=== PATIENT | female | born 1950 | race Caucasian/White ===

== ENCOUNTER 2020-02-16 09:14 | Emergency (ER) | payer MEDICARE, BC ==
[~2020-02-16] VITALS: Ht 149.9 cm; Wt 51.3 kg
[~2020-02-16 09:14] MED LIST: ATENOLOL50 MG PO; DETROL LA4 MG PO; GLIPIZIDE ER5 MG PO; HYDROCHLOROTHIA25 MG; LEVOTHYROXINE75 MCG PO; PROVENTIL HFA6.7 GM INH; SIMVASTATIN40 MG PO
--- NOTE | 2020-02-16 09:28 | Emergency Department Note ---
History of Present Illnes History of Present Illness Chief Complaint: General Medicine Complaints History of Present Illness This is a 69 year old female with PMH of anemia states that she felt weak and hit the back of her head. Denies LOC or n/v .. 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 Arrival Mode: [facility] Onset (how long ago): second(s) Location: r scalpo Radiation: Reports non-radiation Severity: mild Onset quality: sudden Duration (how long): hour(s) Timing of current episode: constant Progression: unchanged Context: Reports trauma/injury Relieving factors: none Exacerbating factors: none Associated symptoms: Denies denies other symptoms, Denies confusion, Denies chest pain, Denies cough, Denies diaphoresis, Denies fever/chills, Denies headaches, Denies loss of appetite, Denies malaise, Denies nausea/vomiting, Denies rash, Denies seizure, Denies shortness of breath, Denies syncope, Denies weakness, Denies other Treatments prior to arrival: none Past Medical/Family History Physician Review I have reviewed the patient's past medical and family history. Any updates have been documented here. Past Medical History Recent Fever: No Clinical Suspicion of Infectio: No New/Unexplained Change in Ment: No Past Medical History: Hypertension Other Medical History: pyloric stenosis Anemia Other Surgery: AVR Social History Smoking Cessation: Never Smoker Alcohol Use: None Any Illegal Drug Use: No Review of Systems Review of Systems Constitutional: Reports weakness EENTM: Reports no symptoms Cardiovascular: Reports no symptoms Respiratory: Reports no symptoms Gastrointestinal: Reports no symptoms Genitourinary: Reports no symptoms Musculoskeletal: Reports no symptoms Integumentary: Reports no symptoms Neurological: Reports no symptoms Psychological: Reports no symptoms Endocrine: Reports no symptoms Hematological/Lymphatic: Reports no symptoms Physical Exam Related Data Allergies: Coded Allergies: Sulfa (Sulfonamide Antibiotics) (Unverified Allergy, Unknown, 11/24/16) Vital signs reviewed: Yes Physical Exam CONSTITUTIONAL Constitutional: Present well-developed, Present well-nourished HENT HENT: Present normocephalic, Present other (2 cm laceration R parietal region); Absent atraumatic HENT L/R: Present left ext ear normal, Present right ext ear normal EYES Eyes: Reports PERRL, Reports conjunctivae normal NECK Neck: Present ROM normal PULMONARY Pulmonary: Present effort normal, Present breath sounds normal CARDIOVASCULAR Cardiovascular: Present regular rhythm, Present heart sounds normal, Present capillary refill normal, Present bradycardia GASTROINTESTINAL Abdominal: Present soft, Present nontender, Present bowel sounds normal GENITOURINARY Genitourinary: Present exam deferred SKIN Skin: Present pale MUSCULOSKELETAL Musculoskeletal: Present ROM normal NEUROLOGICAL Neurological: Present alert, Present oriented x 3, Present no gross motor or sensory deficits PSYCHOLOGICAL Psychological: Present mood/affect normal, Present judgement normal Results Laboratory Lab results reviewed: Yes Imaging Imaging results reviewed: Yes Impressions [place] [address] Patient Name: AXEL CHRISTOPHER MR #: [id number] : 1950 Age/Sex: 69/F Req #: [id number] Adm Physician: Ordered by: BERYL MIJARES DO Report #: [id number] Location: ER Room/Bed: Procedure: [id number] DX/CHEST SINGLE (PORTABLE) Exam Date: 02/16/20 Exam Time: 0920 REPORT STATUS: Signed Chest, 1 view, 02/16/2020. History: Weakness, fall. Comparison: None available. Findings: The cardiomediastinal silhouette and pulmonary vasculature are mildly prominent. There is no focal consolidation. Linear opacities are present lung bases. There is minimal blunting of the left costophrenic sulcus. Mediastinal sternotomy wires are present. There are no acute osseous or soft tissue abnormalities. Impression: Mild cardiomegaly, vascular congestion, and bibasilar atelectasis with minimal left pleural effusion. Signed by: Beryl Mcgrath on 02/16/2020 10:06 AM Dictated By: BERYL MCGRATH MD 1006 Transcribed By: MARIAH on 02/16/20 1006 COPY TO: BERYL MIJARES DO~ [place] [address] Patient Name: AXEL CHRISTOPHER MR #: [id number] : 1950 Age/Sex: 69/F Req #: [id number] Adm Physician: Ordered by: BERYL MIJARES DO Report #: [id number] Location: ER Room/Bed: Procedure: [id number] CT/CT CERVICAL SPINE WO Exam Date: 02/16/20 Exam Time: 0950 REPORT STATUS: Signed CT CERVICAL SPINE WO HISTORY: Fall COMPARISON: Concurrent head CT TECHNIQUE: CT of the cervical spine without contrast. Sagittal and coronal reformations were created. One or more of the following dose reduction techniques were used: Automated exposure control, adjustment of the mA and/or kV according to patient size, and/or utilization of iterative reconstruction technique. FINDINGS: Cervical lordosis is straightened. There is no scoliosis or subluxation. Mild bone demineralization limits evaluation. No definite acute fracture or compression deformity is seen. Small bilateral cervical ribs at C7 are noted. The craniocervical junction is intact. No gross spinal canal masses are seen. The paravertebral and paraspinal soft tissues are unremarkable. Degenerative changes: Moderate to severe multilevel spondylotic changes are present. Multilevel facet arthrosis is present, right greater than left. The right C5-C6 facet joint is fused. There is at least mild canal stenosis from C2-C3 to C4-C5 due to posterior disc osteophyte complexes. Multilevel bilateral foraminal stenoses due to uncovertebral and facet arthrosis are also present. Incidental findings: Mild to moderate bilateral carotid bulb calcified plaque is present. IMPRESSION: 1. No acute osseous abnormalities. 2. Degenerative changes as described above. Signed by: Dr. Cruz Nagy M.D. on 02/16/2020 10:33 AM Dictated By: CRUZ NAGY MD 32 Transcribed By: MARIAH on 02/16/201032 COPY TO: BERYL MIJARES DO~ [place] [address] Patient Name: AXEL CHRISTOPHER MR #: [id number] : 1950 Age/Sex: 69/F Req #: [id number] Adm Physician: Ordered by: BERYL MIJARES DO Report #: [id number] Location: ER Room/Bed: Procedure: [id number] CT/CT BRAIN WO Exam Date: 02/16/20 Exam Time: 0950 REPORT STATUS: Signed CT BRAIN WO HISTORY: Fall COMPARISON: None. Technique: Noncontrast axial scans were obtained from skull base to the vertex. Coronal and sagittal reconstructions obtained from the axial data. One or more of the following dose reduction techniques were used: Automated exposure control, adjustment of the mA and/or kV according to patient size, and/or utilization of iterative reconstruction technique. Beam hardening artifacts obscure some details. DISCUSSION: Scalp/Skull: Right parietal scalp hematoma with overlying yulia. No calvarial fracture. Brain sulci: Mildly prominent. Ventricles: Compensatory dilatation. Extra-axial spaces: Trace subarachnoid hemorrhage is seen along the left inferior frontal gyrus, anterior left sylvian fissure, and left superior temporal sulcus. Otherwise, no masses or fluid collections. Carotid siphon calcifications are present. Parenchyma: Mild bilateral deep white matter hypodensity is likely chronic microvascular ischemic change. Otherwise, no masses, hemorrhage, or large vascular territory acute infarct. Dural sinuses: No abnormal densities. Sellar/Suprasellar region: Intact. Skull base: Intact. Incidental findings: Nonspecific focal calcifications along the bilateral posterior ocular globes. IMPRESSION: 1. Trace acute subarachnoid hemorrhage along the left frontal and left anterior temporal lobes. 2. No other acute intracranial abnormalities. 3. Mild supratentorial chronic microvascular ischemic change. Mild generalized cerebral volume loss. Signed by: Dr. Cruz Nagy M.D. on 02/16/2020 10:29 AM Dictated By: CRUZ NAGY MD 1029 Transcribed By: MARIAH on 02/16/20 1029 COPY TO: BERYL MIJARES DO~ Procedures 12 Lead ECG Interpretation ECG Interpretation : ECG: ECG 1 [employer]: Interpreted by ED physician Date: Feb 16, 2020 Time: 09:28 Rhythm: sinus bradycardia Rate: bradycardia ST segments normal: Yes T wave inversion: V1-V6 Clinical Impression: non-specific ECG Additional Comments Patient with previous EKG of sinus carlos cardia in 2014 Laceration Laceration: Laceration 1 Site: scalp Side: right Size (cm): 2 Description: linear Depth: simple, single layer Pre-repair: wound exposed Skin layer closed with: other ([place]) Number of sutures: 3 Critical Care Time Total Critical Care Time (min): 31 Critcal care necessary due to: trauma Critcal care time spent by me: develop tx plan w patient/surrogate, evaluation patient response to tx, examination of patient, obtaining hx from patient/surrogate, order/perform tx or interventions, order/review laboratory studies, order/review radiographic studies, re-evaluation of patient condition Assessment & Plan Medical Decision Making MDM Diff Dx : head injury, skull fx, scalp laceratoin, intracranial trauma, anemia, ACS, arrythmia Assessment & Plan Final Impression: (1) SAH (subarachnoid hemorrhage) (2) Scalp laceration (3) Anemia (4) Hyperglycemia (5) Sinus bradycardia by electrocardiogram Home Meds Reported Medications Hydrochlorothiazide (HYDROCHLOROTHIAZIDE) 25 Mg Tablet, 25 MG DAILY, #30 TAB 11/19/16 Tolterodine Tartrate (DETROL LA) 4 Mg Cap.er.24h, 4 MG PO DAILY, #30 CAP 11/19/16 Simvastatin (SIMVASTATIN) 40 Mg Tablet, 40 MG PO 2100, #30 TAB 11/06/14 Glipizide (GLIPIZIDE ER) 5 Mg Tab.er.24, 2.5 MG PO DAILY 11/06/14 Levothyroxine Sodium (LEVOTHYROXINE SODIUM) 75 Mcg Tablet, 75 MCG PO DAILY, #30 TAB 11/06/14 Atenolol (ATENOLOL) 50 Mg Tablet, 50 MG PO DAILY 11/06/14 BERYL MIJARES DO Feb 16, 2020 09:28
[2020-02-16] MEDS ORDERED: GLUCAGON FOR INJ 1 MG VIAL IV ONE (09:30)
[2020-02-16] MEDS ORDERED: CALCIUM GLUCONATE 10% INJ 4.65 MEQ in SODIUM CHLORIDE 0.9% 50ML 50 ML IV ONE (09:30)
[2020-02-16] MEDS ORDERED: CALCIUM GLUCONATE 10% INJ 0.465 MEQ/ML VIAL ONE (09:41)
[2020-02-16] MEDS ORDERED: SODIUM CHLORIDE 0.9% 50ML 50 ML ONE (09:45)
[2020-02-16 10:02] LABS: BASOPHILS % 0.1 % (0.0-1.0); HEMATOCRIT 30.7 % (34.2-44.1); HEMOGLOBIN 9.7 g/dL (12.0-16.0); LYMPHOCYTES # (AUTO) 0.7 (1.0-3.2); LYMPHOCYTES % 7.1 % (18.0-39.1); MEAN CORPUSCULAR HEMOGLOBIN 29.8 pg (28-32); MEAN CORPUSCULAR HGB CONC 31.6 g/dL (31-35); MEAN CORPUSCULAR VOLUME 94.2 fL (81-99); MONOCYTES # (AUTO) 0.3 (0.2-0.8); MONOCYTES % 2.6 % (4.4-11.3); NEUTROPHILS # (AUTO) 8.6 (2.1-6.9); NEUTROPHILS % 87.4 % (38.7-80.0); PLATELET COUNT 118 x10e3/uL (140-360); RED BLOOD COUNT 3.26 x10e6/uL (3.6-5.1); RED CELL DISTRIBUTION WIDTH 13.2 % (11.7-14.4)
--- NOTE | 2020-02-16 10:10 | Diagnostic Imaging Report ---
Chest, 1 view, 02/16/2020. History: Weakness, fall. Comparison: None available. Findings: The cardiomediastinal silhouette and pulmonary vasculature are mildly prominent. There is no focal consolidation. Linear opacities are present lung bases. There is minimal blunting of the left costophrenic sulcus. Mediastinal sternotomy wires are present. There are no acute osseous or soft tissue abnormalities. Impression: Mild cardiomegaly, vascular congestion, and bibasilar atelectasis with minimal left pleural effusion. Signed by: Steven Mcgrath on 02/16/2020 10:06 AM
--- NOTE | 2020-02-16 10:32 | Diagnostic Imaging Report ---
CT BRAIN WO HISTORY: Fall COMPARISON: None. Technique: Noncontrast axial scans were obtained from skull base to the vertex. Coronal and sagittal reconstructions obtained from the axial data. One or more of the following dose reduction techniques were used: Automated exposure control, adjustment of the mA and/or kV according to patient size, and/or utilization of iterative reconstruction technique. Beam hardening artifacts obscure some details. DISCUSSION: Scalp/Skull: Right parietal scalp hematoma with overlying yulia. No calvarial fracture. Brain sulci: Mildly prominent. Ventricles: Compensatory dilatation. Extra-axial spaces: Trace subarachnoid hemorrhage is seen along the left inferior frontal gyrus, anterior left sylvian fissure, and left superior temporal sulcus. Otherwise, no masses or fluid collections. Carotid siphon calcifications are present. Parenchyma: Mild bilateral deep white matter hypodensity is likely chronic microvascular ischemic change. Otherwise, no masses, hemorrhage, or large vascular territory acute infarct. Dural sinuses: No abnormal densities. Sellar/Suprasellar region: Intact. Skull base: Intact. Incidental findings: Nonspecific focal calcifications along the bilateral posterior ocular globes. IMPRESSION: 1. Trace acute subarachnoid hemorrhage along the left frontal and left anterior temporal lobes. 2. No other acute intracranial abnormalities. 3. Mild supratentorial chronic microvascular ischemic change. Mild generalized cerebral volume loss. Signed by: Dr. Cruz Nagy M.D. on 02/16/2020 10:29 AM
--- NOTE | 2020-02-16 10:37 | Diagnostic Imaging Report ---
CT CERVICAL SPINE WO HISTORY: Fall COMPARISON: Concurrent head CT TECHNIQUE: CT of the cervical spine without contrast. Sagittal and coronal reformations were created. One or more of the following dose reduction techniques were used: Automated exposure control, adjustment of the mA and/or kV according to patient size, and/or utilization of iterative reconstruction technique. FINDINGS: Cervical lordosis is straightened. There is no scoliosis or subluxation. Mild bone demineralization limits evaluation. No definite acute fracture or compression deformity is seen. Small bilateral cervical ribs at C7 are noted. The craniocervical junction is intact. No gross spinal canal masses are seen. The paravertebral and paraspinal soft tissues are unremarkable. Degenerative changes: Moderate to severe multilevel spondylotic changes are present. Multilevel facet arthrosis is present, right greater than left. The right C5-C6 facet joint is fused. There is at least mild canal stenosis from C2-C3 to C4-C5 due to posterior disc osteophyte complexes. Multilevel bilateral foraminal stenoses due to uncovertebral and facet arthrosis are also present. Incidental findings: Mild to moderate bilateral carotid bulb calcified plaque is present. IMPRESSION: 1. No acute osseous abnormalities. 2. Degenerative changes as described above. Signed by: Dr. Cruz Nagy M.D. on 02/16/2020 10:33 AM
[2020-02-16 10:48] LABS: ALBUMIN 3.3 g/dL (3.5-5.0); ALBUMIN/GLOBULIN RATIO 0.7 (0.8-2.0); ANION GAP 17.3 mmol/L (8-16); CALCIUM 12.8 mg/dL (8.4-10.2); CREATININE, SERUM 1.05 mg/dL (0.57-1.11); POTASSIUM 3.3 mmol/L (3.5-5.1)
== END 2020-02-16 13:12 | disposition other institution (70) ==
LOC: ER 09:34
DX: S06.6X0A Traumatic subarachnoid hemorrhage without loss of consciousness, initial encounter (principal); S01.01XA Laceration without foreign body of scalp, initial encounter; W01.198A Fall on same level from slipping, tripping and stumbling with subsequent striking against other object, initial encounter; Y92.008 Other place in unspecified non-institutional (private) residence as the place of occurrence of the external cause; R73.9 Hyperglycemia, unspecified; R00.1 Bradycardia, unspecified; D64.9 Anemia, unspecified; I10 Essential (primary) hypertension
CPT/HCPCS: 12001; 36415; 70450; 71045; 72125; 80053; 82550; 82553; 82948; 84484; 85025; 93005; 99284; J0610; J1610

== ENCOUNTER 2020-02-21 15:03 | Inpatient (IN) | payer MEDICARE, BC ==
[~2020-02-21] VITALS: Ht 149.9 cm; Wt 40.8 kg
[2020-02-21 15:48] LABS: BASOPHILS % 0.2 % (0.0-1.0); EOSINOPHILS % 0.2 % (0.0-6.0); HEMATOCRIT 26.6 % (34.2-44.1); HEMOGLOBIN 8.4 g/dL (12.0-16.0); LYMPHOCYTES # (AUTO) 0.3 (1.0-3.2); LYMPHOCYTES % 5.2 % (18.0-39.1); MEAN CORPUSCULAR HEMOGLOBIN 30.5 pg (28-32); MEAN CORPUSCULAR HGB CONC 31.6 g/dL (31-35); MEAN CORPUSCULAR VOLUME 96.7 fL (81-99); MONOCYTES # (AUTO) 0.2 (0.2-0.8); MONOCYTES % 2.7 % (4.4-11.3); NEUTROPHILS # (AUTO) 4.8 (2.1-6.9); NEUTROPHILS % 85.6 % (38.7-80.0); PLATELET COUNT 64 x10e3/uL (140-360); RED BLOOD COUNT 2.75 x10e6/uL (3.6-5.1)
[2020-02-21 16:06] LABS: ALANINE AMINOTRANSFERASE 21 IU/L (0-55); ALBUMIN 2.9 g/dL (3.5-5.0); ALBUMIN/GLOBULIN RATIO 0.9 (0.8-2.0); ALKALINE PHOSPHATASE 142 IU/L (40-150); ANION GAP 11.6 mmol/L (8-16); BLOOD UREA NITROGEN 12 mg/dL (7-26); BUN/CREATININE RATIO 14 (6-25); CALCIUM 10.3 mg/dL (8.4-10.2); CARBON DIOXIDE 25 mmol/L (22-29); CHLORIDE 99 mmol/L (98-107); CREATINE KINASE 35 IU/L (29-168); CREATININE, SERUM 0.83 mg/dL (0.57-1.11); EST GLOMERULAR FILTRATION RATE > 60 ML/MIN (60-); GLUCOSE 150 mg/dL (74-118); POTASSIUM 3.6 mmol/L (3.5-5.1); SODIUM 132 mmol/L (136-145)
[2020-02-21] MEDS ORDERED: CEFEPIME 1GM/NS 0.9% 50 ML 50 ML IV STA (16:34)
[2020-02-21 16:50] LABS: LYMPHOCYTES % (MANUAL) 6 % (19-48); METAMYELOCYTES % (MANUAL) 3 % (0-0); MONOCYTES % (MANUAL) 2 % (3.4-9.0); NEUTROPHILS % (MANUAL) 89 % (40-74); POLYCHROMASIA MODE; RBC MORPHOLOGY COMMENT ABNORMAL; TEAR DROP CELLS FEW
[2020-02-21 16:51] LABS: ANISOCYTOSIS SLIGHT; PLATELET ESTIMATE MODERATELY DECREASED; POIKILOCYTOSIS SLIGHT
[2020-02-21] MEDS ORDERED: VANCOMYCIN 1GM/NS 250 ML 250 ML IV ONE (17:15)
[2020-02-21 20:00] VITALS: BP 114/45
[2020-02-21 20:20] VITALS: BP 114/45
[2020-02-21] MEDS ORDERED: FUROSEMIDE INJ 10 MG/ML 4 ML VIAL IV ONE (21:30)
[2020-02-22] VITALS (8 sets, daily range): BP systolic 103–124; BP diastolic 42–75
[2020-02-22] MEDS ORDERED: POTASSIUM CHLO10 ME1 PO (01:15)
[2020-02-22] MEDS ORDERED: LASIX40 MG PO (01:15)
[2020-02-22 05:19] LABS: BASOPHILS % 0.3 % (0.0-1.0); EOSINOPHILS % 0.8 % (0.0-6.0); HEMOGLOBIN 7.3 g/dL (12.0-16.0); LYMPHOCYTES # (AUTO) 0.7 (1.0-3.2); LYMPHOCYTES % 16.3 % (18.0-39.1); MEAN CORPUSCULAR HEMOGLOBIN 30.4 pg (28-32); MONOCYTES # (AUTO) 0.2 (0.2-0.8); MONOCYTES % 4.8 % (4.4-11.3); NEUTROPHILS # (AUTO) 2.8 (2.1-6.9); PLATELET COUNT 58 x10e3/uL (140-360); RED CELL DISTRIBUTION WIDTH 15.2 % (11.7-14.4)
[2020-02-22 05:23] LABS: HEMATOCRIT 22.8 % (34.2-44.1)
[2020-02-22 05:48] LABS: ALANINE AMINOTRANSFERASE 17 IU/L (0-55); ALBUMIN 2.5 g/dL (3.5-5.0); ALBUMIN/GLOBULIN RATIO 0.9 (0.8-2.0); ALKALINE PHOSPHATASE 120 IU/L (40-150); ANION GAP 9.1 mmol/L (8-16); BLOOD UREA NITROGEN 11 mg/dL (7-26); BUN/CREATININE RATIO 15 (6-25); CALCIUM 9.6 mg/dL (8.4-10.2); CARBON DIOXIDE 26 mmol/L (22-29); CHLORIDE 102 mmol/L (98-107); CREATININE, SERUM 0.73 mg/dL (0.57-1.11); EST GLOMERULAR FILTRATION RATE > 60 ML/MIN (60-); GLUCOSE 119 mg/dL (74-118); POTASSIUM 3.1 mmol/L (3.5-5.1); SODIUM 134 mmol/L (136-145)
[2020-02-22 06:29] LABS: ANISOCYTOSIS FEW; BAND NEUTROPHILS % (MANUAL) 5 %; LYMPHOCYTES % (MANUAL) 19 % (19-48); METAMYELOCYTES % (MANUAL) 1 % (0-0); NEUTROPHILS % (MANUAL) 75 % (40-74); RBC MORPHOLOGY COMMENT ABNORMAL
[2020-02-22 06:31] LABS: PLATELET ESTIMATE MODERATELY DECREASED; PLATELET MORPHOLOGY COMMENT FEW LARGE
[2020-02-22] MEDS: POTASSIUM CHLORIDE 20 MEQ TAB CR PO SCH ×3 (13:49→19:36)
[2020-02-22 15:19] LABS: FREE T4 (FREE THYROXINE) 0.98 ng/dL (0.8-1.8); THYROID STIMULATING HORMONE 1.1 uIU/mL (0.350-4.940)
[2020-02-22] MEDS ORDERED: DEXTROSE 50% SYRINGE 50 ML IV PRN (15:30)
[2020-02-22] MEDS: SODIUM CHLORIDE 0.9% 1000ML 1,000 ML IV SCH (15:49)
[2020-02-22] MEDS: INSULIN LISPRO 100 UNIT/1 ML 3ML VIAL SQ SCH ×2 (16:30→21:31)
[2020-02-22] MEDS ORDERED: POTASSIUM CHLORIDE 20 MEQ TAB CR PO SCH (20:00)
[2020-02-22] MEDS: SIMVASTATIN 40 MG TAB PO SCH (21:30)
[2020-02-22] MEDS: MELATONIN 5 MG TABLET PO SCH (21:30)
[2020-02-23] VITALS (7 sets, daily range): BP systolic 119–144; BP diastolic 46–67
[2020-02-23] MEDS: SODIUM CHLORIDE 0.9% 1000ML 1,000 ML IV SCH ×2 (04:06→17:28)
[2020-02-23 05:39] LABS: ANION GAP 9.1 mmol/L (8-16); BLOOD UREA NITROGEN 8 mg/dL (7-26); BUN/CREATININE RATIO 13 (6-25); CALCIUM 8.9 mg/dL (8.4-10.2); CARBON DIOXIDE 23 mmol/L (22-29); CHLORIDE 107 mmol/L (98-107); CREATININE, SERUM 0.63 mg/dL (0.57-1.11); EST GLOMERULAR FILTRATION RATE > 60 ML/MIN (60-); GLUCOSE 104 mg/dL (74-118); POTASSIUM 4.1 mmol/L (3.5-5.1); SODIUM 135 mmol/L (136-145)
[2020-02-23] MEDS: LEVOTHYROXINE SODIUM 75 MCG TAB PO SCH (06:22)
[2020-02-23] MEDS: INSULIN LISPRO 100 UNIT/1 ML 3ML VIAL SQ SCH ×4 (07:30→20:54)
[2020-02-23] MEDS: GLIPIZIDE 2.5 MG TABCR PO SCH (08:33)
[2020-02-23] MEDS: TOLTERODINE TARTRATE 4 MG CAPCR PO SCH (08:34)
[2020-02-23] MEDS: ATENOLOL 50 MG TAB PO SCH (08:34)
[2020-02-23] MEDS: POTASSIUM CHLORIDE 10MEQ EA PO SCH (08:34)
[2020-02-23] MEDS: FUROSEMIDE 40 MG TAB PO SCH (08:34)
[2020-02-23] MEDS: SIMVASTATIN 40 MG TAB PO SCH (20:52)
[2020-02-23] MEDS: MELATONIN 5 MG TABLET PO SCH (20:52)
[2020-02-24 02:03] VITALS: BP 125/54
[2020-02-24] MEDS: LEVOTHYROXINE SODIUM 75 MCG TAB PO SCH (05:14)
[2020-02-24 05:53] VITALS: BP 130/48
[2020-02-24] MEDS: SODIUM CHLORIDE 0.9% 1000ML 1,000 ML IV SCH (06:35)
[2020-02-24 07:03] LABS: BASOPHILS % 0.6 % (0.0-1.0); EOSINOPHILS % 0.9 % (0.0-6.0); HEMATOCRIT 24.1 % (34.2-44.1); HEMOGLOBIN 7.5 g/dL (12.0-16.0); LYMPHOCYTES # (AUTO) 0.7 (1.0-3.2); LYMPHOCYTES % 20.4 % (18.0-39.1); MEAN CORPUSCULAR HEMOGLOBIN 30.4 pg (28-32); MEAN CORPUSCULAR HGB CONC 31.1 g/dL (31-35); MEAN CORPUSCULAR VOLUME 97.6 fL (81-99); MONOCYTES # (AUTO) 0.2 (0.2-0.8); MONOCYTES % 6.2 % (4.4-11.3); NEUTROPHILS # (AUTO) 2.1 (2.1-6.9); NEUTROPHILS % 65.1 % (38.7-80.0); PLATELET COUNT 52 x10e3/uL (140-360); RED BLOOD COUNT 2.47 x10e6/uL (3.6-5.1)
[2020-02-24 07:23] LABS: ANION GAP 8.6 mmol/L (8-16); BLOOD UREA NITROGEN 12 mg/dL (7-26); BUN/CREATININE RATIO 19 (6-25); CALCIUM 8.9 mg/dL (8.4-10.2); CARBON DIOXIDE 21 mmol/L (22-29); CHLORIDE 108 mmol/L (98-107); CREATININE, SERUM 0.63 mg/dL (0.57-1.11); EST GLOMERULAR FILTRATION RATE > 60 ML/MIN (60-); GLUCOSE 94 mg/dL (74-118); POTASSIUM 3.6 mmol/L (3.5-5.1); SODIUM 134 mmol/L (136-145)
[2020-02-24] MEDS: INSULIN LISPRO 100 UNIT/1 ML 3ML VIAL SQ SCH (07:30)
[2020-02-24 08:42] VITALS: BP 142/55
[2020-02-24] MEDS: POTASSIUM CHLORIDE 10MEQ EA PO SCH (08:59)
[2020-02-24] MEDS: GLIPIZIDE 2.5 MG TABCR PO SCH (08:59)
[2020-02-24] MEDS: TOLTERODINE TARTRATE 4 MG CAPCR PO SCH (08:59)
[2020-02-24] MEDS: FUROSEMIDE 40 MG TAB PO SCH (09:00)
[2020-02-24] MEDS: ATENOLOL 50 MG TAB PO SCH (09:00)
[2020-02-24 09:24] VITALS: BP 142/55
[2020-02-24 12:30] VITALS: BP 124/44
[2020-04-10] MEDS ORDERED: ALDACTONE25 MG PO (10:08)
== END 2020-02-24 14:37 | disposition home or self-care (01) | DRG 643 ==
LOC: ER 15:59 → ERHOLD 17:10 → MED/SURG3 18:59 → OBSVTOIN 02-23 11:54
DX: E21.3 Hyperparathyroidism, unspecified (principal); E43 Unspecified severe protein-calorie malnutrition; Z68.1 Body mass index [BMI] 19.9 or less, adult; E86.0 Dehydration; Q96.9 Turner's syndrome, unspecified; I10 Essential (primary) hypertension; Z87.891 Personal history of nicotine dependence; Z88.2 Allergy status to sulfonamides; E20.9 Hypoparathyroidism, unspecified; D64.9 Anemia, unspecified; K21.9 Gastro-esophageal reflux disease without esophagitis; E11.8 Type 2 diabetes mellitus with unspecified complications; Z95.2 Presence of prosthetic heart valve; Z20.828 Contact with and (suspected) exposure to other viral communicable diseases; Z79.84 Long term (current) use of oral hypoglycemic drugs; S06.6X9S Traumatic subarachnoid hemorrhage with loss of consciousness of unspecified duration, sequela
CPT/HCPCS: 36415; 70450; 71045; 71046; 80048; 80053; 82550; 82553; 82948; 83036; 83605; 83880; 83970; 84439; 84443; 84484; 85025; 87040; 93005; 99284; G0378; J0692; J1940; J3370; J7030; U0002

== ENCOUNTER 2020-02-28 09:15 | Observation (INO) | payer MEDICARE, BC ==
[~2020-02-28] VITALS: Ht 149.9 cm; Wt 44.5 kg
[~2020-02-28 09:15] MED LIST changes: +LASIX40 MG PO; +POTASSIUM CHLO10 ME1 PO
[2020-02-28] MEDS ORDERED: CEFAZOLIN SOD 1 GM/NS 50ML 100 ML IV ONE (10:02)
[2020-02-28] MEDS ORDERED: HYDROCODONE/APAP 5MG-325MG TAB PO PRN (11:15)
[2020-02-28] MEDS ORDERED: ONDANSETRON HCL INJ 2MG/ML 2ML 2 MG/ML VIAL IV PRN (11:15)
[2020-02-28] MEDS ORDERED: DEXTROSE 50% SYRINGE 50 ML IV PRN (11:15)
[2020-02-28] MEDS ORDERED: MORPHINE SULFATE INJ 4 MG/ML INJ 1ML IV PRN (11:15)
[2020-02-28] MEDS ORDERED: INSULIN LISPRO 100 UNIT/1 ML 3ML VIAL SQ SCH (11:30)
[2020-02-28] MEDS ORDERED: SEVOFLURANE INHAL SOLN 250 ML PEN BTL ONE (11:57)
[2020-02-28] MEDS ORDERED: NEOSTIGMINE 1 MG/ML 10ML VIAL ONE (11:57)
[2020-02-28] MEDS ORDERED: GLYCOPYRROLATE INJ 0.2 MG/ML VIAL ONE (11:57)
[2020-02-28] MEDS ORDERED: ROCURONIUM BROMIDE 10 MG/ML 5ML VIAL IV ONE (11:57)
[2020-02-28] MEDS ORDERED: EPHEDRINE SULFATE INJ 50 MG/ML VIAL ONE (11:57)
[2020-02-28] MEDS ORDERED: PROPOFOL IV EMULSION 10 MG/ML 20 ML VIAL ONE (11:57)
[2020-02-28] MEDS ORDERED: ONDANSETRON HCL INJ 2MG/ML 2ML 2 MG/ML VIAL ONE (11:57)
[2020-02-28] MEDS ORDERED: DEXAMETHASONE SOD PHOS INJ 4 MG/ML VIAL ONE (11:57)
[2020-02-28] MEDS ORDERED: LIDOCAINE HCL 2% LOCAL INJ 5 ML SDV VIAL INJ ONE (11:57)
[2020-02-28 14:20] VITALS: BP 120/53
[2020-02-28 14:29] VITALS: BP 120/53
[2020-02-28 15:47] VITALS: BP 119/57
[2020-02-28] MEDS: SODIUM CHLORIDE 0.9% 1000ML 1,000 ML IV SCH ×2 (16:47→21:52)
[2020-02-28] MEDS: INSULIN LISPRO 100 UNIT/1 ML 3ML VIAL SQ SCH ×2 (17:08→21:00)
[2020-02-28 19:25] VITALS: BP 114/49
[2020-02-28] MEDS: MELATONIN 5 MG TABLET PO PRN (20:50)
[2020-02-28 21:00] VITALS: BP 114/49
[2020-02-28] MEDS: SIMVASTATIN 40 MG TAB PO SCH (21:51)
[2020-02-28 23:46] VITALS: BP 120/49
[2020-02-29] VITALS (7 sets, daily range): BP systolic 107–120; BP diastolic 50–67
[2020-02-29 05:01] LABS: BASOPHILS % 0.3 % (0.0-1.0); EOSINOPHILS % 0.7 % (0.0-6.0); HEMATOCRIT 23.4 % (34.2-44.1); HEMOGLOBIN 7.3 g/dL (12.0-16.0); LYMPHOCYTES # (AUTO) 0.8 (1.0-3.2); LYMPHOCYTES % 25.4 % (18.0-39.1); MEAN CORPUSCULAR HEMOGLOBIN 30.7 pg (28-32); MEAN CORPUSCULAR HGB CONC 31.2 g/dL (31-35); MEAN CORPUSCULAR VOLUME 98.3 fL (81-99); MONOCYTES # (AUTO) 0.2 (0.2-0.8); NEUTROPHILS % 66.6 % (38.7-80.0); PLATELET COUNT 79 x10e3/uL (140-360); RED BLOOD COUNT 2.38 x10e6/uL (3.6-5.1)
[2020-02-29 05:13] LABS: ANION GAP 11.9 mmol/L (8-16); BLOOD UREA NITROGEN 22 mg/dL (7-26); BUN/CREATININE RATIO 25 (6-25); CALCIUM 8.4 mg/dL (8.4-10.2); CARBON DIOXIDE 20 mmol/L (22-29); CHLORIDE 107 mmol/L (98-107); CREATININE, SERUM 0.88 mg/dL (0.57-1.11); EST GLOMERULAR FILTRATION RATE > 60 ML/MIN (60-); GLUCOSE 104 mg/dL (74-118); POTASSIUM 3.9 mmol/L (3.5-5.1); SODIUM 135 mmol/L (136-145)
[2020-02-29] MEDS: LEVOTHYROXINE SODIUM 75 MCG TAB PO SCH (06:28)
[2020-02-29] MEDS: INSULIN LISPRO 100 UNIT/1 ML 3ML VIAL SQ SCH ×4 (07:30→21:45)
[2020-02-29] MEDS: ATENOLOL 50 MG TAB PO SCH (09:00)
[2020-02-29] MEDS: TOLTERODINE TARTRATE 4 MG CAPCR PO SCH (09:23)
[2020-02-29] MEDS: POTASSIUM CHLORIDE 10MEQ EA PO SCH (09:23)
[2020-02-29] MEDS: GLIPIZIDE 2.5 MG TABCR PO SCH (09:23)
[2020-02-29] MEDS: FUROSEMIDE 40 MG TAB PO SCH (09:24)
[2020-02-29 14:45] LABS: CALCIUM 8.8 mg/dL (8.4-10.2)
[2020-02-29 15:10] LABS: CALCIUM IONIZED 1.2 mmol/L (1.09-1.30)
[2020-02-29] MEDS: SODIUM CHLORIDE 0.9% 1000ML 1,000 ML IV SCH ×2 (18:42→22:08)
[2020-02-29] MEDS: SIMVASTATIN 40 MG TAB PO SCH (21:35)
[2020-02-29] MEDS: MELATONIN 5 MG TABLET PO PRN (21:45)
[2020-03-01] VITALS: BP 154/56
[2020-03-01 04:00] VITALS: BP 144/55
[2020-03-01] MEDS: SODIUM CHLORIDE 0.9% 1000ML 1,000 ML IV SCH (05:05)
[2020-03-01] MEDS: LEVOTHYROXINE SODIUM 75 MCG TAB PO SCH (06:26)
[2020-03-01] MEDS: GLIPIZIDE 2.5 MG TABCR PO SCH (07:30)
[2020-03-01] MEDS: INSULIN LISPRO 100 UNIT/1 ML 3ML VIAL SQ SCH (07:30)
[2020-03-01 07:31] VITALS: BP 138/61
[2020-03-01 07:40] VITALS: BP 138/61
[2020-03-01 07:43] VITALS: BP 138/61
[2020-03-01] MEDS ORDERED: ONDANSETRON HCL 4 MG ORAL DISINTEGRATING TAB PO PRN (08:15)
[2020-03-01] MEDS: TOLTERODINE TARTRATE 4 MG CAPCR PO SCH (09:06)
[2020-03-01] MEDS: FUROSEMIDE 40 MG TAB PO SCH (09:07)
[2020-03-01] MEDS: POTASSIUM CHLORIDE 10MEQ EA PO SCH (09:07)
[2020-03-01] MEDS: ATENOLOL 50 MG TAB PO SCH (09:08)
[2020-03-01 11:03] LABS: ALANINE AMINOTRANSFERASE 13 IU/L (0-55); ALBUMIN 2.9 g/dL (3.5-5.0); ALKALINE PHOSPHATASE 170 IU/L (40-150); BLOOD UREA NITROGEN 14 mg/dL (7-26); BUN/CREATININE RATIO 19 (6-25); CALCIUM 8.1 mg/dL (8.4-10.2); CARBON DIOXIDE 21 mmol/L (22-29); CHLORIDE 109 mmol/L (98-107); CREATININE, SERUM 0.73 mg/dL (0.57-1.11); EST GLOMERULAR FILTRATION RATE > 60 ML/MIN (60-); GLUCOSE 129 mg/dL (74-118); SODIUM 138 mmol/L (136-145)
[2020-03-01 11:24] VITALS: BP 147/55
[2020-03-01 11:47] LABS: BASOPHILS % 0.4 % (0.0-1.0); EOSINOPHILS % 0.4 % (0.0-6.0); HEMATOCRIT 25.5 % (34.2-44.1); HEMOGLOBIN 7.9 g/dL (12.0-16.0); LYMPHOCYTES # (AUTO) 0.6 (1.0-3.2); LYMPHOCYTES % 23.4 % (18.0-39.1); MEAN CORPUSCULAR HEMOGLOBIN 30.7 pg (28-32); MEAN CORPUSCULAR VOLUME 99.2 fL (81-99); MONOCYTES # (AUTO) 0.1 (0.2-0.8); MONOCYTES % 4.8 % (4.4-11.3); NEUTROPHILS # (AUTO) 1.8 (2.1-6.9); PLATELET COUNT 94 x10e3/uL (140-360); RED BLOOD COUNT 2.57 x10e6/uL (3.6-5.1); RED CELL DISTRIBUTION WIDTH 17.2 % (11.7-14.4)
== END 2020-03-01 12:48 | disposition home or self-care (01) ==
LOC: OR 09:15 → PACU V 11:41 → MED/SURG 13:48
PROVIDERS: ADMIT Surgery; ATTEND Surgery
DX: E05.90 Thyrotoxicosis, unspecified without thyrotoxic crisis or storm (principal); Z11.59 Encounter for screening for other viral diseases; I25.10 Atherosclerotic heart disease of native coronary artery without angina pectoris; Z95.1 Presence of aortocoronary bypass graft; Q96.9 Turner's syndrome, unspecified; E11.69 Type 2 diabetes mellitus with other specified complication; E78.00 Pure hypercholesterolemia, unspecified
CPT/HCPCS: 36415 ×2; 60505; 80048; 80053; 82310; 82948; 85025 ×2; 88305; 88331; 88342; G0378 ×3; J0690; J1100; J2001; J2405; J2704; J2710; J7030 ×2; U0002

== ENCOUNTER 2020-03-12 16:38 | Observation (INO) | payer MEDICARE, BC ==
[~2020-03-12] VITALS: Ht 149.9 cm; Wt 41.0 kg
--- OUTSIDE RECORDS SUMMARY | 2020-03-12 17:39 | XMS REPORT | Clinical Summary ---
Author Author [facility] Address Unknown Phone Unavailable Care Team Providers Care Butcher'S Assistant Name Role Phone Blair Lai DO PCP Allergies Comments Active Allergy Reactions Severity Noted Date Sulfa (Sulfonamide 02/16/2020 Antibiotics) Medications End Date Status Medication Sig Dispensed Refills Start Date Active atenoloL (TENORMIN) 50 MG Take 50 mg by 0 tablet mouth daily. Active glipiZIDE (GLUCOTROL XL) Take 2.5 mg 0 2.5 MG 24 hr tablet by mouth daily. Active levothyroxine (SYNTHROID, Take 75 mcg 0 LEVOTHROID) 75 MCG tablet by mouth Every morning on an empty stomach. Active simvastatin (ZOCOR) 40 MG Take 40 mg by 0 tablet mouth nightly. Active tolterodine (DETROL LA) 4 Take 4 mg by 0 MG 24 hr capsule mouth daily. Active furosemide (LASIX) 40 MG Take 40 mg by 0 tablet mouth daily. Active potassium chloride Take 10 mEq 0 (KLOR-CON) 10 MEQ CR by mouth tablet daily. Active Problems Problem Noted Date Essential hypertension 02/17/2020 Type II diabetes mellitus 02/17/2020 Elevated lipoprotein(a) 02/17/2020 Coronary artery disease 02/17/2020 H/O prosthetic aortic valve replacement 02/17/2020 Subarachnoid hemorrhage following injury, no loss of consciousness 02/16/2020 Subarachnoid bleed 02/16/2020 Encounters Care Team Description Date Type Specialty Richa Manjarrez MD Venkatasubba Rao, MD José Orlando Kimberly Ann, MD Kulkarni, Jim Cadet MD Subarachnoid bleed (HCC) (Primary Dx); Subarachnoid hemorrhage following injury, no loss of consciousness, subsequent encounter; Type 2 diabetes mellitus with diabetic polyneuropathy, without long-term current use of insulin (HCC); Elevated lipoprotein(a); Essential hypertension; H/O prosthetic aortic valve replacement; Coronary artery disease involving [place] heart without angina pectoris, unspecified vessel or lesion type; Bradycardia; Hypercalcemia 02/16/2020 [facility] Internal Or dicine - Encounter 02/20/2020 02/16/2020 Travel after 03/12/2019 Social History Date Tobacco Use Types Packs/Day Years Used Never Smoker Smokeless Tobacco: Never Used Sex Assigned at Date Recorded Not on file Date Recorded COVID-19 Exposure Response 02/16/2020 3:01 PM CDT In the last month, have you been in contact with No / Unsure someone who was confirmed or suspected to have Coronavirus / COVID-19? Last Filed Vital Signs Reading Time Taken Comments Vital Sign 148/65 02/20/2020 12:34 PM BAR TENDER Blood Pressure 78 02/20/2020 12:34 PM BAR TENDER Pulse 36.5 C (97.7 F) 02/20/2020 12:34 PM BAR TENDER Temperature 18 02/20/2020 12:34 PM BAR TENDER Respiratory Rate 97% 02/20/2020 12:34 PM BAR TENDER Oxygen Saturation - - Inhaled Oxygen Concentration 44.5 kg (98 lb) 02/20/2020 6:00 AM BAR TENDER Weight 149.9 cm (4' 11") 02/16/2020 2:00 PM CDT Height 19.79 02/16/2020 2:00 PM CDT Body Mass Index Plan of Treatment Health Maintenance Due Date Last Done Comments BREAST CANCER SCREENING 1950 COLON CANCER SCREENING 1950 COLONOSCOPY DIABETIC EYE EXAM 08/11/1959 DIABETIC FOOT EXAM 08/11/1959 URINE MICROALBUMIN 08/11/1959 MEDICARE ANNUAL WELLNESS 07/21/2015 (YEAR 2 or FIRST YEAR if no IPPE) INFLUENZA VACCINE (#1) 2019 HEMOGLOBIN A1C 02/17/2020 PNEUMOCOCCAL 65+ YRS Completed 12/29/2014 Procedures Comments Procedure Name Priority Date/Time Associated Diag nosis PHOSPHORUS Add-On 02/20/2020 10:25 AM BAR TENDER BASIC METABOLIC PANEL (7) Routine 02/20/2020 10:25 AM BAR TENDER (CELLAVISION MANUAL DIFF) Routine 02/20/2020 4:50 AM BAR TENDER CBC W/PLT COUNT & AUTO Routine 02/20/2020 DIFFERENTIAL 4:50 AM BAR TENDER CBC W/PLT COUNT & AUTO Routine 02/20/2020 DIFFERENTIAL 4:50 AM BAR TENDER POCT-GLUCOSE METER Routine 02/19/2020 8:42 PM BAR TENDER POCT-GLUCOSE METER Routine 02/19/2020 4:44 PM BAR TENDER POCT-GLUCOSE METER Routine 02/19/2020 12:51 PM BAR TENDER (CELLAVISION MANUAL DIFF) Routine 02/19/2020 5:42 AM BAR TENDER CBC W/PLT COUNT & AUTO Routine 02/19/2020 DIFFERENTIAL 5:42 AM BAR TENDER BASIC METABOLIC PANEL (7) Routine 02/19/2020 5:42 AM BAR TENDER CBC W/PLT COUNT & AUTO Routine 02/19/2020 DIFFERENTIAL 5:42 AM BAR TENDER POCT-GLUCOSE METER Routine 02/18/2020 8:42 PM CDT NM PARATHYROID SCAN WITH Routine 02/18/2020 SPECT/CT 3:46 PM CDT POCT-GLUCOSE METER Routine 02/18/2020 7:54 AM CDT (CELLAVISION MANUAL DIFF) Routine 02/18/2020 3:53 AM CDT CBC W/PLT COUNT & AUTO Routine 02/18/2020 DIFFERENTIAL 3:53 AM CDT BASIC METABOLIC PANEL (7) Routine 02/18/2020 3:53 AM CDT CBC W/PLT COUNT & AUTO Routine 02/18/2020 DIFFERENTIAL 3:53 AM CDT POCT-GLUCOSE METER Routine 02/17/2020 9:30 PM CDT POCT-GLUCOSE METER Routine 02/17/2020 4:09 PM CDT XR PELVIS 1 OR 2 VIEWS Routine 02/17/2020 12:54 PM CDT 2D ECHO W/ DOPPLER Routine 02/17/2020 (CW/PW/COLOR) 12:05 PM CDT POCT-GLUCOSE METER Routine 02/17/2020 11:06 AM CDT CALCIUM, IONIZED Routine 02/17/2020 8:19 AM CDT TSH/FREE T4 IF INDICATED Routine 02/17/2020 8:19 AM CDT PTH-RELATED PEPTIDE Routine 02/17/2020 8:19 AM CDT PTH, INTACT Routine 02/17/2020 8:19 AM CDT VITAMIN D, 25-HYDROXY Routine 02/17/2020 8:19 AM CDT POCT-GLUCOSE METER Routine 02/17/2020 7:14 AM CDT CBC W/PLT COUNT & AUTO Routine 02/17/2020 DIFFERENTIAL 4:25 AM CDT PHOSPHORUS Routine 02/17/2020 4:25 AM CDT MAGNESIUM Routine 02/17/2020 4:25 AM CDT BASIC METABOLIC PANEL (7) Routine 02/17/2020 4:25 AM CDT CBC W/PLT COUNT & AUTO Routine 02/17/2020 DIFFERENTIAL 4:[address] BRAIN WITHOUT IV Routine 02/17/2020 CONTRAST 4:25 AM CDT POCT-GLUCOSE METER Routine 02/16/2020 10:20 PM CDT POCT-GLUCOSE METER Routine 02/16/2020 5:33 PM CDT CBC W/PLT COUNT & AUTO STAT 02/16/2020 DIFFERENTIAL 4:32 PM CDT COVID19 ([facility]) Routine 02/16/2020 4:32 PM CDT HEPATIC FUNCTION PANEL Routine 02/16/2020 4:32 PM CDT BASIC METABOLIC PANEL (7) STAT 02/16/2020 4:32 PM CDT PHOSPHORUS STAT 02/16/2020 4:32 PM CDT MAGNESIUM STAT 02/16/2020 4:32 PM CDT CBC W/PLT COUNT & AUTO STAT 02/16/2020 DIFFERENTIAL 4:32 PM CDT APTT Routine 02/16/2020 4:32 PM CDT PROTHROMBIN TIME/INR Routine 02/16/2020 4:32 PM CDT SARS-COV2/RT-PCR ([facility] & Routine 02/16/2020 REF LABS) 4:32 PM CDT REPORT OF PROCEDURE - 02/16/2020 ENDOSCOPY SCAN after 03/12/2019 Results * Phosphorus (02/20/2020 10:25 AM BAR TENDER) Only the most recent of 3 results within the time period is included. Phosphorus 2.1 (L) 2.3 - 4.7 mg/dL [facility] Specimen Blood Narrative Performed At Loss Prevention Representative ID - OSMAN Jenkins [facility] Performing Organization Address City/State/Zipcode Ph one Number [address], [place] [address] [facility]ENTER * Basic Metabolic Panel (02/20/2020 10:25 AM BAR TENDER) Only the most recent of 5 results within the time period is included. Sodium 136 136 - 145 meq/L [facility] Potassium 3.9 3.5 - 5.1 meq/L [facility] Chloride 103 98 - 107 meq/L [facility] CO2 24 22 - 29 meq/L [facility] BUN 10 7 - 21 mg/dL [facility] Creatinine 0.77 0.57 - 1.25 mg/dL [facility] Glucose 191 (H) 70 - 105 mg/dL [facility] Calcium 10.2 8.4 - 10.2 mg/dL [facility] EGFR 74Comment: ESTIMATED GFR IS mL/min/1.[address] [facility] NOT ACCURATE CREATININE [facility] CLEARANCE IN PREDICTING [facility] GLOMERULAR FILTRATION RATE. ESTIMATED GFR IS NOT APPLICABLE FOR DIALYSIS PATIENTS. Specimen Blood Narrative Performed At Loss Prevention Representative ID - CAROLINA F [facility] Performing Organization Address City/State/Zipcode Ph one Number [address] [address] MED[facility]ENTER * Manual Differential (02/20/2020 4:50 AM BAR TENDER) Only the most recent of 3 results within the time period is included. % Neutros 73 % [facility] % Lymphs 16 % [facility] % Monos 4 % [facility] % Myelo 3 (H) 0 - 0 % [facility] % Bands 4 0 - 10 % [facility] # Neutros 3.36 1.56 - 6.13 K/ul [facility] # Lymphs 0.74 (L) 1.18 - 3.74 K/ul [facility] # Monos 0.18 (L) 0.24 - 0.36 K/uL [facility] # Myelo 0.14 (H) 0.00 - 0.00 K/uL [facility] # Bands 0.18 0.00 - 0.80 K/uL [facility] Total Counted 100 [facility] Smudge Cells Present [facility] Giant Platelet Present [facility] Anisocytosis 1+ few [facility] Microcytes 1+ few [facility] Schistocytes 1+ few [facility] Tear Drop Cells 1+ few [facility] Platelet Conc Decreased [facility] Specimen Blood Narrative Performed At Loss Prevention Representative ID - Damián Lazcano [facility] User comments: [facility] Slide comments: Performing Organization Address City/State/Zipcode Ph one Number [facility] [address] [place], [place] [address] [facility] * CBC with platelet count + automated diff (02/20/2020 4:50 AM BAR TENDER) Only the most recent of 5 results within the time period is included. WBC 4.6 3.5 - 10.5 K/L [facility] RBC 2.51 (L) 3.93 - 5.22 M/L [facility] Hemoglobin 7.7 (L) 11.2 - 15.7 GM/DL [facility] Hematocrit 24.2 (L) 34.1 - 44.9 % [facility] MCV 96.4 (H) 79.4 - 94.8 fL [facility] MCH 30.7 25.6 - 32.2 pg [facility] MCHC 31.8 (L) 32.2 - 35.5 GM/DL [facility] RDW 13.6 11.7 - 14.4 % [facility] Platelets 72 (L) 150 - 450 K/CU MM [facility] MPV 9.7 9.4 - 12.3 fL [facility] nRBC 0 0 - 0 /100 WBC [facility] Specimen Blood Performing Organization Address City/[facility]/Zipcode Ph one Number [address] [facility] * POC-Glucose meter (02/19/2020 8:42 PM BAR TENDER) Only the most recent of 11 results within the time period is included. POC-Glucose 241 (H) 70 - 110 mg/dL [facility] Meter Comment: [facility] : TESTED AT [address], [address] : Loss Prevention Representative/Body Engineer ID = [id number] for MONE LYN Specimen Blood Performing Organization Address [facility] Ph one Number [address] [facility] * NM parathyroid scan with SPECT/CT (02/18/2020 3:46 PM CDT) Specimen Narrative Performed At FINAL REPORT [employer] PROCEDURE: PARATHYROID SCAN, w/SP ECT/CT CPT CODE: 77997 INDICATION: Hypercalcemia PROTOCOL: 14.2 mCi of Tc-99m se stamibi was injected intravenously. Planar imaging of the head/neck and chest was performed shortly after tracer injectio n and was repeated approximately 3 hours later. Limited SP ECT/CT images were obtained for tracer localization. FINDINGS: Early images show tracer uptake in the salivary glands, the thyroid gland, and the hear t. Delayed images show substantial washout of tracer from the thyroid gland. Focal activity is noted near the inferior pole of the left lobe. IMPRESSION:The exam is consistent with a parathyroid adenoma inferior to the left lobe of the thyroid gland p ole. Signed: Ramón Ortega MD Report Verified Date/Time: 02/18/2020 16:23:17 Procedure Note Interface, External Ris In - 02/18/2020 4:25 PM CDT FINAL REPORT PROCEDURE: PARATHYROID SCAN, w/SPECT/CT CPT CODE: [id number] INDICATION: Hypercalcemia PROTOCOL: 14.2 mCi of Tc-99m sestamibi was injected intravenously. Planar imaging of the head/neck and chest was performed shortly after tracer injection and was repeated approximately 3 hours later. Limited SPECT/CT images were obtained for tracer localization. FINDINGS: Early images show tracer uptake in the salivary glands, the thyroid gland, and the heart. Delayed images show substantial washout of tracer from the thyroid gland. Focal activity is noted near the inferior pole of the left lobe. IMPRESSION:The exam is consistent with a parathyroid adenoma inferior to the left lobe of the thyroid gland pole. Signed: Ramón Ortega MD Report Verified Date/Time: 02/18/2020 16:23:17 Performing Organization Address [facility] one Number GE RIS * XR pelvis 1 or 2 views (02/17/2020 12:54 PM CDT) Specimen Narrative Performed At FINAL REPORT [facility] RAD, PELVIS, 1 OR 2 VIEWS INDICATION: fall, tailbone pain COMPARISON: None TECHNIQUE: Single AP view of the coccyx FINDINGS/IMPRESSION: No definite fracture on single AP view of the coccyx. Lateral view is suggested for more definitive evaluatio n Signed: Mathew Antunez MD Report Verified Date/Time: 02/17/2020 13:24:03 [facility] Procedure Note Interface, External Ris In - 02/17/2020 1:26 PM CDT FINAL REPORT RAD, PELVIS, 1 OR 2 VIEWS INDICATION: fall, tailbone pain COMPARISON: None TECHNIQUE: Single AP view of the coccyx FINDINGS/IMPRESSION: No definite fracture on single AP view of the coccyx. Lateral view is suggested for more definitive evaluation Signed: Mathew Antunez MD Report Verified Date/Time: 02/17/2020 13:24:03 Reading Location: [facility] Radiology Reading Room Performing Organization Address [facility] one Number GE RIS * 2D Echo W/Doppler(CW/PW/Color) (02/17/2020 12:05 PM CDT) Ejection [facility] ECHO Fraction [facility] Specimen Narrative Performed At Transthoracic Echocardiography Report (TTE) [facility] ECH O HEARTLAB Demographics [facility] Patient Name TESSY CHRISTOPHER Date of Study 02/17/2020 SAMANTHA Gender Female Visit Number [id number] Race Room Number 7405 Number Date of 1950 Referr grace Rizvi Physician SHANEKA Age 69 year(s) 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 Needs to be Pre Physician Read James Toscano MD Procedure Type of Study TTE procedure:2DECHO W DOPP LER(CW/PW/COLOR) (Routine) Indications:Unexplained Pre-syncope/Syn cope. Clinical History CAD, DM2, HTN, HLD 2014 ACB/ AVR- BIOPROSTHETIC HGB 8.2 HCT 26.2 % Height: 59 inches Weight: 42.18 kg (93 lbs) BSA: 1.33 m^2 BMI: 18.78 kg/m^2 HR: 60 bpm BP: 120/56 mmHg Summary 1. The left ventricle is chamber size ( by vol index) is normal with no evidence of LV hypertrophy. LVEF by Broderick's method of disk assess ment is normal (60%) . Grade 2 diastolic dysfunction (moderate ly increased LA pressure). 2. The right ventricular chamber size a nd systolic function are within normal limits. 3. Bi-atrial enlargement. 4. s/p bioprosthetic AVR well seated wi th elevated gradients (peak velocity 3.6 m/s, mean gradient 31 mmHG , DOI 0.37). No evidence of regurgitation. 5. Estimated peak systolic PA pressure is 40-45 mmHg (mild pulmonary hypertension). Previous Study No prior exam available for comparison. Signature Findings Left Ventricle The left walter tricle is chamber size (by vol index) is n ormal. No e vidence of LV hypertrophy. All of the LV segments contract normally . LVEF by Broderick's method of disk assessment is norm al (60%) . Grad e 2 diastolic dysfunction (moderately increased LA p ressure). Left Atrium LA size is ynspkzam-pl-sffoutc enlarged . Right Ventricle The right ve ntricular chamber size and systolic func tion are within normal limits. Right Atrium RA size is mildly dilated. Aortic Valve s/p biopros thetic AVR well seated with elevated grad ients (peak velocity 3.6 m/s, mean gradient 31 mmHG , DOI 0.37). No evidence of regurgitation. Mitral Valve Mild MV marley flet thickening. Tricuspid Valve Normal TV st ructure and function by available views and Doppler. A tr gigi of tricuspid regurgitation. Doris mated peak systolic PA pressure is 40-45 mmHg (mil d pulmonary hypertension) . Pulmonic Valve Normal PV st ructure and function by limited views and Doppler. A tr gigi of pulmonary regurgitation. Aorta Aortic root size (SInus of Valsalva diameter) is norm al . Prox imal ascending aorta size is normal . Pericardium No signifi cant pericardial effusion is visualized. IVC/SVC/PA/PV/Pleural The estimated R A pressure by IVC dynamics 5-10mmHg . Chambers/Structures Left Atrium LA Volume: 63.57 ml LA Area: 23.2 cm^2 LA Vol. Index: 48 ml/m^2 Left Ventricle LVIDd: 4.2 cm LVEDV:78.56 ml LVIDs: 2.77 cm LVESV:28.88 ml LV Septum Diastolic: 1.04 cm LV PW Diastolic: 1.04 cm LV Length: 7.24 cm LV FS: 34.1 % LVOT Diameter: 1.86 cm LVEF: 63.2 % Right Atrium RA Area: 19.74 cm^ 2 Right Ventricle RV Diast Dim.: 3.57 cm TAPSE: 1.89 cm Aorta Ao Root S of Neyda.: 3.44 cm Ascending Aorta: 3.64 cm Doppler/Quantitative Measurements Mitral Valve MV Peak E-Wave: 1.19 m/s MV Peak A-Wave: 0.79 m/s E/A Ratio: 1.5 Peak Gradient: 5.65 mmHg Deceleration Time: 193.5 msec MV Arvind. Peak: Tissue Doppler E' Septal Velocity: 0.04 m/s E/E': 14.41 E' Lateral Velocity: 0.08 m/s Aortic Valve Peak Velocity: 3.58 m/s Mean Velocity: 2.64 m/s Peak Gradient: 51.4 mmHg Mean Gradient: 31.34 mmHg AV Area (continuity): 1 cm^2 AV VTI: 95.48 cm AV DVI: 0.37 LVOT Peak Velocity: 1.32 m/s Peak Gradient: 8.4 mmHg Mean Velocity: 0.95 m/s Mean Gradient: 4.95 mmHg LVOT Diameter: 1.86 cm LVOT VTI: 35.04 cm LVOT Area: 2.72 cm^2 LVOT SV:95.16 ml LVOT CO: 5.71 l/min LVOT CI: 4.29 l/min/m^2 Tricuspid Valve TR Velocity: 2.98 m/s TR Gradient: 35.54 mmHg Procedure Note Interface, External Ris In - 02/17/2020 1:35 PM CDT Transthoracic Echocardiography Report (TTE) Demographics Patient Name TESSY CHRISTOPHER Date of Study 02/17/2020 SAMANTHA Gender Female Visit Number [id number] Race Room Number 7405 Number Date of 1950 Referring KHURRAM Rizvi Physician SHANEKA Age 69 year(s) 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 Clinical History CAD, DM2, HTN, HLD 2014 ACB/ AVR- BIOPROSTHETIC HGB 8.2 HCT 26.2 % Height: 59 inches Weight: 42.18 kg (93 lbs) BSA: 1.33 m^2 BMI: 18.78 kg/m^2 HR: 60 bpm BP: 120/56 mmHg Summary 1. The left ventricle is chamber size (by vol index) is normal with no evidence of LV hypertrophy. LVEF by Broderick's method of disk assessment is normal (60%) . Grade 2 diastolic dysfunction (moderately increased LA pressure). 2. The right ventricular chamber size and systolic function are within normal limits. 3. Bi-atrial enlargement. 4. s/p bioprosthetic AVR well seated with elevated gradients (peak velocity 3.6 m/s, mean gradient 31 mmHG, DOI 0.37). No evidence of regurgitation. 5. Estimated peak systolic PA pressure is 40-45 mmHg (mild pulmonary hypertension). Previous Study No prior exam available for comparison. Signature Findings Left Ventricle The left ventricle is chamber size (by vol index) is normal. No evidence of LV hypertrophy. All of the LV segments contract normally . LVEF by Broderick's method of disk assessment is normal (60%) . Grade 2 diastolic dysfunction (moderately increased LA pressure). Left Atrium LA size is gsticajy-hw-aoayhdh enlarged . Right Ventricle The right ventricular chamber size and systolic function are within normal limits. Right Atrium RA size is mildly dilated. Aortic Valve s/p bioprosthetic AVR well seated with elevated gradients (peak velocity 3.6 m/s, mean gradient 31 mmHG, DOI 0.37). No evidence of regurgitation. Mitral Valve Mild MV leaflet thickening. Tricuspid Valve Normal TV structure and function by available views and Doppler. A trace of tricuspid regurgitation. Estimated peak systolic PA pressure is 40-45 mmHg (mild pulmonary hypertension) . Pulmonic Valve Normal PV structure and function by limited views and Doppler. A trace of pulmonary regurgitation. Aorta Aortic root size (SInus of Valsalva diameter) is normal . Proximal ascending aorta size is normal . Pericardium No significant pericardial effusion is visualized. IVC/SVC/PA/PV/Pleural The estimated RA pressure by IVC dynamics 5-10mmHg . Chambers/Structures Left Atrium LA Volume: 63.57 ml LA Area: 23.2 cm^2 LA Vol. Index: 48 ml/m^2 Left Ventricle LVIDd: 4.2 cm LVEDV:78.56 ml LVIDs: 2.77 cm LVESV:28.88 ml LV Septum Diastolic: 1.04 cm LV PW Diastolic: 1.04 cm LV Length: 7.24 cm LV FS: 34.1 % LVOT Diameter: 1.86 cm LVEF: 63.2 % Right Atrium RA Area: 19.74 cm^2 Right Ventricle RV Diast Dim.: 3.57 cm TAPSE: 1.89 cm Aorta Ao Root S of Neyda.: 3.44 cm Ascending Aorta: 3.64 cm Doppler/Quantitative Measurements Mitral Valve MV Peak E-Wave: 1.19 m/s MV Peak A-Wave: 0.79 m/s E/A Ratio: 1.5 Peak Gradient: 5.65 mmHg Deceleration Time: 193.5 msec MV Arvind. Peak: Tissue Doppler E' Septal Velocity: 0.04 m/s E/E': 14.41 E' Lateral Velocity: 0.08 m/s Aortic Valve Peak Velocity: 3.58 m/s Mean Velocity: 2.64 m/s Peak Gradient: 51.4 mmHg Mean Gradient: 31.34 mmHg AV Area (continuity): 1 cm^2 AV VTI: 95.48 cm AV DVI: 0.37 LVOT Peak Velocity: 1.32 m/s Peak Gradient: 8.4 mmHg Mean Velocity: 0.95 m/s Mean Gradient: 4.95 mmHg LVOT Diameter: 1.86 cm LVOT VTI: 35.04 cm LVOT Area: 2.72 cm^2 LVOT SV:95.16 ml LVOT CO: 5.71 l/min LVOT CI: 4.29 l/min/m^2 Tricuspid Valve TR Velocity: 2.98 m/s TR Gradient: 35.54 mmHg Performing Organization Address City/State/Zipcode Ph one Number [facility] * TSH/Free T4 If Indicated (02/17/2020 8:19 AM CDT) TSH 0.418 0.350 - 4.940 uIU/mL [facility] Specimen Blood Narrative Performed At Loss Prevention Representative ID - RADHA [facility] Performing Organization Address [facility] Ph one Number [address] 0 [phone] [place] [address] * Calcium, Ionized (02/17/2020 8:19 AM CDT) Pathologist [facility] Calcium, Ion 1.45 (H) 1.12 - 1.27 mmol/L [facility] pH, Blood 7.48 [facility] Specimen Blood Performing Organization Address [facility] [place] Ph one Number [address] 0 [phone] [place] [address] * PTH-related peptide (02/17/2020 8:19 AM CDT) [facility] PTH-Related 8 (L) 14 - 27 pg/mL [facility] Protein Comment: DIAGNOSTIC This is a C-terminal [employer] assay. PTH-RP is useful in the differential diagnosis of hypercalcemia and levels may be elevated in patients with tumor-associated hypercalcemia. Elevated results may also be observed in patients with renal disease. This test was developed and its analytical performance characteristics have been determined by [facility]. It has not been cleared or approved by FDA. This assay has been validated pursuant to the CLIA regulations and is used for clinical purposes. Specimen Blood Narrative Performed At Performing Lab [facility] [employer] [facility] te [address] [place] [address] Toro Soto MD, PhD, JAMIL Performing Organization Address [facility] [place] [place] [facility] [place], [place] [facility] [address] [facility] [address] * Vitamin D, 25-Hydroxy (02/17/2020 8:19 AM CDT) Pathologist [facility] Vitamin D 41.6 6.6 - 49.9 ng/mL [facility] 25-Hydroxy [facility] Specimen Blood Narrative Performed At Effective 01/28/2017: Reference Range Change [facility] New: 6.6-49.9 ng/mL Previous: 13.0-47.8 ng/mL [facility] Recommended Vitamin D Target Range: 30. 0-40.0 ng/mL Loss Prevention Representative ID - KIRK Barrios Performing Organization Address [facility] [place] Number [address] [facility] * PTH, intact (02/17/2020 8:19 AM CDT) PTH 204.3 (H) 8.5 - 72.5 pg/mL [facility] Specimen Blood Narrative Performed At Loss Prevention Representative ID - RADHA [facility] Performing Organization Address [facility] one Number [address] [facility] * CT brain without IV contrast (02/17/2020 4:25 AM CDT) Specimen Narrative Performed At FINAL REPORT [employer] EXAM: CT head without contrast. CLINICAL HISTORY: Unlisted Reason for E xam; interval subarachnoid hemorrhage COMPARISON: None. TECHNIQUE: CT images of the head were o btained without intravenous contrast. This exam was performed acc ording to our departmental dose optimization program which includes aut omated exposure control, adjustment of the mA and/or kV accordin g to patient's size and/or use of iterative reconstructive technique. FINDINGS: There is small volume subarachnoid hemo rrhage in the left temporal and left frontal lobes. There is a small right parafalcine subd ural hematoma measuring 4 mm in maximum thickness. There is no mass effect, herniation, hy drocephalus or large demarcated acute territorial infarct. The basal cisterns are patent. The visualized orbits are normal. The visualized paranasal sinuses and tympanomastoid cavities are clear. There is a right parietal scalp hematom a with overlying surgical skin yulia. There is no calvarial fracture. IMPRESSION: Small volume subarachnoid hemorrhage in the left temporal and left frontal lobe. Small right parafalcine subdural hemato ma. No mass effect or hydrocephalus. Right parietal scalp hematoma. No rachell rial fracture. Signed: Mona Lee MD Report Verified Date/Time: 02/17/2020 05:08:35 Procedure Note Interface, External Ris In - 02/17/2020 5:11 AM CDT FINAL REPORT EXAM: CT head without contrast. CLINICAL HISTORY: Unlisted Reason for Exam; interval subarachnoid hemorrhage COMPARISON: None. TECHNIQUE: CT images of the head were obtained without intravenous contrast. This exam was performed according to our departmental dose optimization program which includes automated exposure control, adjustment of the mA and/or kV according to patient's size and/or use of iterative reconstructive technique. FINDINGS: There is small volume subarachnoid hemorrhage in the left temporal and left frontal lobes. There is a small right parafalcine subdural hematoma measuring 4 mm in maximum thickness. There is no mass effect, herniation, hydrocephalus or large demarcated acute territorial infarct. The basal cisterns are patent. The visualized orbits are normal. The visualized paranasal sinuses and tympanomastoid cavities are clear. There is a right parietal scalp hematoma with overlying surgical skin yulia. There is no calvarial fracture. IMPRESSION: Small volume subarachnoid hemorrhage in the left temporal and left frontal lobe. Small right parafalcine subdural hematoma. No mass effect or hydrocephalus. Right parietal scalp hematoma. No calvarial fracture. Signed: Mona Lee MD Report Verified Date/Time: 02/17/2020 05:08:35 Performing Organization Address City/[facility] [place] Ph one Number [facility] * Magnesium (02/17/2020 4:25 AM CDT) Only the most recent of 2 results within the time period is included. Magnesium 2.1 1.6 - 2.6 mg/dL [facility] Specimen Blood Narrative Performed At Loss Prevention Representative ID - RADHA [facility] Performing Organization Address City/[facility]/Zipcode Ph one Number [place] [id number] [facility] * COVID19 ([facility]) (02/16/2020 4:32 PM CDT) COVID19 ([facility] Negative Negative [facility]) Comment: [facility] SARS-CoV-2 Assay is a REFERENCE real-time reverse LABORATORY biodiesel plant operations engineer polymerase chain reaction (misdraw hand-PCR) test intended for the qualitative detection of nucleic acid from the SARS-CoV-2 in nasal swabs, nasopharyngeal (LANDING WORKER), oropharyngeal (OP) swabs, or bronchoalveolar lavage fluid (BAL) from patients suspected of COVID-19 by their health care provider. This test was developed by [employer] and its performance characteristics have been validated by the [facility] pursuant to CLIA regulations. This test has EUA authorization from the Food and Drug Administration. This test was performed at: [facility] Dr. Kalyn Marie [address] [place] [address] CLIA # [id number] Specimen Other - Nasopharyngeal wall structure (body structure) Narrative Performed At For Emergency room ONLY patients who are discharged b efore results obtained: [facility] Nurse is authorized to call Negative/Undetected resul ts to patient when HEALTH REFERENCE available. LABORATORY Isolation precautions not needed. Performing Organization Address City/State/Zipcode Ph one Number [place] [address] [place] REFERENCE [facility] [place] * SARS-CoV2/RT-PCR (Asymptomatic ONLY) (02/16/2020 4:32 PM CDT) SARS-COV2/RT-PC See external report for linked Not Detected, [facility] R test Negative, See [facility] external report for MEDICAL CENTER linked test SARS-COV-2 [facility] PER[facility] LAB [facility] Specimen Other - Nasopharyngeal wall structure (body structure) Performing Organization Address City/[facility] Ph one Number [facility] [address] [place] [address] [address] [facility] * aPTT (02/16/2020 4:32 PM CDT) PTT 36.7 (H) 22.5 - 36.0 seconds [facility] Specimen Blood Performing Organization Address [facility] one Number [address] [facility] * Prothrombin time/INR (02/16/2020 4:32 PM CDT) Protime 16.1 (H) 11.9 - 14.2 seconds [facility] INR 1.33 <=5.90 [facility] Specimen Blood Narrative Performed At Effective 09/15/2018: PT Reference Range Change [facility] New: 11.9-14.2 Previous: 11.7-14.7 [facility] MEDICAL [facility] TER RECOMMENDED COUMADIN/WARFARIN INR THERA PY RANGES STANDARD DOSE: 2.0-3.0 Includes: PROP HYLAXIS for venous thrombosis, systemic embolization; TREATMENT for venous thro mbosis and/or pulmonary embolus. HIGH RISK: Target INR is 2.5-3.5 for pa tients wiht mechanical heart valves. Performing Organization Address [facility] one Number [address] [facility] * Hepatic function panel (02/16/2020 4:32 PM CDT) Protein, Total 6.0 6.0 - 8.3 gm/dL [facility] Albumin 3.0 (L) 3.5 - 5.0 g/dL [facility] Total Bilirubin 0.8 0.2 - 1.2 mg/dL [facility] Bilirubin, 0.4 0.1 - 0.5 mg/dL [facility] Alkaline 111 40 - 150 U/L [facility] AST 15 5 - 34 U/L [facility] ALT 20 6 - 55 U/L [facility] Specimen Blood Narrative Performed At Loss Prevention Representative ID - BS [facility] Performing Organization Address [facility]/State/Zipcode Ph one Number [facility] [address] [place], [place] [address] [facility] * EKG-SCANNED (02/16/2020) Narrative Performed At This result has an attachment that is n ot available. Ordered by an unspecified provider. after 03/12/2019 Insurance Type Payer Benefit Subscriber ID Effective Phone Address Plan / Dates Group Medicare MEDICARE MEDICARE A [id number] [id number] B resent PPO BLUE CROSS/BLUE [employer] BCBS FED [id number] 2001-P [address] [place] [phone] Advance Directives For more information, please contact: [phone] Date Inactivated Comments Code Status Date Activated 02/20/2020 4:50 PM Full Code 02/17/2020 11:59 AM This code status was determined by: Patient 02/17/2020 11:59 AM Full Code 02/16/2020 3:05 PM This code status was determined by: Patient
--- OUTSIDE RECORDS SUMMARY | 2020-03-12 17:40 | XMS REPORT | Continuity of Care Document ---
Author Author Tanvir Tristin AXEL Peters [facility] [employer] Information [employer]ysion Address Unknown Phone Unavailable Care Team Providers Care T Rail Turner Name Role Phone [facility] Information Exchange Unavailable Un available Problems Problem Status Onset Date Classification Date Reported Comments Source D50.9=IRON DEFICIENCY ANEMIA, UNSPECIFIE Active 07/04/2019 [place] R07.89 - OTHER CHEST PAIN Acti ve 01/30/2015 OANH MINOREY Active 01/30/2015 [facility] F/U Active 1 [facility] PLEURAL EFFUSION Active 01/22/2015 [facility] FOLLOW UP Active 01/09/2015 [facility] HOSPITAL FOLLOW UP Active 01/01/2015 [facility] AORTIC STENOSIS Active 12/18/2014 [facility] TO BE DONE BY DR AN Active 11/28/2014 [facility] CAVAGE VS AVR Active 11/16/2014 [facility] Malignant neoplastic disease (disorder) Resolved Problem 07/09/2019 [facility], [facility] Diabetes mellitus (disorder) R esolved Problem [facility] Heart murmur (finding) Resolved Problem 07/09/2019 [facility], [facility] Hypertensive disorder, systemic arterial (disorder) Resolved Problem 07/09/2019 [facility], [facility] Hypercholesterolemia (disorder) Resolved Problem [facility] Malignant melanoma (disorder) Resolved Problem [facility], [facility] Disease of thyroid gland (disorder) Resolved Problem [facility], [facility] ROUTINE MEDICAL EXAM Active [facility] AORTIC ATHEROSCLEROSIS Active [facility] ADMINISTRTVE ENCOUNT NOS Active [facility] MALIGNANT PLEURAL EFFUSION Act inder [facility] MEDICAL SERVICES NOT AVAILABLE IN HOME Active [facility] IRON DEFICIENCY ANEMIA, UNSPECIFIED Active [facility] Medications Medication Details Route Status Patient Instructions Ordering Provider Order Date Source Omnipaque 300 injectable solution Notes: (Same as:Omnipaque 300). WASTE: F/P - Black; E - Municipal Trash Bin Active 07/07/2019 [facility] Zolpidem tartrate 5 MG Oral Tablet [Ambien] 2.5 mg = 0.5 tab, PO, Bedtime, 0 Refill(s) Active 01/09/2015 [facility] nter tramadol hydrochloride 50 MG Oral Tablet Special Instructions: prn pain Active 01/09/2015 [facility] Acetaminophen 325 MG Oral Tablet [Tylenol] Special Instructions: prn Active 01/09/2015 [facility] simvastatin 40 mg oral tablet 40 mg = 1 tab, PO, Bedtime, # 30 tab, 5 Refill(s) Active 01/09/2015 [facility] nter bumetanide 1 mg oral tablet 1 mg = 1 tab, PO, BID, # 30 tab, 0 Refill(s) Active 12/29/2014 [facility] Pneumovax 23 Notes: (Same as: Pneumovax 23) Refrigerate Inactive 12/29/2014 [facility] bumetanide 1 mg oral tablet 1 mg = 1 tab, PO, Daily, # 30 tab, 0 Refill(s) Inactive 12/29/2014 [facility] atorvastatin 40 mg oral tablet 40 mg = 1 tab, PO, Bedtime, 0 Refill(s) Active 12/29/2014 [facility] Aspirin 81 MG Chewable Tablet 81 mg = 1 tab, PO, Daily, 0 Refill(s) Active 12/29/2014 [facility] phenazopyridine 100 mg oral tablet 200 mg = 2 tab, PO, TID-After Meals, 0 Refill(s) Inactive 12/29/2014 [facility] nter Potassium Chloride 20 MEQ Extended Release Tablet 40 mEq = 2 tab, PO, Daily, 0 Refill(s) Active 12/29/2014 [facility] n[facility] insulin isophane (NPH) 100 units/mL catrina n recombinant subcutaneous suspension 10 unit, SUB-Q, QPM, 0 Refill(s) Active 12/29/2014 [facility] bumetanide 0.25 mg/mL injectable solution 1 mg = 4 mL, IVP, BID, 0 Refill(s) Inactive 12/29/2014 [facility] Docusate Sodium 100 MG Oral Capsule [Colace] 100 mg = 1 cap, PO, BID, 0 Refill(s) Active 12/29/2014 [facility] cefepime 1 gm, IVPB, [id number], 0 Refill(s) Active 12/29/2014 [facility] Neutra-Phos oral powder Notes: (Same as: Neutra-Phos) Each 1.25 gm pkt has 250mg phosphorous. Mix w/2.5oz water and stir. Inactive 12/29/2014 [facility] Potassium Chloride 20 MEQ Extended Release Tablet Notes: (Same as: K-Dur 20) "Do Not Crush" With food and full glass of water Inactive 12/29/2014 [facility] Pyridium Notes: Give with meal s. (Same as: Pyridium) No Longer Active 12/28/2014 [facility] Potassium Chloride 20 MEQ Extended Release Tablet Notes: (Same as: K-Dur 20) "Do Not Crush" With food and full glass of water Inactive 12/28/2014 [facility] Magnesium Oxide Notes: (Same a s: Mag-Ox 400) Magnesium oxide [id number] elemental magnesium Dose=____mg magnesium oxide (___mg elemental magnesium) Inactive 12/28/2014 [facility] Bumex Notes: (Same As: Bumex) No Longer Active 12/27/2014 [facility] Vancomycin Notes: TIME CRITICA L MEDICATION Concentration = 50 mg/ml. Keep in refrigerator. For oral use only. Vancomycin 1gm vial are used and reconstituted with 20ml of sterile water for a concentration of 50m g/ml. Draw up in alonso po syringes. DO NOT USE IV SYRINGES. No Longer Active 12/27/2014 [facility] Magnesium Oxide Notes: (Same a s: Mag-Ox 400) Magnesium oxide [id number] elemental magnesium Dose=____mg magnesium oxide (___mg elemental magnesium) Inactive 12/27/2014 [facility] Potassium Chloride 20 MEQ Extended Release Tablet Notes: (Same as: K-Dur 20) "Do Not Crush" With food and full glass of water Inactive 12/27/2014 [facility] cefepime Notes: (Same As: Gunnar san) MEDICATION WASTE Product Size: 1000 mg Product Wasted: ___ mg No Longer Active 12/26/2014 [facility] Vancomycin 2001 mg: infuse ov er 2.5 hours MEDICATION WASTE Product Size: 1000 mg Product Wasted: ___ mg Inactive 12/26/2014 [facility] Humulin N 60 units) Stable for 28 days at room temperature Expires in days from Date No Longer Active 12/26/2014 [facility] potassium chloride Notes: ([facility] as: K-Dur 20) "Do Not Crush" With food and full glass of water Inactive 12/26/2014 [facility] nter Humulin N 60 units) Stable for 28 days at room temperature Expires in days from Date No Longer Active 12/25/2014 [facility] potassium phosphate + Sodium Chloride 0.9% IV 250 mL Notes: (Same as: K Phosphate.) 1 mMol phoshate has 1.47 mEq potassium Infuse over 4 hours Inactive 12/25/2014 [facility] Miconazole Nitrate 0.02 MG/MG Topical Ointment Notes: (Same as: Monistat 7) No Longe r Active 12/25/2014 [facility] n[facility] K-Dur 20 Notes: (Same as: K-Du r 20) "Do Not Crush" With food and full glass of water No Longer Active 12/25/2014 [facility] nter potassium chloride Notes: ([facility] as: K-Dur 20) "Do Not Crush" With food and full glass of water Inactive 12/25/2014 [facility] n[facility] Insulin, Aspart, Human Notes: Roll in palms of hands gently; Do not shake vigorously. (Same as: NovoLOG) "single patient use only" Stable for 28 days at room temperature. Expires in days from Date No Longer Active 12/25/2014 [facility] Pyridium Notes: Give with meal s. (Same as: Pyridium) No Longer Active 12/24/2014 [facility] Bumex Notes: (Same As: Bumex) No Longer Active 12/24/2014 [facility] Atenolol Notes: (Same As:Tenor min) No Longer Active 12/24/2014 [facility] potassium phosphate + Sodium Chloride 0.9% IV 250 mL Notes: (Same as: K Phosphate.) 1 mMol phoshate has 1.47 mEq potassium Infuse over 4 hours Inactive 12/24/2014 [facility] Bumex Notes: (Same As: Bumex) No Longer Active 12/23/2014 [facility] Acetaminophen 325 MG / Hydrocodone Azul trate 5 MG Oral Tablet [[place] 5/325] Notes: (Same as: [place] 325/5) Do not ex ceed 4gm/day of acetaminophen. No Longer Activ e 12/23/2014 [facility] potassium phosphate + Sodium Chloride 0.9% IV 250 mL Notes: (Same as: K Phosphate.) 1 mMol phoshate has 1.47 mEq potassium Infuse over 4 hours Inactive 12/23/2014 [facility] Bumex Notes: (Same As: Bumex) No Longer Active 12/22/2014 [facility] Lantus Notes: Same as Lantus S olostar PEN Do not hold insulin without contacting prescriber "single patient use only" Stable for 28 days at room temperature. Expires in days from Date No Longer Active 12/22/2014 [facility] Tariq Notes: (Same as: Tariq ) MEDICATION WASTE Product Size: 4 mg Product Wasted: ___ mg Inactive 12/22/2014 [facility] Bisacodyl Notes: (Same As: Dul colax, Bisco-Lax) No Longer Active 12/21/2014 [facility] Insulin, Aspart, Human Notes: Roll in palms of hands gently; Do not shake vigorously. (Same as: NovoLOG) "single patient use only" Stable for 28 days at room temperature. Expires in days from Date No Longer Active 12/21/2014 [facility] Glucagon 1 mg, Route: IM, Drug form: PDR/INJ, PRN, Dosing Weight 51.364, kg, PRN Blood Glucose Results, Start date: 12/21/14 15:41:00, Duration: 30 day, Stop date: 01/20/15 15:40:00 No Longer Active 12/21/2014 [facility] Dextrose 50% Syringe 12.5 gm, 25 mL, Route: IVP, Drug Form: INJ, Dosing Weight 51.364, kg, PRN, PRN Blood Glucose Results, Start date: 12/21/14 15:41:00, Duration: 30 day, Stop date: 01/20/15 15:40:00 No Longer Active 12/21/2014 [facility] Insulin Glargine Notes: Same a marlo Lannicci Solostar PEN Do not hold insulin without contacting prescriber "single patient use only" Stable for 28 days at room temperature. Expires in days from Date Inactive 12/21/2014 [facility] Lantus Notes: Same as Brianna S olostar PEN Do not hold insulin without contacting prescriber "single patient use only" Stable for 28 days at room temperature. Expires in days from Date No Longer Active 12/21/2014 [facility] vancomycin + Sodium Chloride 0.9% IV 100 mL 2001 mg: infuse over 2.5 hours MEDICATION WASTE Product Size: 1000 mg Product Wasted: _250__ mg No Longer Active 12/21/2014 [facility] nter pneumococcal capsular polysaccharide typ e 1 vaccine / pneumococcal capsular polysaccharide type 10A vaccine / pneumococcal capsular polysaccharide type 11A vaccine / pneumococcal capsular polysaccharide type 12F vaccine / pneumococcal capsular polysacchar Notes: (Same as: Pneumovax 23) Refrigerate No Longer Active 12/21/2014 [facility] Furosemide Notes: (Same as: Molly cohen) Inactive 12/21/2014 [facility] Furosemide Notes: (Same as: Molly cohen) Inactive 12/21/2014 [facility] normal saline 0.9% IV 500 mL 5 00 mL, Rate: 100 ml/hr, Infuse over: 5 hr, Route: IV, Dosing Weight 51.364 kg, Total Volume: 500, Start date: 12/20/14 18:35:00, Duration: 1 doses or times, Stop date: 12/20/14 23:34:00 Inactive 12/20/2014 [facility] Sodium Chloride 0.154 MEQ/ML Injectable Solution 500 mL, 200 ml/hr, Infuse Over: 2.5 hr, Route: IV, 500, Drug form: INJ, ONCE, Priority: STAT, Dosing Weight 51.364 kg, Start date: 12/20/14 15:15:00, Duration: 1 doses or times, Stop date: 12/20/14 15:15:00 Inactive 12/20/2014 [facility] Vancomycin 1 gm, Route: IVPB, Drug form: INJ, [id number], Dosing Weight 51.364, kg, Priority: STAT, Start date: 12/20/14 14:56:00, Duration: 30 day, Stop date: 01/19/15 2:56:00 Inactive 12/20/2014 [facility] n[facility] cefepime Notes: (Same As: Gunnar san) MEDICATION WASTE Product Size: 1000 mg Product Wasted: ___ mg No Longer Active 12/20/2014 [facility] pantoprazole Notes: For IV pus h reconstitute with 10 ml 0.9% sodium chloride and push over 2 minutes. (Same as: Protonix) No Longer Active 12/20/2014 [facility] Aspirin Notes: Take with food. Inactive 12/20/2014 [facility] Aspirin 300 MG Rectal Suppository Notes: Refrigerate. No Longer Active 12/20/2014 [facility] Aspirin 81 MG Chewable Tablet Notes: Take with food. No Longer Active 12/20/2014 [facility] Acetaminophen 10 MG/ML Injectable Solution Notes: Infuse over 15 minutes Do not exceed 4gm/day of acetaminophen MEDICATION WASTE Product Size: 1000 mg Product Wasted: ___ mg Inactive 12/20/2014 [facility] Bumex Notes: (Same As: Bumex) Inactive 12/20/2014 [facility] Albumin Human, GROUP HOME 250 MG/ML Injectable Solution Notes: Lot #: Mfg: (Same as: Plasbumin-25) "blood product derivative" MEDICATION WASTE Product Size: 25 gm Product Wasted: ___ gm Inactive 12/20/2014 [facility] Sodium Chloride 0.154 MEQ/ML Injectable Solution 250 mL, 250 ml/hr, Infuse Over: 1 hr, Route: IV, 250, Drug form: INJ, ONCE, Priority: STAT, Dosing Weight 51.364 kg, Start date: 12/20/14 1:28:00, Duration: 1 doses or times, Stop date: 12/20/14 1:28:00 Inactive 12/20/2014 [facility] nt sodium phosphate + Sodium Chloride 0.9% IV 250 mL Special Instructions: FOR ICU USE ONLY No Longer Active 12/20/2014 [facility] nt potassium chloride Notes: (Saeed e as: K-Dur 20) "Do Not Crush" With food and full glass of water No Longer Active 12/20/2014 [facility] nt potassium phosphate + Sodium Chloride 0.9% IV 250 mL Notes: (Same as: K Phosphate.) 1 mMol phoshate has 1.47 mEq potassium Infuse over 4 hours No Longer Active 12/20/2014 [facility] Calcium Carbonate 500 MG Chewable Tablet Notes: (Same As: Tums) Calcium Carbonate 500 mg = 200 mg elemental calcium Dose = mg calcium carbonate ( mg elemental calcium) No Longer Active 12/20/2014 [facility] Calcium Gluconate Special Inst ructions: FOR ICU USE ONLY No Longer Active 12/20/2014 [facility] Magnesium Oxide Notes: (Same a s: Mag-Ox 400) Magnesium oxide [id number] elemental magnesium Dose=____mg magnesium oxide (___mg elemental magnesium) No Longer Active 12/20/2014 [facility] Neutra-Phos Notes: (Same as: N eutra-Phos) Each 1.25 gm pkt has 250mg phosphorous. Mix w/2.5oz water and stir. No Longer Active 12/20/2014 [facility] Magnesium Sulfate Special Inst ructions: FOR ICU USE ONLY No Longer Active 12/20/2014 [facility] potassium phosphate + Sodium Chloride 0.9% IV 250 mL Notes: (Same as: K Phosphate.) 1 mMol phoshate has 1.47 mEq potassium Infuse over 4 hours Inactive 12/20/2014 [facility] Ondansetron Notes: (Same as: Leo espinal) MEDICATION WASTE Product Size: 4 mg Product Wasted: ___ mg No Longer Active 12/20/2014 [facility] Simvastatin 40 mg, Route: PO, Drug form: TAB, Bedtime, Dosing Weight 51.364, kg, Start date: 12/19/14 21:00:00, Duration: 30 day, Stop date: 01/17/15 21:00:00 Inactive 12/20/2014 [facility] atorvastatin Notes: (Same as: Lipitor) No Longer Active 12/20/2014 [facility] ceFAZolin (SCIP) Notes: (Same As: Ancef, Kefzol) MEDICATION WASTE Product Size: 1000 mg Product Wasted: _0__ mg No Longer Active 12/20/2014 [facility] Vancomycin 6.67 MG/ML Injectable Solution 2001 mg: infuse over 2.5 hours MEDICATION WASTE Product Size: 1000 mg Product Wasted: _250_ mg No Longer Active 12/20/2014 [facility] nter Calcium Chloride 1 gm, 10 mL, Route: IVPB, PRN, Dosing Weight 51.364, kg, PRN Abnormal Lab Result, Via central line, Start date: 12/19/14 20:08:00, Duration: 30 day, Stop date: 01/18/15 20:07:00 Inactive 12/20/2014 [facility] sodium phosphate + Sodium Chloride 0.9% IV 250 mL 30 mmol, 10 mL, Route: IVPB, PRN, Dosing Weight 51.364, kg, PRN Abnormal Lab Result, Via central line, Start date: 12/19/14 20:08:00, Duration: 30 day, Stop date: 01/18/15 20:07:00 Inactive 12/20/2014 [facility] Magnesium Sulfate 2 gm, 50 mL, Route: IVPB, Drug form: INJ, PRN, Dosing Weight 51.364, kg, PRN Abnormal Lab Result, Via central line, Start date: 12/19/14 20:08:00, Duration: 30 day, Stop date: 01/18/15 20:07:00 Inactive 12/20/2014 [facility] potassium chloride Notes: (Saeed e as: KCL) Infuse no faster than 10 mEq/hr if given peripherally. Inactive 12/20/2014 [facility] Calcium Chloride 0.0014 MEQ/ML / Potassi um Chloride 0.004 MEQ/ML / Sodium Chloride 0.103 MEQ/ML / Sodium Lactate 0.028 MEQ/ML Injectable Solution 250 mL, 250 ml/hr, Infuse Over: 1 hr, Ro janeth: IV, 250, Drug form: SOLN, ONCE, Priority: STAT, Dosing Weight 51.364 kg, Start date: 12/19/14 19:42:00, Duration: 1 doses or times, Stop date: 12/19/14 19:42:00 Inactive 12/20/2014 [facility] Dexmedetomidine 0.004 MG/ML Injectable S olution [Precedex] Notes: (Same as: Precedex) Inactive 12/20/2014 [facility] n[facility] EPINEPHrine 4 mg + Sodium Chloride 0.9% (titrate) 246 mL 246 mL, Rate: Titrate, Dosing Weight 51. 364, kg, Route: IV, Total Volume: 250, Start Date: 12/19/14 19:04:00, Duration: 30 day, Stop date: 01/18/15 19:03:00, Replace Every: 24 hr No Longer Active 12/20/2014 [facility] Milrinone Notes: (Same as:Prim acor) Final conc = 0.2 mg/ml. Premix solution. No Longer Active 12/20/2014 [facility] Zofran Notes: (Same as: Zofran) Inactive 12/19/2014 [facility] Docusate Sodium 100 MG Oral Capsule [Colace] Notes: (Same as: Colace) (Do Not Crush) No Longer Active 12/19/2014 [facility] Fentanyl Notes: Concentration is 20 micrograms/ml No Longer Active 12/19/2014 [facility] Naloxone Notes: Same as Narcan No Longer Active 12/19/2014 [facility] Dextrose 50% Syringe 25 gm, 50 mL, Route: IVP, Drug Form: INJ, Dosing Weight 51.364, kg, PRN, PRN Blood Glucose Results, Start date: 12/19/14 15:23:00, Duration: 30 day, Stop date: 01/18/15 15:22:00 No Longer Active 12/19/2014 [facility] Insulin regular 100 unit + Sodium Chlori de 0.9% (titrate) 99 mL Notes: (Same as: Humulin R and NovoLIN R ) (Do not shake) No Longer Active 12/19/2014 [facility] Hydralazine Notes: (Same as: A presoline) Push over 5 minutes Inactive 12/19/2014 [facility] Metoprolol Notes: (Same as: Lo pressor) Push over 2 minutes No Longer Active 12/19/2014 [facility] Labetalol 10 mg, 2 mL, Route: IVP, Drug form: INJ, Q4H, Dosing Weight 51.364, kg, PRN Hypertension, Start date: 12/19/14 15:23:00, Duration: 30 day, Stop date: 01/18/15 15:22:00 No Longer Active 12/19/2014 [facility] Acetaminophen Notes: Max aceta minophen = 4000 mg/day (4 gm/day). (Same as: Tylenol) N o Longer Active 12/19/2014 [facility] Fentanyl Notes: (Same as: Subl imaze) Preservative free. No Longer Active 12/19/2014 [facility] Aspirin 325 MG Oral Tablet Not es: Take with food. No Longer Active 12/19/2014 [facility] Ancef 1 gm, Route: IV, ONCE, D osing Weight 51.364, kg, Start date: 12/19/14 13:23:00, Stop date: 12/19/14 13:23:00 Inactive 12/19/2014 [facility] Hydrochlorothiazide 12.5 MG Oral Capsule 12.5 mg = 1 cap, PO, Daily, 0 Refill(s) No Longer Active 12/19/2014 [facility] Saline Flush 0.9% Notes: (Same as: BD Posiflush) No Longer Active 12/19/2014 [facility] Vancomycin 2001 mg: infuse ov er 2.5 hours MEDICATION WASTE Product Size: 1000 mg Product Wasted: ___ mg No Longer Active 12/18/2014 [facility] Cefazolin Notes: Same as: Ancef No Longer Active 12/18/2014 [facility] Saline Flush 0.9% Notes: (Same as: BD Posiflush) No Longer Active 12/18/2014 [facility] Sodium Chloride 0.9% (titrate) 250 mL 250 mL, Rate: rn call center for use with blood product administration, Dosing Weight 51.003, kg, Route: IV, Total Volume: 250, Start Date: 12/18/14 16:40:00, Duration: 30 day, Stop date: 01/17/15 16:39:00, Replace Every: 24 hr No Longer Active 12/18/2014 [facility] Metoprolol Notes: (Same as: Lo pressor) Push over 2 minutes No Longer Active 12/18/2014 [facility] tolterodine 4 mg oral capsule, extended release 4 mg = 1 cap, PO, Daily, 0 Refill(s) Active 11/28/2014 [facility] n[facility] levothyroxine 75 mcg (0.075 mg) oral tablet 75 microgram = 1 tab, PO, Daily, 0 Refill(s) Active 11/28/2014 [facility] Atenolol 50 MG Oral Tablet 50 mg = 1 tab, PO, Daily, 0 Refill(s) Active 11/28/2014 [facility] simvastatin 40 mg oral tablet 40 mg = 1 tab, PO, Bedtime, 0 Refill(s) Active 11/28/2014 [facility] 24 HR Glipizide 2.5 MG Extended Release Tablet 2.5 mg = 1 tab, PO, Daily, 0 Refill(s) Active 11/28/2014 [facility] nter Allergies, Adverse Reactions, Alerts Substance Category Reaction Severity Reaction type Status Date Reported Comments Source sulfa drugs Assertion Drug allergy Active [facility] Immunizations Immunization Date Given Site Status Last Updated Comments Source pneumococcal 23-valent vaccine 12/29/2014 Left Deltoid completed Allan [facility], OANH Crow,[facility] Results Order Name Results Value Reference Range Date Interpretation Comments Source CHEM PANEL POC Creatinine 0.7 0.5 - 1.4 07/07/2019 [facility] CHEM PANEL eGFR 89 07/07/2019 Result Comment: The eGFR is calculated using the CKD-EPI formula. In most young, healthy individuals the eGFR will be >90 mL/min/1.73m2. The eGFR declines with age. An eGFR of 60-89 may be normal in some populations, particularly the elderly, for whom the CKD-EPI formula has not been extensively validated. Use of the eGFR is not recommended in the following populations:

Individuals with unstable creatinine concentrations, including patients and those with serious co-morbid conditions.

Patients with extremes in muscle mass or diet.

The data above are obtained from the National Kidney Disease Education Program (NKDEP) which additionally recommends that when the eGFR is used in patients with extremes of body mass index for purposes of drug dosing, the eGFR should be multiplied by the estimated BMI. [facility] BODY FLUIDS WBC BF 1300 01/23/2015 [facility] [place] [address] 01/23/2015 [facility] BODY FLUIDS Clarity BF Armen ed *ABN* (01/23/15 3:33 PM) Clear 01/23/2015 [facility] BODY FLUIDS CellCnt BF Type Pleu ral (01/23/15 3:33 PM) 01/23/2015 [facility] BODY FLUIDS Color BF See Note 2 (01/23/15 3:33 PM) Colorless 01/23/2015 Result Comment: color is orange. [facility] BODY FLUIDS Macrophage BF 7 01/23/2015 [facility] BODY FLUIDS Lymph BF 90 01/23/2015 [facility] BODY FLUIDS Segs BF 3 01/23/2015 [facility] BODY FLUIDS Prot BF Type Pleu ral *NA* (01/23/15 3:23 PM) 01/23/2015 [facility] BODY FLUIDS Protein BF 4.2 01/23/2015 [facility] BODY FLUIDS LDH BF Type Pleu ral *NA* (01/23/15 3:23 PM) 01/23/2015 [facility] BODY FLUIDS LDH BF 146 01/23/2015 [facility] BODY FLUIDS Alb BF Type Pleu ral *NA* (01/23/15 3:23 PM) 01/23/2015 [facility] BODY FLUIDS Albumin BF 2.5 01/23/2015 [facility] BODY FLUIDS pH BF 8.00 01/23/2015 [facility] BODY FLUIDS pH BF Type Pleu ral (01/23/15 3:23 PM) 01/23/2015 [facility] CHEM PANEL eGFR 63 01/23/2015 Result Comment: The eGFR is calculated using the CKD-EPI formula. In most young, healthy individuals the eGFR will be >90 mL/min/1.73m2. The eGFR declines with age. An eGFR of 60-89 may be normal in some populations, particularly the elderly, for whom the CKD-EPI formula has not been extensively validated. Use of the eGFR is not recommended in the following populations:

Individuals with unstable creatinine concentrations, including patients and those with serious co-morbid conditions.

Patients with extremes in muscle mass or diet.

The data above are obtained from the National Kidney Disease Education Program (NKDEP) which additionally recommends that when the eGFR is used in patients with extremes of body mass index for purposes of drug dosing, the eGFR should be multiplied by the estimated BMI. [facility] CHEM PANEL Globulin 3.4 2.0 - 4.0 01/23/2015 [facility] CHEM PANEL A/G Ratio 0.9 0.7 - 1.6 01/23/2015 [facility] CHEM PANEL B/C Ratio 21 6 - 25 01/23/2015 [facility] CHEM PANEL AGAP 14.4 10.0 - 20.0 01/23/2015 [facility] CHEM PANEL Bili Total 1.1 0.2 - 1.3 01/23/2015 [facility] CHEM PANEL Alk Phos 181 39 - 136 01/23/2015 [facility] CHEM PANEL BUN 21 7 - 22 01/23/2015 [facility] CHEM PANEL Glucose Lvl 102 70 - 99 01/23/2015 [facility] CHEM PANEL Chloride Lvl 98 95 - 109 01/23/2015 [facility] CHEM PANEL ALT 23 0 - 65 01/23/2015 [facility] CHEM PANEL Albumin Lvl 3.2 3.5 - 5.0 01/23/2015 [facility] CHEM PANEL Creatinine Lvl 1.0 0.5 - 1.4 01/23/2015 [facility] CHEM PANEL Potassium Lvl 3.4 3.5 - 5.1 01/23/2015 [facility] CHEM PANEL Sodium Lvl 137 135 - 145 01/23/2015 [facility] CHEM PANEL Calcium Lvl 9.3 8.5 - 10.5 01/23/2015 [facility] CHEM PANEL CO2 28 24 - 32 01/23/2015 [facility] CHEM PANEL AST 19 0 - 37 01/23/2015 [facility] CHEM PANEL Total Protein 6.6 6.4 - 8.4 01/23/2015 [facility] CHEM PANEL LDH 259 98 - 192 01/23/2015 [facility] CHEM PANEL Phosphorus 2.4 2.5 - 4.5 12/29/2014 [facility] CHEM PANEL Magnesium Lvl 2.1 1.8 - 2.4 12/29/2014 [facility] CHEM PANEL eGFR 78 12/29/2014 Result Comment: The eGFR is calculated using the CKD-EPI formula. In most young, healthy individuals the eGFR will be >90 mL/min/1.73m2. The eGFR declines with age. An eGFR of 60-89 may be normal in some populations, particularly the elderly, for whom the CKD-EPI formula has not been extensively validated. Use of the eGFR is not recommended in the following populations:

Individuals with unstable creatinine concentrations, including patients and those with serious co-morbid conditions.

Patients with extremes in muscle mass or diet.

The data above are obtained from the National Kidney Disease Education Program (NKDEP) which additionally recommends that when the eGFR is used in patients with extremes of body mass index for purposes of drug dosing, the eGFR should be multiplied by the estimated BMI. [facility] CHEM PANEL Glucose Lvl 153 70 - 99 12/29/2014 [facility] CHEM PANEL BUN 13 7 - 22 12/29/2014 [facility] CHEM PANEL Calcium Lvl 8.7 8.5 - 10.5 12/29/2014 [facility] CHEM PANEL Creatinine Lvl 0.8 0.5 - 1.4 12/29/2014 [facility] CHEM PANEL Sodium Lvl 141 135 - 145 12/29/2014 [facility] CHEM PANEL Potassium Lvl 3.7 3.5 - 5.1 12/29/2014 [facility] CHEM PANEL Chloride Lvl 103 95 - 109 12/29/2014 [facility] CHEM PANEL CO2 27 24 - 32 12/29/2014 [facility] CHEM PANEL AGAP 14.7 10.0 - 20.0 12/29/2014 [facility] HEMATOLOGY PTT 32.7 22.9 - 35.8 12/29/2014 [facility] HEMATOLOGY PT 14.7 12.0 - 14.7 12/29/2014 [facility] HEMATOLOGY INR 1.12 0.85 - 1.17 12/29/2014 [facility] HEMATOLOGY RDW 13.9 11.5 - 14.5 12/29/2014 [facility] HEMATOLOGY Platelet 126 133 - 450 12/29/2014 [facility] HEMATOLOGY MPV 9.5 7.4 - 10.4 12/29/2014 [facility] HEMATOLOGY WBC 13.4 3.7 - 10.4 12/29/2014 [facility] HEMATOLOGY Hgb 10.7 12.0 - 16.0 12/29/2014 [facility] HEMATOLOGY MCH 29.7 27.0 - 31.0 12/29/2014 [facility] HEMATOLOGY MCHC 32.7 32.0 - 36.0 12/29/2014 [facility] HEMATOLOGY Hct 32.7 36.0 - 48.0 12/29/2014 [facility] HEMATOLOGY MCV 90.8 80.0 - 98.0 12/29/2014 [facility] HEMATOLOGY RBC 3.60 4.20 - 5.40 12/29/2014 [facility] HEMATOLOGY Eosinophils # 0.1 0.0 - 0.5 12/29/2014 [facility] HEMATOLOGY Monocytes # 1.0 0.0 - 0.8 12/29/2014 [facility] HEMATOLOGY Monocytes 7.3 2.0 - 12.0 12/29/2014 [facility] HEMATOLOGY Eosinophils 0.9 0.0 - 4.0 12/29/2014 [facility] HEMATOLOGY Segs 83.8 45.0 - 75.0 12/29/2014 [facility] HEMATOLOGY Lymphocytes 7.7 20.0 - 40.0 12/29/2014 [facility] HEMATOLOGY Basophils 0.3 0.0 - 1.0 12/29/2014 [facility] HEMATOLOGY Lymphocytes # 1.0 1.0 - 5.5 12/29/2014 [facility] HEMATOLOGY Segs-Bands # 11.2 1.5 - 8.1 12/29/2014 [facility] CHEM PANEL Phosphorus 1.7 2.5 - 4.5 12/28/2014 [facility] CHEM PANEL Magnesium Lvl 1.9 1.8 - 2.4 12/28/2014 [facility] ELECTROLYTES AGAP 11.6 10.0 - 20.0 12/28/2014 [facility] ELECTROLYTES eGFR 67 12/28/2014 Result Comment: The eGFR is calculated using the CKD-EPI formula. In most young, healthy individuals the eGFR will be >90 mL/min/1.73m2. The eGFR declines with age. An eGFR of 60-89 may be normal in some populations, particularly the elderly, for whom the CKD-EPI formula has not been extensively validated. Use of the eGFR is not recommended in the following populations:

Individuals with unstable creatinine concentrations, including patients and those with serious co-morbid conditions.

Patients with extremes in muscle mass or diet.

The data above are obtained from the National Kidney Disease Education Program (NKDEP) which additionally recommends that when the eGFR is used in patients with extremes of body mass index for purposes of drug dosing, the eGFR should be multiplied by the estimated BMI. [facility] ELECTROLYTES Sodium Lvl 141 135 - 145 12/28/2014 [facility] ELECTROLYTES Chloride Lvl 105 95 - 109 12/28/2014 [facility] ELECTROLYTES Potassium Lvl 3.6 3.5 - 5.1 12/28/2014 [facility] ELECTROLYTES CO2 28 24 - 32 12/28/2014 [facility] ELECTROLYTES Calcium Lvl 9.0 8.5 - 10.5 12/28/2014 [facility] ELECTROLYTES BUN 16 7 - 22 12/28/2014 [facility] ELECTROLYTES Creatinine Lvl 0.9 0.5 - 1.4 12/28/2014 [facility] ELECTROLYTES Glucose Lvl 155 70 - 99 12/28/2014 [facility] HEMATOLOGY Lymphocytes 8.2 20.0 - 40.0 12/28/2014 [facility] HEMATOLOGY Monocytes 6.9 2.0 - 12.0 12/28/2014 [facility] HEMATOLOGY Segs 84.0 45.0 - 75.0 12/28/2014 [facility] HEMATOLOGY Eosinophils 0.7 0.0 - 4.0 12/28/2014 [facility] HEMATOLOGY Monocytes # 1.1 0.0 - 0.8 12/28/2014 [facility] HEMATOLOGY Eosinophils # 0.1 0.0 - 0.5 12/28/2014 [facility] HEMATOLOGY Segs-Bands # 13.0 1.5 - 8.1 12/28/2014 [facility] HEMATOLOGY Lymphocytes # 1.3 1.0 - 5.5 12/28/2014 [facility] HEMATOLOGY Basophils 0.2 0.0 - 1.0 12/28/2014 [facility] HEMATOLOGY MCHC 32.1 32.0 - 36.0 12/28/2014 [facility] HEMATOLOGY Hct 32.2 36.0 - 48.0 12/28/2014 [facility] HEMATOLOGY MCV 91.3 80.0 - 98.0 12/28/2014 [facility] HEMATOLOGY MCH 29.3 27.0 - 31.0 12/28/2014 [facility] HEMATOLOGY Hgb 10.3 12.0 - 16.0 12/28/2014 [facility] HEMATOLOGY RDW 13.9 11.5 - 14.5 12/28/2014 [facility] HEMATOLOGY MPV 9.5 7.4 - 10.4 12/28/2014 [facility] HEMATOLOGY Platelet 120 133 - 450 12/28/2014 [facility] HEMATOLOGY RBC 3.52 4.20 - 5.40 12/28/2014 [facility] HEMATOLOGY WBC 15.5 3.7 - 10.4 12/28/2014 [facility] HEMATOLOGY PTT 33.8 22.9 - 35.8 12/28/2014 [facility] HEMATOLOGY PT 14.1 12.0 - 14.7 12/28/2014 [facility] HEMATOLOGY INR 1.06 0.85 - 1.17 12/28/2014 [facility] MOLECULAR DIAGNOSTIC C difficile DNA Negative (12/27/14 12:13 PM) Negative 12/27/2014 [facility] CHEM PANEL Magnesium Lvl 1.9 1.8 - 2.4 12/27/2014 [facility] CHEM PANEL eGFR 59 12/27/2014 Result Comment: The eGFR is calculated using the CKD-EPI formula. In most young, healthy individuals the eGFR will be >90 mL/min/1.73m2. The eGFR declines with age. An eGFR of 60-89 may be normal in some populations, particularly the elderly, for whom the CKD-EPI formula has not been extensively validated. Use of the eGFR is not recommended in the following populations:

Individuals with unstable creatinine concentrations, including patients and those with serious co-morbid conditions.

Patients with extremes in muscle mass or diet.

The data above are obtained from the National Kidney Disease Education Program (NKDEP) which additionally recommends that when the eGFR is used in patients with extremes of body mass index for purposes of drug dosing, the eGFR should be multiplied by the estimated BMI. [facility] CHEM PANEL Chloride Lvl 102 95 - 109 12/27/2014 [facility] CHEM PANEL Potassium Lvl 3.6 3.5 - 5.1 12/27/2014 [facility] CHEM PANEL Calcium Lvl 8.7 8.5 - 10.5 12/27/2014 [facility] CHEM PANEL CO2 29 24 - 32 12/27/2014 [facility] CHEM PANEL Glucose Lvl 155 70 - 99 12/27/2014 [facility] CHEM PANEL Sodium Lvl 139 135 - 145 12/27/2014 [facility] CHEM PANEL BUN 20 7 - 22 12/27/2014 [facility] CHEM PANEL Creatinine Lvl 1.0 0.5 - 1.4 12/27/2014 [facility] CHEM PANEL AGAP 11.6 10.0 - 20.0 12/27/2014 [facility] HEMATOLOGY MPV 10.0 7.4 - 10.4 12/27/2014 [facility] HEMATOLOGY Platelet 98 133 - 450 12/27/2014 [facility] HEMATOLOGY MCV 90.6 80.0 - 98.0 12/27/2014 [facility] HEMATOLOGY MCH 29.3 27.0 - 31.0 12/27/2014 [facility] HEMATOLOGY MCHC 32.4 32.0 - 36.0 12/27/2014 [facility] HEMATOLOGY RDW 13.8 11.5 - 14.5 12/27/2014 [facility] HEMATOLOGY Hct 29.2 36.0 - 48.0 12/27/2014 [facility] HEMATOLOGY WBC 18.2 3.7 - 10.4 12/27/2014 [facility] HEMATOLOGY RBC 3.22 4.20 - 5.40 12/27/2014 [facility] HEMATOLOGY Hgb 9.4 12.0 - 16.0 12/27/2014 [facility] HEMATOLOGY Segs-Bands # 14.4 1.5 - 8.1 12/27/2014 [facility] HEMATOLOGY Segs 77.0 45.0 - 75.0 12/27/2014 [facility] HEMATOLOGY Lymphocytes # 1.8 1.0 - 5.5 12/27/2014 [facility] HEMATOLOGY Monocytes # 1.3 0.0 - 0.8 12/27/2014 [facility] HEMATOLOGY Promyelocytes 1.0 <=0.0 % 12/27/2014 [facility] HEMATOLOGY Myelocytes 3.0 <=0.0 % 12/27/2014 [facility] HEMATOLOGY Lymphocytes 10.0 20.0 - 40.0 12/27/2014 [facility] HEMATOLOGY Monocytes 7.0 2.0 - 12.0 12/27/2014 [facility] HEMATOLOGY Bands 2.0 0.0 - 11.0 12/27/2014 [facility] HEMATOLOGY Large Plt Moder ate *ABN* (12/27/14 5:12 AM) None Seen 12/27/2014 [facility] HEMATOLOGY RBC Morph Daily l (12/27/14 5:12 AM) 12/27/2014 [facility] HEMATOLOGY Tot Cell Ct 100 12/27/2014 [facility] HEMATOLOGY Atypical Lymphs 0.0 <=0.0 % 12/27/2014 [facility] URINE AND STOOL UA Nitrite Positive *ABN* (12/26/14 10:00 PM) Negative 12/27/2014 [facility] URINE AND STOOL UA Urobilinogen >8.0 0.1 - 1.0 12/27/2014 [facility] URINE AND STOOL UA Blood Large *ABN* (12/26/14 10:00 PM) Negative 12/27/2014 [facility] URINE AND STOOL UA RBC 51-100 /HPF 0 - 2 12/27/2014 [facility] URINE AND STOOL UA WBC 21-50 /HPF None Seen /HPF 12/27/2014 [facility] URINE AND STOOL UA Leuk Est Moderate *ABN* (12/26/14 10:00 PM) Negative 12/27/2014 [facility] URINE AND STOOL UA Sq Epi Few /LPF Few /LPF 12/27/2014 [facility] URINE AND STOOL UA Coarse Gran 6-10 /LPF None Seen /LPF 12/27/2014 [facility] URINE AND STOOL UA Amorph Jennifer Few /HPF None Seen /HPF 12/27/2014 [facility] URINE AND STOOL UA Mucus Many /LPF None Seen /LPF 12/27/2014 [facility] URINE AND STOOL UA Bacteria Many /HPF None Seen /HPF 12/27/2014 [facility] URINE AND STOOL UA Bili Moderate 5 *ABN* (12/26/14 10:00 PM) Negative 12/27/2014 Result Comment: Interpret positive bilirubin results with caution. Confirmatory testing
not possible due to the unavailability of reagent. Correlation with
serum chemistry results recommended. [facility] URINE AND STOOL UA Ketones Negative (12/26/14 10:00 PM) Negative 12/27/2014 [facility] URINE AND STOOL UA Glucose 100 mg/dL Negative mg/dL 12/27/2014 [facility] URINE AND STOOL UA Protein 100 mg/dL Negative mg/dL 12/27/2014 [facility] URINE AND STOOL UA Turbidity Turbid *ABN* (12/26/14 10:00 PM) Clear 12/27/2014 [facility] URINE AND STOOL UA Color Dark Yellow (12/26/14 10:00 PM) Yellow 12/27/2014 [facility] URINE AND STOOL UA pH 6.5 5.0 - 8.0 12/27/2014 [facility] URINE AND STOOL UA Spec Grav 1.015 <=1.030 12/27/2014 [facility] CHEM PANEL Lactic Acid Lvl 1.9 0.5 - 2.2 12/26/2014 [facility] CHEM PANEL Phosphorus 3.3 2.5 - 4.5 12/26/2014 [facility] HEMATOLOGY Eosinophils # 0.0 0.0 - 0.5 12/26/2014 [facility] HEMATOLOGY Basophils 0.0 0.0 - 1.0 12/26/2014 [facility] HEMATOLOGY Eosinophils 0.0 0.0 - 4.0 12/26/2014 [facility] HEMATOLOGY Bands 8.0 0.0 - 11.0 12/26/2014 [facility] HEMATOLOGY Plt Morph Daily l (12/26/14 2:29 AM) 12/26/2014 [facility] HEMATOLOGY RBC Morph Daily l (12/26/14 2:29 AM) 12/26/2014 [facility] HEMATOLOGY Plt Morph Daily l (12/25/14 3:16 AM) 12/25/2014 [facility] HEMATOLOGY Myelocytes 3.0 <=0.0 % 12/25/2014 [facility] HEMATOLOGY Metamyelocytes 1.0 0.0 - 1.0 12/25/2014 [facility] HEMATOLOGY RBC Morph Daily l (12/25/14 3:16 AM) 12/25/2014 [facility] HEMATOLOGY Atypical Lymphs 0.0 <=0.0 % 12/25/2014 [facility] HEMATOLOGY Bands 6.0 0.0 - 11.0 12/25/2014 [facility] URINE AND STOOL UA Urobilinogen <=1.0 mg/dL 0.1 - 1.0 12/24/2014 [facility] URINE AND STOOL UA Color Yellow *NA* (12/24/14 4:19 AM) Yellow 12/24/2014 [facility] URINE AND STOOL UA Turbidity Clear (12/24/14 4:19 AM) Clear 12/24/2014 [facility] URINE AND STOOL UA pH 5.5 5.0 - 8.0 12/24/2014 [facility] URINE AND STOOL UA Spec Grav 1.011 <=1.030 12/24/2014 [facility] URINE AND STOOL UA Protein 20 mg/dL Negative mg/dL 12/24/2014 [facility] URINE AND STOOL UA Ketones Negative mg/dL Negative mg/dL 12/24/2014 [facility] URINE AND STOOL UA Glucose Negative mg/dL Negative mg/dL 12/24/2014 [facility] URINE AND STOOL UA Bili Negative *NA* (12/24/14 4:19 AM) Negative 12/24/2014 [facility] URINE AND STOOL UA Blood Small *ABN* (12/24/14 4:19 AM) Negative 12/24/2014 [facility] URINE AND STOOL UA Nitrite Negative (12/24/14 4:19 AM) Negative 12/24/2014 [facility] URINE AND STOOL UA Leuk Est Trace *ABN* (12/24/14 4:19 AM) Negative 12/24/2014 [facility] URINE AND STOOL UA WBC 1 0 - 5 12/24/2014 [facility] URINE AND STOOL UA Sq Epi Occasional /LPF Few /LPF 12/24/2014 [facility] URINE AND STOOL UA Bacteria Occasional /HPF None Seen /HPF 12/24/2014 [facility] URINE AND STOOL UA RBC 4 0 - 2 12/24/2014 [facility] URINE AND STOOL UA Mucus Few /LPF None Seen /LPF 12/24/2014 [facility] URINE AND STOOL UA Hyal Cast 8 0 - 2 12/24/2014 [facility] HEMATOLOGY PTT 30.2 22.9 - 35.8 12/24/2014 [facility] HEMATOLOGY INR 1.18 0.85 - 1.17 12/24/2014 [facility] HEMATOLOGY PT 15.3 12.0 - 14.7 12/24/2014 [facility] ANEMIA STUDY Ferritin Lvl 581 5 - 204 12/23/2014 [facility] ANEMIA STUDY UIBC 178 110 - 370 12/23/2014 [facility] ANEMIA STUDY % Satur Fe 16 12 - 57 12/23/2014 [facility] ANEMIA STUDY Iron 33 30 - 160 12/23/2014 [facility] ANEMIA STUDY TIBC 211 228 - 428 12/23/2014 [facility] ANEMIA STUDY RBC Folate 1031 280 - 791 12/23/2014 [facility] BLOOD BANK RESULTS Antibody Scrn Negative (12/22/14 9:58 AM) 12/22/2014 [facility] BLOOD BANK RESULTS ABO/Rh B POS 12/22/2014 [facility] HEMATOLOGY PB Smear Path Perip heral blood smear shows normochromic normocytic anamia with slight polychromasia, no increase in schistocytes, and moderate thrombocytopenia with a few large forms. Impression: no evidence of microangiopathic hemolysis. CPT: 91181 12/22/2014 [facility] BLOOD BANK RESULTS RBC product Product available (12/22/14 9:38 AM) 12/22/2014 [facility] HEMATOLOGY Heparin Ab(ESTEBAN) Negat inder (12/21/14 8:46 AM) Negative 12/21/2014 [facility] HEMATOLOGY Pat Od Value 0.076 12/21/2014 [facility] HEMATOLOGY Pos CO Value 0.431 12/21/2014 [facility] SPECIAL CHEMISTRY Hgb A1C <3.5 % <=5.6 % 12/21/2014 [facility] THYROID PANEL TSH 1.120 0.360 - 3.740 12/21/2014 [facility] CHEM PANEL Lactic Acid Lvl 3.0 0.5 - 2.2 12/21/2014 [facility] CHEM PANEL Lactic Acid Lvl 4.7 0.5 - 2.2 12/21/2014 Result Comment: Critical Result(s) natalio brooks to Rafaela Emory at 12/20/2014 22:48 by AAC. Read back OK. [facility] HEMATOLOGY D-Dimer 0.63 12/21/2014 [facility] HEMATOLOGY Thrombin Time 15.2 15.0 - 21.2 12/21/2014 [facility] HEMATOLOGY Fibrinogen Lvl 494 230 - 510 12/21/2014 [facility] PARATHYROID PROFILE Ca Ion WB 1.08 1.05 - 1.25 12/21/2014 [facility] PARATHYROID PROFILE Ca Norm WB 1.07 1.05 - 1.25 12/21/2014 [facility] URINE AND STOOL Micro? Performed *NA* (12/20/14 4:22 PM) 12/20/2014 [facility] URINE AND STOOL UA Urobilinogen <=1.0 mg/dL 0.1 - 1.0 12/20/2014 [facility] URINE AND STOOL UA Sq Epi RARE 12/20/2014 [facility] URINE AND STOOL UA Mucus Few /LPF None Seen /LPF 12/20/2014 [facility] URINE AND STOOL UA Hyal Cast 43 0 - 2 12/20/2014 [facility] URINE AND STOOL UA RBC 2 0 - 2 12/20/2014 [facility] URINE AND STOOL UA Bacteria Few /HPF None Seen /HPF 12/20/2014 [facility] URINE AND STOOL UA pH 5.0 5.0 - 8.0 12/20/2014 [facility] URINE AND STOOL UA Protein 10 mg/dL Negative mg/dL 12/20/2014 [facility] URINE AND STOOL UA Glucose Negative mg/dL Negative mg/dL 12/20/2014 [facility] URINE AND STOOL UA Ketones Negative mg/dL Negative mg/dL 12/20/2014 [facility] URINE AND STOOL UA WBC 14 0 - 5 12/20/2014 [facility] URINE AND STOOL UA Bili Negative *NA* (12/20/14 4:22 PM) Negative 12/20/2014 [facility] URINE AND STOOL UA Nitrite Negative (12/20/14 4:22 PM) Negative 12/20/2014 [facility] URINE AND STOOL UA Leuk Est Moderate *ABN* (12/20/14 4:22 PM) Negative 12/20/2014 [facility] URINE AND STOOL UA Blood Small *ABN* (12/20/14 4:22 PM) Negative 12/20/2014 [facility] URINE AND STOOL UA Color Yellow *NA* (12/20/14 4:22 PM) Yellow 12/20/2014 [facility] URINE AND STOOL UA Turbidity Clear (12/20/14 4:22 PM) Clear 12/20/2014 [facility] URINE AND STOOL UA Spec Grav 1.016 <=1.030 12/20/2014 [facility] HEMATOLOGY Thrombin Time 14.6 15.0 - 21.2 12/20/2014 [facility] HEMATOLOGY D-Dimer 0.74 12/20/2014 [facility] HEMATOLOGY Fibrinogen Lvl 475 230 - 510 12/20/2014 [facility] HEMATOLOGY Plt Morph Daily l (12/20/14 6:39 AM) 12/20/2014 [facility] HEMATOLOGY Fibrinogen Lvl 434 230 - 510 12/20/2014 [facility] HEMATOLOGY Thrombin Time 14.8 15.0 - 21.2 12/20/2014 [facility] HEMATOLOGY D-Dimer 0.63 12/20/2014 [facility] PARATHYROID PROFILE Ca Ion WB 1.07 1.05 - 1.25 12/20/2014 [facility] PARATHYROID PROFILE Ca Norm WB 1.11 1.05 - 1.25 12/20/2014 [facility] BACTERIAL - SEROLOGY MRSA by PCR Negative (12/19/14 5:52 PM) 12/19/2014 [facility] PARATHYROID PROFILE Ca Ion WB 1.13 1.05 - 1.25 12/19/2014 [facility] PARATHYROID PROFILE Ca Norm WB 1.14 1.05 - 1.25 12/19/2014 [facility] URINE AND STOOL UA Hyal Cast 20 0 - 2 12/19/2014 [facility] URINE AND STOOL Micro? Performed *NA* (12/19/14 5:52 PM) 12/19/2014 [facility] HEMATOLOGY TEG Data See N ote (12/19/14 1:40 PM) 12/19/2014 [facility] HEMATOLOGY K-time 2.2 1.0 - 3.0 12/19/2014 [facility] HEMATOLOGY Angle 61.6 53.0 - 72.0 12/19/2014 [facility] HEMATOLOGY R-time 6.5 5.0 - 10.0 12/19/2014 [facility] HEMATOLOGY Max Amp 53.3 50.0 - 70.0 12/19/2014 [facility] HEMATOLOGY G-value 5.7 4.5 - 11.0 12/19/2014 [facility] HEMATOLOGY Ly30 0.0 0.0 - 7.5 12/19/2014 [facility] HEMATOLOGY Coag Index -1.7 -3.0-3.0 - 3.0 12/19/2014 [facility] CHEM PANEL AST 30 0 - 37 12/19/2014 [facility] CHEM PANEL Total Protein 7.1 6.4 - 8.4 12/19/2014 [facility] CHEM PANEL Alk Phos 76 39 - 136 12/19/2014 [facility] CHEM PANEL Bili Total 1.2 0.2 - 1.3 12/19/2014 [facility] CHEM PANEL ALT 47 0 - 65 12/19/2014 [facility] CHEM PANEL Albumin Lvl 4.2 3.5 - 5.0 12/19/2014 [facility] CHEM PANEL Globulin 2.9 2.0 - 4.0 12/19/2014 [facility] CHEM PANEL A/G Ratio 1.4 0.7 - 1.6 12/19/2014 [facility] CHEM PANEL B/C Ratio 12 6 - 25 12/19/2014 [facility] HEMATOLOGY Basophils # 0.1 0.0 - 0.2 12/19/2014 [facility] BLOOD BANK RESULTS FFP product Product available (12/19/14 6:23 AM) 12/19/2014 [facility] BLOOD BANK RESULTS RBC product Product available (12/19/14 6:23 AM) 12/19/2014 [facility] BLOOD BANK RESULTS Antibody Scrn Negative (12/19/14 6:23 AM) 12/19/2014 [facility] BLOOD BANK RESULTS ABO/Rh B POS 12/19/2014 [facility] BLOOD BANK RESULTS Platelet product Product available (12/18/14 4:40 PM) 12/18/2014 [facility] Pathology Reports No Data Provided for This Section Diagnostic Reports Report Value Date Source Abdomen/Pelvis w IV contrast CT Radiation Dose CTDIVOL = 0 (mGy): DLP = 216.3 (mGy-cm) PROCEDURE INFORMATION: Exam: CT Abdomen And Pelvis With Contrast Exam date and time: 07/07/2019 2:30 PM Age: 68 years old Clinical indication: Iron deficiency anemia, unspecified; Additional info: /d50.9 TECHNIQUE: Imaging protocol: Computed tomography of the abdomen and pelvis with intravenous contrast. Total DLP: 216.3 mGy-cm Radiation optimization: All CT scans at this facility use at least one of these dose optimization techniques: automated exposure control; mA and/or kV adjustment per patient size (includes targeted exams where dose is matched to clinical indication); or iterative reconstruction. Contrast material: OMNI; Contrast volume: 80 ml; Contrast route: IV; Other contrast: Oral, omni, 50; COMPARISON: No relevant prior studies available. FINDINGS: Liver: Normal. No mass. Gallbladder and bile ducts: Normal. No calcified stones. No ductal dilation. Pancreas: Normal. No ductal dilation. Spleen: Borderline splenomegaly. The spleen is 12.5 cm in length. The upper pole there is a hypoattenuating 1 cm lesion with some irregular peripheral enhancement likely hemangioma. Adrenals: Normal. No mass. Kidneys and ureters: Small cortical cyst lower pole right kidney. No mass or hydronephrosis. Stomach and bowel: A few widely scattered distal colon diverticula without diverticulitis. Appendix: No evidence of appendicitis. Intraperitoneal space: Unremarkable. No free air. No significant fluid collection. Vasculature: Heavily calcified small caliber abdominal aorta without aneurysm. Lymph nodes: Unremarkable. No enlarged lymph nodes. Bladder: Unremarkable as visualized. Reproductive: Hysterectomy. Bones/joints: Unremarkable. No acute fracture. Soft tissues: Unremarkable. IMPRESSION: 1. No acute abnormality in the abdomen o r pelvis. 2. Borderline splenomegaly with probable small hemangioma in the upper spleen. 3. Hysterectomy José Luis Landry MD On 07/07/2019 15:37:25; [id number] 07/07/2019 [facility] Chest 2 views DX EXAMINATION: CHEST 2 VIEWS DATE: MAR 20, 2015 12:28:00 PM COMPARISON: Chest XR 01/30/2015 INDICATION: Pleural effusion DISCUSSION: Lines/tubes: None. Lungs: The lungs are better aerated, with improved aeration of the left lung. Decreased left basilar opacity. Persistent calcified granulomas over the right midlung zone. Pleura: Slight decrease in small right pleural effusion with a component of pleural thickening. Interval decrease in moderate left pleural effusion, now small in amount. Heart and mediastinum: The cardiac silhouette is slightly prominent. Basilar calcifications of the aortic knob. Bones and soft tissues: Postsurgical median sternotomy wires are stable. Degenerative changes of the thoracic spine. Soft tissues are unremarkable. IMPRESSION: 1. Interval decrease in moderate left pl eural effusion, now small in amount. 2. Improved aeration of the left lung wi th residual left basilar atelectasis/airspace disease. 3. Slight decrease in small right pleura l effusions with a component of pleural thickening. [facility] DX EXAM : CHEST 2 VIEWS DATE:Jan 30, 2015 05:19:00 PM INDICATION: Chest pain . TECHNIQUE: PA and lateral chest radiographs . COMPARISON: January 23, 2015. FINDINGS: Increasing left pleural effusion. Underlying consolidation the left base cannot be excluded. The cardiomediastinal silhouette, remaining soft tissues and osseous structures are normal. Chronic right pleural thickening is also present. Unchanged appearance of midline sternotomy. . IMPRESSION: 1. Increasing left pleural effusion. 2. Underlying left basilar consolidation is not excluded. 3. Chronic right pleural thickening.. . [facility] Chest one view, January 23, 2015 at 1433 HISTORY: 64-year-old female with respiratory failure. FINDINGS: Comparison is made to January 09. The cardiomediastinal silhouette and postoperative changes are stable. Subsegmental atelectasis is seen in the right lower lobe. There is a patchy left lower lobe alveolar opacity. Small bilateral pleural effusions are identified. IMPRESSION: 1. Small bilateral pleural effusions, de creased on the left since January 09. 2. A left lower lobe opacity has improve d and could be due to atelectasis or pneumonia. 3. Right lower lobe subsegmental atelect asis. 01/23/2015 [facility] Chest 2 views DX EXAM: XR CHES T 2 VIEWS DATE: Jan 09, 2015 12:43:47 PM INDICATION: S/P AVR COMPARISON: 12/26/2014 TECHNIQUE: Two radiographs provided for interpretation including frontal and lateral views. FINDINGS: The lungs are clear. Right lung basal atelectatic changes. The cardiomediastinal silhouette is unremarkable. Both nik are normal. No pleural effusion. There is moderate left pleural effusion and small right pleural effusion. No significant osseous or soft tissue abnormality noted. Median sternotomy sutures noted. IMPRESSION: Moderate left and small right pleural effusions. Interpreted by Josy Maxwell MD. 01/09/2015 [facility] Esophagus BA swallow function video DX EXAM: FLUOROSCOPY MODIFIED BARIUM SWALLOW DATE: 12/28/2014 at 1048 hours. INDICATION: Feeding intolerance. COMPARISON: None. TECHNIQUE: Oral barium contrast of differing consistencies was given to the patient to assess swallowing mechanism. The study was performed in conjunction with speech pathology. FLUOROSCOPY TIME: 1 minute 39 seconds. ACCUMULATED SKIN DOSE: 5.89 mGy FINDINGS: The patient was given barium contrast of different consistencies. Oral motor function is normal with adequate bolus size. The swallowing reflex is triggered promptly with effective bolus propulsion. With the thin barium consistency, there is deep laryngeal penetration without evidence of aspiration. With the nectar barium consistency, there is shallow laryngeal penetration without aspiration. With the pudding and cracker based consistencies, there is no evidence of penetration or aspiration. Esophageal motility and emptying appeared normal. IMPRESSION: 1. Deep laryngeal penetration without ev idence of aspiration with the thin barium consistency. 2. Shallow laryngeal penetration without evidence of aspiration with the nectar barium consistency. 3. Please refer to speech pathologist's report for further details. 12/28/2014 [facility] Chest wo contrast CT CHEST CT WITHOUT CONTRAST dated December 27, 2014. HISTORY: 64-year-old woman with cough. Comparison is made with chest radiograph performed yesterday. TECHNIQUE: The chest CT was requested and performed without intravenous contrast. The chest was scanned from apices to bases. Reformatted sagittal and coronal images were obtained and reviewed. FINDINGS: The patient is status post median sternotomy. The patient had this surgery on December 19. There is a small amount of retrosternal fluid on axial image 58 and sagittal image 131 which may be postoperative. Cardiothoracic ratio measures 12.4/24.6 mm. There is atherosclerotic calcification of the thoracic aorta and the right and left coronary arteries the LAD and left circumflex coronary artery. There is a small pericardial effusion. There are large bilateral pleural effusions which extend from the diaphragms to the apices of both pleural spaces. There is no pneumothorax. At the same level where the ascending aorta measures 34.9 mm the pulmonary trunk measures 29.3 mm. Lymph nodes: The absence of intravenous contrast makes evaluation for hilar lymphadenopathy difficult. Lungs: Respiratory motion blurs lung detail visibility. There are alveolar opacities in both lower lobes. The upper lungs are clear. Secretions are noted within the trachea especially on axial images 33 and 40. Degenerative changes of the thoracic spine are noted with osteophytes. CONCLUSION: 1. The patient is status post median st ernotomy on December 19 for aortic valve replacement and CABG. There is a small amount of retrosternal fluid which may be postoperative. 2. Atherosclerotic calcification of the thoracic aorta and the right and left coronary arteries the LAD and left circumflex coronary artery. There is a small pericardial effusion. There are large bilateral pleural effusions which extend from the diaphragms to the apices of both pleural spaces. There is no pneumothorax. 3. Respiratory motion blurs lung detail visibility. 4. Alveolar opacities in both lower lob es. In the absence of intravenous contrast, it is difficult to differentiate between volume loss (which would enhance with contrast) and consolidation such as pneumonia or hemorrhage (which would not enhance with contrast).. The upper lungs are clear 5. Secretions are noted within the trac hea. 12/27/2014 [facility] Chest 1view DX Portable ap francesca ierect chest December 26, 2014 HISTORY: Cough. Comparison is made with December 24. FINDINGS: Cardiomediastinal silhouette and sternotomy wires are stable. There are small bilateral effusions which appear stable. The upper lungs are clear to full bilateral retrocardiac opacities. CONCLUSION: No significant interval change in the appearance of the chest when compared to prior radiograph. 12/26/2014 [facility] Chest 1view DX EXAMINATION: CH EST XRAY 1 VIEW DATE: Dec 24, 2014 04:40:00 AM COMPARISON: CXR 12/23/2014 INDICATION: Tube placement/removal/reposition DISCUSSION: Single AP view of the chest. Examination is limited by portable AP technique . Lines and tubes: None. The visualized bones with median sternotomy wires and soft tissues, cardiac silhouette, appear stable. IMPRESSION: 1. Persistent bilateral mid to lower beni g zone opacities may represent atelectasis and/or airspace disease. 2. Small right pleural effusion decrease d. 12/24/2014 [facility] Chest 1view DX EXAMINATION: CX R 1 VIEW DATE: Dec 23, 2014 03:49:00 PM COMPARISON: CXR 12/23/2014 earlier in the day INDICATION: Tube placement/removal/reposition DISCUSSION: Single AP view of the chest. Examination is limited by portable AP technique . Lines and tubes: Removal of right IJ venous sheath. Median sternotomy wires appear stable. The visualized bones and soft tissues, prominent cardiac silhouette, appear stable. IMPRESSION: 1. Slight decrease in bilateral lung vol umes with persistent bilateral mid to lower lung zone opacities, which may represent atelectasis and/or airspace disease. 2. Small right pleural effusion with ass ociated atelectasis. 12/23/2014 [facility] Chest 1view DX EXAMINATION: CX R 1 VIEW DATE: Dec 23, 2014 04:34:00 AM COMPARISON: CXR 12/22/2014 INDICATION: Tube placement/removal/reposition DISCUSSION: Single AP view of the chest. Examination is limited by portable AP technique . Lines and tubes: PA catheter has been removed. Unchanged position of right IJ venous sheath and median sternotomy wires. The visualized bones and soft tissues, cardiac silhouette, appear stable. IMPRESSION: 1. Persistent small right pleural effusi on with associated atelectasis. 2. Persistent bilateral mid to lower beni g zone patchy opacities likely a combination of atelectasis and/or airspace disease. 12/23/2014 [facility] Chest 1view DX Chest one view, December 22, 2014 at 1:16 a.m. HISTORY: 64-year-old female with tube placement/removal/reposition. Findings: Comparison is made to yesterday morning. The cardiomediastinal silhouette is stable. Postoperative changes are stable with the [place] catheter remaining in place. The 2 mediastinal drains and left-sided chest tube have been removed. A right pleural effusion obscures the right hemidiaphragm and layers posteriorly. The left costophrenic sulcus is clear. The miniscule left apical pneumothorax has essentially resolved. Subsegmental atelectasis is seen in the bilateral lower lobes. IMPRESSION: 1. Bilateral lower lobe subsegmental ate lectasis. 2. Right pleural effusion. 12/22/2014 [facility] Chest 1view DX EXAM: XR CHEST 1 VIEW DATE: 2014-12-21 02:28:00 INDICATION: Tube placement/removal/reposition COMPARISON: 12/20/2014 TECHNIQUE: Single AP view of the chest DISCUSSION: The patient has been extubated. Other left support lines, tubes and drains are in unchanged position. The patient is status post CABG with expected postoperative appearance of the mediastinum. There is interval increase in the layering right pleural effusion with overlying compressive atelectasis. Subsegmental atelectasis is present in the left lung base. Trace left apical pneumothorax. IMPRESSION: 1. Interval increase in the right pleura l effusion 2. Subsegmental atelectasis present at t he lung bases. 12/21/2014 [facility] Chest 1view DX PORTABLE CHEST 2014-12-20 01:51:00 COMPARISON: Yesterday CLINICAL INDICATION: Tube placement/removal/reposition IMPRESSION: No change in support lines and tubes. Stable postoperative cardiac silhouette. Bilateral retrocardiac and infrahilar opacities could be from subsegmental atelectasis or other airspace process. Trace pleural effusions are not excluded. No definite pneumothorax is identified, however, a semierect film is suboptimal for that determination. An erect film of the chest is suggested in order to more accurately exclude a pneumothorax. 12/20/2014 [facility] Chest 1view DX INDICATION: Tub e placement. PROCEDURE: Chest, one view. Compared with an exam from earlier the same day. Sternal wires are now in place. A left-sided chest tube is in place. Two mediastinal drains are in place from an inferior approach. The endotracheal tube is only 1.5 cm above the orly; the pagan has been notified by phone to withdrawal the tube 2 cm. A right IJ line terminates in the right pulmonary artery. The heart is enlarged but unchanged. There is a new focus of subsegmental airspace density in the retrocardiac region in the left lower lung. No pneumothorax or pleural fluid is evident. IMPRESSION: 1. Recommend withdrawing the ET tube 2 c m. 2. Patient has had a venous sternotomy w ith tubes and lines as described. 3. Interval development of airspace dise ase in the retrocardiac region, and this likely represents atelectasis. 12/19/2014 [facility] Chest 1view DX Portable ap francesca ierect chest December 19, 2014 HISTORY: Respiratory distress. There are no prior radiographs for comparison. FINDINGS: The heart is upper limits of normal to slightly enlarged accentuated by low lung volumes. Lung volumes are diminished with resultant elevation of the hemidiaphragms, spurious widening of the diameter of the heart and crowding of the basal lung markings. This produces subsegmental atelectasis at both lung bases. The upper lungs are clear. Costophrenic sulci are sharp without effusion. CONCLUSION: Low lung volumes. 12/19/2014 [facility] Consultation Notes No Data Provided for This Section Discharge Summaries No Data Provided for This Section History and Physicals No Data Provided for This Section Vital Signs Vital Sign Value Date Comments Source Height 149.86 cm 01/30/2015 [facility] Systolic (mm Hg) 104 01/30/2015 [facility] Diastolic (mm Hg) 49 01/30/2015 [facility] Respitory Rate 20 01/30/2015 [facility] Temperature Oral (F) 97.0 F 01/30/2015 [facility] Height 149.86 cm 01/23/2015 [facility] BMI Calculated 22.06 01/23/2015 [facility] Weight 49.545 01/23/2015 [facility] Weight 49.148 01/09/2015 [facility] BMI Calculated 21.88 01/09/2015 [facility] Height 149.86 cm 01/09/2015 [facility] Systolic (mm Hg) 103 01/09/2015 [facility] Diastolic (mm Hg) 54 01/09/2015 [facility] Heart Rate 59 01/09/2015 [facility] Temperature Oral (F) 96.7 F 01/09/2015 [facility] Respitory Rate 18 01/09/2015 [facility] Weight 49.148 01/09/2015 [facility] BMI Calculated 21.88 01/09/2015 [facility] Height 149.86 cm 01/09/2015 [facility] Temperature Oral (F) 96.7 F 01/09/2015 [facility] Heart Rate 59 01/09/2015 [facility] Respitory Rate 18 01/09/2015 [facility] Systolic (mm Hg) 103 01/09/2015 [facility] Diastolic (mm Hg) 54 01/09/2015 [facility] Systolic (mm Hg) 122 12/29/2014 [facility] Diastolic (mm Hg) 55 12/29/2014 [facility] Respitory Rate 23 12/29/2014 [facility] Respitory Rate 19 12/29/2014 [facility] Systolic (mm Hg) 136 12/29/2014 [facility] Diastolic (mm Hg) 63 12/29/2014 [facility] Respitory Rate 26 12/29/2014 [facility] Systolic (mm Hg) 152 12/29/2014 [facility] [place] Diastolic (mm Hg) 68 12/29/2014 [facility] Temperature Oral (F) 97.6 F 12/29/2014 [facility] Temperature Oral (F) 97.6 F 12/29/2014 [facility] [place] Temperature Oral (F) 97.4 F 12/29/2014 [facility] Weight 56.3 12/22/2014 [facility] Height 149.86 cm 12/19/2014 [facility] BMI Calculated 22.87 12/19/2014 [facility] Weight 51.364 12/19/2014 [facility] Height 145 cm 12/06/2014 [facility] [place] BMI Calculated 24.26 12/06/2014 [facility] Weight 51.003 12/06/2014 [facility] Temperature Oral (F) 96.3 F 12/06/2014 [facility] [place] Heart Rate 57 12/06/2014 [facility] [place] Systolic (mm Hg) 120 12/06/2014 [facility] [place] Diastolic (mm Hg) 69 12/06/2014 [facility] [place] BMI Calculated 22.67 11/29/2014 [facility] [place] Weight 50.909 11/29/2014 [facility] [place] Height 149.86 cm 11/29/2014 [facility] [place] Height 149.86 cm 11/28/2014 [facility] [place] BMI Calculated 22.69 11/28/2014 [facility] [place] Weight 50.966 11/28/2014 [facility] [place] Systolic (mm Hg) 121 11/28/2014 [facility] [place] Diastolic (mm Hg) 66 11/28/2014 [facility] [place] Heart Rate 52 11/28/2014 [facility] [place] Temperature Oral (F) 97.1 F 11/28/2014 [facility] [place] Encounters Location Location Details Encounter Type Encounter Number Reason For Visit Attending Provider ADM Date DC Date Status Source [facility] Advanced Heart Failure Outpatient [id number] Peyman An 11/28/2014 11/29/2014 [facility] Outpatient [id number] Peyman Chandu 11/29/2014 11/30/2014 [facility] Outpatient [id number] Dre Hou 12/06/2014 12/07/2014 [facility] Inpatient [id number] Drekevin Hilloric 12/19/2014 12/29/2014 [facility] Outpatient [id number] Drekevin Hilloric 01/09/2015 01/10/2015 [facility] [place] [facility] [id number] Dre Sergiooric 01/09/2015 01/10/2015 [facility] Outpatient [id number] Ginna Aknti 01/23/2015 01/24/2015 [facility] Outpatient [id number] Ginna Aknti 01/30/2015 01/31/2015 [facility] Outpatient [facility] [place] [facility] [id number] Ginna Aknti 01/30/2015 01/31/2015 [facility]patient [facility] [place] [facility] [id number] Ginna Aknti 03/20/2015 03/21/2015 [facility] Outpatient [id number] Ginna Akkanti 03/20/2015 03/21/2015 [facility] Outpatient [id number] Kae Zaidi 07/07/2019 07/08/2019 [facility] Procedures Procedure Code Date Perfomer Comments Source Angioplasty<sup>1</sup> [id number] @[facility] Hysterectomy<sup>2</sup> [id number] 1971 [facility] Procedure<sup>3</sup> [id number] melanoma 1973 [facility] [place] Vagina operation<sup>4</sup> 4 [id number] Revision 1 971 [facility] [place] Assessment and Plan Date Source Extracted from:Title: CVS Author: Brittanie Chong Date: 12/29/14 Impression and Plan 64 yo CW with PMH of CAD, HTN, DM, hypot hyroidism, with bicuspid valve who presents for AVR and coronary artery bypass. Patient is s/p 3V ACB (MARTELL to LAD, free graft, SVG to OM3, SVG to RCA PD), LLE EVH above and below knee, bioprosthetic AVR (Supra 19mm), Ascending thoracic aorta hemashield graft wrap (12/19/14). Currently stable #CAD s/p 3V ACB (MARTELL to LAD, free graft, SVG to OM3, SVG to RCA PD) -sternal precautions -Extubated 12/20/14 -TPW cut 12/23/14 -Encourage use of incentive spirometery - change dressings qd PT with low grade fever: -f/u cultures (neg thus far), cont Cefep doris per ID -UA sent-negative but follow up cultures -follow up in clinic in 1 week Extracted from:Title: Hematology Consultation Note Author: Sydney Rodriguez MD Date: 12/22/14 Patient: AXEL CHRISTOPHER Age: 64 years Sex: Female : 1950 Associated Diagnoses: None Author: Sydney Rodriguez MD Basic Information Source of history: Self. History limitation: None. Chief Complaint Reason for Consultation: Thrombocytopenia History of Present Illness 64 yo lady with PMH of CAD, HTN, HLD, DM II, hypothyroidism, with bicuspid valve who presents for AVR and coronary artery bypass who is now s/p 3V CABG (MARTELL to LAD, free graft, SVG to OM3, SVG to RCA PD), LLE EVH above and below knee, bioprosthetic AVR (Supra 19mm), Ascending thoracic aorta hemashield graft wrap. Operation date was 12/19/14. She received 2 units of cell saver, 2 units of PRBCs, 3 FFP, 2 platelets, 10 cryoprecipitate during OR. Hematology is being consulted for progressive thrombocytopenia postoperatively. Platelet count was 155-205K prior to procedure and progressively decreased to the 80k's and now is 46k. Patient has been febrile postoperatively and was started on vancomycin and cefepime, urine culture and blood cx from 12/20/14 are NGTD. Patient denies any bleeding from any source. She denies any hematuria, hematemesis, hematochezia, or melena. Review of Systems Patient endorses nausea, pain at the wound site. 12 point ROS performed and otherwise negative. Health Status Allergies: Allergies (1) Active Reaction sulfa drugs None Documented Current medications: (Selected) Inpatient Medications Ordered Bumex: 1 mg, 4 mL, IV, Daily Colace 100 mg oral capsule: 100 mg, 1 cap, PO, BID Dextrose 50% Syringe: 12.5 gm, 25 mL, IVP, PRN, PRN: Blood Glucose Results Dextrose 50% Syringe: 25 gm, 50 mL, IVP, PRN, PRN: Blood Glucose Results Lantus: 10 unit, 0.1 mL, SUB-Q, Daily Neutra-Phos: 2 pkt, PO, PRN, PRN: Abnormal Lab Result Saline Flush 0.9%: 5 ml, MISC, PRN, PRN: Line Flush Saline Flush 0.9%: 5 ml, MISC, Q12H acetaminophen: 650 mg, 1 supp, WY, Q4H, PRN: Pain Score 1-3 acetaminophen: 650 mg, 2 tab, PO, Q4H, PRN: Pain 1-3/Temp > 100.4 F atorvastatin: 40 mg, 1 tab, PO, Bedtime bisacodyl: 10 mg, 1 supp, W[place], Daily, PRN: Constipation calcium carbonate 500 mg (200 mg elemental calcium) oral tablet: 1,000 mg, 2 tab, PO, PRN, PRN: Abnormal Lab Result calcium carbonate 500 mg (200 mg elemental calcium) oral tablet: 500 mg, 1 tab, PO, PRN, PRN: Abnormal Lab Result calcium gluconate + Sodium Chloride 0.9% IV 50 mL: 1 gm, 10 mL, 120 ml/hr, IVPB, PRN, PRN: Abnormal Lab Result fentaNYL (PF) 20 mcg/ml MANAGER BUILDING (600 microgram /30 mL) 600 microgram: Per MANAGER BUILDING Order as Directed, IV, Stop: 01/18/15 15:29:00 fentaNYL: 25 microgram, 0.5 mL, IVP, Q2H, PRN: Pain Score 1-5 glucagon: 1 mg, IM, PRN, PRN: Blood Glucose Results insulin aspart: 10 unit, 0.1 mL, SUB-Q, TID-Before Meals, PRN: Blood Glucose Results insulin aspart: 2 unit, 0.02 mL, SUB-Q, TID-Before Meals, PRN: Blood Glucose Results insulin aspart: 4 unit, 0.04 mL, SUB-Q, TID-Before Meals, PRN: Blood Glucose Results insulin aspart: 6 unit, 0.06 mL, SUB-Q, TID-Before Meals, PRN: Blood Glucose Results insulin aspart: 8 unit, 0.08 mL, SUB-Q, TID-Before Meals, PRN: Blood Glucose Results labetalol: 10 mg, 2 mL, IVP, Q4H, PRN: Hypertension magnesium oxide: 800 mg, 2 tab, PO, PRN, PRN: Abnormal Lab Result magnesium sulfate: 2 gm, 50 mL, 25 ml/hr, IVPB, PRN, PRN: Abnormal Lab Result metoprolol: 2.5 mg, 2.5 mL, IVP, Q4H, PRN: Hypertension naloxone: 0.04 mg, 0.1 mL, IVP, Q2MIN, PRN: Narcotic Reversal ondansetron: 4 mg, 2 mL, IV, Q6H, PRN: Nausea pantoprazole: 40 mg, IVP, Daily potassium chloride: 10 mEq, 50 mL, 50 ml/hr, IVPB, PRN, PRN: Abnormal Lab Result potassium chloride: 20 mEq, 1 tab, PO, PRN, PRN: Abnormal Lab Result potassium chloride: 20 mEq, 100 mL, 50 ml/hr, IVPB, PRN, PRN: Abnormal Lab Result potassium chloride: 20 mEq, 15 mL, NJ, PRN, PRN: Abnormal Lab Result potassium phosphate + Sodium Chloride 0.9% IV 250 mL: 15 mmol, 5 mL, 63.75 ml/hr, IVPB, PRN, PRN: Abnormal Lab Result potassium phosphate + Sodium Chloride 0.9% IV 250 mL: 30 mmol, 10 mL, 65 ml/hr, IVPB, PRN, PRN: Abnormal Lab Result potassium phosphate + Sodium Chloride 0.9% IV 250 mL: 45 mmol, 15 mL, 66.25 ml/hr, IVPB, PRN, PRN: Abnormal Lab Result sodium phosphate + Sodium Chloride 0.9% IV 250 mL: 15 mmol, 5 mL, 63.75 ml/hr, IVPB, PRN, PRN: Abnormal Lab Result sodium phosphate + Sodium Chloride 0.9% IV 250 mL: 30 mmol, 10 mL, 65 ml/hr, IVPB, PRN, PRN: Abnormal Lab Result sodium phosphate + Sodium Chloride 0.9% IV 250 mL: 45 mmol, 15 mL, 66.25 ml/hr, IVPB, PRN, PRN: Abnormal Lab Result Pending Complete pneumococcal 23-valent vaccine: 0.5 mL, IM, Daily Suspended aspirin 81 mg tablet, chewable: 81 mg, 1 tab, PO, Daily Documented Medications Suspended atenolol 50 mg oral tablet: 50 mg, 1 tab, PO, Daily, 0 Refill(s) glipiZIDE 2.5 mg oral tablet, extended release: 2.5 mg, 1 tab, PO, Daily, 0 Refill(s) hydrochlorothiazide 12.5 mg oral capsule: 12.5 mg, 1 cap, PO, Daily, 0 Refill(s) levothyroxine 75 mcg (0.075 mg) oral tablet: 75 microgram, 1 tab, PO, Daily, 0 Refill(s) simvastatin 40 mg oral tablet: 40 mg, 1 tab, PO, Bedtime, 0 Refill(s) tolterodine 4 mg oral capsule, extended release: 4 mg, 1 cap, PO, Daily, 0 Refill(s), Medications (40) Active Scheduled: (6) atorvastatin 40mg tab 40 mg 1 tab, PO, Bedtime bumetanide 0.25 mg/ml INJ 4ml VL 1 mg 4 mL, IV, Daily docusate sodium 100 mg CAP 100 mg 1 cap, PO, BID insulin GLARGINE 100unit/ml INJ 3ml PEN 10 unit 0.1 mL, SUB-Q, Daily pantoprazole 40 mg INJ 40 mg, IVP, Daily sodium chloride 0.9% 10 ml flush syr BD 5 ml, MISC, Q12H Continuous: (1) fentaNYL MANAGER BUILDING 20 micrograms/ml 30 ml 600 microgram 600 microgram 30 mL, IV PRN: (33) acetaminophen 325 mg TABLET 650 mg 2 tab, PO, Q4H acetaminophen 650 mg rect SUPP 650 mg 1 supp, WY, Q4H bisacodyl 10 mg rect SUPP 10 mg 1 supp, WY, Daily calcium carbonate (200mg elemental) CHEW 500 mg 1 tab, PO, PRN calcium carbonate (200mg elemental) CHEW 1,000 mg 2 tab, PO, PRN calcium gluconate 100mg/ml 10ml VL + sodium chloride 0.9% INJ 50 mL 1 gm 10 mL, IVPB, PRN Dextrose 50% 50 ml INJ syringe 12.5 gm 25 mL, IVP, PRN Dextrose 50% 50 ml INJ syringe 25 gm 50 mL, IVP, PRN fentaNYL 100 microgram/2 ml INJ 25 microgram 0.5 mL, IVP, Q2H glucagon recombinant 1 mg PDR 1 mg, IM, PRN insulin aspart 100 unit/ml 3ml Pen 2 unit 0.02 mL, SUB-Q, TID-Before Meals insulin aspart 100 unit/ml 3ml Pen 4 unit 0.04 mL, SUB-Q, TID-Before Meals insulin aspart 100 unit/ml 3ml Pen 6 unit 0.06 mL, SUB-Q, TID-Before Meals insulin aspart 100 unit/ml 3ml Pen 8 unit 0.08 mL, SUB-Q, TID-Before Meals insulin aspart 100 unit/ml 3ml Pen 10 unit 0.1 mL, SUB-Q, TID-Before Meals labetalol 100 mg/20 ml VL 10 mg 2 mL, IVP, Q4H magnesium oxide (242 mg elemental) tab 800 mg 2 tab, PO, PRN magnesium sulfate 2 gm/H20 50ml soln 2 gm 50 mL, IVPB, PRN metoprolol 5 mg/5 ml INJ 2.5 mg 2.5 mL, IVP, Q4H naloxone 0.4 mg/ml 1ml INJ vial 0.04 mg 0.1 mL, IVP, Q2MIN ondansetron 4 mg/2ml INJ VL 4 mg 2 mL, IV, Q6H potassium chloride 10 mEq/50 ml PB 10 mEq 50 mL, IVPB, PRN potassium chloride 20 mEq ERT 20 mEq 1 tab, PO, PRN potassium chloride 20 mEq/100 ml PB 20 mEq 100 mL, IVPB, PRN potassium chloride 20mEq/15ml LIQ ud 20 mEq 15 mL, NJ, PRN potassium phosphate 3mmol/1ml 15ml VL + sodium chloride 0.9% INJ 250 mL 15 mmol 5 mL, IVPB, PRN potassium phosphate 3mmol/1ml 15ml VL + sodium chloride 0.9% INJ 250 mL 30 mmol 10 mL, IVPB, PRN potassium phosphate 3mmol/1ml 15ml VL + sodium chloride 0.9% INJ 250 mL 45 mmol 15 mL, IVPB, PRN potassium-sodium phosphate 1.25gm pkt 2 pkt, PO, PRN sodium chloride 0.9% 10 ml flush syr BD 5 ml, MISC, PRN sodium phosphate 3 mmol/1 ml 15 ml vial + sodium chloride 0.9% INJ 250 mL 15 mmol 5 mL, IVPB, PRN sodium phosphate 3 mmol/1 ml 15 ml vial + sodium chloride 0.9% INJ 250 mL 30 mmol 10 mL, IVPB, PRN sodium phosphate 3 mmol/1 ml 15 ml vial + sodium chloride 0.9% INJ 250 mL 45 mmol 15 mL, IVPB, PRN Problem list: No qualifying data available Histories Past Medical History: Resolved High cholesterol ([id number]): Resolved. Cancer ([id number]): Resolved. Melanocarcinoma ([id number]): Resolved. Heart murmur (241637300): Resolved. Thyroid disease (894986357): Resolved. Diabetes mellitus (993675368): Resolved. High blood pressure (76587197): Resolved. Family History: Heart attack Father Dementia Mother Procedure history: Hysterectomy ([id number]). Comments: 11/27/2014 12:23 - Izabella Ross 1971 Vagina operation ([id number]). Comments: 11/27/2014 12:25 - Izabella Ross Revision 1971 Procedure ([id number]). Comments: 11/27/2014 12:25 Izabella Méndez melanoma 1973 Angioplasty ([id number]). Comments: 11/27/2014 12:25 - Izabella Ross @[facility] 09/2014 Social History Social and Psychosocial Habits Tobacco 12/20/2014 Use: Never smoker Exposure to Tobacco Smoke None Cigarette Smoking Last 365 Days No Reg Smoking Cessation Counseling No . Physical Examination VS/Measurements Vital Signs (last 24 hrs) Last Charted Temp Axillary 97.8 DegF (DEC 22 14:00) Heart Rate Apical 68 bpm (DEC 22 14:00) Resp Rate H 22BRMIN (DEC 22 14:) SBP 124 mmHg (DEC 22 14:00) DBP L 57mmHg (DEC 22 14:) GA: complaining of nausea, in NAD, AAOx3 HEENT: anicteric sclerae, well injected conjunctivae, no oral lesions. Neck: RIJ in place CV: normal rate, regular rythm, no m/r/g, midline chest wound with no signs of infection Lungs: CTAB anteriorly Abdomen: normoactive BS, non tender : delvalle in place with clear urine Extremities: no edema Skin: no petechiae, no prurpura, no rashes Review / Management Results review: Labs (Last four charted values) WBC 9.8 (DEC 22) H 11.9 (DEC 21) 10.3 (DEC 20) H 11.5 (DEC 20) Hgb L 7.3 (DEC 22) L 8.1 (DEC 21) L 7.9 (DEC 20) L 8.5 (DEC 20) Hct L 22.6 (DEC 22) L 24.5 (DEC 21) L 23.5 (DEC 20) L 25.4 (DEC 20) Plt L 46 (DEC 22) L 86 (DEC 21) L 84 (DEC 20) L 128 (DEC 20) Na H 150 (DEC 22) H 153 (DEC 21) H 149 (DEC 20) H 148 (DEC 20) K 4.1 (DEC 22) 4.2 (DEC 22) 4.5 (DEC 21) 3.7 (DEC 21) CO2 L 23 (DEC 22) 26 (DEC 21) 24 (DEC 20) 24 (DEC 20) Cl H 118 (DEC 22) H 117 (DEC 21) H 113 (DEC 20) H 111 (DEC 20) Cr 1.4 (DEC 22) 1.4 (DEC 21) H 1.5 (DEC 20) 1.1 (DEC 20) BUN H 45 (DEC 22) H 26 (DEC 21) H 25 (DEC 20) 16 (DEC 20) Glucose Random H 177 (DEC 22) H 120 (DEC 21) H 206 (DEC 20) H 159 (DEC 20) Mg H 2.6 (DEC 22) 2.3 (DEC 21) 2.2 (DEC 20) 2.1 (DEC 20) Phos L 2.1 (DEC 22) 2.6 (DEC 21) 3.6 (DEC 20) 3.6 (DEC 20) Ca L 8.4 (DEC 22) L 8.3 (DEC 21) L 8.0 (DEC 20) 8.5 (DEC 20) PT H 19.0 (DEC 22) H 18.6 (DEC 21) H 18.7 (DEC 20) H 18.7 (DEC 20) INR H 1.56 (DEC 22) H 1.52 (DEC 21) H 1.53 (DEC 20) H 1.53 (DEC 20) PTT 26.3 (DEC 22) 31.4 (DEC 21) 33.7 (DEC 20) 33.7 (DEC 20) . Impression and Plan 64 yo lady with PMH of CAD, HTN, HLD, DM II, hypothyroidism, with bicuspid valve who presents for AVR and coronary artery bypass who is now s/p 3V CABG (MARTELL to LAD, free graft, SVG to OM3, SVG to RCA PD), LLE EVH above and below knee, bioprosthetic AVR (Supra 19mm), Ascending thoracic aorta hemashield graft wrap on 12/19/14. Hematology consulted for progressive postop thrombocytopenia. 1. Thrombocytopenia: HIT panel negative with an OD value of 0.076, this rules out HIT. Smear reviewed and showed few large platelets, no clumping, no shistocytes, and some toxic granulationin neutrophils. A manual count showed Plt count of about 70-80k. Thrombocytopenia can be due to multiple factors, including consumption through bypass machine during OR, infection, and antibiotics use (bith vanc and cefepime can be implicated). We agree with changing antibiotics. Continue to monitor CBC daily, we expect plt count to recover over the next few days especially if no infection is found on cultures. No indication for transfusion at this point. Transfusion threshold would be <10k or <20k if patient is febrile or bleeding. The patient was seen and discussed with . Sydney Rodriguez MD Hematology-Oncology fellow Addendum by Dillon Bella MD on 12/22/2014 17:01 Hematology Attending Attestation: I saw and examined this patient with on 12/22/2014, and I agree with findings, assessment, and recommended plan of care. I personally reviewed all labs. Thank you for the consult. Smear shows estimated platelet count between 60-80k, no schistocytes which rules out TTP. HIT ESTEBAN negative. Thrombocytopenia likely secondary to post-cardiac surgery state, antibiotics and infection (or a combination of all). No active hematologic intervention at this time. Continue to check CBC daily. Dillon Bella M.D. [id number] [facility] Division of Hematology (Internal Medicine) [facility] 12/29/2014 [facility] [place] Plan of Care No Data Provided for This Section Social History Social History Date Source Social History TypeResponse Smoking Status Never smoker; Exposure to Tobacco Smoke None; Cigarette Smoking Last 365 Days No; Reg Smoking Cessation Counseling No 02/01/2015 [facility] Social History TypeResponse Smoking Status Never smoker; Exposure to Tobacco Smoke None; Cigarette Smoking Last 365 Days No; Reg Smoking Cessation Counseling No 02/01/2015 [facility] Social History TypeResponse Smoking Status Never smoker; Exposure to Tobacco Smoke None; Cigarette Smoking Last 365 Days No; Reg Smoking Cessation Counseling No entered on: 02/01/15 02/01/2015 [place] Family History No Data Provided for This Section Advance Directives No Data Provided for This Section Functional Status No Data Provided for This Section
--- OUTSIDE RECORDS SUMMARY | 2020-03-12 17:41 | XMS REPORT | Continuity of Care Document ---
Author Author [facility] t Organization [facility] Address 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 Name Role Phone DO MICHAELLE FROST PCP MADDI DEY Attphys Unavailable Marshall Manjarrez MD Attphys [phone] Ashley Jack MD, Ryan Lima Attphys Delilah Kumar MD Attphys Deja ALBARRAN, Helio Fernandez Attphys STEVEN MIJARES Attphys Unavailable Marshall MANJARREZ Attphys Unavailable Katja Zaidi Attphys Ginna Mae Attphys Kwaku Hou Attphys Peyman An Attphys MADDI DEY Admphys Unavailable RYAN CARRION Admphys Unavailable Kwaku Hou Admphys Payers Payer Name Policy Type Policy Number Effective Date Expiration Date Evert ray Medicare A & B [id number] 2019 00:00:00 Formerly [facility] [employer] [id number] 2019 00:00:0 0 [facility] MEDICAREMEDICARE A [id number] 2014-PresentMedicare [id number] 2014 00:00:00 [facility]/BLUE SHIELDBCBS [id number] [id number], [place] [address]ACN [id number] 2001 00:00:00 [facility] Problems Condition Name Condition Details Condition Category Status Onset Date Resolution Date Last Treatment Date Treating Clinician Comments Source Essential hypertension Essential hypertension Disease Active 2020-02-17 00:00:00 [facility] Type II diabetes mellitus Type II diabetes mellitus Disease Ac tive 2020-02-17 00:00:00 [facility] Elevated lipoprotein(a) Elevated lipoprotein(a) Disease Active 2020-02-17 00:00:00 [facility] Coronary artery disease Coronary artery disease Disease Active 2020-02-17 00:00:00 [facility] H/O prosthetic aortic valve replacement H/O prosthetic aorti c valve replacement Disease Active 2020-02-17 00:00:00 [facility] Subarachnoid hemorrhage following injury, no loss of c onsciousness Subarachnoid hemorrhage following injury, no loss of consciousness Disease Active 2020-02-16 00:00:00 [facility] Subarachnoid bleed Subarachnoid bleed Disease Active 2020-02-16 00:00:0 0 [facility] D50.9=IRON DEFICIENCY ANEMIA, UNSPECIFIE D50.9=IRON DEFICIENCY ANEMIA, UNSPECIFIE Active 07/04/2019 [facility] Active 2019-07-04 00:00:00 2019-07-07 12:47:00 [facility] [place] R07.89 - OTHER CHEST PAIN R07. 89 - OTHER CHEST PAIN Active 01/30/2015 [facility] Active 2015-01-30 00:01:00 2015-03-22 13:10:00 [facility] MILYEY PERJ ANEY Active 01/30/2015 [facility] Diagnosis Active 2015-01-30 00:00:00 2015-03-20 15:47:00 [facility] F/U F/U Active 01/23/2015 [facility] Diagnosis Active 2015-01-23 00:00:00 2015-01-30 14:19:00 [facility] PLEURAL EFFUSION PLEU RAL EFFUSION Active 01/22/2015 [facility] Diagnosis Active 2015-01-22 00:00:00 2015-03-08 1 6:35:00 [facility] FOLLOW UP FOLL OW UP Active 01/09/2015 [facility] Diagnosis Active 2015-01-09 00:00:00 2015-03-09 15:32:00 [facility] FOLLOW UP HOSP ITAL FOLLOW UP Active 01/01/2015 [facility] Diagnosis Active 2015-01-01 00:00:00 2015-06-06 13:46:00 [facility] AORTIC STENOSIS AORT IC STENOSIS Active 12/18/2014 [facility] Diagnosis Active 2014-12-18 00:00:00 2015-01-04 2 1:58:00 [facility] TO BE DONE BY DR AN TO BE DONE BY DR AN Active 11/28/2014 [facility] Diagnosis Activ e 2014-11-28 00:00:00 2015-01-22 13:07:00 [facility] CAVAGE VS AVR CAVA GE VS AVR Active 11/16/2014 [facility] Diagnosis Active 2014-11-16 00:00:00 2015-01-23 0 9:02:00 [facility] Laceration of scalp [facility] Hyperglycemia Problem Active [facility] Sinus bradycardia by electrocardiography Problem Active [facility] Weakness Problem Active [facility] Malignant neoplastic disease (disorder) Malignant neoplastic disease (disorder) Resolved Problem 07/09/2019 [facility]olved 2019-07-09 22:46: 29 Tanvir Crow Diabetes mellitus (disorder) D iabetes mellitus (disorder) Resolved Problem 07/09/[address] [facility] Problem Resolved 2019-07-09 22:46:29 Nd rochelle Crow Heart murmur (finding) Hear t murmur (finding) Resolved Problem 07/09/2019 [facility] Problem Resolved 2019-07-09 22:46:29 Saad Crow Hypertensive disorder, systemic arterial (disorder) Hypertensive disorder, systemic arterial (disorder) Resolved Problem 07/09/[address] [facility] Problem Resolved 2019-07-09 22:46:29 [facility] Hypercholesterolemia (disorder) Hypercholesterolemia (disorder) Resolved Problem 07/09/[address] [facility] Resolved 2019-07-09 22:46:29 Nd rochelle Crow Malignant melanoma (disorder) Malignant melanoma (disorder) Resolved Problem 07/09/[address] [facility] Problem Resolved 2019-07-09 22:46:29 Nd rochelle Crow Disease of thyroid gland (disorder) Disease of thyroid gland (disorder) Resolved Problem 07/09/[address] [facility] Resolved 2019-07-09 22:46:29 [facility] ROUTINE MEDICAL EXAM ROUT INE MEDICAL EXAM Active [facility] Diagnosis Active 2015-06-06 13:46:00 [facility] AORTIC ATHEROSCLEROSIS AORT IC ATHEROSCLEROSIS Active [facility] Diagnosis Active 2015-01-22 13:07:00 [facility] ADMINISTRTVE ENCOUNT NOS ADMI NISTRTVE ENCOUNT NOS Active [facility] Diagnosis Active 2015-01-04 21:58:00 Tanvir Crow MALIGNANT PLEURAL EFFUSION MAL IGNANT PLEURAL EFFUSION Active [facility] Diagnosis Active 2015-03-08 16:35:00 [facility] MEDICAL SERVICES NOT AVAILABLE IN HOME MEDICAL SERVICES NOT AVAILABLE IN HOME Active [facility] Diagnosis Active 2015-03-20 15:47:00 [facility] IRON DEFICIENCY ANEMIA, UNSPECIFIED IRON DEFICIENCY ANEMIA, UNSPECIFIED Active [facility] Active 2019-07-07 12:47:00 [facility] Allergies, Adverse Reactions, Alerts Allergy Name Allergy Type Status Severity Reaction(s) Onset Date Inacti ve Date Treating Clinician Comments Source Sulfa (Sulfonamide Antibiotics) Propensity to adverse reactions Activ e 2020-02-16 00:00:00 [facility] Sulfa (Sulfonamide Antibiotics) Allergy to substance Active 2016-11-24 00:00:00 [facility] Sulfa (Sulfonamide Antibiotics) DA Active [place] 2015-08-03 00 :00:00 [facility] sulfa drugs sulfa drugs Active [facility] Social History Social Habit Start Date Stop Date Quantity Comments Source Sex Assigned At [facility] Exposure to SARS-CoV-2 (event) Not sure [facility] Tobacco use and exposure 2020-02-16 00:00:00 2020-02-16 00:00:00 Josecathryn nitesh used [facility] Smoking Status Start Date Stop Date Source Social History [facility] Medications Ordered Medication Name Filled Medication Name Start Date Stop Da te Current Medication? Ordering Clinician Indication Dosage Frequency Signature (SIG) Comments Components Source atenoloL (TENORMIN) 50 MG tablet 2020-02-20 14:50:42 Yes 50mg QD Take 50 mg by mouth daily. [facility] glipiZIDE (GLUCOTROL XL) 2.5 MG 24 hr tablet 2020-02-20 14:50:42 Yes 2.5mg QD Take 2.5 mg by mouth daily. [facility] levothyroxine (SYNTHROID, LEVOTHROID) 75 MCG tablet 2019-04 14:50:42 Yes 75ug Take 75 mcg by mouth Every morning on an empty stomach. [facility] simvastatin (ZOCOR) 40 MG tablet 2020-02-20 14:50:42 Yes 40mg QD Take 40 mg by mouth nightly. [facility] tolterodine (DETROL LA) 4 MG 24 hr capsule 2020-02-20 14:50:42 Yes 4mg QD Take 4 mg by mouth daily. [facility] furosemide (LASIX) 40 MG tablet 2020-02-20 14:50:42 Yes 40mg QD Take 40 mg by mouth daily. [facility] potassium chloride (KLOR-CON) 10 MEQ CR tablet 2020-02-20 14:50: 42 Yes 10meq QD Take 10 mEq by mouth daily. [facility] Omnipaque 300 injectable solution 2019-07-07 20:00:00 Yes Notes: (Same as:Omnipaque 300). WASTE: F/P - Black; E - [employer] [facility] Zolpidem tartrate 5 MG Oral Tablet [Ambien] 2015-01-09 15:06:00 Yes 2.5 mg = 0.5 tab, PO, Bedtime, 0 Refill(s) [facility] tramadol hydrochloride 50 MG Oral Tablet 2015-01-09 15:06:00 Yes Special Instructions: prn pain [facility] Acetaminophen 325 MG Oral Tablet [Tylenol] 2015-01-09 15:06:00 Yes Special Instructions: prn [facility] nn simvastatin 40 mg oral tablet 2015-01-09 15:06:00 Yes 40 mg = 1 tab, PO, Bedtime, # 30 tab, 5 Refill(s) Andersyancy thomas [place] bumetanide 1 mg oral tablet 2014-12-29 20:06:58 Yes 1 mg = 1 tab, PO, BID, # 30 tab, 0 Refill(s) [facility] Pneumovax 23 2014-12-29 19:30:00 No Notes: (Same as: Pneumovax 23) Refrigerate [facility] bumetanide 1 mg oral tablet 2014-12-29 19:11:00 No 1 mg = 1 tab, PO, Daily, # 30 tab, 0 Refill(s) [facility] elijah atorvastatin 40 mg oral tablet 2014-12-29 18:30:00 Yes 40 mg = 1 tab, PO, Bedtime, 0 [facility] Aspirin 81 MG Chewable Tablet 2014-12-29 18:30:00 Yes 81 mg = 1 tab, PO, Daily, 0 Refill(s) [facility] phenazopyridine 100 mg oral tablet 2014-12-29 18:30:00 No 200 mg = 2 tab, PO, TID-After Meals, 0 [facility] Potassium Chloride 20 MEQ Extended Release Tablet 2014-12-29 18:30:00 Yes 40 mEq = 2 tab, PO, Daily, 0 Refill(s) Tanvir Jiann insulin isophane (NPH) 100 units/mL human recombinant subcut aneous suspension 2014-12-29 18:30:00 Yes 10 unit, SUB-Q, QP M, 0 Refill(s) Tanvir Crow bumetanide 0.25 mg/mL injectable solution 2014-12-29 18:30:00 No 1 mg = 4 mL, IVP, BID, 0 Refill(s) Ruby Crow Docusate Sodium 100 MG Oral Capsule [Colace] 2014-12-29 18:30:00 Yes 100 mg = 1 cap, PO, BID, 0 Refill(s) Tanvir Jiann cefepime 2014-12-29 18:30:00 Yes 1 g m, IVPB, [id number], 0 Refill(s) Tanvir Crow Neutra-Phos oral powder 2014-12-29 11:01:00 No Notes: (Same as: Neutra-Phos) Each 1.25 gm pkt has 250mg phosphorous. Mix w/2.5oz water and stir. Tanvir Crow Potassium Chloride 20 MEQ Extended Release Tablet 2014-12-29 11:00:00 No Notes: (Same as: K-D ur 20) "Do Not Crush" With food and full glass of water [facility] [place] Pyridium 2014-12-28 22:30:00 No Notes: Give with meals. (Same as: Pyridium) [facility] [place] Potassium Chloride 20 MEQ Extended Release Tablet 2014-12-28 10:25:00 No Notes: (Same as: K-D ur 20) "Do Not Crush" With food and full glass of water [facility] Magnesium Oxide 2014-12-28 10:25:00 No Notes: (Same as: Mag-Ox 400) Magnesium oxide [id number] elemental magnesium Dose=____mg magnesium oxide (___mg elemental magnesium) Tanvir harris Bumex 2014-12-27 22:00:00 No Notes: (Same A s: Bumex) [facility] [place] Vancomycin 2014-12-27 17:00:00 No Notes: TIME CRITICAL MEDICATION Concentration = 50 mg/ml. Keep in refrigerator. For oral use only. Vancomycin 1gm vial are used and reconstituted with 20ml of sterile water for a concentration of 50mg/ml. Draw up in alonso po syringes. DO NOT USE IV SYRINGES. [facility] Magnesium Oxide 2014-12-27 16:08:00 No Notes: (Same as: Mag-Ox 400) Magnesium oxide [id number] elemental magnesium Dose=____mg magnesium oxide (___mg elemental magnesium) [facility] Potassium Chloride 20 MEQ Extended Release Tablet 2014-12-27 16:08:00 No Notes: (Same as: K-D ur 20) "Do Not Crush" With food and full glass of water [facility] cefepime 2014-12-26 23:00:00 No Notes: (Same As: Maxipime) MEDICATION WASTE Product Size: 1000 mg Product Wasted: ___ mg [facility] Vancomycin 2014-12-26 22:38:00 No 2001 mg: infuse over 2.5 hours MEDICATION WASTE Product Size: 1000 mg Product Wasted: ___ mg [facility] Humulin N 2014-12-26 14:00:00 No 60 units) Stable for 28 days at room temperature Expires in days from Date [facility] potassium chloride 2014-12-26 11:36:00 No Notes: (Same as: K-Dur 20) "Do Not Crush" With food and full glass of water [facility] Humulin N 2014-12-25 22:00:00 No 60 units) Stable for 28 days at room temperature Expires in days from Date [facility] potassium phosphate + Sodium Chloride 0.9% IV 250 mL 12-25 20:22:00 No Notes: (Same as: K Phosphate.) 1 mMol phoshate has 1.47 mEq potassium Infuse over 4 hours [facility] Miconazole Nitrate 0.02 MG/MG Topical Ointment 2014-12-25 20:13: 00 No Notes: (Same as: Markistat 7) [facility] K-Dur 20 2014-12-25 15:00:00 No Notes: (Same as: K-Dur 20) "Do Not Crush" With food and full glass of water [facility] potassium chloride 2014-12-25 11:55:00 No Notes: (Same as: K-Dur 20) "Do Not Crush" With food and full glass of water [facility] [place] Insulin, Aspart, Human 2014-12-25 02:40:00 No Notes: Roll in palms of hands gently; Do not shake vigorously. (Same as: NovoLOG) "single patient use only" Stable for 28 days at room temperature. Expires in days from Date [facility] [place] Pyridium 2014-12-24 15:21:00 No Notes: Give with meals. (Same as: Pyridium) [facility] [place] Bumex 2014-12-24 14:00:00 No Notes: (Same A s: Bumex) [facility] [place] Atenolol 2014-12-24 14:00:00 No Notes: (Saeed e As:Tenormin) [facility] potassium phosphate + Sodium Chloride 0.9% IV 250 mL 12-24 10:20:00 No Notes: (Same as: K Phosphate.) 1 mMol phoshate has 1.47 mEq potassium Infuse over 4 hours [facility] [place] Bumex 2014-12-23 22:00:00 No Notes: (Same A s: Bumex) [facility] Acetaminophen 325 MG / Hydrocodone Bitartrate 5 MG Oral Tabl et [Bedford 5/325] 2014-12-23 13:35:00 No Notes: (Same as: [place] 325/5) Do not exceed 4gm/day of acetaminophen. [facility] nn potassium phosphate + Sodium Chloride 0.9% IV 250 mL 12-23 09:45:00 No Notes: (Same as: K Phosphate.) 1 mMol phoshate has 1.47 mEq potassium Infuse over 4 hours [facility] [place] Bumex 2014-12-22 16:00:00 No Notes: (Same A s: Bumex) [facility] [place] Lantus 2014-12-22 14:58:00 No Notes: Same as Lantus Solostar PEN Do not hold insulin without contacting prescriber "single patient use only" Stable for 28 days at room temperature. Expires in days from Date [facility] [place] Zofran 2014-12-22 05:10:00 No Notes: (Same as: Zofran) MEDICATION WASTE Product Size: 4 mg Product Wasted: ___ mg Tanvir Crow Bisacodyl 2014-12-21 20:52:00 No Notes: (Same As: Dulcolax, Bisco-Lax) [facility] Insulin, Aspart, Human 2014-12-21 20:41:00 No Notes: Roll in palms of hands gently; Do not shake vigorously. (Same as: NovoLOG) "single patient use only" Stable for 28 days at room temperature. Expires in days from Date [facility] [place] Glucagon 2014-12-21 20:41:00 No 1 mg, Route: IM, Drug form: PDR/INJ, PRN, Dosing Weight 51.364, kg, PRN Blood Glucose Results, Start date: 12/21/14 15:41:00, Duration: 30 day, Stop date: 01/20/15 15:40:00 [facility] [place] Dextrose 50% Syringe 2014-12-21 20:41:00 No 12.5 gm, 25 mL, Route: IVP, Drug Form: INJ, Dosing Weight 51.364, kg, PRN, PRN Blood Glucose Results, Start date: 12/21/14 15:41:00, Duration: 30 day, Stop date: 01/20/15 15:40:00 [facility] Insulin Glargine 2014-12-21 20:35:00 No Notes: Same as Lantus Solostar PEN Do not hold insulin without contacting prescriber "single patient use only" Stable for 28 days at room temperature. Expires in days from Date [facility] Lantus 2014-12-21 17:59:00 No Notes: Same as Lantus Solostar PEN Do not hold insulin without contacting prescriber "single patient use only" Stable for 28 days at room temperature. Expires in days from Date [facility] vancomycin + Sodium Chloride 0.9% IV 100 mL 2014-12-21 14:00:00 No 2001 mg: infuse over 2.5 hours MEDICATION WASTE Product Size: 1000 mg Product Wasted: _250__ mg [facility] pneumococcal capsular polysaccharide typ e 1 vaccine / pneumococcal capsular polysaccharide type 10A vaccine / pneumococcal capsular polysaccharide type 11A vaccine / pneumococcal capsular polysaccharide type 12F vaccine / pneumococcal capsular polysacchar 2014-12-21 14:00:00 No Notes: (Same as: Pneumovax 23) Refrigerate [facility] Furosemide 2014-12-21 06:20:00 No Notes: (S roxi as: Lasix) [facility] Furosemide 2014-12-21 03:13:00 No Notes: (S roxi as: Lasix) [facility] normal saline 0.9% IV 500 mL 2014-12-20 23:35:00 No 500 mL, Rate: 100 ml/hr, Infuse over: 5 hr, Route: IV, Dosing Weight 51.364 kg, Total Volume: 500, Start date: 12/20/14 18:35:00, Duration: 1 doses or times, Stop date: 12/20/14 23:34:00 [facility] Sodium Chloride 0.154 MEQ/ML Injectable Solution 2014-12-20 20:1 5:00 No 500 mL, 200 ml/hr, Infuse Ov er: 2.5 hr, Route: IV, 500, Drug form: INJ, ONCE, Priority: STAT, Dosing Weight 51.364 kg, Start date: 12/20/14 15:15:00, Duration: 1 doses or times, Stop date: 12/20/14 15:15:00 [facility] Vancomycin 2014-12-20 19:56:00 No 1 gm, Route: IVPB, Drug form: INJ, [id number], Dosing Weight 51.364, kg, Priority: STAT, Start date: 12/20/14 14:56:00, Duration: 30 day, Stop date: 01/19/15 2:56:00 [facility] cefepime 2014-12-20 19:56:00 No Notes: (Same As: Maxipime) MEDICATION WASTE Product Size: 1000 mg Product Wasted: ___ mg [facility] pantoprazole 2014-12-20 14:00:00 No Notes: For IV push reconstitute with 10 ml 0.9% sodium chloride and push over 2 minutes. (Same as: Protonix) Tanvir [facility]istin Aspirin 2014-12-20 14:00:00 No Notes: Take with food. Tanvir [facility] Aspirin 300 MG Rectal Suppository 2014-12-20 14:00:00 No Notes: Refrigerate. [facility] [place] Aspirin 81 MG Chewable Tablet 2014-12-20 14:00:00 No Notes: Take with food. Tanvir Crow Acetaminophen 10 MG/ML Injectable Solution 2014-12-20 13:07:00 No Notes: Infuse over 15 minutes Do not exceed 4gm/day of acetaminophen MEDICATION WASTE Product Size: 1000 mg Product Wasted: ___ mg Tanvir [facility] Bumex 2014-12-20 13:06:00 No Notes: (Same A s: Bumex) Tanvir Crow Albumin Human, RESIDENTIAL 250 MG/ML Injectable Solution 2014-12-20 09:3 2:00 No Notes: Lot #: Mfg: (Same as: Plasbumin-25) "blood product derivative" MEDICATION WASTE Product Size: 25 gm Product Wasted: ___ gm Tanvir Jiann Sodium Chloride 0.154 MEQ/ML Injectable Solution 2014-12-20 06:2 8:00 No 250 mL, 250 ml/hr, Infuse Ov er: 1 hr, Route: IV, 250, Drug form: INJ, ONCE, Priority: STAT, Dosing Weight 51.364 kg, Start date: 12/20/14 1:28:00, Duration: 1 doses or times, Stop date: 12/20/14 1:28:00 Tanvir Crow sodium phosphate + Sodium Chloride 0.9% IV 250 mL 2014-12-20 02:40:00 No Special Instructions: FOR ICU USE ONLY Tanvir Trist[facility] potassium chloride 2014-12-20 02:40:00 No Notes: (Same as: K-Dur 20) "Do Not Crush" With food and full glass of water Tanvir Crow potassium phosphate + Sodium Chloride 0.9% IV 250 mL 12-20 02:40:00 No Notes: (Same as: K Phosphate.) 1 mMol phoshate has 1.47 mEq potassium Infuse over 4 hours Tanvir Crow Calcium Carbonate 500 MG Chewable Tablet 2014-12-20 02:40:00 No Notes: (Same As: Tums) Calcium Carbonate 500 mg = 200 mg elemental calcium Dose = mg calcium carbonate ( mg elemental calcium) [facility] [place] Calcium Gluconate 2014-12-20 02:40:00 No Special Instructions: FOR ICU USE ONLY [facility] [place] Magnesium Oxide 2014-12-20 02:40:00 No Notes: (Same as: Mag-Ox 400) Magnesium oxide [id number] elemental magnesium Dose=____mg magnesium oxide (___mg elemental magnesium) Tanvir harris Neutra-Phos 2014-12-20 02:40:00 No Notes: (Same as: Neutra-Phos) Each 1.25 gm pkt has 250mg phosphorous. Mix w/2.5oz water and stir. [facility] [place] Magnesium Sulfate 2014-12-20 02:40:00 No Special Instructions: FOR ICU USE ONLY Tanvir Crow potassium phosphate + Sodium Chloride 0.9% IV 250 mL 12-20 02:27:00 No Notes: (Same as: K Phosphate.) 1 mMol phoshate has 1.47 mEq potassium Infuse over 4 hours Tanvir Crow Ondansetron 2014-12-20 02:19:00 No Notes: (Same as: Zofran) MEDICATION WASTE Product Size: 4 mg Product Wasted: ___ mg Tanvir Crow Simvastatin 2014-12-20 02:00:00 No 40 mg, Route: PO, Drug form: TAB, Bedtime, Dosing Weight 51.364, kg, Start date: 12/19/14 21:00:00, Duration: 30 day, Stop date: 01/17/15 21:00:00 Memori benita Crow atorvastatin 2014-12-20 02:00:00 No Notes: (Same as: Lipitor) Tanvir Crow ceFAZolin (SCIP) 2014-12-20 01:30:00 No Notes: (Same As: Ancef, Kefzol) MEDICATION WASTE Product Size: 1000 mg Product Wasted: _0__ mg [facility] Vancomycin 6.67 MG/ML Injectable Solution 2014-12-20 01:30:00 No 2001 mg: infuse over 2.5 hours MEDICATION WASTE Product Size: 1000 mg Product Wasted: _250_ mg Tanvir Jia nn Calcium Chloride 2014-12-20 01:08:00 No 1 gm, 10 mL, Route: IVPB, PRN, Dosing Weight 51.364, kg, PRN Abnormal Lab Result, Via central line, Start date: 12/19/14 20:08:00, Duration: 30 day, Stop date: 01/18/15 20:07:00 Tanvir Crow sodium phosphate + Sodium Chloride 0.9% IV 250 mL 2014-12-20 01:08:00 No 30 mmol, 10 mL, Rout e: IVPB, PRN, Dosing Weight 51.364, kg, PRN Abnormal Lab Result, Via central line, Start date: 12/19/14 20:08:00, Duration: 30 day, Stop date: 01/18/15 20:07:00 Tanvir Crow Magnesium Sulfate 2014-12-20 01:08:00 No 2 gm, 50 mL, Route: IVPB, Drug form: INJ, PRN, Dosing Weight 51.364, kg, PRN Abnormal Lab Result, Via central line, Start date: 12/19/14 20:08:00, Duration: 30 day, Stop date: 01/18/15 20:07:00 Tanvir Tristin potassium chloride 2014-12-20 01:08:00 No Notes: (Same as: KCL) Infuse no faster than 10 mEq/hr if given peripherally. Tanvir Crow Calcium Chloride 0.0014 MEQ/ML / Potassi um Chloride 0.004 MEQ/ML / Sodium Chloride 0.103 MEQ/ML / Sodium Lactate 0.028 MEQ/ML Injectable Solution 2014-12-20 00:42:00 No 250 mL, 250 ml/hr, Infuse Over: 1 hr, Route: IV, 250, Drug form: SOLN, ONCE, Priority: STAT, Dosing Weight 51.364 kg, Start date: 12/19/14 19:42:00, Duration: 1 doses or times, Stop date: 12/19/14 19 :42:00 Tnavir Crow Dexmedetomidine 0.004 MG/ML Injectable Solution [Precedex] 2014-12-20 00:37:00 No Notes: (Same as: Precedex) Tanvir Crow EPINEPHrine 4 mg + Sodium Chloride 0.9% (titrate) 246 mL 2014-12-20 00:04:00 No 246 mL, Rate: Titrate, Dosing Weight 51.364, kg, Route: IV, Total Volume: 250, Start Date: 12/19/14 19:04:00, Duration: 30 day, Stop date: 01/18/15 19:03:00, Replace Every: 24 hr [facility] Milrinone 2014-12-20 00:03:00 No Notes: (Same as:Primacor) Final conc = 0.2 mg/ml. Premix solution. [facility] [place] Zofran 2014-12-19 23:00:00 No Notes: (Same as: Zofran) [facility] Docusate Sodium 100 MG Oral Capsule [Colace] 2014-12-19 22:00:00 No Notes: (Same as: Colace) (Do Not Crush) [facility] Fentanyl 2014-12-19 20:30:00 No Notes: Concentration is 20 micrograms/ml [facility] Naloxone 2014-12-19 20:23:00 No Notes: Same as Narcan [facility] Dextrose 50% Syringe 2014-12-19 20:23:00 No 25 gm, 50 mL, Route: IVP, Drug Form: INJ, Dosing Weight 51.364, kg, PRN, PRN Blood Glucose Results, Start date: 12/19/14 15:23:00, Duration: 30 day, Stop date: 01/18/15 15:22:00 [facility] Insulin regular 100 unit + Sodium Chloride 0.9% (titrate) 99 mL 2014-12-19 20:23:00 No Notes: (Same as: Humuli n R and NovoLIN R) (Do not shake) [facility] Hydralazine 2014-12-19 20:23:00 No Notes: (Same as: Apresoline) Push over 5 minutes [facility] Metoprolol 2014-12-19 20:23:00 No Notes: (Same as: Lopressor) Push over 2 minutes [facility] Labetalol 2014-12-19 20:23:00 No 10 mg, 2 mL, Route: IVP, Drug form: INJ, Q4H, Dosing Weight 51.364, kg, PRN Hypertension, Start date: 12/19/14 15:23:00, Duration: 30 day, Stop date: 01/18/15 15:22:00 [facility] Acetaminophen 2014-12-19 20:23:00 No Notes: Max acetaminophen = 4000 mg/day (4 gm/day). (Same as: Tylenol) [facility] Fentanyl 2014-12-19 20:23:00 No Notes: (Same as: Sublimaze) Preservative free. [facility] Aspirin 325 MG Oral Tablet 2014-12-19 20:23:00 No Notes: Take with food. [facility] 2014-12-19 18:23:00 No 1 gm, Route: IV, ONCE, Dosing Weight 51.364, kg, Start date: 12/19/14 13:23:00, Stop date: 12/19/14 13:23:00 [facility] Hydrochlorothiazide 12.5 MG Oral Capsule 2014-12-19 11:56:00 No 12.5 mg = 1 cap, PO, Daily, 0 Refill(s) [facility] [place] Saline Flush 0.9% 2014-12-19 02:00:00 No Notes: (Same as: BD Posiflush) [facility] Vancomycin 2014-12-18 22:00:00 No 2001 mg: infuse over 2.5 hours MEDICATION WASTE Product Size: 1000 mg Product Wasted: ___ mg [facility] Cefazolin 2014-12-18 22:00:00 No Notes: Saeed e as: [facility] Saline Flush 0.9% 2014-12-18 21:40:00 No Notes: (Same as: BD Posiflush) [facility] Sodium Chloride 0.9% (titrate) 250 mL 2014-12-18 21:40:00 N o 250 mL, Rate: call center representative for use with blood product administration, Dosing Weight 51.003, kg, Route: IV, Total Volume: 250, Start Date: 12/18/14 16:40:00, Duration: 30 day, Stop date: 01/17/15 16:39:00, Replace Every: 24 hr [facility] Metoprolol 2014-12-18 21:40:00 No Notes: (Same as: Lopressor) Push over 2 minutes [facility] tolterodine 4 mg oral capsule, extended release 2014-11-28 14:50 :00 Yes 4 mg = 1 cap, PO, Daily, 0 Refill(s) [facility] levothyroxine 75 mcg (0.075 mg) oral tablet 2014-11-28 14:50:00 Yes 75 microgram = 1 tab, PO, Daily, 0 Refill(s) [facility] Atenolol 50 MG Oral Tablet 2014-11-28 14:50:00 Yes 50 mg = 1 tab, PO, Daily, 0 Refill(s) [facility] simvastatin 40 mg oral tablet 2014-11-28 14:50:00 Yes 40 mg = 1 tab, PO, Bedtime, 0 Refill(s) [facility] nn 24 HR Glipizide 2.5 MG Extended Release Tablet 2014-11-28 14:50: 00 Yes 2.5 mg = 1 tab, PO, Daily, 0 Refill(s) [facility] Atenolol Atenolol Yes 50 Daily [facility] Furosemide (Lasix) 40 Mg TABLET Furosemide (Lasix) 40 Mg TABLET Yes 40 Daily [facility] Glipizide (Glipizide Er) 5 Mg TAB.ER.24 Glipizide (Glipizide Er) 5 Mg TAB.ER.24 Yes 2.5 Daily [facility] Levothyroxine Sodium Levothyroxine Sodium Yes 75 Daily [facility] Potassium Chloride Potassium Chloride Yes 10 Da florian [facility] Simvastatin Simvastatin Yes 40 Today At 9:00PM [facility] Tolterodine Tartrate (Detrol La) 4 Mg CAP.ER.24H Tolte rodine Tartrate (Detrol La) 4 Mg CAP.ER.24H Yes 4 Daily [facility] Hydrochlorothiazide Hydrochlorothiazide 2020-02-22 00:00:00 No 25 Daily [facility] Albuterol Sulfate (Proventil Hfa) 6.7 Gm HFA.AER.AD Al buterol Sulfate (Proventil Hfa) 6.7 Gm HFA.AER.AD 2016-11-22 00:00:00 No Every 4 Hours as needed for Shortness Of Breath [facility] Vital Signs Vital Name Observation Time Observation Value Comments Source Body Temperature 2020-03-01 11:24:00 97.3 [degF] [facility] Heart Rate 2020-03-01 11:24:00 64 /min [facility] Respiratory rate 2020-03-01 11:24:00 16 /min [facility] BP Systolic 2020-03-01 11:24:00 147 mm[Hg] [facility] BP Diastolic 2020-03-01 11:24:00 55 mm[Hg] [facility] Oxygen saturation by Pulse oximetry 2020-03-01 11:24:00 98 /min [facility] Weight 2020-02-28 14:16:00 98 [lb_av] [facility] BMI (Body Mass Index) 2020-02-28 14:16:00 19.8 kg/m2 [facility] Body Temperature 2020-02-24 12:30:00 97.3 [degF] [facility] Heart Rate 2020-02-24 12:30:00 52 /min [facility] Respiratory rate 2020-02-24 12:30:00 20 /min [facility] BP Systolic 2020-02-24 12:30:00 124 mm[Hg] [facility] BP Diastolic 2020-02-24 12:30:00 44 mm[Hg] [facility] Oxygen saturation by Pulse oximetry 2020-02-24 12:30:00 100 /min [facility] Body Temperature 2020-02-23 11:39:00 97.9 [degF] [facility] Heart Rate 2020-02-23 11:39:00 56 /min [facility] Respiratory rate 2020-02-23 11:39:00 17 /min [facility] BP Systolic 2020-02-23 11:39:00 124 mm[Hg] [facility] BP Diastolic 2020-02-23 11:39:00 46 mm[Hg] [facility] Oxygen saturation by Pulse oximetry 2020-02-23 11:39:00 99 /min [facility] Weight 2020-02-21 20:15:00 90 [lb_av] [facility] BMI (Body Mass Index) 2020-02-21 20:15:00 18.2 kg/m2 [facility] Systolic blood pressure 2020-02-20 12:34:00 148 mm[Hg] [facility] Diastolic blood pressure 2020-02-20 12:34:00 65 mm[Hg] [facility] Heart rate 2020-02-20 12:34:00 78 /min [facility] Body temperature 2020-02-20 12:34:00 36.5 Fariha [facility] Respiratory rate 2020-02-20 12:34:00 18 /min [facility] Oxygen saturation in Arterial blood by Pulse oximetry 2019-04 12:34:00 97 [facility] 2020-02-20 06:00:00 44.453 kg [facility] BMI 2020-02-20 06:00:00 19.79 kg/m2 [facility] Body height 2020-02-16 14:00:00 149.9 cm [facility] Height 2015-01-30 19:45:00 149.86 cm [facility] Systolic (mm Hg) 2015-01-30 19:45:00 [facility] [place] Diastolic (mm Hg) 2015-01-30 19:45:00 [facility] [place] Respitory Rate 2015-01-30 19:45:00 [facility] [place] Temperature Oral (F) 2015-01-30 19:45:00 97.0 F [facility] Height 2015-01-23 18:51:00 149.86 cm [facility] [place] BMI Calculated 2015-01-23 18:51:00 [facility] [place] Weight 2015-01-23 18:51:00 [facility] [place] Weight 2015-01-09 16:03:00 [facility] [place] BMI Calculated 2015-01-09 16:03:00 [facility] [place] Height 2015-01-09 16:03:00 149.86 cm [facility] [place] Systolic (mm Hg) 2015-01-09 16:03:00 [facility] [place] Diastolic (mm Hg) 2015-01-09 16:03:00 [facility] [place] Heart Rate 2015-01-09 16:03:00 [facility] [place] Temperature Oral (F) 2015-01-09 16:03:00 96.7 F [facility] [place] Respitory Rate 2015-01-09 16:03:00 [facility] [place] Weight 2015-01-09 15:02:00 [facility] [place] BMI Calculated 2015-01-09 15:02:00 [facility] [place] Height 2015-01-09 15:02:00 149.86 cm [facility] [place] Temperature Oral (F) 2015-01-09 15:02:00 96.7 F [facility] [place] Heart Rate 2015-01-09 15:02:00 [facility] [place] Respitory Rate 2015-01-09 15:02:00 [facility] [place] Systolic (mm Hg) 2015-01-09 15:02:00 [facility] [place] Diastolic (mm Hg) 2015-01-09 15:02:00 [facility] [place] Systolic (mm Hg) 2014-12-29 17:00:00 [facility] [place] Diastolic (mm Hg) 2014-12-29 17:00:00 [facility] [place] Respitory Rate 2014-12-29 17:00:00 [facility] [place] Respitory Rate 2014-12-29 16:00:00 [facility] [place] Systolic (mm Hg) 2014-12-29 16:00:00 [facility] [place] Diastolic (mm Hg) 2014-12-29 16:00:00 [facility] [place] Respitory Rate 2014-12-29 14:00:00 [facility] [place] Systolic (mm Hg) 2014-12-29 14:00:00 [facility] [place] Diastolic (mm Hg) 2014-12-29 14:00:00 [facility] [place] Temperature Oral (F) 2014-12-29 09:05:00 97.6 F [facility] [place] Temperature Oral (F) 2014-12-29 05:00:00 97.6 F [facility] [place] Temperature Oral (F) 2014-12-29 00:00:00 97.4 F [facility] [place] Weight 2014-12-22 14:40:00 [facility] Height 2014-12-19 11:48:00 149.86 cm [facility] [place] BMI Calculated 2014-12-19 11:48:00 [facility] [place] Weight 2014-12-19 11:48:00 [facility] [place] Height 2014-12-06 19:11:00 145 cm [facility] [place] BMI Calculated 2014-12-06 19:11:00 [facility] [place] Weight 2014-12-06 19:11:00 [facility] [place] Temperature Oral (F) 2014-12-06 19:11:00 96.3 F [facility] [place] Heart Rate 2014-12-06 19:11:00 [facility] [place] Systolic (mm Hg) 2014-12-06 19:11:00 [facility] [place] Diastolic (mm Hg) 2014-12-06 19:11:00 [facility] [place] BMI Calculated 2014-11-29 12:31:00 [facility] [place] Weight 2014-11-29 12:31:00 [facility] [place] Height 2014-11-29 12:31:00 149.86 cm [facility] [place] Height 2014-11-28 14:48:00 149.86 cm [facility] [place] BMI Calculated 2014-11-28 14:48:00 [facility] [place] Weight 2014-11-28 14:48:00 [facility] [place] Systolic (mm Hg) 2014-11-28 14:48:00 [facility] [place] Diastolic (mm Hg) 2014-11-28 14:48:00 [facility] [place] Heart Rate 2014-11-28 14:48:00 [facility] Temperature Oral (F) 2014-11-28 14:48:00 97.1 F [facility] Procedures Procedure Date / Time Performed Performing Clinician [facility] e X-ray of chest, two views 2020-02-23 00:00:00 [facility] Computed tomography of brain without radiopaque contrast 2020-02 00:00:00 [facility] BASIC METABOLIC PANEL (7) 2020-02-20 10:25:00 Alina Short i [facility] PHOSPHORUS 2020-02-20 10:25:00 Jim Short [facility] CBC W/PLT COUNT & AUTO DIFFERENTIAL 2020-02-20 04:50:[address] [facility] (CELLAVISION MANUAL DIFF) 2020-02-20 04:50:[address] [facility] POCT-GLUCOSE METER 2020-02-19 20:42:00 Deja [facility] POCT-GLUCOSE METER 2020-02-19 16:44:00 Deja [facility] POCT-GLUCOSE METER 2020-02-19 12:51:00 Deja [facility] BASIC METABOLIC PANEL (7) 2020-02-19 05:42:00 Shoreji [facility] CBC W/PLT COUNT & AUTO DIFFERENTIAL 2020-02-19 05:42:[address] [facility] (CELLAVISION MANUAL DIFF) 2020-02-19 05:42:00 Alma Rosa [facility] POCT-GLUCOSE METER 2020-02-18 20:42:00 Deja [facility] NM PARATHYROID SCAN WITH SPECT/CT 2020-02-18 15:46:00 Vinay Kumar [facility] POCT-GLUCOSE METER 2020-02-18 07:54:00 Deja [facility] BASIC METABOLIC PANEL (7) 2020-02-18 03:53:00 Alma Rosa [facility] CBC W/PLT COUNT & AUTO DIFFERENTIAL 2020-02-18 03:53:00 ShoCindy mendoza [facility] (CELLAVISION MANUAL DIFF) 2020-02-18 03:53:00 Alma Rosa [facility] POCT-GLUCOSE METER 2020-02-17 21:30:00 Deja [facility] POCT-GLUCOSE METER 2020-02-17 16:09:00 Mimi Kumar [facility] XR PELVIS 1 OR 2 VIEWS 2020-02-17 12:54:[address] [facility] 2D ECHO W/ DOPPLER (CW/PW/COLOR) 2020-02-17 12:05:[address] [facility] POCT-GLUCOSE METER 2020-02-17 11:06:00 Mimi Kumar [facility] VITAMIN D, 25-HYDROXY 2020-02-17 08:19:[address] [facility] PTH, INTACT 2020-02-17 08:19:00 Alma Rosa, Jose [facility] PTH-RELATED PEPTIDE 2020-02-17 08:19:00 Alma Rosa, Jose [facility] TSH/FREE T4 IF INDICATED 2020-02-17 08:19:00 Alma Rosa, Jose [facility] CALCIUM, IONIZED 2020-02-17 08:19:[address] [facility] POCT-GLUCOSE METER 2020-02-17 07:14:00 Ashley Jack [facility] CT BRAIN WITHOUT IV CONTRAST 2020-02-17 04:25:[address] [facility] BASIC METABOLIC PANEL (7) 2020-02-17 04:25:[address] [facility] MAGNESIUM 2020-02-17 04:25:00 Vasquez [facility] PHOSPHORUS 2020-02-17 04:25:00 Vasquez [facility] CBC W/PLT COUNT & AUTO DIFFERENTIAL 2020-02-17 04:25:[address] [facility] POCT-GLUCOSE METER 2020-02-16 22:20:00 Ashley Jack [facility] POCT-GLUCOSE METER 2020-02-16 17:33:00 Ashley Jack [facility] SARS-COV2/RT-PCR ([facility]) 2020-02-16 16:32:[address] [facility] PROTHROMBIN TIME/INR 2020-02-16 16:32:00 Alma Rosa Jose [facility] APTT 2020-02-16 16:32:00 [facility] 2020-02-16 16:32:00 Alma Rosa Jose [facility] PHOSPHORUS 2020-02-16 16:32:00 Alma Rosa [facility] BASIC METABOLIC PANEL (7) 2020-02-16 16:32:00 Alma Rosa [facility] HEPATIC FUNCTION PANEL 2020-02-16 16:32:00 Alma Rosa [facility] COVID19 ([facility]) 2020-02-16 16:32:00 Alma Rosa Jose [facility] CBC W/PLT COUNT & AUTO DIFFERENTIAL 2020-02-16 16:32:[address] [facility] RPR S/N/AX/GEN/TRNK 2.5CM/< 2020-02-16 00:00:00 [facility] Computed tomography of brain without radiopaque contrast 2020-01 00:00:00 [facility] Computed tomography of cervical spine without contrast 2020-01-20 9 00:00:00 [facility] REPORT OF PROCEDURE - ENDOSCOPY SCAN 2020-02-16 00:00:00 Pro vider, Default Scanning [facility] Angioplasty<sup>1</sup> [facility] Hysterectomy<sup>2</sup> [facility] [place] Procedure<sup>3</sup> [facility] ermann Vagina operation<sup>4</sup> [facility] [place] Plan of Care Planned Activity Planned Date Details Comments Source Future Scheduled Test 2020-02-17 00:00:00 Hemoglobin A1c mary surement (procedure) [code = 71764419] [facility] Future Scheduled Test 2019-12-20 00:00:00 INFLUENZA VACCINE (#1) [code = INFLUENZA VACCINE (#1)] [facility] Future Scheduled Test 2015-07-21 00:00:00 MEDICARE ANNUAL WE LLNESS (YEAR 2 or FIRST YEAR if no IPPE) [code = MEDICARE ANNUAL WELLNESS (YEAR 2 or FIRST YEAR if no IPPE)] [facility] Future Scheduled Test 1959-08-11 00:00:00 DIABETIC EYE EXAM [code = DIABETIC EYE EXAM] [facility] Future Scheduled Test 1959-08-11 00:00:00 Diabetic foot exam ination (regime/therapy) [code = 959227572] [facility] 1959-08[facility]11 00:00:00 Urine screening fo r protein (procedure) [code = 699868245] [facility] Future Scheduled Test 1949 00:00:00 Screening for dale gnant neoplasm of breast (procedure) [code = 938380472[facility] [place] [facility] 00:00:00 Screening for dale gnant neoplasm of colon (procedure) [code = 642449440] [facility] Diabetes and Diet [facility] Instructions Post Operative Pain [facility] Instructions Wound Care (General) [facility] Encounters Start Date/Time End Date/Time Encounter Type Admission Type Attendi [facility] Care Department Encounter ID Source 2020-02-28 11:41:00 2020-03-01 12:48:00 Discharged Inpatient (obs) [facility] [id number] [facility] 2020-02-23 11:54:00 2020-02-24 14:37:00 Discharged Inpatient 1 MADDI DEY [facility] [id number] [facility] 2020-02-16 10:34:00 2020-02-16 14:12:00 Departed Emergency Room 1 STEVEN MIJARES [facility] [id number] [facility] 2019-07-07 12:36:00 2019-07-07 23:59:00 Outpatient Kae Zaidi [facility] [id number] 2019-07-07 12:36:00 2019-07-07 12:36:00 Outpatient MHSE [id number] 2015-03-20 13:55:00 2015-03-20 23:59:00 [id number] 2015-03-20 12:10:00 2015-03-20 23:59:00 Outpatient Obi Mae u MHOIH MHOI [id number] 2015-01-30 17:00:00 2015-01-30 23:59:00 Outpatient Carmelita Bind u MHOIH MHOIH [id number] 2015-01-30 14:11:00 2015-01-30 23:59:00 [facility] [id number] 2015-01-23 12:51:00 2015-01-23 23:59:00 Outpatient Obi Mae u [facility] [id number] 2015-01-09 11:56:00 2015-01-09 23:59:00 Outpatient Sergiooric, Dre Kwaku MHOIH MHOI [id number] 2015-01-09 09:30:00 2015-01-09 23:59:00 Outpatient Sergiooric, Dre Kwaku [facility] [id number] 2014-12-19 05:27:00 2014-12-29 15:30:00 Outpatient Gregoric, Dre Kwaku [facility] [id number] 2014-12-06 13:25:00 2014-12-06 23:59:00 Outpatient Gregoric, Dre [facility] [id number] 2014-11-29 07:20:00 2014-11-29 23:59:00 Outpatient AgatafrancesPeyman [facility] [id number] 2014-11-28 09:33:00 2014-11-28 23:59:00 Outpatient Peyman An [facility] [id number] Results Test Description Test Time Test Comments Results Result Comments Source Serum or plasma sodium measurement (moles/volume) 2020-03-01 10:10:00 Test Item Sodium Level (test code = 2951-2) 138 mmol/L 136-[facility] ([facility]oles/volume)2020-03-01 10:10:00* Test Item Value Reference Range Interpretation Comments Potassium Level (test code = 2823-3) 4.0 mmol/L 3.5-5.1 [facility] chloride measurement (moles/volume)2020-03-01 10:10:00* Test Item Value Reference Range Interpretation Comments Chloride Level (test code = 2075-0) 109 mmol/L 98-107 [facility] carbon dioxide, total measurement (moles/volume)2020-03-01 10:10:00* Test Item Value Reference Range Interpretation Comments Carbon Dioxide Level (test code = 2028-9) 21 mmol/L 22-29 [facility] anion [id number] 10:10:00* Test Item Value Reference Range Interpretation Comments Anion Gap (test code = 66424-1) 12.0 mmol/L 8-16 [facility] urea nitrogen measurement (mass/volume)2020-03-01 10:10:00* Test Item Value Reference Range Interpretation Comments Blood Urea Nitrogen (test code = 3094-0) 14 mg/dL 7-26 [facility] creatinine measurement (mass/volume)2020-03-01 10:10:00* Test Item Value Reference Range Interpretation Comments Creatinine (test code = 2160-0) 0.73 mg/dL 0.57-1.11 [facility] urea nitrogen/creatinine mass [id number] 10:10:00* Test Item Value Reference Range Interpretation Comments BUN/Creatinine Ratio (test code = 3097-3) 19 6-25 [facility] glomerular filtration rate (GFR) [id number] 10:10:00* Test Item Value Reference Range Interpretation Comments Estimat Glomerular Filtration Rate (test code = 301485231) > 60 mL/ min >60 Ranges were taken from the National Kidney Disease Education Program and the Day ional Kidney Foundation literature.Reference ranges:60 or greater: Rudace48-07 ( for 3 consecutive months): Chronic kidney disease 15 or less: Kidney failureB[facility]entonGlucose [id number] 10:10:00* Test Item Value Reference Range Interpretation Comments Glucose Level (test code = PFN8777) 129 mg/dL 74-118 [facility] calcium measurement (mass/volume)2020-03-01 10:10:00* Test Item Value Reference Range Interpretation Comments Calcium Level (test code = 21786-8) 8.1 mg/dL 8.4-10.2 [facility] total bilirubin measurement (mass/volume)2020-03-01 10:10:00* Test Item Value Reference Range Interpretation Comments Total Bilirubin (test code = 1975-2) 0.5 mg/dL 0.2-1.2 [facility]entonFluoroscopic procedure less than one hour [id number] 10:10:00* Test Item Value Reference Range Interpretation Comments Aspartate Amino Transf (AST/SGOT) (test code = Aspartate Amino Transf (AST/SGOT)) 16 [IU]/L 5-34 [facility] alanine aminotransferase measurement (enzymatic activity/volume)2020-03-01 10:10:00* Test Item Value Reference Range Interpretation Comments Alanine Aminotransferase (ALT/SGPT) (test code = 1742-6) 13 [IU]/L 0-55 [facility] protein measurement (mass/volume)2020-03-01 10:10:00* Test Item Value Reference Range Interpretation Comments Total Protein (test code = 2885-2) 5.9 g/dL 6.5-8.1 [facility] albumin measurement (mass/volume)2020-03-01 10:10:00* Test Item Value Reference Range Interpretation Comments Albumin (test code = 1751-7) 2.9 g/dL 3.5-5.0 [facility]enton[facility]asma globulin measurement (mass/volume) 2020-03-01 10:10:00* Test Item Value Reference Range Interpretation Comments Globulin (test code = 01777-6) 3.0 g/dL 2.3-3.5 [facility] albumin/globulin mass [id number] 10:10:00* Test Item Value Reference Range Interpretation Comments Albumin/Globulin Ratio (test code = 1759-0) 1.0 0.8-2.0 [facility] alkaline phosphatase measurement (enzymatic activity/volume)2020-03-01 10:10:00* Test Item Value Reference Range Interpretation Comments Alkaline Phosphatase (test code = 6768-6) 170 [IU]/L 40-150 [facility] leukocytes automated count (number/volume)2020-03-01 10:00:00* Test Item Value Reference Range Interpretation Comments White Blood Count (test code = 6690-2) 2.69 10*3/uL 4.8-10.8 [facility] erythrocytes automated count (number/volume)2020-03-01 10:00:00* Test Item Value Reference Range Interpretation Comments Red Blood Count (test code = 789-8) 2.57 10*6/mL 3.6-5.1 [facility] hemoglobin measurement (moles/volume)2020-03-01 10:00:00* Test Item Value Reference Range Interpretation Comments Hemoglobin (test code = 83701-1) 7.9 g/dL 12.0-16.0 [facility]enton[facility]ated blood hematocrit (volume fraction)2020-03-01 10:00:00* Test Item Value Reference Range Interpretation Comments Hematocrit (test code = 4544-3) 25.5 % 34.2-44.1 [facility] DentonAutomated erythrocyte mean corpuscular [id number] 10:00:00* Test Item Value Reference Range Interpretation Comments Mean Corpuscular Volume (test code = 787-2) 99.2 81-99 [facility]entonAutomated erythrocyte mean corpuscular hemoglobin (mass per erythrocyte)2020-03-01 10:00:00* Test Item Value Reference Range Interpretation Comments Mean Corpuscular Hemoglobin (test code = 785-6) 30.7 pg 28-32 [facility] DentonAutomated erythrocyte mean corpuscular hemoglobin concentration measurement (mass/volume)2020-03-01 10:00:00* Test Item Value Reference Range Interpretation Comments Mean Corpuscular Hemoglobin Concent (test code = 786-4) 31.0 g/dL 31-35 [facility] DentonRDW UinSm-Xyr7776-67-12 10:00:00* Test Item Value Reference Range Interpretation Comments Red Cell Distribution Width (test code = 45789-4) 17.2 % 11.7 -14.4 [facility] DentonAutomated blood platelet count (count/volume)2020-03-01 10:00:00* Test Item Value Reference Range Interpretation Comments Platelet Count (test code = 777-3) 94 10*3/uL 140-360 [facility] DentonAutomated blood segmented neutrophil count as percentage of total wvmstshwby0792-46-28 10:00:00* Test Item Value Reference Range Interpretation Comments Neutrophils (%) (Auto) (test code = 56482-5) 68.0 % 38.7-80.0 [facility] DentonAutomated blood lymphocyte count as percentage ot total cvbyeuarns9967-26-37 10:00:00* Test Item Value Reference Range Interpretation Comments Lymphocytes (%) (Auto) (test code = 736-9) 23.4 % 18.0-39.1 [facility] DentonAutomated blood monocyte count as percentage of total wsjsbueufq8030-17-60 10:00:00* Test Item Value Reference Range Interpretation Comments Monocytes (%) (Auto) (test code = 5905-5) 4.8 % 4.4-11.3 [facility] DentonAutomated blood eosinophil count as percentage of total jenjhbtdpl0577-83-39 10:00:00* Test Item Value Reference Range Interpretation Comments Eosinophils (%) (Auto) (test code = 713-8) 0.4 % 0.0-6.0 [facility] DentonAutomated blood basophil count as percentage of total cewzsmmtaf4674-49-02 10:00:00* Test Item Value Reference Range Interpretation Comments Basophils (%) (Auto) (test code = 706-2) 0.4 % 0.0-1.0 [facility] DentonFluoroscopic procedure less than one hour zoxukgxs5483-61-54 10:00:00* Test Item Value Reference Range Interpretation Comments IM GRANULOCYTES % (test code = IM GRANULOCYTES %) 3.0 % 0.0- 1.0 [facility] DentonAutomated blood neutrophil count 2020-03-01 10:00:00* Test Item Value Reference Range Interpretation Comments Neutrophils # (Auto) (test code = 751-8) 1.8 2.1-6.9 [facility] DentonBlood lymphocytes count (number/volume) 2020-03-01 10:00:00* Test Item Value Reference Range Interpretation Comments Lymphocytes # (Auto) (test code = 48071-6) 0.6 1.0-3.2 [facility]entonBlolivia hospital [facility] clinics monocytes automated count (number/volume)2020-03-01 10:00:00* Test Item Value Reference Range Interpretation Comments Monocytes # (Auto) (test code = 742-7) 0.1 0.2-0.8 [facility] DentonAutomated blood eosinophil count 2020-03-01 10:00:00* Test Item Value Reference Range Interpretation Comments Eosinophils # (Auto) (test code = 711-2) 0.0 0.0-0.4 [facility] DentonAutomated blood basophil count (count/volume)2020-03-01 10:00:00* Test Item Value Reference Range Interpretation Comments Basophils # (Auto) (test code = 704-7) 0.0 0.0-0.1 [facility] DentonFluoroscopic procedure less than one hour itxazxqn7732-38-17 10:00:00* Test Item Value Reference Range Interpretation Comments Absolute Immature Granulocyte (auto (azeem t code = Absolute Immature Granulocyte (auto) 0.08 10*3/uL 0-0.1 [facility] DentonVenous blood ionized calcium measurement (mass/volume)2020-02-29 14:17:00* Test Item Value Reference Range Interpretation Comments Ionized Calcium (test code = 47968-4) 1.2 mmol/L 1.09-1.30 [facility] DentonFluoroscopic procedure less than one hour wglqvxcg8821-63-57 09:45:00* Test Item Value Reference Range Interpretation Comments Coronavirus (PCR) (test code = Coronavirus (PCR)) NOT DETECTED NOTD ETECTED SARS-COV2/RT-PCR CEPHEIDResults are for the detection of SARS-COV-2 RNA. The AINSLEY S-COV-2 RNA is generally detectable in nasopharyngeal swab specimens during the acute phase of infection. Positive results are indicitive of active infection wi SARS-COV-2; clinical correlation with patient history and other diagnostic in formation is necessary to determine patient infection status. Positive results d o not rule out bacterial infection or co-infection with other viruses. The agent detected may not be the definite cause of the disease.The limit of detection fo r this assay is 250 copies/mLThe SARS-CoV-2 test is a rapid, real-time RT-PCR te st intended for the qualitative detection of nucleic acid from SARS-CoV-2 in [place] opharyngeal swab specimen collected from individuals suspected of COVID-19 by [facility] provider. This test has not been Food and Drug Administration (FD A) cleared or approved and has been authorized by FDA under an Emergency Use Aut horization (EUA). This EUA will be effective until the declaration that circumst ances exist justifying the authorization of the emergency use of in vitro diagno stic test for detection and or diagnosis of COVID-19 is terminated under section 564(b) of the Act, or the the EUA is revoked under 564(g) of the ACT.[facility] DentonBlood leukocytes automated count (number/volume) 2020-02-24 05:56:00* Test Item Value Reference Range Interpretation Comments White Blood Count (test code = 6690-2) 3.23 10*3/uL 4.8-10.8 [facility] DentonBlood erythrocytes automated count (number/volume)2020-02-24 05:56:00* Test Item Value Reference Range Interpretation Comments Red Blood Count (test code = 789-8) 2.47 10*6/mL 3.6-5.1 [facility] DentonBlood hemoglobin measurement (moles/volume)2020-02-24 05:56:00* Test Item Value Reference Range Interpretation Comments Hemoglobin (test code = 01776-4) 7.5 g/dL 12.0-16.0 [facility] DentonAutomated blood hematocrit (volume fraction)2020-02-24 05:56:00* Test Item Value Reference Range Interpretation Comments Hematocrit (test code = 4544-3) 24.1 % 34.2-44.1 [facility] DentonAutomated erythrocyte mean corpuscular mcnrwd3237-76-08 05:56:00* Test Item Value Reference Range Interpretation Comments Mean Corpuscular Volume (test code = 787-2) 97.6 81-99 [facility] DentonAutomated erythrocyte mean corpuscular hemoglobin (mass per erythrocyte)2020-02-24 05:56:00* Test Item Value Reference Range Interpretation Comments Mean Corpuscular Hemoglobin (test code = 785-6) 30.4 pg 28-32 [facility] DentonAutomated erythrocyte mean corpuscular hemoglobin concentration measurement (mass/volume)2020-02-24 05:56:00* Test Item Value Reference Range Interpretation Comments Mean Corpuscular Hemoglobin Concent (test code = 786-4) 31.1 g/dL 31-35 [facility] DentonRDW BjyQa-Asg7565-07-06 05:56:00* Test Item Value Reference Range Interpretation Comments Red Cell Distribution Width (test code = 78402-6) 16.0 % 11.7 -14.4 [facility] DentonAutomated blood platelet count (count/volume)2020-02-24 05:56:00* Test Item Value Reference Range Interpretation Comments Platelet Count (test code = 777-3) 52 10*3/uL 140-360 [facility] DentonAutomated blood segmented neutrophil count as percentage of total kksvlkhvsd6460-93-60 05:56:00* Test Item Value Reference Range Interpretation Comments Neutrophils (%) (Auto) (test code = 53758-2) 65.1 % 38.7-80.0 [facility] DentonAutnov[facility] blood lymphocyte count as percentage ot total yocdiaorxl2555-47-08 05:56:00* Test Item Value Reference Range Interpretation Comments Lymphocytes (%) (Auto) (test code = 736-9) 20.4 % 18.0-39.1 [facility] DentonAutomated blood monocyte count as percentage of total gjjyuyzzte4621-38-77 05:56:00* Test Item Value Reference Range Interpretation Comments Monocytes (%) (Auto) (test code = 5905-5) 6.2 % 4.4-11.3 [facility] DentonAutomated blood eosinophil count as percentage of total ebybtfqhra5239-28-28 05:56:00* Test Item Value Reference Range Interpretation Comments Eosinophils (%) (Auto) (test code = 713-8) 0.9 % 0.0-6.0 [facility] DentonAutomated blood basophil count as percentage of total ddvfzdtrpm8119-58-19 05:56:00* Test Item Value Reference Range Interpretation Comments Basophils (%) (Auto) (test code = 706-2) 0.6 % 0.0-1.0 [facility] DentonFluoroscopic procedure less than one hour ljjejazy0740-26-49 05:56:00* Test Item Value Reference Range Interpretation Comments IM GRANULOCYTES % (test code = IM GRANULOCYTES %) 6.8 % 0.0- 1.0 [facility] DentonAutomated blood neutrophil count 2020-02-24 05:56:00* Test Item Value Reference Range Interpretation Comments Neutrophils # (Auto) (test code = 751-8) 2.1 2.1-6.9 [facility] DentonBlood lymphocytes count (number/volume) 2020-02-24 05:56:00* Test Item Value Reference Range Interpretation Comments Lymphocytes # (Auto) (test code = 58868-8) 0.7 1.0-3.2 [facility] DentonBlood monocytes automated count (number/volume)2020-02-24 05:56:00* Test Item Value Reference Range Interpretation Comments Monocytes # (Auto) (test code = 742-7) 0.2 0.2-0.8 [facility] DentonAutomated blood eosinophil count 2020-02-24 05:56:00* Test Item Value Reference Range Interpretation Comments Eosinophils # (Auto) (test code = 711-2) 0.0 0.0-0.4 [facility] DentonAutomated blood basophil count (count/volume)2020-02-24 05:56:00* Test Item Value Reference Range Interpretation Comments Basophils # (Auto) (test code = 704-7) 0.0 0.0-0.1 [facility] DentonFluoroscopic procedure less than one hour fvorxpok5779-89-42 05:56:00* Test Item Value Reference Range Interpretation Comments Absolute Immature Granulocyte (auto (azeem t code = Absolute Immature Granulocyte (auto) 0.22 10*3/uL 0-0.1 [facility] sodium measurement (moles/volume)2020-02-24 05:56:00* Test Item Value Reference Range Interpretation Comments Sodium Level (test code = 2951-2) 134 mmol/L 136-145 [facility] potassium measurement (moles/volume)2020-02-24 05:56:00* Test Item Value Reference Range Interpretation Comments Potassium Level (test code = 2823-3) 3.6 mmol/L 3.5-5.1 [facility] chloride measurement (moles/volume)2020-02-24 05:56:00* Test Item Value Reference Range Interpretation Comments Chloride Level (test code = 2075-0) 108 mmol/L 98-107 [facility]rum or plasma carbon dioxide, total measurement (moles/volume)2020-02-24 05:56:00* Test Item Value Reference Range Interpretation Comments Carbon Dioxide Level (test code = 2028-9) 21 mmol/L 22-29 [facility] or [facility] anion rpk7781-23-25 05:56:00* Test Item Value Reference Range Interpretation Comments Anion Gap (test code = 86095-2) 8.6 mmol/L 8-16 [facility] urea nitrogen measurement (mass/volume)2020-02-24 05:56:00* Test Item Value Reference Range Interpretation Comments Blood Urea Nitrogen (test code = 3094-0) 12 mg/dL 7-26 [facility] plasma creatinine measurement (mass/volume)2020-02-24 05:56:00* Test Item Value Reference Range Interpretation Comments Creatinine (test code = 2160-0) 0.63 mg/dL 0.57-1.11 [facility]ererum or plasma urea nitrogen/creatinine mass ndvwt1697-56-04 05:56:00* Test Item Value Reference Range Interpretation Comments BUN/Creatinine Ratio (test code = 3097-3) 19 6-25 [facility] DentonEstimated glomerular filtration rate (GFR) zyarkozxgpumz0897-38-85 05:56:00* Test Item Value Reference Range Interpretation Comments Estimat Glomerular Filtration Rate (test code = 741015387) > 60 mL/ min >60 Ranges were taken from the National Kidney Disease Education Program and the [facility] Kidney Foundation literature.Reference ranges:60 or greater: Yetzzw10-61 ( for 3 consecutive months): Chronic kidney disease 15 or less: Kidney failureBaylor Scott and White the Heart Hospital – DentonGlucose pefvtyiuwmc5535-99-05 05:56:00* Test Item Value Reference Range Interpretation Comments Glucose Level (test code = ZLB1978) 94 mg/dL 74-118 [facility] calcium measurement (mass/volume)2020-02-24 05:56:00* Test Item Value Reference Range Interpretation Comments Calcium Level (test code = 14309-0) 8.9 mg/dL 8.4-10.2 [facility] DentonCHEST 2 [id number] 22:06:00 [facility] : 1950 Sex: F [facility] [address], [place] [address] Patient Name: AXEL CHRISTOPHER MR #: [id number] : 1950 Age/Sex: 69/F Req #: [id number] Adm Physician: MADDI DEY MD Or dered by: MADDI DEY MD Report #: [id number] Location: MED/SURG3 Room/Bed: [facility] __ Procedure: [id number] DX/CHEST 2 VIEWS Exam Date: 02/23/20 Exam Time: 2119 REPORT STATUS: Signed EXAMINATION: CHEST 2 VIEWS INDICATION : CONGESTION [id number] COMPARISON: 02/21/2020 FINDINGS: PA and lateral views TUBES and LINES: None. LUNGS: Lungs are well inflated. Pulmonary gastric congestion and mild interstitial edema. Linear right lower lung field opacification. PLEURA: No pneumothorax. Smal l left pleural effusion. HEART AND MEDIASTINUM: The cardiomediastinal silh ouette is enlarged. Median sternotomy wires are again seen. BONES AND SOF T TISSUES: No acute osseous lesion. Soft tissues are unremarkable. UPPE R ABDOMEN: No free air under the diaphragm. IMPRESSION: Enlarged car diac mediastinal silhouette, pulmonary vascular congestion, and mild interstit ial edema. Small left pleural effusion. Linear right lower lung field opacif ication, could represent atelectasis versus developing pneumonia in the approp riate clinical context. Signed by: Dr. Love Casas MD on 02/23/2020 10 :07 PM Dictated By: LOVE CASAS MD 06 Transcribed By: MARIAH on 02/23/202206 COPY TO : MADDI DEY MD PTH-related dmfduum2979-07-09 21:17:00* Test Item Value Reference Range Interpretation Comments PTH-Related Protein (test code = 8753055) 8 pg/mL 14-27 L This is a C-terminal PTH-RP assay. PTH-RP is useful in the differentialdiagnosis of hypercalcemia and levels may be elevated in patients withtumor-associated hypercalcemia. Elevated results may also be observed inpatients with renal disease. This test was developed and its analytical performance characteristics havebeen determined by [facility].It has not been cleared or approved by FDA. This assay has been validatedpursuant to the CLIA regulations and is used for clinical purposes. BEN (test code = BEN) Performing Lab [facility] [address] [place] [address] Toro Soto MD, PhD, JAMIL Lab Interpretation (test code = 08515-7) Abnormal [facility] measurement by glucometer (mass/volume)2020-02-23 20:54:00* Test Item Value Reference Range Interpretation Comments Bedside Glucose (test code = 41862-2) 113 mg/dL 70-120 Meter ID: [id number] Scott and White the [facility] Hospital – DentonCapillary blood glucose measurement by glucometer (mass/volume)2020-02-23 20:54:00* Test Item Value Reference Range Interpretation Comments Bedside Glucose (test code = 59994-4) 113 mg/dL 70-120 Meter ID: [id number] Scott and White the [facility] Hospital – DentonVenous blood ionized calcium measurement (mass/volume)2020-02-23 14:15:00* Test Item Value Reference Range Interpretation Comments Ionized Calcium (test code = 52316-9) 1.3 mmol/L 1.09-1.30 [facility] or plasma intact pararthyroid hormone measurement (mass/volume)2020-02-23 14:15:00* Test Item Value Reference Range Interpretation Comments Parathyroid Hormone (Intact) (test code = 2731-8) 77 pg/mL 15-6 5 Performed at: - [facility] [id number] Director: Akhil Merlos MD, Phone: [phone] Medical Centererum or plasma intact pararthyroid hormone measurement (mass/volume) 2020-02-23 14:15:00* Test Item Value Reference Range Interpretation Comments Parathyroid Hormone (Intact) (test code = 2731-8) 77 pg/mL 15-6 5 Performed at: - [facility] [id number] [place], [place] [id number] Director: Akhil Merlos MD, Phone: [phone] Scott and White the [facility] Hospital – DentonCapillary blood glucose measurement by glucometer (mass/volume)2020-02-23 10:57:00* Test Item Value Reference Range Interpretation Comments Bedside Glucose (test code = 21386-6) 123 mg/dL 70-120 Meter ID: [id number] Medical Centererum or plasma sodium measurement (moles/volume)2020-02-23 05:04:00* Test Item Value Reference Range Interpretation Comments Sodium Level (test code = 2951-2) 135 mmol/L 136-145 [facility] or plasma potassium measurement (moles/volume)2020-02-23 05:04:00* Test Item Value Reference Range Interpretation Comments Potassium Level (test code = 2823-3) 4.1 mmol/L 3.5-5.1 [facility] chloride measurement (moles/volume)2020-02-23 05:04:00* Test Item Value Reference Range Interpretation Comments Chloride Level (test code = 2075-0) 107 mmol/L 98-107 [facility]rum or plasma carbon dioxide, total measurement (moles/volume)2020-02-23 05:04:00* Test Item Value Reference Range Interpretation Comments Carbon Dioxide Level (test code = 2028-9) 23 mmol/L 22-29 [facility] or plasma anion dof3478-43-47 05:04:00* Test Item Value Reference Range Interpretation Comments Anion Gap (test code = 08309-6) 9.1 mmol/L 8-16 [facility] plasma urea nitrogen measurement (mass/volume)2020-02-23 05:04:00* Test Item Value Reference Range Interpretation Comments Blood Urea Nitrogen (test code = 3094-0) 8 mg/dL 7-26 [facility] or plasma creatinine measurement (mass/volume)2020-02-23 05:04:00* Test Item Value Reference Range Interpretation Comments Creatinine (test code = 2160-0) 0.63 mg/dL 0.57-1.11 [facility]ererum or plasma urea nitrogen/creatinine mass jroqs8836-52-02 05:04:00* Test Item Value Reference Range Interpretation Comments BUN/Creatinine Ratio (test code = 3097-3) 13 6-25 [facility] DentonEstimated glomerular filtration rate (GFR) lsgyldcuuthoc8140-20-95 05:04:00* Test Item Value Reference Range Interpretation Comments Estimat Glomerular Filtration Rate (test code = 072362206) > 60 mL/ min >60 Ranges were taken from the National Kidney Disease Education Program and the [facility] literature.Reference ranges:60 or greater: Zzrxkh65-42 ( for 3 consecutive months): Chronic kidney disease 15 or less: Kidney failureBaylor Scott and White the Heart Hospital – DentonGlucose ybsyoveqlts4474-61-55 05:04:00* Test Item Value Reference Range Interpretation Comments Glucose Level (test code = VRM6624) 104 mg/dL 74-118 [facility] or [facility] calcium measurement (mass/volume)2020-02-23 05:04:00* Test Item Value Reference Range Interpretation Comments Calcium Level (test code = 79615-1) 8.9 mg/dL 8.4-10.2 [facility] DentonVenous blood ionized calcium measurement (mass/volume)2020-02-22 14:34:00* Test Item Value Reference Range Interpretation Comments Ionized Calcium (test code = 95787-4) 1.4 mmol/L 1.09-1.30 [facility] DentonFluoroscopic procedure less than one hour ulhanrcj6594-72-14 14:34:00* Test Item Value Reference Range Interpretation Comments Hemoglobin A1c Percent (test code = Hemoglobin A1c Percent) 6.0 % 4.0-7.0 [facility] or plasma thyroxine (T4) free measurement (mass/volume)2020-02-22 14:34:00* Test Item Value Reference Range Interpretation Comments Free Thyroxine (test code = 3024-7) 0.98 ng/dL 0.8-1.8 [facility] or plasma thyrotropin measurement by detection limit <= 0.005 miu/l (units/volume)2020-02-22 14:34:00* Test Item Value Reference Range Interpretation Comments Thyroid Stimulating Hormone (TSH) (test code = 88443-0) 1.100 0.350-4.940 [facility] DentonFluoroscopic procedure less than one hour ycynsnhv2164-35-54 14:34:00* Test Item Value Reference Range Interpretation Comments Hemoglobin A1c Percent (test code = Hemoglobin A1c Percent) 6.0 % 4.0-7.0 [facility] plasma thyroxine (T4) free measurement (mass/volume)2020-02-22 14:34:00* Test Item Value Reference Range Interpretation Comments Free Thyroxine (test code = 3024-7) 0.98 ng/dL 0.8-1.8 [facility] or plasma thyrotropin measurement by detection limit <= 0.005 miu/l (units/volume)2020-02-22 14:34:00* Test Item Value Reference Range Interpretation Comments Thyroid Stimulating Hormone (TSH) (test code = 29565-7) 1.100 0.350-4.940 [facility] DentonFluoroscopic procedure less than one hour iabgujnq3248-23-05 14:34:00* Test Item Value Reference Range Interpretation Comments Hemoglobin A1c Percent (test code = Hemoglobin A1c Percent) 6.0 % 4.0-7.0 [facility] or plasma thyroxine (T4) free measurement (mass/volume)2020-02-22 14:34:00* Test Item Value Reference Range Interpretation Comments Free Thyroxine (test code = 3024-7) 0.98 ng/dL 0.8-1.8 [facility] or plasma thyrotropin measurement by detection limit <= 0.005 miu/l (units/volume)2020-02-22 14:34:00* Test Item Value Reference Range Interpretation Comments Thyroid Stimulating Hormone (TSH) (test code = 07582-3) 1.100 0.350-4.940 [facility] DentonBlolivia hospital and clinics leukocytes automated count (number/volume)2020-02-22 05:09:00* Test Item Value Reference Range Interpretation Comments White Blood Count (test code = 6690-2) 4.00 10*3/uL 4.8-10.8 [facility] erythrocytes automated count (number/volume)2020-02-22 05:09:00* Test Item Value Reference Range Interpretation Comments Red Blood Count (test code = 789-8) 2.40 10*6/mL 3.6-5.1 [facility] (moles/volume)2020-02-22 05:09:00* Test Item Value Reference Range Interpretation Comments Hemoglobin (test code = 04367-0) 7.3 g/dL 12.0-16.0 [facility] DentonAutomated blood hematocrit (volume fraction)2020-02-22 05:09:00* Test Item Value Reference Range Interpretation Comments Hematocrit (test code = 4544-3) 22.8 % 34.2-44.1 [facility] DentonAutomated erythrocyte mean corpuscular uaawdo5008-99-36 05:09:00* Test Item Value Reference Range Interpretation Comments Mean Corpuscular Volume (test code = 787-2) 95.0 81-99 [facility] DentonAutomated erythrocyte mean corpuscular hemoglobin (mass per erythrocyte)2020-02-22 05:09:00* Test Item Value Reference Range Interpretation Comments Mean Corpuscular Hemoglobin (test code = 785-6) 30.4 pg 28-32 [facility] DentonAutomated erythrocyte mean corpuscular hemoglobin concentration measurement (mass/volume)2020-02-22 05:09:00* Test Item Value Reference Range Interpretation Comments Mean Corpuscular Hemoglobin Concent (test code = 786-4) 32.0 g/dL 31-35 [facility] DentonRDW YkzOr-Ylh7874-22-04 05:09:00* Test Item Value Reference Range Interpretation Comments Red Cell Distribution Width (test code = 06098-2) 15.2 % 11.7 -14.4 [facility] DentonAutomated blood platelet count (count/volume)2020-02-22 05:09:00* Test Item Value Reference Range Interpretation Comments Platelet Count (test code = 777-3) 58 10*3/uL 140-360 [facility] DentonAutomated blood segmented neutrophil count as percentage of total srryyckgna4120-72-81 05:09:00* Test Item Value Reference Range Interpretation Comments Neutrophils (%) (Auto) (test code = 31354-4) 70.0 % 38.7-80.0 [facility] DentonAutomated blood lymphocyte count as percentage ot total eubeovgvpr4917-70-34 05:09:00* Test Item Value Reference Range Interpretation Comments Lymphocytes (%) (Auto) (test code = 736-9) 16.3 % 18.0-39.1 [facility]entonAutom[facility] blood monocyte count as percentage of total zqjixbmyjt7226-00-33 05:09:00* Test Item Value Reference Range Interpretation Comments Monocytes (%) (Auto) (test code = 5905-5) 4.8 % 4.4-11.3 [facility]entonAutom[facility] blood eosinophil count as percentage of total vigpkqmwer3540-10-32 05:09:00* Test Item Value Reference Range Interpretation Comments Eosinophils (%) (Auto) (test code = 713-8) 0.8 % 0.0-6.0 [facility]entonAutom[facility] blood basophil count as percentage of total cjxzkjtjlz7230-99-22 05:09:00* Test Item Value Reference Range Interpretation Comments Basophils (%) (Auto) (test code = 706-2) 0.3 % 0.0-1.0 [facility] DentonFluoroscopic procedure less than one hour orrivmdt4483-47-58 05:09:00* Test Item Value Reference Range Interpretation Comments IM GRANULOCYTES % (test code = IM GRANULOCYTES %) 7.8 % 0.0- 1.0 [facility]entonAutomated blood neutrophil count 2020-02-22 05:09:00* Test Item Value Reference Range Interpretation Comments Neutrophils # (Auto) (test code = 751-8) 2.8 2.1-6.9 [facility]Bl[facility] lymphocytes count (number/volume) 2020-02-22 05:09:00* Test Item Value Reference Range Interpretation Comments Lymphocytes # (Auto) (test code = 78519-0) 0.7 1.0-3.2 [facility] monocytes automated count (number/volume)2020-02-22 05:09:00* Test Item Value Reference Range Interpretation Comments Monocytes # (Auto) (test code = 742-7) 0.2 0.2-0.8 [facility]entonAutom[facility] blood eosinophil count 2020-02-22 05:09:00* Test Item Value Reference Range Interpretation Comments Eosinophils # (Auto) (test code = 711-2) 0.0 0.0-0.4 [facility] blood basophil count (count/volume)2020-02-22 05:09:00* Test Item Value Reference Range Interpretation Comments Basophils # (Auto) (test code = 704-7) 0.0 0.0-0.1 [facility] DentonFluoroscopic procedure less than one hour bgvqxkjo1141-79-58 05:09:00* Test Item Value Reference Range Interpretation Comments Absolute Immature Granulocyte (auto (azeem t code = Absolute Immature Granulocyte (auto) 0.31 10*3/uL 0-0.1 [facility] DentonFluoroscopic procedure less than one hour qzrtyaxj8826-94-67 05:09:00* Test Item Value Reference Range Interpretation Comments Differential Total Cells Counted (test code = Bryce tial Total Cells Counted) 100 [facility] blood neutrophils/100 leukocytes 2020-02-22 05:09:00* Test Item Value Reference Range Interpretation Comments Neutrophils % (Manual) (test code = 35110-5) 75 % 40-74 [facility] blood band neutrophils form/100 isicghisll2690-97-88 05:09:00* Test Item Value Reference Range Interpretation Comments Band Neutrophils % (test code = 764-1) 5 % [facility] blood lymphocytes/100 leukocytes 2020-02-22 05:09:00* Test Item Value Reference Range Interpretation Comments Lymphocytes % (Manual) (test code = 737-7) 19 % 19-48 [facility] DentonManual blood metamyelocytes/100 cqzmcbhrov5105-53-24 05:09:00* Test Item Value Reference Range Interpretation Comments Metamyelocytes % (test code = 740-1) 1 % 0-0 [facility] DentonBlood platelets count by estimate (number/volume)2020-02-22 05:09:00* Test Item Value Reference Range Interpretation Comments Platelet Estimate (test code = 57013-3) MODERATELY DECREASED [facility] DentonPlatelet bfgelnawoz1926-55-16 05:09:00* Test Item Value Reference Range Interpretation Comments Platelet Morphology Comment (test code = 56023-1) FEW LARGE [facility] DentonBlood anisocytosis detection by light faseerxsho4748-46-95 05:09:00* Test Item Value Reference Range Interpretation Comments Anisocytosis (test code = 702-1) FEW [facility] macrocytes detection by light ssmaxriwqb7229-59-23 05:09:00* Test Item Value Reference Range Interpretation Comments Macrocytosis (test code = 738-5) FEW [facility] DentonRBC hgnktrjigv2188-18-32 05:09:00* Test Item Value Reference Range Interpretation Comments Red Cell Morphology Comment (test code = 6742-1) ABNORMAL [facility] total bilirubin measurement (mass/volume)2020-02-22 05:09:00* Test Item Value Reference Range Interpretation Comments Total Bilirubin (test code = 1975-2) 0.8 mg/dL 0.2-1.2 [facility] DentonFluoroscopic procedure less than one hour nddpfngp3220-08-36 05:09:00* Test Item Value Reference Range Interpretation Comments Aspartate Amino Transf (AST/SGOT) (test code = Aspartate Amino Transf (AST/SGOT)) 19 [IU]/L 5-34 [facility] or plasma alanine aminotransferase measurement (enzymatic activity/volume)2020-02-22 05:09:00* Test Item Value Reference Range Interpretation Comments Alanine Aminotransferase (ALT/SGPT) (test code = 1742-6) 17 [IU]/L 0-55 [facility] or plasma protein measurement (mass/volume)2020-02-22 05:09:00* Test Item Value Reference Range Interpretation Comments Total Protein (test code = 2885-2) 5.4 g/dL 6.5-8.1 [facility] or plasma albumin measurement (mass/volume)2020-02-22 05:09:00* Test Item Value Reference Range Interpretation Comments Albumin (test code = 1751-7) 2.5 g/dL 3.5-5.0 [facility] DentonPlasma globulin measurement (mass/volume) 2020-02-22 05:09:00* Test Item Value Reference Range Interpretation Comments Globulin (test code = 93828-7) 2.9 g/dL 2.3-3.5 [facility] or plasma albumin/globulin mass zjnsz9397-03-61 05:09:00* Test Item Value Reference Range Interpretation Comments Albumin/Globulin Ratio (test code = 1759-0) 0.9 0.8-2.0 [facility] or [facility] alkaline phosphatase measurement (enzymatic activity/volume)2020-02-22 05:09:00* Test Item Value Reference Range Interpretation Comments Alkaline Phosphatase (test code = 6768-6) 120 [IU]/L 40-150 [facility] DentonFluoroscopic procedure less than one hour whdnffim4090-67-82 05:09:00* Test Item Value Reference Range Interpretation Comments Differential Total Cells Counted (test code = Differlucas tial Total Cells Counted) 100 [facility] DentonManual blood neutrophils/100 leukocytes 2020-02-22 05:09:00* Test Item Value Reference Range Interpretation Comments Neutrophils % (Manual) (test code = 69497-2) 75 % 40-74 [facility] blood band neutrophils form/100 hauirgntup3979-90-45 05:09:00* Test Item Value Reference Range Interpretation Comments Band Neutrophils % (test code = 764-1) 5 % [facility] blood lymphocytes/100 leukocytes 2020-02-22 05:09:00* Test Item Value Reference Range Interpretation Comments Lymphocytes % (Manual) (test code = 737-7) 19 % 19-48 [facility] DentonManual blood metamyelocytes/100 wsqlchuovj9096-18-99 05:09:00* Test Item Value Reference Range Interpretation Comments Metamyelocytes % (test code = 740-1) 1 % 0-0 [facility] DentonBlood platelets count by estimate (number/volume)2020-02-22 05:09:00* Test Item Value Reference Range Interpretation Comments Platelet Estimate (test code = 37677-8) MODERATELY DECREASED [facility] DentonPlatelet muncvhccrh3335-38-19 05:09:00* Test Item Value Reference Range Interpretation Comments Platelet Morphology Comment (test code = 29183-6) FEW LARGE [facility] DentonBlood anisocytosis detection by light vyzhkktqyy1855-94-31 05:09:00* Test Item Value Reference Range Interpretation Comments Anisocytosis (test code = 702-1) FEW [facility] macrocytes detection by light uafqppdlwb3701-87-64 05:09:00* Test Item Value Reference Range Interpretation Comments Macrocytosis (test code = 738-5) FEW [facility] DentonRBC rfmfdpxsfv3457-81-98 05:09:00* Test Item Value Reference Range Interpretation Comments Red Cell Morphology Comment (test code = 6742-1) ABNORMAL [facility] total bilirubin measurement (mass/volume)2020-02-22 05:09:00* Test Item Value Reference Range Interpretation Comments Total Bilirubin (test code = 1975-2) 0.8 mg/dL 0.2-1.2 [facility] DentonFluoroscopic procedure less than one hour cqywrtax8477-26-73 05:09:00* Test Item Value Reference Range Interpretation Comments Aspartate Amino Transf (AST/SGOT) (test code = Aspartate Amino Transf (AST/SGOT)) 19 [IU]/L 5-34 [facility] or [facility] alanine aminotransferase measurement (enzymatic activity/volume)2020-02-22 05:09:00* Test Item Value Reference Range Interpretation Comments Alanine Aminotransferase (ALT/SGPT) (test code = 1742-6) 17 [IU]/L 0-55 [facility] protein measurement (mass/volume)2020-02-22 05:09:00* Test Item Value Reference Range Interpretation Comments Total Protein (test code = 2885-2) 5.4 g/dL 6.5-8.1 [facility] or [facility] albumin measurement (mass/volume)2020-02-22 05:09:00* Test Item Value Reference Range Interpretation Comments Albumin (test code = 1751-7) 2.5 g/dL 3.5-5.0 [facility] DentonPlasma globulin measurement (mass/volume) 2020-02-22 05:09:00* Test Item Value Reference Range Interpretation Comments Globulin (test code = 63494-7) 2.9 g/dL 2.3-3.5 [facility] albumin/globulin mass lyzgv7525-34-23 05:09:00* Test Item Value Reference Range Interpretation Comments Albumin/Globulin Ratio (test code = 1759-0) 0.9 0.8-2.0 [facility] alkaline phosphatase measurement (enzymatic activity/volume)2020-02-22 05:09:00* Test Item Value Reference Range Interpretation Comments Alkaline Phosphatase (test code = 6768-6) 120 [IU]/L 40-150 [facility] DentonFluoroscopic procedure less than one hour kjijaddi6229-66-65 05:09:00* Test Item Value Reference Range Interpretation Comments Differential Total Cells Counted (test code = Differen tial Total Cells Counted) 100 [facility] DentonManual blood neutrophils/100 leukocytes 2020-02-22 05:09:00* Test Item Value Reference Range Interpretation Comments Neutrophils % (Manual) (test code = 60488-1) 75 % 40-74 [facility] blood band neutrophils form/100 zsokggzzqt7431-78-88 05:09:00* Test Item Value Reference Range Interpretation Comments Band Neutrophils % (test code = 764-1) 5 % [facility] blood lymphocytes/100 leukocytes 2020-02-22 05:09:00* Test Item Value Reference Range Interpretation Comments Lymphocytes % (Manual) (test code = 737-7) 19 % 19-48 [facility] DentonManual blood metamyelocytes/100 kuvlxzpvaq6479-96-50 05:09:00* Test Item Value Reference Range Interpretation Comments Metamyelocytes % (test code = 740-1) 1 % 0-0 [facility]entonBl[facility] platelets count by estimate (number/volume)2020-02-22 05:09:00* Test Item Value Reference Range Interpretation Comments Platelet Estimate (test code = 78957-5) MODERATELY DECREASED [facility] DentonPlatelet hzbchtvqht1550-91-46 05:09:00* Test Item Value Reference Range Interpretation Comments Platelet Morphology Comment (test code = 31142-8) FEW LARGE [facility] anisocytosis detection by light admogtifui9746-95-56 05:09:00* Test Item Value Reference Range Interpretation Comments Anisocytosis (test code = 702-1) FEW [facility] macrocytes detection by light pxgiahslsv7087-54-63 05:09:00* Test Item Value Reference Range Interpretation Comments Macrocytosis (test code = 738-5) FEW [facility] DentonRBC rihdefgkjl3741-32-84 05:09:00* Test Item Value Reference Range Interpretation Comments Red Cell Morphology Comment (test code = 6742-1) ABNORMAL [facility] DentonCHEST SINGLE (PORTABLE)2020-02-21 19:40:00[facility] 1950 Sex: F [place] [address] Patient Name: AXEL CHRISTOPHER MR #: [id number] : 1950 Age/Sex: 69/F Req #: [id number] Adm Physician: MADDI DEY MD Ordered by: TROY SERRATO DO Report #: [id number] [facility] Room/Bed: [facility] Procedure: [id number] DX/CHEST SINGLE (PORTABLE) Exam Saúl e: 02/21/20 Exam Time: 1620 REPORT STATUS: Signed EXAMINATION: CHEST SINGLE (PORTABL E) INDICATION: Weakness. COMPARISON: Chest x-ray on 02/16/2020. FINDINGS: TUBES and LINES: None. LUNGS: Normal lung vol umes. There are diffuse prominent interstitial lung markings. There is bibasi lar atelectasis. No consolidations. PLEURA: No pleural effusion or pneumot horax. HEART AND MEDIASTINUM: The cardiomediastinal silhouette is enlarged . There are atherosclerotic calcifications within the aorta. BONES AND SO FT TISSUES: Degenerative changes in the spine and shoulders. Median sternotom y wires are intact. Soft tissues are unremarkable. UPPER ABDOMEN: No free a ir under the diaphragm. IMPRESSION: 1. Cardiomegaly with interst itial pulmonary edema. 2. Bibasilar atelectasis. Signed by: Danielle jo MD on 02/21/2020 7:43 PM Dictated By: DANIELLE CONDE MD Electronical ly Signed By: DANIELLE CONDE MD on 02/21/201942 Transcribed By: MARIAH on 07/07 COPY TO: TROY SERRATO DO Fluoroscopic procedure less than one hour jtvbsldp9669-55-42 19:35:00* Test Item Value Reference Range Interpretation Comments Lactic Acid Level (test code = Lactic Acid Level) 1.7 mmol/L 0.5- 2.0 [facility] DentonFluoroscopic procedure less than one hour czrbfwyk7248-20-60 19:35:00* Test Item Value Reference Range Interpretation Comments Lactic Acid Level (test code = Lactic Acid Level) 1.7 mmol/L 0.5- 2.0 [facility] DentonFluoroscopic procedure less than one hour thrdvzub3705-96-23 19:35:00* Test Item Value Reference Range Interpretation Comments Lactic Acid Level (test code = Lactic Acid Level) 1.7 mmol/L 0.5- 2.0 [facility] DentonFluoroscopic procedure less than one hour kgmadjmh3609-06-71 18:00:00* Test Item Value Reference Range Interpretation Comments Coronavirus (PCR) (test code = Coronavirus (PCR)) NOT DETECTED NOTD ETECTED SARS-CoV-2 PCRHologic Aptima SARS-CoV-2 assay is a nucleic amplification test in tended for the qualitative detection of RNA from SARS-CoV-2 from nasopharyngeal (INSURANCE OFFICE SUPERVISOR) specimens. It is used under Emergency Use Authorization (EUA) by FDA.A posi tive result is indicative of the presence of SARS-CoV-2 RNA. Clinical correlatio n with patient history and other diagnostic information is necessary to determin e patient infection status.A negative (Not Detected) result does not preclude SA RS-CoV-2 infection. Clinical Correlation with patient history and other diagnost ic information should be used in patient management decisions.Invalid: Unable to generate a valid result on this specimen. Please submit a new specimen for repr at testing oc clinically indicated.Tesing performed by:[facility] Laboratory Services[address] [place] [address] [id number], Florentin clement MD, PhDBaylor Scott and [facility] DentonFluoroscopic procedure less than one hour cytozvid0947-60-85 18:00:00* Test Item Value Reference Range Interpretation Comments Coronavirus (PCR) (test code = Coronavirus (PCR)) NOT DETECTED NOTD ETECTED SARS-CoV-2 PCRHologic Aptima SARS-CoV-2 assay is a nucleic amplification test in tended for the qualitative detection of RNA from SARS-CoV-2 from nasopharyngeal (INSURANCE OFFICE SUPERVISOR) specimens. It is used under Emergency Use Authorization (EUA) by FDA.A posi tive result is indicative of the presence of SARS-CoV-2 RNA. Clinical correlatio n with patient history and other diagnostic information is necessary to determin e patient infection status.A negative (Not Detected) result does not preclude SA RS-CoV-2 infection. Clinical Correlation with patient history and other diagnost ic information should be used in patient management decisions.Invalid: Unable to generate a valid result on this specimen. Please submit a new specimen for repr at testing oc clinically indicated.Tesing performed by:[facility] Laboratory Services[address] [place] [address] [id number], Florentin clement MD, PhDCHI [facility] HospitalCT BRAIN [id number] 16:39:00[facility] : 1950 Sex: F [place] [address] Patient Name: AXEL CHRISTOPHER MR #: [id number] : 1950 Age/Sex: 69/F Req #: [id number] [facility] Physician: Ordered by: TROY SERRATO DO Report #: [id number] Location: Room/Bed: Procedure: [id number] CT/CT BRAIN WO Exam Date: 02/21/20 Exam Time: 1620 REPORT STATUS: Signed Examination: CT head without contrast Clinica l Indication: Y weakness [id number] 1620. Technique: Transaxial noncontrast images from the skull base through the vertex were obtained. Sagittal and carlos manuel nal reformatted images were done. Dose modulation, iterative reconstruction, a nd/or weight based adjustment of the mA/kV was utilized to reduce the radiatio n dose to as low as reasonably achievable. Comparison: Head CT dated 2019. Findings: Scalp: Right parietal scalp hematoma with overlying st aples. Bones: Intact. No fractures. No blastic or lytic lesions. Brain sulci: Unchanged volume loss for patient's age. Ventricles: No hydrocephalus. Extra-axial space: Slight interval increase in left sylvian fissure suba rachnoid hemorrhage with unchanged subarachnoid hemorrhage in the left inferio r frontal and left superior temporal sulci. Parenchyma: Again seen ar e patchy areas of low-attenuation within subcortical and periventricular white matter, nonspecific, but could represent microvascular ischemic disease. No masses, hemorrhage, or acute or chronic cortical based vascular insults. S uprasellar region: No abnormalities. Craniocervical junction: The foramen magn um is patent. No Chiari one malformation. Impression: 1. Slight in terval increase in size of left sylvian fissure subarachnoid hemorrhage. No ne w hemorrhage. 2. Unchanged chronic microvascular ischemic change and volu me loss. Signed by: Dr. Venus Boyd M.D. on 02/21/2020 4:46 PM Dictated By: VENUS VAZQUEZ MD 1646 Transcribed By: MARIAH on 02/21/20 1646 COPY TO: TROY SERRATO DO Manual blood monocytes/100 leukocytes 2020-02-21 15:37:00* Test Item Value Reference Range Interpretation Comments Monocytes % (Manual) (test code = 744-3) 2 % 3.4-9.0 [facility] DentonBlood polychromasia detection by light sabofaxdwy5530-82-56 15:37:00* Test Item Value Reference Range Interpretation Comments Polychromasia (test code = 93462-6) [facility] by [facility] mfrzylqxow3604-62-10 15:37:00* Test Item Value Reference Range Interpretation Comments Hypochromasia (test code = 728-6) BETSY [facility] poikilocytosis detection by light hydzizmvob7763-61-48 15:37:00* Test Item Value Reference Range Interpretation Comments Poikilocytosis (test code = 779-9) SLIGHT [facility] dacrocytes detection by light zjdrunsidd2032-63-97 15:37:00* Test Item Value Reference Range Interpretation Comments Tear Drop Cells (test code = 7791-7) FEW [facility] DentonBNP Obd-uFdw2559-49-03 15:37:00* Test Item Value Reference Range Interpretation Comments B-Type Natriuretic Peptide (test code = 47374-0) 347.5 pg/mL 0-100 [facility] or plasma creatine kinase measurement (enzymatic activity/volume)2020-02-21 15:37:00* Test Item Value Reference Range Interpretation Comments Creatine Kinase (test code = 2157-6) 35 [IU]/L 29-168 [facility] or plasma creatine kinase MB measurement (mass/volume)2020-02-21 15:37:00* Test Item Value Reference Range Interpretation Comments Creatine Kinase MB (test code = 45519-7) 1.60 ng/mL 0-5.0 [facility] DentonTroponin I measurement by highly sensitive enzyme ctsujgiqncv2164-88-73 15:37:00* Test Item Value Reference Range Interpretation Comments Troponin I (test code = 72314-6) 0.050 ng/mL 0-0.300 [facility] sqoqssn1974-06-29 15:37:00* Test Item Value Reference Range Interpretation Comments Blood Culture (test code = 99471557) NO GROWTH AFTER 24 HOURS [facility] DentonManual blood monocytes/100 leukocytes 2020-02-21 15:37:00* Test Item Value Reference Range Interpretation Comments Monocytes % (Manual) (test code = 744-3) 2 % 3.4-9.0 [facility] polychromasia detection by light piaeaskkvr3615-87-46 15:37:00* Test Item Value Reference Range Interpretation Comments Polychromasia (test code = 80194-3) MODE [facility] hypochromia detection by light hsahdkgcbz7871-26-66 15:37:00* Test Item Value Reference Range Interpretation Comments Hypochromasia (test code = 728-6) BETSY [facility] poikilocytosis detection by light akmydjmztx9490-16-08 15:37:00* Test Item Value Reference Range Interpretation Comments Poikilocytosis (test code = 779-9) SLIGHT [facility] dacrocytes detection by light jvwezeaold6900-36-17 15:37:00* Test Item Value Reference Range Interpretation Comments Tear Drop Cells (test code = 7791-7) FEW [facility] DentonBNP Ica-tVea3182-81-03 15:37:00* Test Item Value Reference Range Interpretation Comments B-Type Natriuretic Peptide (test code = 89137-6) 347.5 pg/mL 0-100 [facility] creatine kinase measurement (enzymatic activity/volume)2020-02-21 15:37:00* Test Item Value Reference Range Interpretation Comments Creatine Kinase (test code = 2157-6) 35 [IU]/L 29-168 [facility] plasma creatine kinase MB measurement (mass/volume)2020-02-21 15:37:00* Test Item Value Reference Range Interpretation Comments Creatine Kinase MB (test code = 72430-7) 1.60 ng/mL 0-5.0 [facility] DentonTroponin I measurement by highly sensitive enzyme lplmgrygrhp0913-60-31 15:37:00* Test Item Value Reference Range Interpretation Comments Troponin I (test code = 24554-6) 0.050 ng/mL 0-0.300 [facility] fjrqfns5968-00-18 15:37:00* Test Item Value Reference Range Interpretation Comments Blood Culture (test code = 26444766) NO GROWTH AFTER 48 HOURS [facility] DentonManual blood monocytes/100 leukocytes 2020-02-21 15:37:00* Test Item Value Reference Range Interpretation Comments Monocytes % (Manual) (test code = 744-3) 2 % 3.4-9.0 [facility]entonBlol[facility] polychromasia detection by light mhpqgkzdmp8584-02-39 15:37:00* Test Item Value Reference Range Interpretation Comments Polychromasia (test code = 66447-7) MODE [facility] hypochromia detection by light ythspybsxa6357-34-59 15:37:00* Test Item Value Reference Range Interpretation Comments Hypochromasia (test code = 728-6) BETSY [facility] poikilocytosis detection by light mzpelmwzir4798-17-19 15:37:00* Test Item Value Reference Range Interpretation Comments Poikilocytosis (test code = 779-9) SLIGHT [facility] dacrocytes detection by light sglbfloxvg4326-33-68 15:37:00* Test Item Value Reference Range Interpretation Comments Tear Drop Cells (test code = 7791-7) FEW [facility] Fcz-[id number] 15:37:00* Test Item Value Reference Range Interpretation Comments B-Type Natriuretic Peptide (test code = 38947-6) 347.5 pg/mL 0-100 [facility] creatine kinase measurement (enzymatic activity/volume)2020-02-21 15:37:00* Test Item Value Reference Range Interpretation Comments Creatine Kinase (test code = 2157-6) 35 [IU]/L 29-168 [facility] plasma creatine kinase MB measurement (mass/volume)2020-02-21 15:37:00* Test Item Value Reference Range Interpretation Comments Creatine Kinase MB (test code = 21134-0) 1.60 ng/mL 0-5.0 [facility]enton[facility]rop[facility] I measurement by highly sensitive enzyme [id number] 15:37:00* Test Item Value Reference Range Interpretation Comments Troponin I (test code = 11428-4) 0.050 ng/mL 0-0.300 [facility]entonBlood kwyltws5164-04-28 15:37:00* Test Item Value Reference Range Interpretation Comments Blood Culture (test code = 04909630) NO GROWTH AFTER 5 DAYS, FINAL REPORT [facility]entonPhosphorus2020-11-02 14:29:00* Test Item Value Reference Range Interpretation Comments Phosphorus (test code = 2777-1) 2.1 mg/dL 2.3-4.7 L BEN (test code = BEN) Defect Repairer Glassware ID - OSMAN F Lab Interpretation (test code = 31949-5) [facility]normal [facility] 14:29:00* Test Item Value Reference Range Interpretation Comments PHOSPHORUS (BEAKER) (test code = 604) 2.1 mg/dL 2.3-4.7 L Defect Repairer Glassware ID Hugh BREWER FCBC with platelet count + automated abri4978-22-09 11:35:00* Test Item Value Reference Range Interpretation Comments WBC (test code = 6690-2) 4.6 3.5- 10.5 K/L RBC (test code = 789-8) 2.51 3.93- 5.22 M/L L MCHC (test code = 786-4) 31.8 32.2- 35.5 GM/DL L Hematocrit (test code = 4544-3) 24.2 % 34.1-44.9 L MCV (test code = 787-2) 96.4 fL 79.4-94.8 H MCH (test code = 785-6) 30.7 pg 25.6-32.2 RDW (test code = 788-0) 13.6 % 11.7-14.4 Platelets (test code = 777-3) 72 150- 450 K/CU MM L MPV (test code = 86447-3) 9.7 fL 9.4-12.3 nRBC (test code = 413) 0 0- 0 /100 WBC Lab Interpretation (test code = 76219-9) Abnormal [facility] Ifnedhgudydi1573-13-24 11:35:00* Test Item Value Reference Range Interpretation Comments % Neutros (test code = 2816) 73 % % Lymphs (test code = 2817) 16 % % Monos (test code = 2818) 4 % % Myelo (test code = 2822) 3 % 0-0 H % Bands (test code = 2826) 4 % 0-10 # Neutros (test code = 2830) 3.36 K/ul 1.56-6.13 # Lymphs (test code = 2831) 0.74 K/ul 1.18-3.74 L # Monos (test code = 2832) 0.18 K/uL 0.24-0.36 L # Myelo (test code = 2837) 0.14 K/uL 0-0 H # Bands (test code = 2840) 0.18 K/uL 0-0.8 Total Counted (test code = 1351) 100 Smudge Cells (test code = 1371) Present Giant Platelet (test code = 313) Present Anisocytosis (test code = 961) 1+ few Microcytes (test code = 965) 1+ few Schistocytes (test code = 765) 1+ few Tear Drop Cells (test code = 481) 1+ few Platelet Conc (test code = 3438) Decreased BEN (test code = BEN) Defect Repairer Glassware ID - Damián Levi comments: Slide co mments: Lab Interpretation (test code = 62196-1) Abnormal [facility] W/PLT COUNT & AUTO [id number] 11:35:00* Test Item Value Reference Range Interpretation Comments WHITE BLOOD CELL COUNT (BEAKER) (test code = 775) 4.6 K/ L 3.5- 10.5 RED BLOOD CELL COUNT (BEAKER) (test code = 761) 2.51 M/ L 3.93-5 .22 L HEMOGLOBIN (BEAKER) (test code = 410) 7.7 GM/DL 11.2-15.7 L HEMATOCRIT (BEAKER) (test code = 411) 24.2 % 34.1-44.9 L MEAN CORPUSCULAR VOLUME (BEAKER) (test code = 753) 96.4 fL 79. 4-94.8 H MEAN CORPUSCULAR HEMOGLOBIN (BEAKER) (test code = 751) 30.7 pg 25.6-32.2 MEAN CORPUSCULAR HEMOGLOBIN CONC (BEAKER) (test code = 752) 31.8 GM/DL 32.2-35.5 L RED CELL DISTRIBUTION WIDTH (BEAKER) (test code = 412) 13.6 % 11.7-14.4 PLATELET COUNT (BEAKER) (test code = 756) 72 K/CU MM 150-450 L MEAN PLATELET VOLUME (BEAKER) (test code = 754) 9.7 fL 9.4-12 .3 NUCLEATED RED BLOOD CELLS (BEAKER) (test code = 413) 0 /100 WBC 0 -0 (CELLAVISION MANUAL DIFF)2020-02-20 11:35:00* Test Item Value Reference Range Interpretation Comments NEUTROPHILS - REL (CELLAVISION)(BEAKER) (test code = 2816) 73 % LYMPHOCYTES - REL (CELLAVISION)(BEAKER) (test code = 2817) 16 % MONOCYTES - REL (CELLAVISION)(BEAKER) (test code = 2818) 4 % MYELOCYTES - REL (CELLAVISION)(BEAKER) (test code = 2822) 3 % 0-0 H BANDS - REL (CELLAVISION)(BEAKER) (test code = 2826) 4 % 0 -10 NEUTROPHILS - ABS (CELLAVISION)(BEAKER) (test code = 2830) 3.36 K/ul 1.56-6.13 LYMPHOCYTES - ABS (CELLAVISION)(BEAKER) (test code = 2831) 0.74 K/ul 1.18-3.74 L MONOCYTES - ABS (CELLAVISION)(BEAKER) (test code = 2832) 0.18 K/uL 0.24-0.36 L MYELOCYTES-ABS (CELLAVISION)(BEAKER) (test code = 2837) 0.14 K/uL 0.00-0.00 H BANDS - ABS (CELLAVISION)(BEAKER) (test code = 2840) 0.18 K/uL 0 .00-0.80 TOTAL COUNTED (BEAKER) (test code = 1351) 100 SMUDGE CELLS (BEAKER) (test code = 1371) Present GIANT PLATELETS (BEAKER) (test code = 313) Present ANISOCYTOSIS (BEAKER) (test code = 961) 1+ few MICROCYTES (BEAKER) (test code = 965) 1+ few SCHISTOCYTES (BEAKER) (test code = 765) 1+ few TEAR DROP CELLS (BEAKER) (test code = 481) 1+ few PLATELET CONCENTRATION (CELLAVISION)(BEAKER) (test code = 3438) Dec reased Defect Repairer Glassware ID - Damián Levi comments: Slide comments: Basic Metabolic Panel 2020-02-20 11:13:00* Test Item Value Reference Range Interpretation Comments Sodium (test code = 2951-2) 136 meq/L 136-145 Potassium (test code = 2823-3) 3.9 meq/L 3.5-5.1 Chloride (test code = 2075-0) 103 meq/L 98-107 CO2 (test code = 8-9) 24 meq/L 22-29 BUN (test code = 3094-0) 10 mg/dL 7-21 Creatinine (test code = 2160-0) 0.77 mg/dL 0.57-1.25 Glucose (test code = 2345-7) 191 mg/dL 70-105 H Calcium (test code = 41221-3) 10.2 mg/dL 8.4-10.2 EGFR (test code = 23159-1) 74 mL/min/1.73 sq m ESTIMATED GFR IS NOT ACCURATE CREATININE CLEARANCE IN PREDICTING GLOMERULAR FILTRATION RATE. ESTIMATED GFR IS NOT APPLICABLE FOR DIALYSIS PATIENTS. BEN (test code = BEN) Defect Repairer Glassware ID - OSMAN Jenkins Lab Interpretation (test code = 39544-5) [facility]normal [facility] [id number] 11:13:00* Test Item Value Reference Range Interpretation Comments SODIUM (BEAKER) (test code = 381) 136 meq/L 136-145 POTASSIUM (BEAKER) (test code = 379) 3.9 meq/L 3.5-5.1 CHLORIDE (BEAKER) (test code = 382) 103 meq/L 98-107 CO2 (BEAKER) (test code = 355) 24 meq/L 22-29 BLOOD UREA NITROGEN (BEAKER) (test code = 354) 10 mg/dL 7-21 CREATININE (BEAKER) (test code = 358) 0.77 mg/dL 0.57-1.25 GLUCOSE RANDOM (BEAKER) (test code = 652) 191 mg/dL 70-105 H CALCIUM (BEAKER) (test code = 697) 10.2 mg/dL 8.4-10.2 EGFR (BEAKER) (test code = 1092) 74 mL/min/1.73 sq m ESTIMATED GFR IS NOT ACCURATE CREATININE CLEARANCE IN PREDICTING GLOMERULAR FILTRATION RATE. ESTIMATED GFR IS NOT APPLICABLE FOR DIALYSIS PATIENTS. Defect Repairer Glassware ID - OSMAN FPOC-Glucose [id number] 20:54:00* Test Item Value Reference Range Interpretation Comments POC-Glucose Meter (test code = 1538) 241 mg/dL 70-110 H : TESTED AT [address], [address]: Defect Repairer Glassware/Film Or Videotape Editor ID = [id number] for DORILEY BARNARDA Lab Interpretation (test code = 71093-1) Abnormal [facility] [id number] 20:54:00* Test Item Value Reference Range Interpretation Comments POC-GLUCOSE METER (BEAKER) (test code = 1538) 241 mg/dL 70-110 H : TESTED AT [address], [address]: Defect Repairer Glassware/Film Or Videotape Editor ID = [id number] for MONE LYN POCT-GLUCOSE [id number] 16:56:00* Test Item Value Reference Range Interpretation Comments POC-GLUCOSE METER (BEAKER) (test code = 1538) 210 mg/dL 70-110 H : TESTED AT [address], [address]: Defect Repairer Glassware/Film Or Videotape Editor ID = [id number] for FAUSTINO HarperCandiMargaret ANITA POCT-GLUCOSE [id number] 13:04:00* Test Item Value Reference Range Interpretation Comments POC-GLUCOSE METER (BEAKER) (test code = 1538) 179 mg/dL 70-110 H : TESTED AT [address], [address]: Defect Repairer Glassware/Film Or Videotape Editor ID = [id number] for RADHA GERMAN CBC W/PLT COUNT & AUTO [id number] 11:21:00* Test Item Value Reference Range Interpretation Comments WHITE BLOOD CELL COUNT (BEAKER) (test code = 775) 5.0 K/ L 3.5- 10.5 RED BLOOD CELL COUNT (BEAKER) (test code = 761) 2.75 M/ L 3.93-5 .22 L HEMOGLOBIN (BEAKER) (test code = 410) 8.5 GM/DL 11.2-15.7 L HEMATOCRIT (BEAKER) (test code = 411) 26.4 % 34.1-44.9 L MEAN CORPUSCULAR VOLUME (BEAKER) (test code = 753) 96.0 fL 79. 4-94.8 H MEAN CORPUSCULAR HEMOGLOBIN (BEAKER) (test code = 751) 30.9 pg 25.6-32.2 MEAN CORPUSCULAR HEMOGLOBIN CONC (BEAKER) (test code = 752) 32.2 GM/DL 32.2-35.5 RED CELL DISTRIBUTION WIDTH (BEAKER) (test code = 412) 13.6 % 11.7-14.4 PLATELET COUNT (BEAKER) (test code = 756) 104 K/CU MM 150-450 L MEAN PLATELET VOLUME (BEAKER) (test code = 754) 9.7 fL 9.4-12 .3 NUCLEATED RED BLOOD CELLS (BEAKER) (test code = 413) 0 /100 WBC 0 -0 (CELLAVISION MANUAL DIFF)2020-02-19 11:21:00* Test Item Value Reference Range Interpretation Comments NEUTROPHILS - REL (CELLAVISION)(BEAKER) (test code = 2816) 84 % LYMPHOCYTES - REL (CELLAVISION)(BEAKER) (test code = 2817) 12 % MONOCYTES - REL (CELLAVISION)(BEAKER) (test code = 2818) 2 % BANDS - REL (CELLAVISION)(BEAKER) (test code = 2826) 2 % 0 -10 NEUTROPHILS - ABS (CELLAVISION)(BEAKER) (test code = 2830) 4.20 K/ul 1.56-6.13 LYMPHOCYTES - ABS (CELLAVISION)(BEAKER) (test code = 2831) 0.60 K/ul 1.18-3.74 L MONOCYTES - ABS (CELLAVISION)(BEAKER) (test code = 2832) 0.10 K/uL 0.24-0.36 L BANDS - ABS (CELLAVISION)(BEAKER) (test code = 2840) 0.10 K/uL 0 .00-0.80 TOTAL COUNTED (BEAKER) (test code = 1351) 100 MANUAL NRBC PER 100 CELLS (BEAKER) (test code = 1353) 1 /100 WBC 0-0 H SMUDGE CELLS (BEAKER) (test code = 1371) Present GIANT PLATELETS (BEAKER) (test code = 313) Present TEAR DROP CELLS (BEAKER) (test code = 481) 1+ few PLATELET CONCENTRATION (CELLAVISION)(BEAKER) (test code = 3438) Dec reased Defect Repairer Glassware ID - Damián Levi comments: Slide comments: BASIC METABOLIC PANEL 2020-02-19 07:37:00* Test Item Value Reference Range Interpretation Comments SODIUM (BEAKER) (test code = 381) 133 meq/L 136-145 L POTASSIUM (BEAKER) (test code = 379) 4.0 meq/L 3.5-5.1 CHLORIDE (BEAKER) (test code = 382) 103 meq/L 98-107 CO2 (BEAKER) (test code = 355) 25 meq/L 22-29 BLOOD UREA NITROGEN (BEAKER) (test code = 354) 14 mg/dL 7-21 CREATININE (BEAKER) (test code = 358) 0.77 mg/dL 0.57-1.25 GLUCOSE RANDOM (BEAKER) (test code = 652) 154 mg/dL 70-105 H CALCIUM (BEAKER) (test code = 697) 10.5 mg/dL 8.4-10.2 H EGFR (BEAKER) (test code = 1092) 74 mL/min/1.73 sq m ESTIMATED GFR IS NOT ACCURATE CREATININE CLEARANCE IN PREDICTING GLOMERULAR FILTRATION RATE. ESTIMATED GFR IS NOT APPLICABLE FOR DIALYSIS PATIENTS. Defect Repairer Glassware ID - DBPOCT-GLUCOSE [id number] 20:53:00* Test Item Value Reference Range Interpretation Comments POC-GLUCOSE METER (BEAKER) (test code = 1538) 194 mg/dL 70-110 H : TESTED AT [address], [address]: Defect Repairer Glassware/Film Or Videotape Editor ID = [id number] for EMILY ROMAN, PARATHYROID IMAGING WITH SPECT/[id number] 16:23:00Reason for exam:-> hypercalcemiaKAISER [facility]ENTERName: [facility] : 1950 Sex: FFINAL REPORT PROCEDURE: PARATHYROID SCAN, w/SPECT/CT CPT CODE: 62816 INDICATION: Hypercalcemia PROTOCOL: 14.2 mCi of Tc-99m [...] lobe of the thyroid gland pole. Signed: Vero Ortega Verified Date/Time: 02/18/2020 16:23:17 parathyroid scan with SPECT/CT 2020-02-18 16:23:00Interface, External Ris In - 02/18/2020 4:25 PM CDTFINAL REPORT PROCEDURE: PARATHYROID SCAN, w/SPECT/CT CPT CODE: 08318 INDICATION: Hypercalcemia PROTOCOL: 14.2 mCi of Tc- 99m sestamibi was injected intravenously. Planar imaging of [...] lobe of the thyroid gland pole. Signed: Vero Ortega Verified Date/Time: 02/18/2020 16:23:[facility]O [id number] 14:13:00* Test Item Value Reference Range Interpretation Comments WHITE BLOOD CELL COUNT (BEAKER) (test code = 775) 4.5 K/ L 3.5- 10.5 RED BLOOD CELL COUNT (BEAKER) (test code = 761) 2.51 M/ L 3.93-5 .22 L HEMOGLOBIN (BEAKER) (test code = 410) 7.4 GM/DL 11.2-15.7 L HEMATOCRIT (BEAKER) (test code = 411) 24.0 % 34.1-44.9 L MEAN CORPUSCULAR VOLUME (BEAKER) (test code = 753) 95.6 fL 79. 4-94.8 H MEAN CORPUSCULAR HEMOGLOBIN (BEAKER) (test code = 751) 29.5 pg 25.6-32.2 MEAN CORPUSCULAR HEMOGLOBIN CONC (BEAKER) (test code = 752) 30.8 GM/DL 32.2-35.5 L RED CELL DISTRIBUTION WIDTH (BEAKER) (test code = 412) 13.4 % 11.7-14.4 PLATELET COUNT (BEAKER) (test code = 756) 106 K/CU MM 150-450 L MEAN PLATELET VOLUME (BEAKER) (test code = 754) 10.5 fL 9.4-12 .3 NUCLEATED RED BLOOD CELLS (BEAKER) (test code = 413) 0 /100 WBC 0 -0 (CELLAVISION MANUAL DIFF)2020-02-18 14:13:00* Test Item Value Reference Range Interpretation Comments NEUTROPHILS - REL (CELLAVISION)(BEAKER) (test code = 2816) 74 % LYMPHOCYTES - REL (CELLAVISION)(BEAKER) (test code = 2817) 20 % MONOCYTES - REL (CELLAVISION)(BEAKER) (test code = 2818) 1 % METAMYELOCYTES - REL (CELLAVISION)(BEAKER) (test code = 2821) 1 % 0-0 H MYELOCYTES - REL (CELLAVISION)(BEAKER) (test code = 2822) 1 % 0-0 H BANDS - REL (CELLAVISION)(BEAKER) (test code = 2826) 3 % 0 -10 NEUTROPHILS - ABS (CELLAVISION)(BEAKER) (test code = 2830) 3.33 K/ul 1.56-6.13 LYMPHOCYTES - ABS (CELLAVISION)(BEAKER) (test code = 2831) 0.90 K/ul 1.18-3.74 L MONOCYTES - ABS (CELLAVISION)(BEAKER) (test code = 2832) 0.05 K/uL 0.24-0.36 L METAMYELOCYTES - ABS (CELLAVISION)(BEAKER) (test code = 2836 ) 0.05 K/uL 0.00-0.00 H MYELOCYTES-ABS (CELLAVISION)(BEAKER) (test code = 2837) 0.05 K/uL 0.00-0.00 H BANDS - ABS (CELLAVISION)(BEAKER) (test code = 2840) 0.14 K/uL 0 .00-0.80 TOTAL COUNTED (BEAKER) (test code = 1351) 100 WBC MORPHOLOGY (BEAKER) (test code = 487) Normal PLT MORPHOLOGY (BEAKER) (test code = 486) Normal POLYCHROMATOPHILLIC RBCS(BEAKER) (test code = 478) 1+ few OVALOCYTES (BEAKER) (test code = 477) 1+ few TEAR DROP CELLS (BEAKER) (test code = 481) 1+ few ARTIFACT (CELLAVISION)(BEAKER) (test code = 3432) Present PLATELET CONCENTRATION (CELLAVISION)(BEAKER) (test code = 3438) Dec reased Defect Repairer Glassware ID - Lauren Bran comments: Slide comments: POCT-GLUCOSE METER 2020-02-18 13:54:00* Test Item Value Reference Range Interpretation Comments POC-GLUCOSE METER (BEAKER) (test code = 1538) 98 mg/dL 70-110 : TESTED AT [facility] [address] [facility], [address]: Defect Repairer Glassware/Film Or Videotape Editor ID = [id number] for GEORGIANA BAGLEY BASIC METABOLIC [id number] 05:38:00* Test Item Value Reference Range Interpretation Comments SODIUM (BEAKER) (test code = 381) 137 meq/L 136-145 POTASSIUM (BEAKER) (test code = 379) 3.6 meq/L 3.5-5.1 Specimen slightly hemolyzed CHLORIDE (BEAKER) (test code = 382) 105 meq/L 98-107 CO2 (BEAKER) (test code = 355) 24 meq/L 22-29 BLOOD UREA NITROGEN (BEAKER) (test code = 354) 15 mg/dL 7-21 CREATININE (BEAKER) (test code = 358) 0.71 mg/dL 0.57-1.25 Specimen slightly hemolyzed GLUCOSE RANDOM (BEAKER) (test code = 652) 94 mg/dL 70-105 CALCIUM (BEAKER) (test code = 697) 10.2 mg/dL 8.4-10.2 EGFR (BEAKER) (test code = 1092) 81 mL/min/1.73 sq m ESTIMATED GFR IS NOT ACCURATE CREATININE CLEARANCE IN PREDICTING GLOMERULAR FILTRATION RATE. ESTIMATED GFR IS NOT APPLICABLE FOR DIALYSIS PATIENTS. Defect Repairer Glassware ID - EDASIPOCT-GLUCOSE [id number] 22:02:00* Test Item Value Reference Range Interpretation Comments POC-GLUCOSE METER (BEAKER) (test code = 1538) 101 mg/dL 70-110 : TESTED AT [facility] [address] [facility], [address]: Defect Repairer Glassware/Film Or Videotape Editor ID = [id number] for EMILY ROMAN COVID19 ([facility] [place])2020-02-17 17:56:00* Test Item Value Reference Range Interpretation Comments COVID19 ([facility] [place]) (test code = 0795501) Negative Negative The [employer] m SARS-CoV-2 Assay is a real-time reverse beater and pulper feeder polymerase chain reaction (military pay clerk-PCR) test intended for the qualitative detection of nucleic acid from the SARS-CoV-2 in nasal swabs, nasopharyngeal (INSURANCE OFFICE SUPERVISOR), oropharyngeal (OP) swabs, or bronchoalveolar lavage fluid (BAL) from patients suspected of COVID-19 by their health care provider. This test was developed by [employer] and its performance characteristics have been validated by the [facility] pursuant to CLIA regulations. This test has EUA authorization from the Food and Drug Administration. This test was performed at:[facility] LaboratoryDr. Kalyn Marie[address] JacobsUnion [facility], [place] [address]CYUX # [id number] BEN (test code = BEN) For Emergency room ONLY allison ents who are discharged before results obtained: Nurse is authorized to call Negative/Undetected results to patient when available.Isolation precautions not needed. [facility]GL[facility] [id number] 16:20:00* Test Item Value Reference Range Interpretation Comments POC-GLUCOSE METER (WENDI) (test code = 1538) 101 mg/dL 70-110 : TESTED AT [facility] [address] [facility], [address]: Defect Repairer Glassware/Film Or Videotape Editor ID = [id number] for Nichelle Elmore 2D Echo W/Doppler(CW/PW/Color)2020-02-17 13:35:35Ejection FractionSLEH ECHO HEARTLAB MKCKESSON CPACSInterface, External Ris In - 02/17/2020 1:35 PM CDTTransthoracic Echocardiography Report (TTE) Demographics Patient Name AXEL CHRISTOPHER Date of Study 02/17/2020 SAMANTHA Gender Female Visit Number [id number] Race Room Number 7405 Number Date of 1950 Referring KHURRAM Rizvi Physician SHANEKA Age 69 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 The left ventricle is chamber size (by vol index) is normal with no evidence o f LV hypertrophy. LVEF by Broderick's method of disk assessment is normal (60%) . Grade 2 diastolic dysfunction (moderately increased LA pressure). 2. The right ventricular chamber size and systolic function are within normal limits. 3. Bi- atrial enlargement. 4. s/p bioprosthetic AVR well seated with elevated gradient s (peak velocity 3.6 m/s, mean gradient 31 mmHG, DOI 0.37). No evidence of regur gitation. 5. Estimated peak systolic PA pressure is 40-45 mmHg (mild pulmonary hypertension). Previous Study No prior exam available for comparison. Signatur e Electronical ly signed by James Toscano MD(Interpreting physician) on 02/17/2020 01:35 PM ---- Findings Left Deniz tricle The left ventricle is chamber size (by vol index) is normal. No evidence of LV hypertrophy. All of the LV segments contract normally . LVEF by Broderick's method of disk assessment is normal ( 60%) . Grade 2 diastolic dysfunction (moderately increase d LA pressure). Left Atrium LA size is modera [id number] enlarged . Right Ventricle The right ventricular chamber s ize and systolic function are within normal limits. Righ t Atrium RA size is mildly dilated. Aortic Valve s/p biopro sthetic AVR well seated with elevated gradients (peak geraldine ocity 3.6 m/s, mean gradient 31 mmHG, DOI 0.37). No evide nce of regurgitation. Mitral Valve Mild MV leaflet thickening. Tricu spid Valve Normal TV structure and function by available views and Doppler. A trace of tricuspid regurgitat ion. Estimated peak systolic PA pressure is 40-45 mmHg (mild pulmonary hypertension) . Pulmonic Valve Nor mal PV structure and function by limited views and Dopple r. A trace of pulmonary regurgitation. Aorta Aortic root size (SInus of Valsalva diameter) is no rmal . Proximal ascending aorta size is normal . Pericar dium No significant pericardial effusion is visualized. IVC/SVC/PA/P V/Pleural The estimated RA pressure by IVC dynamics 5-10mmHg . Chambers/Structures Left Atrium LA Volume: 63.57 ml LA Area: 23.2 cm^2 LA Vol. Index: 48 ml/m^2 Left Ventricle LVIDd: 4.2 cm LVEDV:78.56 ml LVIDs: 2.77 cm LVESV:28.88 ml LV Septum Diastolic: 1.04 cm LV PW Diastolic: 1.04 c m LV Length: 7.24 cm LV FS: 34.1 % LVOT Diameter: 1.86 cm LVEF: 63.2 % Right Atrium RA Area: 19.74 cm^2 Right Ventricle RV Diast Dim.: 3.57 cm TAPSE: 1.89 cm Aorta Ao Root S of Neyda. : 3.44 cm Ascending Aorta: 3.64 cm Doppler/Quantitative Measurement s Mitral Valve MV Peak E-Wave: 1.19 m/s MV Peak A-Wave: 0.79 m/s E/A Ratio: 1.5 Peak Gradient: 5.65 mmHg Deceler ation Time: 193.5 msec MV Geraldine. Peak: Tissue Doppler E' Septal Velocity: 0.04 m/s E/E': 14.41 E' Lateral Velocity: 0.08 m/s Aortic Valve Peak Veloc ity: 3.58 m/s Mean Velocity: 2.64 m/s Peak Gradient: 51.4 mmHg Mean Gradient: 31.34 mmHg AV Area (continuity): 1 cm^2 AV VTI: 95.48 c m AV DVI: 0.37 LVOT Peak Velocity: 1.32 m/s Peak Gradient: 8.4 mm Hg Mean Velocity: 0.95 m/s Mean Gradient: 4.95 mmHg LVOT Diameter: 1 .86 cm LVOT VTI: 35.04 cm LVOT Area: 2.72 cm^2 LVOT SV:95.16 ml LVOT CO: 5.71 l/min LVOT CI: 4.29 l/min/m^2 Tricusp id Valve TR Velocity: 2.98 m/s TR Gradient: 35.54 mmHg [facility] 2 [id number] 13:24:00Reason for exam:->fall, tailbone painPROVIDENCE LITTLE [facility]Name: AXEL CHRISTOPHER : 1950 Sex: FFINAL REPORT RAD, PELVIS, 1 OR 2 VIEWS INDICATION: fall, tailbone pain COMPARISON: None TECHNIQUE: Single AP view of the coccyx FINDINGS/IMPRESSION:No definite fracture on single AP view of the coccyx. Lateral view is suggested for more definitive evaluation Signed: Rafaela Antunez Verified Date/Time: 02/17/2020 13:24:03 Reading Location: [facility] Radiology Reading Room pelvis 1 or 2 [id number] 13:24:00Interface, External Ris In - 02/17/2020 1:26 PM CDTFINAL REPORT RAD, PELVIS, 1 OR 2 VIEWS INDICATION: fall, tailbone pain COMPARISON: None TECHNIQUE: Single AP view of the coccyx FINDINGS/IMPRESSION:No definite fracture on single AP view of the coccyx. Lateral view is suggested for more definitive evaluation Signed: Rafaela Antunez Verified Date/Time: 02/17/2020 13:24:03 Reading Location: [facility] Radiology Reading Room [facility] [id number] 11:18:00* Test Item Value Reference Range Interpretation Comments POC-GLUCOSE METER (BEAKER) (test code = 1538) 106 mg/dL 70-110 : TESTED AT [facility] [address] [facility], [address]: Defect Repairer Glassware/Film Or Videotape Editor ID = [id number] for Nichelle Elmore Vitamin D, [id number] 10:17:00* Test Item Value Reference Range Interpretation Comments Vitamin D 25-Hydroxy (test code = 2764) 41.6 ng/mL 6.6-49.9 BEN (test code = BEN) Effective 01/28/2017: Refere nce Range ChangeNew: 6.6-49.9 ng/mL Previous: 13.0-47.8 ng/mL Recommended Vitamin D Target Range: 30.0-40.0 ng/mLOperator ID - PIAYA L Lab Interpretation (test code = 92731-9) Normal [facility], [id number] 10:17:00* Test Item Value Reference Range Interpretation Comments VITAMIN D 25-OH (BEAKER) (test code = 2764) 41.6 ng/mL 6.6-49.9 Effective 01/28/2017: Reference Range ChangeNew: 6.6-49.9 ng/mL Previous: 13.0 -47.8 ng/mLRecommended Vitamin D Target Range: 30.0-40.0 ng/mLOperator ID - PIAY A LTSH/Free T4 If [id number] 09:10:00* Test Item Value Reference Range Interpretation Comments TSH (test code = 04380-6) 0.418 0.350- 4.940 uIU/mL BEN (test code = BEN) Defect Repairer Glassware ID - EDASI Lab Interpretation (test code = 66121-8) [facility] T4 IF [id number] 09:10:00* Test Item Value Reference Range Interpretation Comments THYROID STIMULATING HORMONE (BEAKER) (test code = 772) 0.418 uIU /mL 0.350-4.940 Defect Repairer Glassware ID - EDASIPTH, [id number] 08:56:00* Test Item Value Reference Range Interpretation Comments PTH (test code = 2731-8) 204.3 pg/mL 8.5-72.5 H BEN (test code = BEN) Defect Repairer Glassware ID - EDASI Lab Interpretation (test code = 55583-6) Abnormal [facility], [id number] 08:56:00* Test Item Value Reference Range Interpretation Comments PARATHYROID HORMONE INTACT (BEAKER) (test code = 577) 204.3 pg/mL 8.5-72.5 H Defect Repairer Glassware ID - EDASICalcium, [id number] 08:32:00* Test Item Value Reference Range Interpretation Comments Calcium, Ion (test code = 1994-3) 1.45 mmol/L 1.12-1.27 H pH, Blood (test code = 61694-4) 7.48 Lab Interpretation (test code = 05741-2) Abnormal [facility]CAL[facility], [id number] 08:32:00* Test Item Value Reference Range Interpretation Comments CALCIUM IONIZED (BEAKER) (test code = 698) 1.45 mmol/L 1.12-1.27 H PH, BLOOD (BEAKER) (test code = 1810) 7.48 POCT-GLUCOSE [id number] 07:26:00* Test Item Value Reference Range Interpretation Comments POC-GLUCOSE METER (BEAKER) (test code = 1538) 88 mg/dL 70-110 : TESTED AT [facility] [address] [facility], [address]: Defect Repairer Glassware/Film Or Videotape Editor ID = [id number] for Nichelle Elmore BASIC METABOLIC [id number] 05:21:00* Test Item Value Reference Range Interpretation Comments SODIUM (BEAKER) (test code = 381) 140 meq/L 136-145 POTASSIUM (BEAKER) (test code = 379) 4.1 meq/L 3.5-5.1 CHLORIDE (BEAKER) (test code = 382) 107 meq/L 98-107 CO2 (BEAKER) (test code = 355) 23 meq/L 22-29 BLOOD UREA NITROGEN (BEAKER) (test code = 354) 22 mg/dL 7-21 H CREATININE (BEAKER) (test code = 358) 0.79 mg/dL 0.57-1.25 GLUCOSE RANDOM (BEAKER) (test code = 652) 71 mg/dL 70-105 CALCIUM (BEAKER) (test code = 697) 11.8 mg/dL 8.4-10.2 H EGFR (BEAKER) (test code = 1092) 72 mL/min/1.73 sq m ESTIMATED GFR IS NOT ACCURATE CREATININE CLEARANCE IN PREDICTING GLOMERULAR FILTRATION RATE. ESTIMATED GFR IS NOT APPLICABLE FOR DIALYSIS PATIENTS. Defect Repairer Glassware ID - [id number] 05:10:00* Test Item Value Reference Range Interpretation Comments Magnesium (test code = 32377-3) 2.1 mg/dL 1.6-2.6 BEN (test code = BEN) Defect Repairer Glassware ID - EDASI Lab Interpretation (test code = 28934-9) Normal [facility]MAGN[facility]IUM2020-10-30 05:10:00* Test Item Value Reference Range Interpretation Comments MAGNESIUM (BEAKER) (test code = 627) 2.1 mg/dL 1.6-2.6 Defect Repairer Glassware ID - [id number] 05:10:00* Test Item Value Reference Range Interpretation Comments PHOSPHORUS (BEAKER) (test code = 604) 2.1 mg/dL 2.3-4.7 L Defect Repairer Glassware ID - EDASICT, BRAIN, WITHOUT [id number] 05:08:00Unlisted Reason for Exam - Click Yes and Enter Reason Below->YesUnlisted Reason for Exam-> interval [facility]arachnoid hemorrhage [facility] : 1950 Sex: F FINAL REPORT [id number] EXAM: CT head without contrast. CLINICAL HISTORY: Unlisted Reason for Exam ; interval subarachnoid hemorrhage COMPARISON: None. TECHNIQUE: CT images of the head were obtained without intravenous contrast. This exam was performed accor ding to our departmental dose optimization program which includes automated expo sure control, adjustment of the mA and/or kV according to patient's size and/or use of iterative reconstructive technique. FINDINGS:There is small volume subara chnoid hemorrhage in the left temporal and left frontal lobes.There is a small r ight parafalcine subdural hematoma measuring 4 mm in maximum thickness.There is no mass effect, herniation, hydrocephalus or large demarcated acute territorial infarct. The basal cisterns are patent. The visualized orbits are normal. The visualized paranasal sinuses and tympanomastoid cavities are clear. There is a right parietal scalp hematoma with overlying surgical skin yulia.There is no calvarial fracture. IMPRESSION: Small volume subarachnoid hemorrhage in the lef t temporal and left frontal lobe.Small right parafalcine subdural hematoma. No m ass effect or hydrocephalus. Right parietal scalp hematoma. No calvarial fractur e. Signed: Mona Lee Verified Date/Time: 02/17/2020 05:08:35 E lectronically signed by: MONA LEE MD on 02/17/2020 05:[address] brain without IV [id number] 05:08:00Interface, External Ris In - 02/17/2020 5:11 AM CDTFINAL REPORT EXAM: CT head without contrast. CLINICAL HISTORY: Unlisted Reason for Exam; interval subarachnoid hemorrhage COMPARISON: None. TECHNIQUE: CT images of the head were obtained without intravenous contrast. This exam was performed according to our departmental dose optimization program which includes automated exposure control, adjustment of the mA and/or kV according to patient's size and/or use of iterative reconstructive technique. FINDINGS:There is small volume sub arachnoid hemorrhage in the left temporal and left frontal lobes.There is a smal l right parafalcine subdural hematoma measuring 4 mm in maximum thickness.There is no mass effect, herniation, hydrocephalus or large demarcated acute territori al infarct. The basal cisterns are patent. The visualized orbits are normal. T he visualized paranasal sinuses and tympanomastoid cavities are clear. There i s a right parietal scalp hematoma with overlying surgical skin yulia.There is no calvarial fracture. IMPRESSION: Small volume subarachnoid hemorrhage in the left temporal and left frontal lobe.Small right parafalcine subdural hematoma. N o mass effect or hydrocephalus. Right parietal scalp hematoma. No calvarial frac ture. Signed: Mona Lee Verified Date/Time: 02/17/2020 05:08:35 [facility] W/PLT COUNT & AUTO [id number] 04:43:00 * Test Item Value Reference Range Interpretation Comments WHITE BLOOD CELL COUNT (BEAKER) (test code = 775) 4.6 K/ L 3.5- 10.5 RED BLOOD CELL COUNT (BEAKER) (test code = 761) 2.71 M/ L 3.93-5 .22 L HEMOGLOBIN (BEAKER) (test code = 410) 8.2 GM/DL 11.2-15.7 L HEMATOCRIT (BEAKER) (test code = 411) 26.2 % 34.1-44.9 L MEAN CORPUSCULAR VOLUME (BEAKER) (test code = 753) 96.7 fL 79. 4-94.8 H MEAN CORPUSCULAR HEMOGLOBIN (BEAKER) (test code = 751) 30.3 pg 25.6-32.2 MEAN CORPUSCULAR HEMOGLOBIN CONC (BEAKER) (test code = 752) 31.3 GM/DL 32.2-35.5 L RED CELL DISTRIBUTION WIDTH (BEAKER) (test code = 412) 13.3 % 11.7-14.4 PLATELET COUNT (BEAKER) (test code = 756) 106 K/CU MM 150-450 L MEAN PLATELET VOLUME (BEAKER) (test code = 754) 10.1 fL 9.4-12 .3 NUCLEATED RED BLOOD CELLS (BEAKER) (test code = 413) 0 /100 WBC 0 -0 NEUTROPHILS RELATIVE PERCENT (BEAKER) (test code = 429) 70 % LYMPHOCYTES RELATIVE PERCENT (BEAKER) (test code = 430) 22 % MONOCYTES RELATIVE PERCENT (BEAKER) (test code = 431) 4 % EOSINOPHILS RELATIVE PERCENT (BEAKER) (test code = 432) 0 % BASOPHILS RELATIVE PERCENT (BEAKER) (test code = 437) 0 % NEUTROPHILS ABSOLUTE COUNT (BEAKER) (test code = 670) 3.22 K/ L 1.56-6.13 LYMPHOCYTES ABSOLUTE COUNT (BEAKER) (test code = 414) 1.03 K/ L 1.18-3.74 L MONOCYTES ABSOLUTE COUNT (BEAKER) (test code = 415) 0.17 K/ L 0. 24-0.36 L EOSINOPHILS ABSOLUTE COUNT (BEAKER) (test code = 416) 0.01 K/ L 0.04-0.36 L BASOPHILS ABSOLUTE COUNT (BEAKER) (test code = 417) 0.01 K/ L 0. 01-0.08 IMMATURE GRANULOCYTES-RELATIVE PERCENT (BEAKER) (test code = 2801) 4 % 0-1 H POCT-GLUCOSE [id number] 00:06:00* Test Item Value Reference Range Interpretation Comments POC-GLUCOSE METER (BEAKER) (test code = 1538) 78 mg/dL 70-110 : TESTED AT [facility] [address] [facility], [address]: Defect Repairer Glassware/Film Or Videotape Editor ID = [id number] for ANTHONY AGUIRRE POCT-GLUCOSE [id number] 17:46:00* Test Item Value Reference Range Interpretation Comments POC-GLUCOSE METER (BEAKER) (test code = 1538) 243 mg/dL 70-110 H : Notified RN/MD: TESTED AT [facility] [address] [facility], [address]: Defect Repairer Glassware/Film Or Videotape Editor ID = [id number] for LOLIS RICHARDSON BASIC METABOLIC [id number] 17:18:00* Test Item Value Reference Range Interpretation Comments SODIUM (BEAKER) (test code = 381) 137 meq/L 136-145 POTASSIUM (BEAKER) (test code = 379) 2.8 meq/L 3.5-5.1 L CHLORIDE (BEAKER) (test code = 382) 103 meq/L 98-107 CO2 (BEAKER) (test code = 355) 22 meq/L 22-29 BLOOD UREA NITROGEN (BEAKER) (test code = 354) 26 mg/dL 7-21 H CREATININE (BEAKER) (test code = 358) 0.91 mg/dL 0.57-1.25 GLUCOSE RANDOM (BEAKER) (test code = 652) 252 mg/dL 70-105 H CALCIUM (BEAKER) (test code = 697) 11.7 mg/dL 8.4-10.2 H EGFR (BEAKER) (test code = 1092) 61 mL/min/1.73 sq m ESTIMATED GFR IS NOT ACCURATE CREATININE CLEARANCE IN PREDICTING GLOMERULAR FILTRATION RATE. ESTIMATED GFR IS NOT APPLICABLE FOR DIALYSIS PATIENTS. Defect Repairer Glassware ID - BSHepatic function [id number] 17:17:00* Test Item Value Reference Range Interpretation Comments Protein, Total (test code = 2885-2) 6.0 6.0- 8.3 gm/dL Albumin (test code = 75964-2) 3.0 g/dL 3.5-5 L Total Bilirubin (test code = 1974-2) 0.8 mg/dL 0.2-1.2 Bilirubin, Direct (test code = 1967-7) 0.4 mg/dL 0.1-0.5 Alkaline Phosphatase (test code = 6768-6) 111 U/L 40-150 AST (test code = 1920-8) 15 U/L 5-34 ALT (test code = 1742-6) 20 U/L 6-55 BEN (test code = BEN) Defect Repairer Glassware ID - BS Lab Interpretation (test code = 41266-4) [facility] 17:17:00* Test Item Value Reference Range Interpretation Comments MAGNESIUM (BEAKER) (test code = 627) 2.0 mg/dL 1.6-2.6 Defect Repairer Glassware ID - [id number] 17:17:00* Test Item Value Reference Range Interpretation Comments PHOSPHORUS (BEAKER) (test code = 604) 2.2 mg/dL 2.3-4.7 L Defect Repairer Glassware ID - BSHEPATIC FUNCTION [id number] 17:17:00* Test Item Value Reference Range Interpretation Comments TOTAL PROTEIN (BEAKER) (test code = 770) 6.0 gm/dL 6.0-8.3 ALBUMIN (BEAKER) (test code = 1145) 3.0 g/dL 3.5-5.0 L BILIRUBIN TOTAL (BEAKER) (test code = 377) 0.8 mg/dL 0.2-1.2 BILIRUBIN DIRECT (BEAKER) (test code = 706) 0.4 mg/dL 0.1-0.5 ALKALINE PHOSPHATASE (BEAKER) (test code = 346) 111 U/L 40-150 AST (SGOT) (BEAKER) (test code = 353) 15 U/L 5-34 ALT (SGPT) (BEAKER) (test code = 347) 20 U/L 6-55 Defect Repairer Glassware ID - BSProthrombin time/[id number] 17:15:00* Test Item Value Reference Range Interpretation Comments Protime (test code = 5902-2) 16.1 11.9- 14.2 seconds H INR (test code = 6301-6) 1.33 <=5.90 BEN (test code = BEN) Effective 09/15/2018: PT Refe rence Range ChangeNew: 11.9- 14.2 Previous: 11.7-14.7 RECOMMENDED COUMADIN/WARFARIN INR THERAPY RANGESSTANDARD DOSE: 2.0-3.0 Includes: PROPHYLAXIS for venous thrombosis, sys temic embolization; TREATMENT for venous thrombosis and/or pulmonary embolus.HIGH RISK: Target INR is 2.5-3.5 for patients wiht mechanical heart valves. Lab Interpretation (test code = 02387-5) Abnormal [facility]PTT2020-[facility] 17:15:00* Test Item Value Reference Range Interpretation Comments PTT (test code = 37447-6) 36.7 22.5- 36.0 seconds H Lab Interpretation (test code = 13590-5) Abnormal [facility] HospitalPROTHROMBIN TIME/[id number] 17:15:00* Test Item Value Reference Range Interpretation Comments PROTIME (BEAKER) (test code = 759) 16.1 seconds 11.9-14.2 H INR (BEAKER) (test code = 370) 1.33 <=5.90 Effective 09/15/2018: PT Reference Range ChangeNew: 11.9-14.2 Previous: 11.7-14. 7RECOMMENDED COUMADIN/WARFARIN INR THERAPY RANGESSTANDARD DOSE: 2.0-3.0 Include s: PROPHYLAXIS for venous thrombosis, systemic embolization; TREATMENT for venou s thrombosis and/or pulmonary embolus.HIGH RISK: Target INR is 2.5-3.5 for patie nts wiht mechanical heart valves.[id number] 17:15:00* Test Item Value Reference Range Interpretation Comments PARTIAL THROMBOPLASTIN TIME (BEAKER) (test code = 760) 36.7 seconds 22.5-36.0 H SARS-CoV2/RT-PCR (Asymptomatic ONLY)2020-02-16 17:00:00* Test Item Value Reference Range Interpretation Comments SARS-COV2/RT-PCR (test code = 34036-5) See external report f or linked test Not Detected, Negative, See external report for linked test SARS-COV-2 PERFORMING LAB (test code = 38557-4) [facility]2020-02-16 17:00:00* Test Item Value Reference Range Interpretation Comments SARS-COV2/RT-PCR (test code = 0573712) See external report f or linked test Not Detected, Negative, See external report for linked test SARS-COV-2 PERFORMING LAB (test code = 5817446) [facility] W/PLT COUNT & AUTO [id number] 16:59:00* Test Item Value Reference Range Interpretation Comments WHITE BLOOD CELL COUNT (BEAKER) (test code = 775) 6.5 K/ L 3.5- 10.5 RED BLOOD CELL COUNT (BEAKER) (test code = 761) 2.56 M/ L 3.93-5 .22 L HEMOGLOBIN (BEAKER) (test code = 410) 7.6 GM/DL 11.2-15.7 L HEMATOCRIT (BEAKER) (test code = 411) 24.3 % 34.1-44.9 L MEAN CORPUSCULAR VOLUME (BEAKER) (test code = 753) 94.9 fL 79. 4-94.8 H MEAN CORPUSCULAR HEMOGLOBIN (BEAKER) (test code = 751) 29.7 pg 25.6-32.2 MEAN CORPUSCULAR HEMOGLOBIN CONC (BEAKER) (test code = 752) 31.3 GM/DL 32.2-35.5 L RED CELL DISTRIBUTION WIDTH (BEAKER) (test code = 412) 13.2 % 11.7-14.4 PLATELET COUNT (BEAKER) (test code = 756) 121 K/CU MM 150-450 L MEAN PLATELET VOLUME (BEAKER) (test code = 754) 10.1 fL 9.4-12 .3 NUCLEATED RED BLOOD CELLS (BEAKER) (test code = 413) 0 /100 WBC 0 -0 NEUTROPHILS RELATIVE PERCENT (BEAKER) (test code = 429) 83 % LYMPHOCYTES RELATIVE PERCENT (BEAKER) (test code = 430) 11 % MONOCYTES RELATIVE PERCENT (BEAKER) (test code = 431) 3 % EOSINOPHILS RELATIVE PERCENT (BEAKER) (test code = 432) 0 % BASOPHILS RELATIVE PERCENT (BEAKER) (test code = 437) 0 % NEUTROPHILS ABSOLUTE COUNT (BEAKER) (test code = 670) 5.39 K/ L 1.56-6.13 LYMPHOCYTES ABSOLUTE COUNT (BEAKER) (test code = 414) 0.72 K/ L 1.18-3.74 L MONOCYTES ABSOLUTE COUNT (BEAKER) (test code = 415) 0.22 K/ L 0. 24-0.36 L EOSINOPHILS ABSOLUTE COUNT (BEAKER) (test code = 416) 0.00 K/ L 0.04-0.36 L BASOPHILS ABSOLUTE COUNT (BEAKER) (test code = 417) 0.01 K/ L 0. 01-0.08 IMMATURE GRANULOCYTES-RELATIVE PERCENT (BEAKER) (test code = 2801) 2 % 0-[address] CERVICAL SPINE [id number] 10:29:00 [facility] : 1950 Sex: F [place] [address] Patient Name: AXEL CHRISTOPHER MR #: [id number] : 1950 Age/Sex: 69/F Req #: [id number] [facility] Physician: Or tamiko by: STEVEN MIJARES DO Report #: [id number] cation: Room/Bed: ____ Procedure: [id number] CT/CT CERVICAL SPINE WO Exam Date: 01/19 01/07 Exam Time: 949 REPORT STATUS: Signed CT CERVICAL SPINE WO HISTORY: Fall COMPARISON: Concurrent head CT TECHNIQUE: CT of the cervical spine with out contrast. Sagittal and coronal reformations were created. One or more of the following dose reduction techniques were used: Automated exposure control , adjustment of the mA and/or kV according to patient size, and/or utilization of iterative reconstruction technique. FINDINGS: Cervical lord osis is straightened. There is no scoliosis or subluxation. Mild bone demine ralization limits evaluation. No definite acute fracture or compression defor mity is seen. Small bilateral cervical ribs at C7 are noted. The cranio cervical junction is intact. No gross spinal canal masses are seen. The pa ravertebral and paraspinal soft tissues are unremarkable. Degenerative quincy nges: Moderate to severe multilevel spondylotic changes are present. Multileve l facet arthrosis is present, right greater than left. The right C5-C6 facet j oint is fused. There is at least mild canal stenosis from C2-C3 to C4-C5 due t o posterior disc osteophyte complexes. Multilevel bilateral foraminal stenoses due to uncovertebral and facet arthrosis are also present. Incidental find ings: Mild to moderate bilateral carotid bulb calcified plaque is present. IMPRESSION: 1. No acute osseous abnormalities. 2. Degenerative changes as described above. Signed by: Dr. Cruz Nagy M.D. 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 Technique: Noncontrast axial scans were obtained from skull base to the vertex. Coronal and sagittal reconstructions obtained from the axial data . One or more of the following dose reduction techniques were used: Automated exposure control, adjustment of the mA and/or kV according to patient size, a nd/or utilization of iterative reconstruction technique. Beam hardening artifa cts obscure some details. DISCUSSION: Scalp/Skull: Right parietal sc alp hematoma with overlying yulia. No calvarial fracture. Brain sulci: Mil dly prominent. Ventricles: Compensatory dilatation. Extra-axial spaces: Trace subarachnoid hemorrhage is seen along the left inferior frontal gyrus, anterior left sylvian fissure, and left superior temporal sulcus. Otherwise, no masses or fluid collections. Carotid siphon calcifications are present. Parenchyma: Mild bilateral deep white matter hypodensity is likely chronic microvascular ischemic change. Otherwise, no masses, hemorrhage, or large v ascular territory acute infarct. Dural sinuses: No abnormal densities. S ellar/Suprasellar region: Intact. Skull base: Intact. Incidental findings: N onspecific focal calcifications along the bilateral posterior ocular globes. IMPRESSION: 1. Trace acute subarachnoid hemorrhage along the left fron aaron and left anterior temporal lobes. 2. No other acute intracranial abnorm alities. 3. Mild supratentorial chronic microvascular ischemic change. Mild g eneralized cerebral volume loss. Signed by: Ramses Barrett 02/16/2020 10:29 AM Dictated By: CRUZ NAGY MD Electronically Si gned By: CRUZ NAGY MD on 02/16/201028 Transcribed By: MARIAH on 1028 COPY TO: STEVEN MIJARES DO CHEST SINGLE (PORTABLE) 2020-02-16 10:05:00 [facility] : 1950 Sex: F [place] [address] Patient Name: AXEL CHRISTOPHER MR #: [id number] : 1950 Age/Sex: 69/F Req #: [id number] Adm Physician: Or vickied by: STEVEN MIJARES DO Report #: [id number] Lo cation: ER Room/Bed: ____ Procedure: [id number] DX/CHEST SINGLE (PORTABLE) Exam Date: Exam Time: 0920 REPORT STATUS: Signed Chest, 1 view, 02/16/2020. History: Weakness, fall. Comparison: None available. Findings: The ca rdiomediastinal silhouette and pulmonary vasculature are mildly prominent. The re is no focal consolidation. Linear opacities are present lung bases. There i s minimal blunting of the left costophrenic sulcus. Mediastinal sternotomy wir es are present. There are no acute osseous or soft tissue abnormalities. Impression: Mild cardiomegaly, vascular congestion, and bibasilar atelectasi s with minimal left pleural effusion. Signed by: Steven Mcgrath on 020 10:06 AM Dictated By: STEVEN MCGRATH MD 1006 Transcribed By: MARIAH on 02/16/20 1006 C OPY TO: STEVEN MIJARES DO MKR-[id number] 00:00:00Ordered by an unspecified provider.[facility]CHEM [id number] 18:08:00 0.7[facility]annCHE[facility] [id number] 18:08:0089[facility]annBODY FLUIDS 2015-01-23 20:33:792313Soztrpha HermannBODY HSXMDS6863-57-04 20:33:4443671 [facility] [id number] 20:33:00Marked *ABN*(01/23/15 3:33 PM) [facility] AWNVNM6535-93-49 20:33:00Pleural (01/23/15 3:33 PM)[facility] JXFKHV2583-12-23 20:33:00See Note 2(01/23/15 3:33 PM)[facility] BODY EQBHTC8698-70-71 20:33:007[facility]annB[facility] LUKMBT4749-61-31 20:33:0090 [facility] YNMBGE0040-83-16 20:33:003[facility]annB[facility] FLUIDS 2015-01-23 20:23:00Pleural *NA*(01/23/15 3:23 PM)[facility]ann[facility] FLUIDS 2015-01-23 20:23:004.2[facility] TYEPYB0704-20-28 20:23:00Pleural *NA*(01/23/15 3:23 PM)[facility]ann[facility] UAQWDQ7081-33-72 20:23:88710Eindxjum HermannBODY CSGYSB8532-21-55 20:23:00Pleural *NA*(01/23/15 3:23 PM)[facility] GQKQOV1765-78-26 20:23:002.5[facility]ann[facility] MXYARQ4790-82-77 20:23:008.00[facility]annB[facility] WVLGDJ7240-00-81 20:23:00Pleural (01/23/15 3:23 PM)[facility]annCHEM NZOUD9941-89-63 20:23:0063[facility]annCHEM PANEL 2015-01-23 20:23:003.4[facility]annCHEM MPIWK7945-38-68 20:23:000.9[facility]annCHEM PNIBJ5421-47-41 20:23:0021[facility]annCHEM GQRLY0249-55-80 20:23:0014.4[facility]annCHEM XULES8830-70-52 20:23:001.1[facility]annCHEM ZTCRE7733-53-04 20:23:76552Fnqayvoa HermannCHEM HCNFH5260-90-64 20:23:0021 [facility]annCHE[facility] MBASQ4297-99-60 20:23:43228Jfhiuinl HermannCHEM PANEL 2015-01-23 20:23:0098[facility]annCHEM VNLOV6101-75-21 20:23:0023[facility]annCHEM TEYCZ7681-24-43 20:23:003.2[facility]annCHE[facility] FHBNJ2683-79-30 20:23:001.0[facility]annCHEM BGUEW6228-50-21 20:23:003.4[facility]annCHEM FFJSA5607-85-23 20:23:49282Rjhmwsfc HermannCHEM YQZQW7610-74-78 20:23:009.3 [facility]annCHE[facility] HDMSR4343-65-18 20:23:0028[facility]annCHEM PANEL 2015-01-23 20:23:0019[facility]annCHEM CNJPO0994-34-20 20:23:006.6[facility]annCHEM HIMIG1318-73-00 20:23:99233Mqxrluox HermannCHEM QOJSD2397-68-13 07:40:002.4[facility]annCHEM LNYWJ4808-07-00 07:40:002.1[facility]annCHEM VLXMW4870-62-25 07:40:0078[facility]annCHEM HKQNY5913-32-01 07:40:46528 [facility]annCHE[facility] WTTKN6261-11-55 07:40:0013[facility]annCHEM PANEL 2014-12-29 07:40:008.7[facility]annCHEM QDHTG0256-02-74 07:40:000.8[facility]annCHEM UVBBL0394-04-43 07:40:86283Wqgrflou HermannCHEM NAZVG7380-50-80 07:40:003.7[facility]annCHEM WWDMC3788-13-28 07:40:61768Qczdqhsq HermannCHEM RJLGX6892-52-67 07:40:0027[facility]annCHEM OHMKK4908-36-49 07:40:0014.7 [facility] DtqmbfxMXRIRFUXAF1401-47-17 07:40:00* Test Item Value Reference Range Interpretation Comments PTT (test code = PTT) 32.7 s 22.9-35.8 [facility] ImiqtsuGNWMFANKVS7834-78-01 07:40:00* Test Item Value Reference Range Interpretation Comments PT (test code = PT) 14.7 s 12.0-14.7 [facility] RcibpulULPRHFJQWV5226-72-95 07:40:001.12[facility]annHEMATOLOGY 2014-12-29 07:40:0013.9[facility] EvihodmTOLNJWCLEX0462-83-96 07:40:87429Nscaxgzz HlcinrnFKREMOOZHQ2552-55-14 07:40:009.5[facility] VrzmqyaZCGZTTILFL4681-79-32 07:40:0013.4[facility] YvsfkinDRLTOPQPXS2511-72-11 07:40:0010.7[facility] QGAMPJWFDV6670-55-40 07:40:00* Test Item Value Reference Range Interpretation Comments MCH (test code = MCH) 29.7 pg 27.0-31.0 [facility] PvwaatvUILNGWQTAS1586-42-08 07:40:0032.7[facility]annHEMATOLOGY 2014-12-29 07:40:0032.7[facility] AjjytbwVTJZYLMRKU1524-81-89 07:40:0090.8[facility] TjhhkeiLTBAXMWKFP1302-20-91 07:40:003.60[facility] KshopwlDFNUOPKFHN5165-71-84 07:40:000.1[facility] OlqddvyATSOBWWMNW7375-70-93 07:40:001.0[facility] RJUALLGNYJ5060-95-48 07:40:007.3[facility] EhnxdulEQICWPCEDQ2091-94-77 07:40:000.9 [facility] XkihdruEPQWXHQKQV2706-49-75 07:40:0083.8[facility] HermannHEMATOLOGY 2014-12-29 07:40:007.7[facility] RgzzmmnBOYEQPPQZD7953-85-54 07:40:000.3[facility] SinkdqdUZHYKMSSAG1760-57-17 07:40:001.0[facility] XkpsmupABMYCDNUEP7798-88-27 07:40:0011.2[facility]annCHEM HIORI6822-85-74 06:07:001.7[facility]annCHEM NLERX3338-57-32 06:07:001.9[facility] DsldfteMAEVSQLKJBPW1135-33-97 06:07:0011.6 [facility] FzepidaTLYPDFTYTFQP6126-60-65 06:07:0067[facility] HermannELECTROLYTES 2014-12-28 06:07:20066Eejzwpuv RtjnehaJIFGZJOAGSGD9623-20-65 06:07:94586Kpqekonp UmzkriwXZCGPDUMHPBK4250-85-71 06:07:003.6[facility] MwbgzedXGGUVHNDTLUS9735-44-64 06:07:0028[facility] FcrqidoACIKDYIPAFIO4579-73-94 06:07:009.0[facility] WEKUQZVPBEMY4166-07-53 06:07:0016[facility] RaavuebRWQSQHGGGZSD3367-34-90 06:07:00 0.9[facility] JjqxgupYFHQQWSCIBXD6605-27-13 06:07:12276Xccrfugz HermannHEMATOLOGY 2014-12-28 06:07:008.2[facility] BapjmqpGYFOSRQVCA2324-59-52 06:07:006.9[facility] GizjgncKXAWPWKUQT9728-05-01 06:07:0084.0[facility] RycpzkpRZUAYSOIXT4219-72-49 06:07:000.7[facility] YfzxomkIESHKVBQZN7611-29-92 06:07:001.1[facility] PSNSZPHEJY5619-05-68 06:07:000.1[facility] VuaoccyFGTUYSHFPG0820-39-53 06:07:00 13.0[facility] ObyxcyyJUORYTZFAZ8871-66-53 06:07:001.3[facility] HermannHEMATOLOGY 2014-12-28 06:07:000.2[facility] XyedfypKEKMPVNGNZ7774-12-20 06:07:0032.1[facility] ZuogwunMFVUDDSPIJ2618-71-98 06:07:0032.2[facility] TzltfxvFPLUEEIIPK4244-71-79 06:07:0091.3[facility] VkzdcotDBVOSJVYEE2284-43-41 06:07:00* Test Item Value Reference Range Interpretation Comments MCH (test code = MCH) 29.3 pg 27.0-31.0 [facility] NsouizmLASOOBDKYU1444-78-56 06:07:0010.3[facility] HermannHEMATOLOGY 2014-12-28 06:07:0013.9[facility] HcxrndkZBNRGTDGTJ9830-99-90 06:07:009.5[facility] MuzqwyaHJAPZBJQHC0920-73-61 06:07:18416Pqycdqnh CzsvrowRRPCFMLKUG8981-81-80 06:07:003.52[facility] LngxjtgMRYJJQVPCA0551-28-56 06:07:0015.5[facility] AITYGWFOWG3736-56-22 06:07:00* Test Item Value Reference Range Interpretation Comments PTT (test code = PTT) 33.8 s 22.9-35.8 [facility] LqduibnVRHURHXGZC3322-51-86 06:07:00* Test Item Value Reference Range Interpretation Comments PT (test code = PT) 14.1 s 12.0-14.7 [facility] KlqphyvSDXSUROHKQ6364-24-67 06:07:001.06[facility] HermannMOLECULAR ABGVKITCAO5879-25-48 17:13:00Negative (12/27/14 12:13 PM)[facility]annCHEM UHMPJ8978-49-02 10:12:001.9[facility] HermannCHEM UJUMH6039-21-97 10:12:0059 [facility]annCHEM NABRY4916-76-22 10:12:32615Foalfeky HermannCHEM PANEL 2014-12-27 10:12:003.6[facility]annCHEM DMXZM9571-18-45 10:12:008.7[facility]annCHEM RCSYB5716-20-15 10:12:0029[facility]annCHEM BTFFX6853-40-73 10:12:61772Fyfiqcps HermannCHEM JEIJR0612-89-01 10:12:15599Heywoyrw HermannCHEM XFJVB4706-12-82 10:12:0020[facility]annCHEM XPPLM7317-43-09 10:12:001.0 [facility]annCHEM DJEUM5153-78-53 10:12:0011.6[facility]annHEMATOLOGY 2014-12-27 10:12:0010.0[facility] OojuwprMGWWXWCMPT4098-41-51 10:12:0098[facility] LdxkmojAGAPKOUENX8891-41-50 10:12:0090.6[facility] PdsrbaxMGDKLMJWUP2160-42-57 10:12:00* Test Item Value Reference Range Interpretation Comments MCH (test code = MCH) 29.3 pg 27.0-31.0 [facility] VfdfqyeRUOBMNWSKG0574-62-95 10:12:0032.4[facility] HermannHEMATOLOGY 2014-12-27 10:12:0013.8[facility] KvoeayhIQLQBWGWWV6367-49-66 10:12:0029.2[facility] VhnjzlvXBBKDFBOAT2602-27-96 10:12:0018.2[facility] TsytoofQPMLSGTSOH0383-78-91 10:12:003.22[facility] XtvtdhbDRBLGIXBGO2495-31-08 10:12:009.4[facility] BBHCGVTTTX6965-07-30 10:12:0014.4[facility] WfcpyaxLRPNDRKZAI7141-42-37 10:12:00 77.0[facility] JuovcxmLABCWOFHIO1829-29-64 10:12:001.8[facility] HermannHEMATOLOGY 2014-12-27 10:12:001.3[facility] OzbaswxOHDYCZVYTD1390-97-66 10:12:001.0[facility] OekcvjeVQAASQBAYH7058-69-87 10:12:003.0[facility] NiqmexbZLIPLNUQDZ0327-05-91 10:12:0010.0[facility] ZpftoolCDRHAHUFRU9218-30-74 10:12:007.0[facility] VZJECGDBWL4042-68-97 10:12:002.0[facility] ZgkvbcqZIFPGQQLDZ5768-93-11 10:12:00 Moderate *ABN*(12/27/14 5:12 AM)[facility] FbozhapMJPNIIVUJP6778-11-28 10:12:00 Normal (12/27/14 5:12 AM)[facility] SryldsoZJMZUJAMJZ3898-67-06 10:12:00* Test Item Value Reference Range Interpretation Comments Tot Cell Ct (test code = Tot Cell Ct) 100 1 [facility] HmxzuywSKTNCTMPHW2791-46-06 10:12:000.0[facility]annURINE AND STOOL 2014-12-27 03:00:00Positive *ABN*(12/26/14 10:00 PM)[facility] AND OCYZB2468-59-46 03:00:00>8.0[facility] AND ZGSJQ4533-14-97 03:00:00 Large *ABN*(12/26/14 10:00 PM)[facility] UXXAD0433-63-03 03:00:00 Moderate *ABN*(12/26/14 10:00 PM)[facility] AHTIX6139-25-73 03:00:00Moderate 5*ABN*(12/26/14 10:00 PM)[facility] STOOL 2014-12-27 03:00:00Negative (12/26/14 10:00 PM)[facility] STOOL 2014-12-27 03:00:00Turbid *ABN*(12/26/14 10:00 PM)[facility] STOOL 2014-12-27 03:00:00Dark Yellow (12/26/14 10:00 PM)[facility] STOOL 2014-12-27 03:00:00* Test Item Value Reference Range Interpretation Comments UA pH (test code = UA pH) 6.5 1 5.0-8.0 [facility] AND FWRNG6300-84-20 03:00:00* Test Item Value Reference Range Interpretation Comments UA Spec Grav (test code = UA Spec Grav) 1.015 1 [facility]annCHEM DKAMH5335-70-81 23:19:001.9[facility] HermannCHEM PANEL 2014-12-26 07:29:003.3[facility] JzxfhejEBCPQCYTVK3180-28-37 07:29:000.0[facility] KvsbqilILWEPQBABH9175-52-97 07:29:000.0[facility] TyqnurrAYRYTBGOTL1145-18-27 07:29:000.0[facility] FdxclvsJADZWNOYJF9318-92-80 07:29:008.0[facility] SOKDXAHTJB1208-09-11 07:29:00Normal (12/26/14 2:29 AM)[facility]annHEMATOLOGY 2014-12-26 07:29:00Normal (12/26/14 2:29 AM)[facility] AgmfrhvELVWDMHADU5472-83-27 08:16:00Normal (12/25/14 3:16 AM)[facility] JvafraoOFDLFGYSIT3163-33-74 08:16:003.0 [facility] FgfxelxNVUZAXZVNC3539-66-31 08:16:001.0[facility] HermannHEMATOLOGY 2014-12-25 08:16:00Normal (12/25/14 3:16 AM)[facility] GszqwfgOOHRGHBSHK4350-89-29 08:16:000.0[facility] WxzsoplGLFUVBQFCD0270-63-24 08:16:006.0[facility]UR[facility] AND TOMBV3886-30-27 09:19:00Yellow *NA*(12/24/14 4:19 AM)[facility] UGVNM6480-07-89 09:19:00Clear (12/24/14 4:19 AM)[facility] YURAO6185-14-53 09:19:005.5[facility] QLECW5800-41-11 09:19:00 1.011[facility] SKKVE2519-62-02 09:19:00Negative *NA*(12/24/14 4:19 AM)[facility] BKTIP7055-78-66 09:19:00Small *ABN*(12/24/14 4:19 AM)[facility] RTUTX9861-61-54 09:19:00Negative (12/24/14 4:19 AM) [facility] VSWWA0040-46-75 09:19:00Trace *ABN*(12/24/14 4:19 AM) [facility] DJVTJ2149-13-93 09:19:001[facility] NYYLU1955-83-28 09:19:004[facility] NIBIC4077-40-14 09:19:008 [facility] UxgxzauWLASFDYTRP5261-43-94 08:42:00* Test Item Value Reference Range Interpretation Comments PTT (test code = PTT) 30.2 s 22.9-35.8 [facility] QfczdyrCKDYYJINNO9960-96-60 08:42:001.18[facility] HermannHEMATOLOGY 2014-12-24 08:42:00* Test Item Value Reference Range Interpretation Comments PT (test code = PT) 15.3 s 12.0-14.7 [facility] HermannANEMIA SVPJZ8343-82-12 17:28:77825Rkihlgfr HermannANEMIA STUDY 2014-12-23 17:28:85281Wahltygp HermannANEMIA HOSCB6792-83-40 17:28:0016[facility] HermannANEMIA CSMFQ7457-62-77 17:28:0033[facility] HermannANEMIA VEJUR6068-72-60 17:28:03102Kktsrsnt HermannANEMIA GFTUH2154-46-90 17:28:470532Xvxyuwwi [place] BLOOD BANK RIUSQTY6327-26-42 14:58:00Negative (12/22/14 9:58 AM)[facility] GDTVCGD9774-36-71 14:38:00Product available (12/22/14 9:38 AM)[facility] LpxnukkYNYZJVSIQG5279-66-57 13:46:00Negative (12/21/14 8:46 AM)[facility] RTFRHILKAQ1983-06-16 13:46:00* Test Item Value Reference Range Interpretation Comments Pat Od Value (test code = Pat Od Value) 0.076 1 [facility] UhytbnvUGLFANKILA8976-93-34 13:46:00* Test Item Value Reference Range Interpretation Comments Pos CO Value (test code = Pos CO Value) 0.431 1 [facility] HermannTHYROID ZDPWH3429-59-15 13:46:001.120[facility] HermannCHEM PANEL 2014-12-21 08:32:003.0[facility] HermannCHEM FTXLZ2460-60-24 03:00:004.7[facility] CwsagsdOZNWWMFVNS4898-81-42 03:00:000.63[facility] SufxpsgOJIQQGGGZD6800-01-78 03:00:00* Test Item Value Reference Range Interpretation Comments Thrombin Time (test code = Thrombin Time) 15.2 s 15.0-21.2 [facility] WzxgdefNSYMLMZCGA8315-42-48 03:00:65964Ljjapeuy HermannPARATHYROID WDKTHXD5759-43-54 03:00:001.08[facility] HermannPARATHYROID VNALSDA4710-91-89 03:00:001.07[facility] AND DKVEK5022-80-93 21:22:00Performed *NA*(12/20/14 4:22 PM)[facility] TTUSJ5681-52-47 21:22:0043[facility] YINUO3187-41-38 21:22:002[facility] STOOL 2014-12-20 21:22:005.0[facility] XSYFE3749-99-99 21:22:0014 [facility] RPWAD2727-43-12 21:22:00Negative *NA*(12/20/14 4:22 PM) [facility] AUWGC2343-39-51 21:22:00Negative (12/20/14 4:22 PM) [facility] DHSDP5915-15-99 21:22:00Moderate *ABN*(12/20/14 4:22 PM) [facility] EPUFF5155-40-33 21:22:00Small *ABN*(12/20/14 4:22 PM) [facility] GYXDT6220-28-60 21:22:00Yellow *NA*(12/20/14 4:22 PM) [facility] PMVHN1103-37-05 21:22:00Clear (12/20/14 4:22 PM)[facility] DQUWF7028-66-59 21:22:001.016[facility]annHEMATOLOGY 2014-12-20 19:46:00* Test Item Value Reference Range Interpretation Comments Thrombin Time (test code = Thrombin Time) 14.6 s 15.0-21.2 [facility] SmbuajtXWVKEYYDVQ6416-42-07 19:46:000.74[facility]annHEMATOLOGY 2014-12-20 19:46:72744Ugjuzhcg BepofnlSOWVIBYWDE9187-26-35 11:39:00Normal (12/20/14 6:39 AM)[facility] ZjlnqsjPNMYPOLUXV8260-09-00 11:39:71231Luhnxzkb [place] VLDQYBRZFD1440-15-59 11:39:00* Test Item Value Reference Range Interpretation Comments Thrombin Time (test code = Thrombin Time) 14.8 s 15.0-21.2 [facility] TkbpdwyCFSGVLNYGY0886-28-93 11:39:000.63[facility] HermannPARATHYROID NXWNVYG2101-11-79 05:58:001.07[facility] HermannPARATHYROID VSVBHCG9267-58-44 05:58:001.11[facility] HermannBACTERIAL - HKTSHSJX3971-13-91 22:52:00Negative (12/19/14 5:52 PM)[facility] HermannPARATHYROID EQODWJZ9388-69-37 22:52:001.13 [facility] HermannPARATHYROID PXGAJQR1143-27-32 22:52:001.14[facility] AND VYVWT6943-99-63 22:52:0020[facility] AND ENCBB9328-92-03 22:52:00 Performed *NA*(12/19/14 5:52 PM)[facility] CampusUzpseutYUBUIULYZG0589-46-75 18:40:00See Note (12/19/14 1:40 PM)[facility] CampusSqflniaJKOCKEZHFU4223-63-65 18:40:00* Test Item Value Reference Range Interpretation Comments K-time (test code = K-time) 2.2 min 1.0-3.0 [facility] CampusBgjflheQWFPMOPQDZ0262-16-39 18:40:00* Test Item Value Reference Range Interpretation Comments Angle (test code = Angle) 61.6 degrees 53.0-72.0 [facility] CampusAmtpfzhHUQAGUVCRZ6402-54-28 18:40:00* Test Item Value Reference Range Interpretation Comments R-time (test code = R-time) 6.5 min 5.0-10.0 [facility] CampusZdieqnsHDKVJFIMRS3791-70-82 18:40:00* Test Item Value Reference Range Interpretation Comments Max Amp (test code = Max Amp) 53.3 mm 50.0-70.0 [facility] CampusXbziczlCDCGLATYHP2595-38-04 18:40:005.7[facility]annHEMATOLOGY 2014-12-19 18:40:000.0[facility] SiwyzxkXMSQSXCTNT9263-01-05 18:40:00-1.7[facility] HermannCHEM DPNVG7457-56-83 11:35:0030[facility] HermannCHEM WMAGZ9499-45-61 11:35:007.1[facility] HermannCHEM BHXKE0002-60-56 11:35:0076[facility] HermannCHEM RZKNT2340-38-63 11:35:001.2[facility] HermannCHEM AOJDC9401-10-64 11:35:0047 [facility]annCHEM SJKHH4653-13-49 11:35:004.2[facility] HermannCHEM PANEL 2014-12-19 11:35:002.9[facility] HermannCHEM EZVWQ1934-53-57 11:35:001.4[facility] HermannCHEM EXXSX1433-20-37 11:35:0012[facility] NyxptbvNJMCLXBFRB4320-51-01 11:35:000.1[facility] HermannBLOOD BANK DTBNEKB1724-92-45 11:23:00Product available (12/19/14 6:23 AM)[facility] RXBKHLX5870-52-41 11:23:00 Product available (12/19/14 6:23 AM)[facility] TSBYTNF4441-33-14 11:23:00Negative (12/19/14 6:23 AM)[facility] ZBPGGPL1147-81-66 21:40:00Product available (12/18/14 4:40 PM)[facility]
--- NOTE | 2020-03-12 18:20 | Emergency Department Note ---
History of Present Illnes History of Present Illness Chief Complaint: General Medicine Complaints History of Present Illness This is a 69 year old female arrived to the ED for b/l lower extremity swelling . Chief Complaint Comment pt from home stating her lower legs are swollen. pt states she takes lasix and hctz. pt states they put her on these meds because she gets sob with lying down. pt aaox4. 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 Any updates have been documented here. 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 Other Surgery: AVR Social History Smoking Cessation: Former smoker Alcohol Use: Social Review of Systems Review of Systems Constitutional: Reports no symptoms EENTM: Reports no symptoms Cardiovascular: Reports as per HPI, Reports chest pain, Reports edema Respiratory: Reports no symptoms Gastrointestinal: Reports no symptoms Genitourinary: Reports no symptoms Musculoskeletal: Reports no symptoms Integumentary: Reports no symptoms Neurological: Reports no symptoms Psychological: Reports no symptoms Endocrine: Reports no symptoms Hematological/Lymphatic: Reports no symptoms Physical Exam Related Data Allergies: Coded Allergies: Sulfa (Sulfonamide Antibiotics) (Unverified Allergy, Unknown, 11/24/16) Triage Vital Signs Vital Signs Date Time Temp Pulse Resp B/P (MAP) Pulse Ox O2 Delivery O2 Flow Rate FiO2 03/12/20 17:05 98.6 54 16 107/49 100 Room Air Vital signs reviewed: Yes Physical Exam CONSTITUTIONAL Constitutional: Present well-developed, Present well-nourished HENT HENT: Present normocephalic, Present atraumatic, Present oropharynx clear/moist, Present nose normal HENT L/R: Present left ext ear normal, Present right ext ear normal EYES Eyes: Reports PERRL, Reports conjunctivae normal NECK Neck: Present ROM normal PULMONARY Pulmonary: Present effort normal, Present breath sounds normal CARDIOVASCULAR Cardiovascular: Present regular rhythm, Present heart sounds normal, Present capillary refill normal, Present normal rate GASTROINTESTINAL Abdominal: Present soft, Present nontender, Present bowel sounds normal GENITOURINARY Genitourinary: Present exam deferred SKIN Skin: Present warm, Present dry MUSCULOSKELETAL Musculoskeletal: Present ROM normal NEUROLOGICAL Neurological: Present alert, Present oriented x 3, Present no gross motor or sensory deficits PSYCHOLOGICAL Psychological: Present mood/affect normal, Present judgement normal Results Laboratory Lab results reviewed: Yes Imaging Imaging results reviewed: Yes Assessment & Plan Medical Decision Making MDM This patient presents with dyspnea, most likely secondary to congestive heart failure . Differential diagnosis includes pneumonia, CHF, Presentation not consistent with acute cardiac etiologies to include ACS (HEART score ), CHF, pericardial effusion / tamponade . Presentation not consistent with acute respiratory etiologies to include acute PE (Wells low risk), pneumothorax , asthma, COPD exacerbation, allergic etiologies, or infectious etiologies such as PNA. Presentation also not consistent with non-cardiopulmonary causes to include toxidromes, metabolic etiologies such as acidemia or electrolyte derangements, sepsis, neurologic causes (i.e. demyelinating diseases). Plan: supplemental O2, NIPPV, CXR, labs, troponin, close hemodynamic monitoring, serial reassessment Assessment & Plan Final Impression: (1) CHF exacerbation Depart Disposition: ADMITTED Last Vital Signs Date Time Temp Pulse Resp B/P (MAP) Pulse Ox O2 Delivery O2 Flow Rate FiO2 03/12/20 17:05 98.6 54 16 107/49 100 Room Air Home Meds Reported Medications Wheat Dextrin (BENEFIBER) 1 Each Powd.pack, 1 PKT PO BID 03/12/20 Potassium Chloride (POTASSIUM CHLORIDE) 10 Meq Tab.er.prt, 10 MEQ PO DAILY, TAB 02/22/20 Furosemide (LASIX) 40 Mg Tablet, 40 MG PO DAILY, #30 TAB 02/22/20 Tolterodine Tartrate (DETROL LA) 4 Mg Cap.er.24h, 4 MG PO DAILY, #30 CAP 11/19/16 Simvastatin (SIMVASTATIN) 40 Mg Tablet, 40 MG PO 2100, #30 TAB 11/06/14 Glipizide (GLIPIZIDE ER) 5 Mg Tab.er.24, 2.5 MG PO DAILY 11/06/14 Levothyroxine Sodium (LEVOTHYROXINE SODIUM) 75 Mcg Tablet, 75 MCG PO DAILY, #30 TAB 11/06/14 Atenolol (ATENOLOL) 50 Mg Tablet, 50 MG PO DAILY 11/06/14 TROY SERRATO, Mar 12, 2020 18:20
--- NOTE | 2020-03-12 18:47 | Diagnostic Imaging Report ---
EXAMINATION: CHEST SINGLE (PORTABLE) COMPARISON: Chest x-ray 02/23/2020 INDICATION: Swollen legs ^Y ^sob ^[id number] ^1825 DISCUSSION: Frontal view of the chest obtained at 1826 hours. HEART AND MEDIASTINUM: Stable cardiomegaly and cardiac bypass changes LINES: None. LUNGS/PLEURA: Pulmonary vasculature is prominent and indistinct, similar to previous exam. The lungs are hyperinflated. Right middle lobe lobe and lingular subsegmental atelectasis has improved. No interstitial edema. Small bilateral pleural effusions or pleural thickening, stable. No pneumothorax. No confluent infiltrates. BONES AND SOFT TISSUES: Median sternotomy wires are intact. No focal osseous lesions. The soft tissues are normal. IMPRESSION: 1. Cardiomegaly and pulmonary vascular congestion, either acute or chronic. No radiographic evidence of CHF. 2. Pulmonary hyperinflation and stable small pleural effusions or pleural thickening. Signed by: Dr. Kindra Diaz MD on 03/12/2020 6:44 PM
[2020-03-12 18:55] LABS: BASOPHILS % 0.3 % (0.0-1.0); HEMATOCRIT 26.8 % (34.2-44.1); HEMOGLOBIN 8.1 g/dL (12.0-16.0); LYMPHOCYTES # (AUTO) 0.5 (1.0-3.2); MEAN CORPUSCULAR HEMOGLOBIN 29.7 pg (28-32); MEAN CORPUSCULAR HGB CONC 30.2 g/dL (31-35); MEAN CORPUSCULAR VOLUME 98.2 fL (81-99); MONOCYTES # (AUTO) 0.1 (0.2-0.8); MONOCYTES % 2.8 % (4.4-11.3); NEUTROPHILS # (AUTO) 3.2 (2.1-6.9); NEUTROPHILS % 79.6 % (38.7-80.0); PLATELET COUNT 137 x10e3/uL (140-360); RED BLOOD COUNT 2.73 x10e6/uL (3.6-5.1); RED CELL DISTRIBUTION WIDTH 17.2 % (11.7-14.4)
[2020-03-12 19:12] LABS: ALANINE AMINOTRANSFERASE 18 IU/L (0-55); ALBUMIN 3.2 g/dL (3.5-5.0); ALBUMIN/GLOBULIN RATIO 0.9 (0.8-2.0); ALKALINE PHOSPHATASE 164 IU/L (40-150); ANION GAP 13.3 mmol/L (8-16); BLOOD UREA NITROGEN 27 mg/dL (7-26); BUN/CREATININE RATIO 34 (6-25); CALCIUM 8.7 mg/dL (8.4-10.2); CARBON DIOXIDE 24 mmol/L (22-29); CHLORIDE 103 mmol/L (98-107); CREATINE KINASE 22 IU/L (29-168); EST GLOMERULAR FILTRATION RATE > 60 ML/MIN (60-); GLUCOSE 212 mg/dL (74-118); POTASSIUM 4.3 mmol/L (3.5-5.1); SODIUM 136 mmol/L (136-145)
--- OUTSIDE RECORDS SUMMARY | 2020-03-12 19:30 | XMS REPORT | Clinical Summary ---
Author Author GI [facility] Address Unknown Phone Unavailable Care Team Providers Care Planning Technician Name Role Phone Blair Lai DO PCP [...] aortic valve replacement; Coronary artery disease involving [place] heart without angina pectoris, unspecified vessel or lesion type; Bradycardia; Hypercalcemia 02/16/2020 [facility] Internal Ri dicine - Encounter 02/20/2020 02/16/2020 Travel after [...] Comments Vital Sign 148/65 02/20/2020 12:34 PM ROUTING MACHINE OPERATOR Blood Pressure 78 02/20/2020 12:34 PM ROUTING MACHINE OPERATOR Pulse 36.5 C (97.7 F) 02/20/2020 12:34 PM ROUTING MACHINE OPERATOR Temperature 18 02/20/2020 12:34 PM ROUTING MACHINE OPERATOR Respiratory Rate 97% 02/20/2020 12:34 PM ROUTING MACHINE OPERATOR Oxygen Saturation - - Inhaled Oxygen Concentration 44.5 kg (98 lb) 02/20/2020 6:00 AM ROUTING MACHINE OPERATOR Weight 149.9 cm (4' 11") 02/16/2020 2:00 [...] Diag nosis PHOSPHORUS Add-On 02/20/2020 10:25 AM ROUTING MACHINE OPERATOR BASIC METABOLIC PANEL (7) Routine 02/20/2020 10:25 AM ROUTING MACHINE OPERATOR (CELLAVISION MANUAL DIFF) Routine 02/20/2020 4:50 AM ROUTING MACHINE OPERATOR CBC W/PLT COUNT & AUTO Routine 02/20/2020 DIFFERENTIAL 4:50 AM ROUTING MACHINE OPERATOR CBC W/PLT COUNT & AUTO Routine 02/20/2020 DIFFERENTIAL 4:50 AM ROUTING MACHINE OPERATOR POCT-GLUCOSE METER Routine 02/19/2020 8:42 PM ROUTING MACHINE OPERATOR POCT-GLUCOSE METER Routine 02/19/2020 4:44 PM ROUTING MACHINE OPERATOR POCT-GLUCOSE METER Routine 02/19/2020 12:51 PM ROUTING MACHINE OPERATOR (CELLAVISION MANUAL DIFF) Routine 02/19/2020 5:42 AM ROUTING MACHINE OPERATOR CBC W/PLT COUNT & AUTO Routine 02/19/2020 DIFFERENTIAL 5:42 AM ROUTING MACHINE OPERATOR BASIC METABOLIC PANEL (7) Routine 02/19/2020 5:42 AM ROUTING MACHINE OPERATOR CBC W/PLT COUNT & AUTO Routine 02/19/2020 DIFFERENTIAL 5:42 AM ROUTING MACHINE OPERATOR POCT-GLUCOSE METER Routine 02/18/2020 8:42 PM CDT [...] STAT 02/16/2020 DIFFERENTIAL 4:32 PM CDT COVID19 ([facility]) Routine 02/16/2020 4:32 PM CDT HEPATIC FUNCTION PANEL Routine 02/16/2020 4:32 PM CDT BASIC METABOLIC PANEL (7) STAT 02/16/2020 4:32 PM CDT PHOSPHORUS STAT 02/16/2020 4:32 PM CDT MAGNESIUM STAT 02/16/2020 4:32 PM CDT CBC W/PLT COUNT & AUTO STAT 02/16/2020 DIFFERENTIAL 4:32 PM CDT APTT Routine 02/16/2020 4:32 PM CDT PROTHROMBIN TIME/INR Routine 02/16/2020 4:32 PM CDT SARS-COV2/RT-PCR ([facility] & Routine 02/16/2020 REF LABS) 4:32 PM CDT REPORT OF PROCEDURE - 02/16/2020 ENDOSCOPY SCAN after 03/12/2019 Results * Phosphorus (02/20/2020 10:25 AM ROUTING MACHINE OPERATOR) Only the most recent of 3 results within the time period is included. Phosphorus 2.1 (L) 2.3 - 4.7 mg/dL [facility] Specimen Blood Narrative Performed At [facility]romper [facility] - OSMAN Jenkins [facility] Performing Organization Address City/State/Zipcode Ph one Number [address], [place] [facility] [facility] * Basic Metabolic Panel (02/20/2020 10:25 AM ROUTING MACHINE OPERATOR) Only the most recent of 5 results within the time period is included. Sodium 136 136 - 145 meq/L [facility] Potassium 3.9 3.5 - 5.1 meq/L [facility] Chloride 103 98 - 107 meq/L [facility] CO2 24 22 - 29 meq/L [facility] BUN 10 7 - 21 mg/dL [facility] Creatinine 0.77 0.57 - 1.25 mg/dL [facility] Glucose 191 (H) 70 - 105 mg/dL [facility] Calcium 10.2 8.4 - 10.2 mg/dL [facility] EGFR 74Comment: ESTIMATED GFR IS mL/min/1.73 sq m [facility] NOT ACCURATE CREATININE [facility] CLEARANCE IN PREDICTING [facility] GLOMERULAR FILTRATION RATE. ESTIMATED GFR IS NOT APPLICABLE FOR DIALYSIS PATIENTS. Specimen Blood Narrative Performed At [facility] - CAROLINA F [facility] Performing Organization Address City/State/Zipcode Ph one Number [address] [facility] [facility] * Manual Differential (02/20/2020 4:50 AM ROUTING MACHINE OPERATOR) Only the most recent of 3 results within the time period is included. % Neutros 73 % [facility] % Lymphs 16 % [facility] % Monos 4 % [facility] % Myelo 3 (H) 0 - 0 % [facility] % Bands 4 0 - 10 % [facility] # Neutros 3.36 1.56 - 6.13 K/ul [facility] # Lymphs 0.74 (L) 1.18 - 3.74 K/ul [facility] # Monos 0.18 (L) 0.24 - 0.36 K/uL [facility] # Myelo 0.14 (H) 0.00 - 0.00 K/uL [facility] # Bands 0.18 0.00 - 0.80 K/uL [facility] Total Counted 100 [facility] Smudge Cells Present [facility] Giant Platelet Present [facility] Anisocytosis 1+ few [facility] Microcytes 1+ few [facility] Schistocytes 1+ few [facility] Tear Drop Cells 1+ few [facility] Platelet Conc Decreased [facility] Specimen Blood Narrative Performed At [facility]romper [facility] - Damián Lazcano [facility] User comments: [facility] Slide comments: Performing Organization Address City/State/Zipcode Ph one Number [facility] [address] [place], [place] [facility] * CBC with platelet count + automated diff (02/20/2020 4:50 AM ROUTING MACHINE OPERATOR) Only the most recent of 5 results within the time period is included. WBC 4.6 3.5 - 10.5 K/L [facility] RBC 2.51 (L) 3.93 - 5.22 M/L [facility] Hemoglobin 7.7 (L) 11.2 - 15.7 GM/DL [facility] Hematocrit 24.2 (L) 34.1 - 44.9 % [facility] MCV 96.4 (H) 79.4 - 94.8 fL [facility] MCH 30.7 25.6 - 32.2 pg [facility] MCHC 31.8 (L) 32.2 - 35.5 GM/DL [facility] RDW 13.6 11.7 - 14.4 % [facility] Platelets 72 (L) 150 - 450 K/CU MM [facility] MPV 9.7 9.4 - 12.3 fL [facility] nRBC 0 0 - 0 /100 WBC [facility] Specimen Blood Performing Organization Address City/[facility]/Zipcode Ph one Number [address] [facility] * POC-Glucose meter (02/19/2020 8:42 PM ROUTING MACHINE OPERATOR) Only the most recent of 11 results within the time period is included. POC-Glucose 241 (H) 70 - 110 mg/dL [facility] Meter Comment: [facility] : TESTED AT [address], [address] : [facility]romper/Java Golden Gate Developer ID = [id number] for MONE LYN Specimen Blood Performing Organization Address [facility]/[place] Ph one Number [address] [facility] * NM parathyroid scan with SPECT/CT (02/18/2020 3:46 PM CDT) Specimen Narrative Performed At FINAL REPORT [employer] PROCEDURE: PARATHYROID SCAN, w/SP ECT/CT CPT CODE: 95701 INDICATION: Hypercalcemia PROTOCOL: 14.2 mCi of Tc-99m [...] REPORT PROCEDURE: PARATHYROID SCAN, w/SPECT/CT CPT CODE: 05787 INDICATION: Hypercalcemia PROTOCOL: 14.2 mCi of Tc-99m [...] Verified Date/Time: 02/18/2020 16:23:17 Performing Organization Address [facility] one Number GE RIS * XR pelvis [...] Report Verified Date/Time: 02/17/2020 13:24:03 [facility] Procedure Note Interface, External [...] Report Verified Date/Time: 02/17/2020 13:24:03 Reading Location: [facility] Radiology Reading Room Performing Organization Address [facility] one Number GE RIS * 2D Echo W/Doppler(CW/PW/Color) (02/17/2020 12:05 PM CDT) Ejection [facility] ECHO Fraction [facility] Specimen Narrative Performed At Transthoracic Echocardiography Report (TTE) [facility] ECH O HEARTLAB Demographics [facility] Patient Name TESSY CHRISTOPHER Date of Study 02/17/2020 SAMANTHA Gender Female Visit Number [id number] Race Room Number 7405 Number Date of 1950 Referr grace Rzivi Physician SHANEKA Age 69 year(s) S onographer Estrella Zambrano, [facility] Interpreting [facility] Needs to be Pre Physician Read James [...] p ressure). Left Atrium LA size is kkmctelw-de-mexlfvk enlarged . 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 Left Atrium LA size is mbqegodq-dl-jvonbjv enlarged . Right Ventricle The right ventricular [...] CDT) TSH 0.418 0.350 - 4.940 uIU/mL [facility] Specimen Blood Narrative Performed At [facility] - RADHA [facility] Performing Organization Address [facility]/[place] Ph one Number [address] 0 [phone] [place] [address] * Calcium, Ionized (02/17/2020 8:19 AM CDT) Pathologist [facility] Calcium, Ion 1.45 (H) 1.12 - 1.27 mmol/L [facility] pH, Blood 7.48 [facility] Specimen Blood Performing Organization Address [facility]/[place] Ph one Number [address] 0 [phone] [place] [address] * PTH-related peptide (02/17/2020 8:19 AM CDT) [facility] PTH-Related 8 (L) 14 - 27 pg/mL [facility] Protein Comment: DIAGNOSTIC This is a C-terminal [employer] assay. PTH-RP is useful in the differential diagnosis of hypercalcemia and levels may be elevated in patients with tumor-associated hypercalcemia. Elevated results may also be observed in patients with renal disease. This test was developed and its analytical performance characteristics have been determined by [facility]. It has not been cleared or approved by FDA. This assay has been validated pursuant to the CLIA regulations and is used for clinical purposes. Specimen Blood Narrative Performed At Performing Lab [facility] [employer] [facility] te [address] [place] [address] Toro Soto MD, PhD, JAMIL Performing Organization Address [facility]/[place] Ph one Number [employer] [facility] [place] [place] [employer] [address] [facility] [address] * Vitamin D, 25-Hydroxy (02/17/2020 8:19 AM CDT) Pathologist [facility] Vitamin D 41.6 6.6 - 49.9 ng/mL [facility] 25-Hydroxy [facility] Specimen Blood Narrative Performed At Effective 01/28/2017: Reference Range Change [facility] New: 6.6-49.9 ng/mL Previous: 13.0-47.8 ng/mL [facility] Recommended Vitamin D Target Range: 30. 0-40.0 ng/mL [facility] - KIRK Barrios Performing Organization Address [facility]/[place] Ph one Number [address] [facility] * PTH, intact (02/17/2020 8:19 AM CDT) PTH 204.3 (H) 8.5 - 72.5 pg/mL [facility] Specimen Blood Narrative Performed At [facility] - RADHA [facility] Performing Organization Address [facility] one Number [address] [facility] * CT brain without IV contrast (02/17/2020 4:25 AM CDT) Specimen Narrative Performed At FINAL REPORT [place] EXAM: CT head without contrast. CLINICAL HISTORY: [...] Verified Date/Time: 02/17/2020 05:08:35 Performing Organization Address City/[facility]/[place] Ph one Number GE RIS * Magnesium (02/17/2020 4:25 AM CDT) Only the most recent of 2 results within the time period is included. Magnesium 2.1 1.6 - 2.6 mg/dL [facility] Specimen Blood Narrative Performed At [facility]romper ID - RADHA [facility] Performing Organization Address City/[facility]/Zipcode Ph one Number [place] [id number] [facility]ENTER * COVID19 ([facility]) (02/16/2020 4:32 PM CDT) COVID19 ([facility] Negative Negative [facility]) Comment: [facility] SARS-CoV-2 Assay is a REFERENCE real-time reverse LABORATORY frame fixer polymerase chain reaction (mail handler equipment operator-PCR) test intended for the qualitative detection of nucleic acid from the SARS-CoV-2 in nasal swabs, nasopharyngeal (MANAGER OF CARE), oropharyngeal (OP) swabs, or bronchoalveolar lavage fluid (BAL) from patients suspected of COVID-19 by their health care provider. This test was developed by [employer]. and its performance characteristics have been validated by the [facility] pursuant to CLIA regulations. This test has EUA authorization from the Food and Drug Administration. This test was performed at: [facility] Dr. Kalyn Marie [address] [place] [address] CLIA # [id number] Specimen Other - Nasopharyngeal wall structure (body structure) Narrative Performed At For Emergency room ONLY patients who are discharged b efore results obtained: [facility] Nurse is authorized to call Negative/Undetected resul ts to patient when HEALTH REFERENCE available. LABORATORY Isolation precautions not needed. Performing Organization Address City/State/Zipcode Ph one Number [place] [address] [address] [place] REFERENCE LABORATORY [place] * SARS-CoV2/RT-PCR (Asymptomatic ONLY) (02/16/2020 4:32 PM CDT) SARS-COV2/RT-PC See external report for linked Not Detected, [facility] R test Negative, See [facility] external report for MEDICAL CENTER linked test SARS-COV-2 [facility] PERFORMING LAB [facility] Specimen Other - Nasopharyngeal wall structure (body structure) Performing Organization Address City/[facility] Ph one Number [facility] [address] [place] [address] [address] [facility] [place] * aPTT (02/16/2020 4:32 PM CDT) PTT 36.7 (H) 22.5 - 36.0 seconds [facility] Specimen Blood Performing Organization Address [facility] one Number [address] [facility] * Prothrombin time/INR (02/16/2020 4:32 PM CDT) Protime 16.1 (H) 11.9 - 14.2 seconds [facility] INR 1.33 <=5.90 [facility] Specimen Blood Narrative Performed At Effective 09/15/2018: PT Reference Range Change [facility] New: 11.9-14.2 Previous: 11.7-14.7 [facility] MEDICAL [facility] TER RECOMMENDED COUMADIN/WARFARIN INR THERA PY RANGES STANDARD DOSE: 2.0-3.0 Includes: PROP HYLAXIS for venous thrombosis, systemic embolization; TREATMENT for venous thro mbosis and/or pulmonary embolus. HIGH RISK: Target INR is 2.5-3.5 for pa tients wiht mechanical heart valves. Performing Organization Address [facility] one Number [address] [facility] * Hepatic function panel (02/16/2020 4:32 PM CDT) Protein, Total 6.0 6.0 - 8.3 gm/dL [facility] Albumin 3.0 (L) 3.5 - 5.0 g/dL [facility] Total Bilirubin 0.8 0.2 - 1.2 mg/dL [facility] Bilirubin, 0.4 0.1 - 0.5 mg/dL [facility] Alkaline 111 40 - 150 U/L [facility] AST 15 5 - 34 U/L [facility] ALT 20 6 - 55 U/L [facility] Specimen Blood Narrative Performed At [facility]romper ID - BS [facility] Performing Organization Address [facility]/State/Zipcode Ph one Number [facility] [address] [place], [place] [address] [facility] * EKG-SCANNED (02/16/2020) Narrative Performed At This result has an attachment that is n ot available. Ordered by an unspecified provider. after 03/12/2019 Insurance Type Payer Benefit Subscriber ID Effective Phone Address Plan / Dates Group Medicare MEDICARE MEDICARE A [id number] [id number] B resent PPO BLUE CROSS/BLUE SHIELD BCBS FED [id number] 2001-P [address] [place] [phone] Advance Directives For more information, please contact: [phone] Date Inactivated Comments Code Status Date Activated 02/20/2020 4:50 PM Full Code 02/17/2020 11:59 AM This code status was determined by: Patient 02/17/2020 11:59 AM Full Code 02/16/2020 3:05 PM This code status was determined by: Patient
--- OUTSIDE RECORDS SUMMARY | 2020-03-12 19:31 | XMS REPORT | Continuity of Care Document ---
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 Role Phone [facility] Information Exchange Unavailable Un available Problems Problem Status Onset Date Classification Date Reported Comments Source D50.9=IRON DEFICIENCY ANEMIA, UNSPECIFIE Active 07/04/2019 [place] R07.89 - OTHER CHEST PAIN Acti ve 01/30/2015 [facility] MINOREY Active 01/30/2015 [facility] F/U Active 1 [facility] PLEURAL EFFUSION Active 01/22/2015 [facility] FOLLOW UP Active 01/09/2015 [facility] HOSPITAL FOLLOW UP Active 01/01/2015 [facility] AORTIC STENOSIS Active 12/18/2014 [facility] TO BE DONE BY DR AN Active 11/28/2014 [facility] CAVAGE VS AVR Active 11/16/2014 [facility] Malignant neoplastic disease (disorder) Resolved Problem 07/09/2019 [facility], [facility] Diabetes mellitus (disorder) R esolved Problem [facility] Heart murmur (finding) Resolved Problem 07/09/2019 [facility], [facility] Hypertensive disorder, systemic arterial (disorder) Resolved Problem 07/09/2019 [facility] Hypercholesterolemia (disorder) Resolved Problem [facility] Malignant melanoma (disorder) Resolved Problem [facility] Disease of thyroid gland (disorder) Resolved Problem [facility] ROUTINE MEDICAL EXAM Active [facility] AORTIC ATHEROSCLEROSIS Active [facility] ADMINISTRTVE ENCOUNT NOS Active [facility] MALIGNANT PLEURAL EFFUSION Act inder [facility] MEDICAL SERVICES NOT AVAILABLE IN HOME Active [facility] IRON DEFICIENCY ANEMIA, UNSPECIFIED Active [facility] Medications Medication Details Route Status Patient Instructions Ordering Provider Order Date Source Omnipaque 300 injectable solution Notes: (Same as:Omnipaque 300). WASTE: F/P - Black; E - [facility] Active 07/07/2019 [facility] Zolpidem tartrate 5 MG Oral Tablet [Ambien] 2.5 mg = 0.5 tab, PO, Bedtime, 0 Refill(s) Active 01/09/2015 [facility] nter tramadol hydrochloride 50 MG Oral Tablet Special Instructions: prn pain Active 01/09/2015 [facility] Acetaminophen 325 MG Oral Tablet [Tylenol] Special Instructions: prn Active 01/09/2015 [facility] simvastatin 40 mg oral tablet 40 mg = 1 tab, PO, Bedtime, # 30 tab, 5 Refill(s) Active 01/09/2015 [facility] nter bumetanide 1 mg oral tablet 1 mg = 1 tab, PO, BID, # 30 tab, 0 Refill(s) Active 12/29/2014 [facility] Pneumovax 23 Notes: (Same as: Pneumovax 23) Refrigerate Inactive 12/29/2014 [facility] bumetanide 1 mg oral tablet 1 mg = 1 tab, PO, Daily, # 30 tab, 0 Refill(s) Inactive 12/29/2014 [facility] atorvastatin 40 mg oral tablet 40 mg = 1 tab, PO, Bedtime, 0 Refill(s) Active 12/29/2014 [facility] Aspirin 81 MG Chewable Tablet 81 mg = 1 tab, PO, Daily, 0 Refill(s) Active 12/29/2014 [facility] phenazopyridine 100 mg oral tablet 200 mg = 2 tab, PO, TID-After Meals, 0 Refill(s) Inactive 12/29/2014 [facility] nter Potassium Chloride 20 MEQ Extended Release Tablet 40 mEq = 2 tab, PO, Daily, 0 Refill(s) Active 12/29/2014 [facility] nter insulin isophane (NPH) 100 units/mL catrina n recombinant subcutaneous suspension 10 unit, SUB-Q, QPM, 0 Refill(s) Active 12/29/2014 [facility] bumetanide 0.25 mg/mL injectable solution 1 mg = 4 mL, IVP, BID, 0 Refill(s) Inactive 12/29/2014 [facility] Docusate Sodium 100 MG Oral Capsule [Colace] 100 mg = 1 cap, PO, BID, 0 Refill(s) Active 12/29/2014 [facility] nter cefepime 1 gm, IVPB, [id number], 0 Refill(s) Active 12/29/2014 [facility] Neutra-Phos oral powder Notes: (Same as: Neutra-Phos) Each 1.25 gm pkt has 250mg phosphorous. Mix w/2.5oz water and stir. Inactive 12/29/2014 [facility] Potassium Chloride 20 MEQ Extended Release Tablet Notes: (Same as: K-Dur 20) "Do Not Crush" With food and full glass of water Inactive 12/29/2014 [facility] Pyridium Notes: Give with meal s. (Same as: Pyridium) No Longer Active 12/28/2014 [facility] Potassium Chloride 20 MEQ Extended Release Tablet Notes: (Same as: K-Dur 20) "Do Not Crush" With food and full glass of water Inactive 12/28/2014 [facility] Magnesium Oxide Notes: (Same a s: Mag-Ox 400) Magnesium oxide [id number] elemental magnesium Dose=____mg magnesium oxide (___mg elemental magnesium) Inactive 12/28/2014 [facility] Bumex Notes: (Same As: Bumex) No Longer Active 12/27/2014 [facility] Vancomycin Notes: TIME CRITICA L MEDICATION Concentration = 50 mg/ml. Keep in refrigerator. For oral use only. Vancomycin 1gm vial are used and reconstituted with 20ml of sterile water for a concentration of 50m g/ml. Draw up in alonso po syringes. DO NOT USE IV SYRINGES. No Longer Active 12/27/2014 [facility] Magnesium Oxide Notes: (Same a s: Mag-Ox 400) Magnesium oxide [id number] elemental magnesium Dose=____mg magnesium oxide (___mg elemental magnesium) Inactive 12/27/2014 [facility] Potassium Chloride 20 MEQ Extended Release Tablet Notes: (Same as: K-Dur 20) "Do Not Crush" With food and full glass of water Inactive 12/27/2014 [facility] cefepime Notes: (Same As: Gunnar san) MEDICATION WASTE Product Size: 1000 mg Product Wasted: ___ mg No Longer Active 12/26/2014 [facility] Vancomycin 2001 mg: infuse ov er 2.5 hours MEDICATION WASTE Product Size: 1000 mg Product Wasted: ___ mg Inactive 12/26/2014 [facility] Humulin N 60 units) Stable for 28 days at room temperature Expires in days from Date No Longer Active 12/26/2014 [facility] potassium chloride Notes: ([facility] as: K-Dur 20) "Do Not Crush" With food and full glass of water Inactive 12/26/2014 [facility] nter Humulin N 60 units) Stable for 28 days at room temperature Expires in days from Date No Longer Active 12/25/2014 [facility] potassium phosphate + Sodium Chloride 0.9% IV 250 mL Notes: (Same as: K Phosphate.) 1 mMol phoshate has 1.47 mEq potassium Infuse over 4 hours Inactive 12/25/2014 [facility] Miconazole Nitrate 0.02 MG/MG Topical Ointment Notes: (Same as: Monistat 7) No Longe r Active 12/25/2014 [facility] nter K-Dur 20 Notes: (Same as: K-Du r 20) "Do Not Crush" With food and full glass of water No Longer Active 12/25/2014 [facility] nter potassium chloride Notes: ([facility] as: K-Dur 20) "Do Not Crush" With food and full glass of water Inactive 12/25/2014 [facility] nter Insulin, Aspart, Human Notes: Roll in palms of hands gently; Do not shake vigorously. (Same as: NovoLOG) "single patient use only" Stable for 28 days at room temperature. Expires in days from Date No Longer Active 12/25/2014 [facility] nter Pyridium Notes: Give with meal s. (Same as: Pyridium) No Longer Active 12/24/2014 [facility] Bumex Notes: (Same As: Bumex) No Longer Active 12/24/2014 [facility] Atenolol Notes: (Same As:Tenor min) No Longer Active 12/24/2014 [facility] potassium phosphate + Sodium Chloride 0.9% IV 250 mL Notes: (Same as: K Phosphate.) 1 mMol phoshate has 1.47 mEq potassium Infuse over 4 hours Inactive 12/24/2014 [facility] Bumex Notes: (Same As: Bumex) No Longer Active 12/23/2014 [facility] Acetaminophen 325 MG / Hydrocodone Azul trate 5 MG Oral Tablet [Rowan 5/325] Notes: (Same as: Rowan 325/5) Do not ex ceed 4gm/day of acetaminophen. No Longer Activ e 12/23/2014 [facility] potassium phosphate + Sodium Chloride 0.9% IV 250 mL Notes: (Same as: K Phosphate.) 1 mMol phoshate has 1.47 mEq potassium Infuse over 4 hours Inactive 12/23/2014 [facility] Bumex Notes: (Same As: Bumex) No Longer Active 12/22/2014 [facility] Lantus Notes: Same as Lantus S olostar PEN Do not hold insulin without contacting prescriber "single patient use only" Stable for 28 days at room temperature. Expires in days from Date No Longer Active 12/22/2014 [facility] Tariq Notes: (Same as: Tariq ) MEDICATION WASTE Product Size: 4 mg Product Wasted: ___ mg Inactive 12/22/2014 [facility] Bisacodyl Notes: (Same As: Dul colax, Bisco-Lax) No Longer Active 12/21/2014 [facility] Insulin, Aspart, Human Notes: Roll in palms of hands gently; Do not shake vigorously. (Same as: NovoLOG) "single patient use only" Stable for 28 days at room temperature. Expires in days from Date No Longer Active 12/21/2014 [facility] Glucagon 1 mg, Route: IM, Drug form: PDR/INJ, PRN, Dosing Weight 51.364, kg, PRN Blood Glucose Results, Start date: 12/21/14 15:41:00, Duration: 30 day, Stop date: 01/20/15 15:40:00 No Longer Active 12/21/2014 [facility] Dextrose 50% Syringe 12.5 gm, 25 mL, Route: IVP, Drug Form: INJ, Dosing Weight 51.364, kg, PRN, PRN Blood Glucose Results, Start date: 12/21/14 15:41:00, Duration: 30 day, Stop date: 01/20/15 15:40:00 No Longer Active 12/21/2014 [facility] Insulin Glargine Notes: Same a marlo Lannicci Solostar PEN Do not hold insulin without contacting prescriber "single patient use only" Stable for 28 days at room temperature. Expires in days from Date Inactive 12/21/2014 [facility] Lantus Notes: Same as Brianna S olostar PEN Do not hold insulin without contacting prescriber "single patient use only" Stable for 28 days at room temperature. Expires in days from Date No Longer Active 12/21/2014 [facility] vancomycin + Sodium Chloride 0.9% IV 100 mL 2001 mg: infuse over 2.5 hours MEDICATION WASTE Product Size: 1000 mg Product Wasted: _250__ mg No Longer Active 12/21/2014 [facility] nter pneumococcal capsular polysaccharide typ e 1 vaccine / pneumococcal capsular polysaccharide type 10A vaccine / pneumococcal capsular polysaccharide type 11A vaccine / pneumococcal capsular polysaccharide type 12F vaccine / pneumococcal capsular polysacchar Notes: (Same as: Pneumovax 23) Refrigerate No Longer Active 12/21/2014 [facility] Furosemide Notes: (Same as: Molly cohen) Inactive 12/21/2014 [facility] Furosemide Notes: (Same as: Molly cohen) Inactive 12/21/2014 [facility] normal saline 0.9% IV 500 mL 5 00 mL, Rate: 100 ml/hr, Infuse over: 5 hr, Route: IV, Dosing Weight 51.364 kg, Total Volume: 500, Start date: 12/20/14 18:35:00, Duration: 1 doses or times, Stop date: 12/20/14 23:34:00 Inactive 12/20/2014 [facility] Sodium Chloride 0.154 MEQ/ML Injectable Solution 500 mL, 200 ml/hr, Infuse Over: 2.5 hr, Route: IV, 500, Drug form: INJ, ONCE, Priority: STAT, Dosing Weight 51.364 kg, Start date: 12/20/14 15:15:00, Duration: 1 doses or times, Stop date: 12/20/14 15:15:00 Inactive 12/20/2014 [facility] nter Vancomycin 1 gm, Route: IVPB, Drug form: INJ, [id number], Dosing Weight 51.364, kg, Priority: STAT, Start date: 12/20/14 14:56:00, Duration: 30 day, Stop date: 01/19/15 2:56:00 Inactive 12/20/2014 [facility] nter cefepime Notes: (Same As: Gunnar san) MEDICATION WASTE Product Size: 1000 mg Product Wasted: ___ mg No Longer Active 12/20/2014 [facility] pantoprazole Notes: For IV pus h reconstitute with 10 ml 0.9% sodium chloride and push over 2 minutes. (Same as: Protonix) No Longer Active 12/20/2014 [facility] Aspirin Notes: Take with food. Inactive 12/20/2014 [facility] Aspirin 300 MG Rectal Suppository Notes: Refrigerate. No Longer Active 12/20/2014 [facility] Aspirin 81 MG Chewable Tablet Notes: Take with food. No Longer Active 12/20/2014 [facility] Acetaminophen 10 MG/ML Injectable Solution Notes: Infuse over 15 minutes Do not exceed 4gm/day of acetaminophen MEDICATION WASTE Product Size: 1000 mg Product Wasted: ___ mg Inactive 12/20/2014 [facility] nter Bumex Notes: (Same As: Bumex) Inactive 12/20/2014 [facility] Albumin Human, HALF-WAY 250 MG/ML Injectable Solution Notes: Lot #: Mfg: (Same as: Plasbumin-25) "blood product derivative" MEDICATION WASTE Product Size: 25 gm Product Wasted: ___ gm Inactive 12/20/2014 [facility] Sodium Chloride 0.154 MEQ/ML Injectable Solution 250 mL, 250 ml/hr, Infuse Over: 1 hr, Route: IV, 250, Drug form: INJ, ONCE, Priority: STAT, Dosing Weight 51.364 kg, Start date: 12/20/14 1:28:00, Duration: 1 doses or times, Stop date: 12/20/14 1:28:00 Inactive 12/20/2014 [facility] nt sodium phosphate + Sodium Chloride 0.9% IV 250 mL Special Instructions: FOR ICU USE ONLY No Longer Active 12/20/2014 [facility] nt potassium chloride Notes: (Saeed e as: K-Dur 20) "Do Not Crush" With food and full glass of water No Longer Active 12/20/2014 [facility] nt potassium phosphate + Sodium Chloride 0.9% IV 250 mL Notes: (Same as: K Phosphate.) 1 mMol phoshate has 1.47 mEq potassium Infuse over 4 hours No Longer Active 12/20/2014 [facility] Calcium Carbonate 500 MG Chewable Tablet Notes: (Same As: Tums) Calcium Carbonate 500 mg = 200 mg elemental calcium Dose = mg calcium carbonate ( mg elemental calcium) No Longer Active 12/20/2014 [facility] Calcium Gluconate Special Inst ructions: FOR ICU USE ONLY No Longer Active 12/20/2014 [facility] Magnesium Oxide Notes: (Same a s: Mag-Ox 400) Magnesium oxide [id number] elemental magnesium Dose=____mg magnesium oxide (___mg elemental magnesium) No Longer Active 12/20/2014 [facility] nter Neutra-Phos Notes: (Same as: N eutra-Phos) Each 1.25 gm pkt has 250mg phosphorous. Mix w/2.5oz water and stir. No Longer Active 12/20/2014 [facility] Magnesium Sulfate Special Inst ructions: FOR ICU USE ONLY No Longer Active 12/20/2014 [facility] potassium phosphate + Sodium Chloride 0.9% IV 250 mL Notes: (Same as: K Phosphate.) 1 mMol phoshate has 1.47 mEq potassium Infuse over 4 hours Inactive 12/20/2014 [facility] Ondansetron Notes: (Same as: Leo espinal) MEDICATION WASTE Product Size: 4 mg Product Wasted: ___ mg No Longer Active 12/20/2014 [facility] Simvastatin 40 mg, Route: PO, Drug form: TAB, Bedtime, Dosing Weight 51.364, kg, Start date: 12/19/14 21:00:00, Duration: 30 day, Stop date: 01/17/15 21:00:00 Inactive 12/20/2014 [facility] nter atorvastatin Notes: (Same as: Lipitor) No Longer Active 12/20/2014 [facility] ceFAZolin (SCIP) Notes: (Same As: Ancef, Kefzol) MEDICATION WASTE Product Size: 1000 mg Product Wasted: _0__ mg No Longer Active 12/20/2014 [facility] Vancomycin 6.67 MG/ML Injectable Solution 2001 mg: infuse over 2.5 hours MEDICATION WASTE Product Size: 1000 mg Product Wasted: _250_ mg No Longer Active 12/20/2014 [facility] nter Calcium Chloride 1 gm, 10 mL, Route: IVPB, PRN, Dosing Weight 51.364, kg, PRN Abnormal Lab Result, Via central line, Start date: 12/19/14 20:08:00, Duration: 30 day, Stop date: 01/18/15 20:07:00 Inactive 12/20/2014 [facility] sodium phosphate + Sodium Chloride 0.9% IV 250 mL 30 mmol, 10 mL, Route: IVPB, PRN, Dosing Weight 51.364, kg, PRN Abnormal Lab Result, Via central line, Start date: 12/19/14 20:08:00, Duration: 30 day, Stop date: 01/18/15 20:07:00 Inactive 12/20/2014 [facility] nter Magnesium Sulfate 2 gm, 50 mL, Route: IVPB, Drug form: INJ, PRN, Dosing Weight 51.364, kg, PRN Abnormal Lab Result, Via central line, Start date: 12/19/14 20:08:00, Duration: 30 day, Stop date: 01/18/15 20:07:00 Inactive 12/20/2014 [facility] potassium chloride Notes: (Saeed e as: KCL) Infuse no faster than 10 mEq/hr if given peripherally. Inactive 12/20/2014 [facility] Calcium Chloride 0.0014 MEQ/ML / Potassi um Chloride 0.004 MEQ/ML / Sodium Chloride 0.103 MEQ/ML / Sodium Lactate 0.028 MEQ/ML Injectable Solution 250 mL, 250 ml/hr, Infuse Over: 1 hr, Ro janeth: IV, 250, Drug form: SOLN, ONCE, Priority: STAT, Dosing Weight 51.364 kg, Start date: 12/19/14 19:42:00, Duration: 1 doses or times, Stop date: 12/19/14 19:42:00 Inactive 12/20/2014 [facility] Dexmedetomidine 0.004 MG/ML Injectable S olution [Precedex] Notes: (Same as: Precedex) Inactive 12/20/2014 [facility] nter EPINEPHrine 4 mg + Sodium Chloride 0.9% (titrate) 246 mL 246 mL, Rate: Titrate, Dosing Weight 51. 364, kg, Route: IV, Total Volume: 250, Start Date: 12/19/14 19:04:00, Duration: 30 day, Stop date: 01/18/15 19:03:00, Replace Every: 24 hr No Longer Active 12/20/2014 [facility] nter Milrinone Notes: (Same as:Prim acor) Final conc = 0.2 mg/ml. Premix solution. No Longer Active 12/20/2014 [facility] nter Zofran Notes: (Same as: Zofran) Inactive 12/19/2014 [facility] Docusate Sodium 100 MG Oral Capsule [Colace] Notes: (Same as: Colace) (Do Not Crush) No Longer Active 12/19/2014 [facility] nter Fentanyl Notes: Concentration is 20 micrograms/ml No Longer Active 12/19/2014 [facility] Naloxone Notes: Same as Narcan No Longer Active 12/19/2014 [facility] Dextrose 50% Syringe 25 gm, 50 mL, Route: IVP, Drug Form: INJ, Dosing Weight 51.364, kg, PRN, PRN Blood Glucose Results, Start date: 12/19/14 15:23:00, Duration: 30 day, Stop date: 01/18/15 15:22:00 No Longer Active 12/19/2014 [facility] Insulin regular 100 unit + Sodium Chlori de 0.9% (titrate) 99 mL Notes: (Same as: Humulin R and NovoLIN R ) (Do not shake) No Longer Active 12/19/2014 [facility] Hydralazine Notes: (Same as: A presoline) Push over 5 minutes Inactive 12/19/2014 [facility] Metoprolol Notes: (Same as: Lo pressor) Push over 2 minutes No Longer Active 12/19/2014 [facility] Labetalol 10 mg, 2 mL, Route: IVP, Drug form: INJ, Q4H, Dosing Weight 51.364, kg, PRN Hypertension, Start date: 12/19/14 15:23:00, Duration: 30 day, Stop date: 01/18/15 15:22:00 No Longer Active 12/19/2014 [facility] Acetaminophen Notes: Max aceta minophen = 4000 mg/day (4 gm/day). (Same as: Tylenol) N o Longer Active 12/19/2014 [facility] nter Fentanyl Notes: (Same as: Subl imaze) Preservative free. No Longer Active 12/19/2014 [facility] Aspirin 325 MG Oral Tablet Not es: Take with food. No Longer Active 12/19/2014 [facility] Ancef 1 gm, Route: IV, ONCE, D osing Weight 51.364, kg, Start date: 12/19/14 13:23:00, Stop date: 12/19/14 13:23:00 Inactive 12/19/2014 [facility] Hydrochlorothiazide 12.5 MG Oral Capsule 12.5 mg = 1 cap, PO, Daily, 0 Refill(s) No Longer Active 12/19/2014 [facility] Saline Flush 0.9% Notes: (Same as: BD Posiflush) No Longer Active 12/19/2014 [facility] Vancomycin 2001 mg: infuse ov er 2.5 hours MEDICATION WASTE Product Size: 1000 mg Product Wasted: ___ mg No Longer Active 12/18/2014 [facility] Cefazolin Notes: Same as: Ancef No Longer Active 12/18/2014 [facility] Saline Flush 0.9% Notes: (Same as: BD Posiflush) No Longer Active 12/18/2014 [facility] Sodium Chloride 0.9% (titrate) 250 mL 250 mL, Rate: call center director for use with blood product administration, Dosing Weight 51.003, kg, Route: IV, Total Volume: 250, Start Date: 12/18/14 16:40:00, Duration: 30 day, Stop date: 01/17/15 16:39:00, Replace Every: 24 hr No Longer Active 12/18/2014 [facility] Metoprolol Notes: (Same as: Lo pressor) Push over 2 minutes No Longer Active 12/18/2014 [facility] tolterodine 4 mg oral capsule, extended release 4 mg = 1 cap, PO, Daily, 0 Refill(s) Active 11/28/2014 [facility] nter levothyroxine 75 mcg (0.075 mg) oral tablet 75 microgram = 1 tab, PO, Daily, 0 Refill(s) Active 11/28/2014 [facility] nter Atenolol 50 MG Oral Tablet 50 mg = 1 tab, PO, Daily, 0 Refill(s) Active 11/28/2014 [facility] simvastatin 40 mg oral tablet 40 mg = 1 tab, PO, Bedtime, 0 Refill(s) Active 11/28/2014 [facility] 24 HR Glipizide 2.5 MG Extended Release Tablet 2.5 mg = 1 tab, PO, Daily, 0 Refill(s) Active 11/28/2014 [facility] nter Allergies, Adverse Reactions, Alerts Substance Category Reaction Severity Reaction type Status Date Reported Comments Source sulfa drugs Assertion Drug allergy Active [facility] Immunizations Immunization Date Given Site Status Last Updated Comments Source pneumococcal 23-valent vaccine 12/29/2014 Left Deltoid completed [facility], [facility] Results Order Name Results Value Reference Range Date Interpretation Comments Source CHEM PANEL POC Creatinine 0.7 0.5 - 1.4 07/07/2019 [facility] CHEM PANEL eGFR 89 07/07/2019 Result Comment: [...] should be multiplied by the estimated BMI. [facility] BODY FLUIDS WBC BF 1300 01/23/2015 [facility] [place] [id number] 01/23/2015 [facility] BODY FLUIDS Clarity BF Armen ed *ABN* (01/23/15 3:33 PM) Clear 01/23/2015 [facility] BODY FLUIDS CellCnt BF Type Pleu ral (01/23/15 3:33 PM) 01/23/2015 [facility] BODY FLUIDS Color BF See Note 2 (01/23/15 3:33 PM) Colorless 01/23/2015 Result Comment: color is orange. [facility] BODY FLUIDS Macrophage BF 7 01/23/2015 [facility] BODY FLUIDS Lymph BF 90 01/23/2015 [facility] BODY FLUIDS Segs BF 3 01/23/2015 [facility] BODY FLUIDS Prot BF Type Pleu ral *NA* (01/23/15 3:23 PM) 01/23/2015 [facility] BODY FLUIDS Protein BF 4.2 01/23/2015 [facility] BODY FLUIDS LDH BF Type Pleu ral *NA* (01/23/15 3:23 PM) 01/23/2015 [facility] BODY FLUIDS LDH BF 146 01/23/2015 [facility] BODY FLUIDS Alb BF Type Pleu ral *NA* (01/23/15 3:23 PM) 01/23/2015 [facility] BODY FLUIDS Albumin BF 2.5 01/23/2015 [facility] BODY FLUIDS pH BF 8.00 01/23/2015 [facility] BODY FLUIDS pH BF Type Pleu ral (01/23/15 3:23 PM) 01/23/2015 [facility] CHEM PANEL eGFR 63 01/23/2015 Result Comment: [...] should be multiplied by the estimated BMI. [facility] CHEM PANEL Globulin 3.4 2.0 - 4.0 01/23/2015 [facility] CHEM PANEL A/G Ratio 0.9 0.7 - 1.6 01/23/2015 [facility] CHEM PANEL B/C Ratio 21 6 - 25 01/23/2015 [facility] CHEM PANEL AGAP 14.4 10.0 - 20.0 01/23/2015 [facility] CHEM PANEL Bili Total 1.1 0.2 - 1.3 01/23/2015 [facility] CHEM PANEL Alk Phos 181 39 - 136 01/23/2015 [facility] CHEM PANEL BUN 21 7 - 22 01/23/2015 [facility] CHEM PANEL Glucose Lvl 102 70 - 99 01/23/2015 [facility] CHEM PANEL Chloride Lvl 98 95 - 109 01/23/2015 [facility] CHEM PANEL ALT 23 0 - 65 01/23/2015 [facility] CHEM PANEL Albumin Lvl 3.2 3.5 - 5.0 01/23/2015 [facility] CHEM PANEL Creatinine Lvl 1.0 0.5 - 1.4 01/23/2015 [facility] CHEM PANEL Potassium Lvl 3.4 3.5 - 5.1 01/23/2015 [facility] CHEM PANEL Sodium Lvl 137 135 - 145 01/23/2015 [facility] CHEM PANEL Calcium Lvl 9.3 8.5 - 10.5 01/23/2015 [facility] CHEM PANEL CO2 28 24 - 32 01/23/2015 [facility] CHEM PANEL AST 19 0 - 37 01/23/2015 [facility] CHEM PANEL Total Protein 6.6 6.4 - 8.4 01/23/2015 [facility] CHEM PANEL LDH 259 98 - 192 01/23/2015 [facility] CHEM PANEL Phosphorus 2.4 2.5 - 4.5 12/29/2014 [facility] CHEM PANEL Magnesium Lvl 2.1 1.8 - 2.4 12/29/2014 [facility] CHEM PANEL eGFR 78 12/29/2014 Result Comment: [...] should be multiplied by the estimated BMI. [facility] CHEM PANEL Glucose Lvl 153 70 - 99 12/29/2014 [facility] CHEM PANEL BUN 13 7 - 22 12/29/2014 [facility] CHEM PANEL Calcium Lvl 8.7 8.5 - 10.5 12/29/2014 [facility] CHEM PANEL Creatinine Lvl 0.8 0.5 - 1.4 12/29/2014 [facility] CHEM PANEL Sodium Lvl 141 135 - 145 12/29/2014 [facility] CHEM PANEL Potassium Lvl 3.7 3.5 - 5.1 12/29/2014 [facility] CHEM PANEL Chloride Lvl 103 95 - 109 12/29/2014 [facility] CHEM PANEL CO2 27 24 - 32 12/29/2014 [facility] CHEM PANEL AGAP 14.7 10.0 - 20.0 12/29/2014 [facility] HEMATOLOGY PTT 32.7 22.9 - 35.8 12/29/2014 [facility] HEMATOLOGY PT 14.7 12.0 - 14.7 12/29/2014 [facility] HEMATOLOGY INR 1.12 0.85 - 1.17 12/29/2014 [facility] HEMATOLOGY RDW 13.9 11.5 - 14.5 12/29/2014 [facility] HEMATOLOGY Platelet 126 133 - 450 12/29/2014 [facility] HEMATOLOGY MPV 9.5 7.4 - 10.4 12/29/2014 [facility] HEMATOLOGY WBC 13.4 3.7 - 10.4 12/29/2014 [facility] HEMATOLOGY Hgb 10.7 12.0 - 16.0 12/29/2014 [facility] HEMATOLOGY MCH 29.7 27.0 - 31.0 12/29/2014 [facility] HEMATOLOGY MCHC 32.7 32.0 - 36.0 12/29/2014 [facility] HEMATOLOGY Hct 32.7 36.0 - 48.0 12/29/2014 [facility] HEMATOLOGY MCV 90.8 80.0 - 98.0 12/29/2014 [facility] HEMATOLOGY RBC 3.60 4.20 - 5.40 12/29/2014 [facility] HEMATOLOGY Eosinophils # 0.1 0.0 - 0.5 12/29/2014 [facility] HEMATOLOGY Monocytes # 1.0 0.0 - 0.8 12/29/2014 [facility] HEMATOLOGY Monocytes 7.3 2.0 - 12.0 12/29/2014 [facility] HEMATOLOGY Eosinophils 0.9 0.0 - 4.0 12/29/2014 [facility] HEMATOLOGY Segs 83.8 45.0 - 75.0 12/29/2014 [facility] HEMATOLOGY Lymphocytes 7.7 20.0 - 40.0 12/29/2014 [facility] HEMATOLOGY Basophils 0.3 0.0 - 1.0 12/29/2014 [facility] HEMATOLOGY Lymphocytes # 1.0 1.0 - 5.5 12/29/2014 [facility] HEMATOLOGY Segs-Bands # 11.2 1.5 - 8.1 12/29/2014 [facility] CHEM PANEL Phosphorus 1.7 2.5 - 4.5 12/28/2014 [facility] CHEM PANEL Magnesium Lvl 1.9 1.8 - 2.4 12/28/2014 [facility] ELECTROLYTES AGAP 11.6 10.0 - 20.0 12/28/2014 [facility] ELECTROLYTES eGFR 67 12/28/2014 Result Comment: The [...] should be multiplied by the estimated BMI. [facility] ELECTROLYTES Sodium Lvl 141 135 - 145 12/28/2014 [facility] ELECTROLYTES Chloride Lvl 105 95 - 109 12/28/2014 [facility] ELECTROLYTES Potassium Lvl 3.6 3.5 - 5.1 12/28/2014 [facility] ELECTROLYTES CO2 28 24 - 32 12/28/2014 [facility] ELECTROLYTES Calcium Lvl 9.0 8.5 - 10.5 12/28/2014 [facility] ELECTROLYTES BUN 16 7 - 22 12/28/2014 [facility] ELECTROLYTES Creatinine Lvl 0.9 0.5 - 1.4 12/28/2014 [facility] ELECTROLYTES Glucose Lvl 155 70 - 99 12/28/2014 [facility] HEMATOLOGY Lymphocytes 8.2 20.0 - 40.0 12/28/2014 [facility] HEMATOLOGY Monocytes 6.9 2.0 - 12.0 12/28/2014 [facility] HEMATOLOGY Segs 84.0 45.0 - 75.0 12/28/2014 [facility] HEMATOLOGY Eosinophils 0.7 0.0 - 4.0 12/28/2014 [facility] HEMATOLOGY Monocytes # 1.1 0.0 - 0.8 12/28/2014 [facility] HEMATOLOGY Eosinophils # 0.1 0.0 - 0.5 12/28/2014 [facility] HEMATOLOGY Segs-Bands # 13.0 1.5 - 8.1 12/28/2014 [facility] HEMATOLOGY Lymphocytes # 1.3 1.0 - 5.5 12/28/2014 [facility] HEMATOLOGY Basophils 0.2 0.0 - 1.0 12/28/2014 [facility] HEMATOLOGY MCHC 32.1 32.0 - 36.0 12/28/2014 [facility] HEMATOLOGY Hct 32.2 36.0 - 48.0 12/28/2014 [facility] HEMATOLOGY MCV 91.3 80.0 - 98.0 12/28/2014 [facility] HEMATOLOGY MCH 29.3 27.0 - 31.0 12/28/2014 [facility] HEMATOLOGY Hgb 10.3 12.0 - 16.0 12/28/2014 [facility] HEMATOLOGY RDW 13.9 11.5 - 14.5 12/28/2014 [facility] HEMATOLOGY MPV 9.5 7.4 - 10.4 12/28/2014 [facility] HEMATOLOGY Platelet 120 133 - 450 12/28/2014 [facility] HEMATOLOGY RBC 3.52 4.20 - 5.40 12/28/2014 [facility] HEMATOLOGY WBC 15.5 3.7 - 10.4 12/28/2014 [facility] HEMATOLOGY PTT 33.8 22.9 - 35.8 12/28/2014 [facility] HEMATOLOGY PT 14.1 12.0 - 14.7 12/28/2014 [facility] HEMATOLOGY INR 1.06 0.85 - 1.17 12/28/2014 [facility] MOLECULAR DIAGNOSTIC C difficile DNA Negative (12/27/14 12:13 PM) Negative 12/27/2014 [facility] CHEM PANEL Magnesium Lvl 1.9 1.8 - 2.4 12/27/2014 [facility] CHEM PANEL eGFR 59 12/27/2014 Result Comment: [...] should be multiplied by the estimated BMI. [facility] CHEM PANEL Chloride Lvl 102 95 - 109 12/27/2014 [facility] CHEM PANEL Potassium Lvl 3.6 3.5 - 5.1 12/27/2014 [facility] CHEM PANEL Calcium Lvl 8.7 8.5 - 10.5 12/27/2014 [facility] CHEM PANEL CO2 29 24 - 32 12/27/2014 [facility] CHEM PANEL Glucose Lvl 155 70 - 99 12/27/2014 [facility] CHEM PANEL Sodium Lvl 139 135 - 145 12/27/2014 [facility] CHEM PANEL BUN 20 7 - 22 12/27/2014 [facility] CHEM PANEL Creatinine Lvl 1.0 0.5 - 1.4 12/27/2014 [facility] CHEM PANEL AGAP 11.6 10.0 - 20.0 12/27/2014 [facility] HEMATOLOGY MPV 10.0 7.4 - 10.4 12/27/2014 [facility] HEMATOLOGY Platelet 98 133 - 450 12/27/2014 [facility] HEMATOLOGY MCV 90.6 80.0 - 98.0 12/27/2014 [facility] HEMATOLOGY MCH 29.3 27.0 - 31.0 12/27/2014 [facility] HEMATOLOGY MCHC 32.4 32.0 - 36.0 12/27/2014 [facility] HEMATOLOGY RDW 13.8 11.5 - 14.5 12/27/2014 [facility] HEMATOLOGY Hct 29.2 36.0 - 48.0 12/27/2014 [facility] HEMATOLOGY WBC 18.2 3.7 - 10.4 12/27/2014 [facility] HEMATOLOGY RBC 3.22 4.20 - 5.40 12/27/2014 [facility] HEMATOLOGY Hgb 9.4 12.0 - 16.0 12/27/2014 [facility] HEMATOLOGY Segs-Bands # 14.4 1.5 - 8.1 12/27/2014 [facility] HEMATOLOGY Segs 77.0 45.0 - 75.0 12/27/2014 [facility] HEMATOLOGY Lymphocytes # 1.8 1.0 - 5.5 12/27/2014 [facility] HEMATOLOGY Monocytes # 1.3 0.0 - 0.8 12/27/2014 [facility] HEMATOLOGY Promyelocytes 1.0 <=0.0 % 12/27/2014 [facility] HEMATOLOGY Myelocytes 3.0 <=0.0 % 12/27/2014 [facility] HEMATOLOGY Lymphocytes 10.0 20.0 - 40.0 12/27/2014 [facility] HEMATOLOGY Monocytes 7.0 2.0 - 12.0 12/27/2014 [facility] HEMATOLOGY Bands 2.0 0.0 - 11.0 12/27/2014 [facility] HEMATOLOGY Large Plt Moder ate *ABN* (12/27/14 5:12 AM) None Seen 12/27/2014 [facility] HEMATOLOGY RBC Morph Daily l (12/27/14 5:12 AM) 12/27/2014 [facility] HEMATOLOGY Tot Cell Ct 100 12/27/2014 [facility] HEMATOLOGY Atypical Lymphs 0.0 <=0.0 % 12/27/2014 [facility] URINE AND STOOL UA Nitrite Positive *ABN* (12/26/14 10:00 PM) Negative 12/27/2014 [facility] URINE AND STOOL UA Urobilinogen >8.0 0.1 - 1.0 12/27/2014 [facility] URINE AND STOOL UA Blood Large *ABN* (12/26/14 10:00 PM) Negative 12/27/2014 [facility] URINE AND STOOL UA RBC 51-100 /HPF 0 - 2 12/27/2014 [facility] URINE AND STOOL UA WBC 21-50 /HPF None Seen /HPF 12/27/2014 [facility] URINE AND STOOL UA Leuk Est Moderate *ABN* (12/26/14 10:00 PM) Negative 12/27/2014 [facility] URINE AND STOOL UA Sq Epi Few /LPF Few /LPF 12/27/2014 [facility] URINE AND STOOL UA Coarse Gran 6-10 /LPF None Seen /LPF 12/27/2014 [facility] URINE AND STOOL UA Amorph Jennifer Few /HPF None Seen /HPF 12/27/2014 [facility] URINE AND STOOL UA Mucus Many /LPF None Seen /LPF 12/27/2014 [facility] URINE AND STOOL UA Bacteria Many /HPF None Seen /HPF 12/27/2014 [facility] URINE AND STOOL UA Bili Moderate 5 *ABN* (12/26/14 10:00 PM) Negative 12/27/2014 Result Comment: Interpret positive bilirubin results with caution. Confirmatory testing
not possible due to the unavailability of reagent. Correlation with
serum chemistry results recommended. [facility] URINE AND STOOL UA Ketones Negative (12/26/14 10:00 PM) Negative 12/27/2014 [facility] URINE AND STOOL UA Glucose 100 mg/dL Negative mg/dL 12/27/2014 [facility] URINE AND STOOL UA Protein 100 mg/dL Negative mg/dL 12/27/2014 [facility] URINE AND STOOL UA Turbidity Turbid *ABN* (12/26/14 10:00 PM) Clear 12/27/2014 [facility] URINE AND STOOL UA Color Dark Yellow (12/26/14 10:00 PM) Yellow 12/27/2014 [facility] URINE AND STOOL UA pH 6.5 5.0 - 8.0 12/27/2014 [facility] URINE AND STOOL UA Spec Grav 1.015 <=1.030 12/27/2014 [facility] CHEM PANEL Lactic Acid Lvl 1.9 0.5 - 2.2 12/26/2014 [facility] CHEM PANEL Phosphorus 3.3 2.5 - 4.5 12/26/2014 [facility] HEMATOLOGY Eosinophils # 0.0 0.0 - 0.5 12/26/2014 [facility] HEMATOLOGY Basophils 0.0 0.0 - 1.0 12/26/2014 [facility] HEMATOLOGY Eosinophils 0.0 0.0 - 4.0 12/26/2014 [facility] HEMATOLOGY Bands 8.0 0.0 - 11.0 12/26/2014 [facility] HEMATOLOGY Plt Morph Daily l (12/26/14 2:29 AM) 12/26/2014 [facility] HEMATOLOGY RBC Morph Daily l (12/26/14 2:29 AM) 12/26/2014 [facility] HEMATOLOGY Plt Morph Daily l (12/25/14 3:16 AM) 12/25/2014 [facility] HEMATOLOGY Myelocytes 3.0 <=0.0 % 12/25/2014 [facility] HEMATOLOGY Metamyelocytes 1.0 0.0 - 1.0 12/25/2014 [facility] HEMATOLOGY RBC Morph Daily l (12/25/14 3:16 AM) 12/25/2014 [facility] HEMATOLOGY Atypical Lymphs 0.0 <=0.0 % 12/25/2014 [facility] HEMATOLOGY Bands 6.0 0.0 - 11.0 12/25/2014 [facility] URINE AND STOOL UA Urobilinogen <=1.0 mg/dL 0.1 - 1.0 12/24/2014 [facility] URINE AND STOOL UA Color Yellow *NA* (12/24/14 4:19 AM) Yellow 12/24/2014 [facility] URINE AND STOOL UA Turbidity Clear (12/24/14 4:19 AM) Clear 12/24/2014 [facility] URINE AND STOOL UA pH 5.5 5.0 - 8.0 12/24/2014 [facility] URINE AND STOOL UA Spec Grav 1.011 <=1.030 12/24/2014 [facility] URINE AND STOOL UA Protein 20 mg/dL Negative mg/dL 12/24/2014 [facility] URINE AND STOOL UA Ketones Negative mg/dL Negative mg/dL 12/24/2014 [facility] URINE AND STOOL UA Glucose Negative mg/dL Negative mg/dL 12/24/2014 [facility] URINE AND STOOL UA Bili Negative *NA* (12/24/14 4:19 AM) Negative 12/24/2014 [facility] URINE AND STOOL UA Blood Small *ABN* (12/24/14 4:19 AM) Negative 12/24/2014 [facility] URINE AND STOOL UA Nitrite Negative (12/24/14 4:19 AM) Negative 12/24/2014 [facility] URINE AND STOOL UA Leuk Est Trace *ABN* (12/24/14 4:19 AM) Negative 12/24/2014 [facility] URINE AND STOOL UA WBC 1 0 - 5 12/24/2014 [facility] URINE AND STOOL UA Sq Epi Occasional /LPF Few /LPF 12/24/2014 [facility] URINE AND STOOL UA Bacteria Occasional /HPF None Seen /HPF 12/24/2014 [facility] URINE AND STOOL UA RBC 4 0 - 2 12/24/2014 [facility] URINE AND STOOL UA Mucus Few /LPF None Seen /LPF 12/24/2014 [facility] URINE AND STOOL UA Hyal Cast 8 0 - 2 12/24/2014 [facility] HEMATOLOGY PTT 30.2 22.9 - 35.8 12/24/2014 [facility] HEMATOLOGY INR 1.18 0.85 - 1.17 12/24/2014 [facility] HEMATOLOGY PT 15.3 12.0 - 14.7 12/24/2014 [facility] ANEMIA STUDY Ferritin Lvl 581 5 - 204 12/23/2014 [facility] ANEMIA STUDY UIBC 178 110 - 370 12/23/2014 [facility] ANEMIA STUDY % Satur Fe 16 12 - 57 12/23/2014 [facility] ANEMIA STUDY Iron 33 30 - 160 12/23/2014 [facility] ANEMIA STUDY TIBC 211 228 - 428 12/23/2014 [facility] ANEMIA STUDY RBC Folate 1031 280 - 791 12/23/2014 [facility] BLOOD BANK RESULTS Antibody Scrn Negative (12/22/14 9:58 AM) 12/22/2014 [facility] BLOOD BANK RESULTS ABO/Rh B POS 12/22/2014 [facility] HEMATOLOGY PB Smear Path Perip heral blood smear shows normochromic normocytic anamia with slight polychromasia, no increase in schistocytes, and moderate thrombocytopenia with a few large forms. Impression: no evidence of microangiopathic hemolysis. CPT: 72348 12/22/2014 [facility] BLOOD BANK RESULTS RBC product Product available (12/22/14 9:38 AM) 12/22/2014 [facility] HEMATOLOGY Heparin Ab(ESTEBAN) Negat inder (12/21/14 8:46 AM) Negative 12/21/2014 [facility] HEMATOLOGY Pat Od Value 0.076 12/21/2014 [facility] HEMATOLOGY Pos CO Value 0.431 12/21/2014 [facility] SPECIAL CHEMISTRY Hgb A1C <3.5 % <=5.6 % 12/21/2014 [facility] THYROID PANEL TSH 1.120 0.360 - 3.740 12/21/2014 [facility] CHEM PANEL Lactic Acid Lvl 3.0 0.5 - 2.2 12/21/2014 [facility] CHEM PANEL Lactic Acid Lvl 4.7 0.5 - 2.2 12/21/2014 Result Comment: Critical Result(s) natalio brooks to Rafaela Emory at 12/20/2014 22:48 by AAC. Read back OK. [facility] HEMATOLOGY D-Dimer 0.63 12/21/2014 [facility] HEMATOLOGY Thrombin Time 15.2 15.0 - 21.2 12/21/2014 [facility] HEMATOLOGY Fibrinogen Lvl 494 230 - 510 12/21/2014 [facility] PARATHYROID PROFILE Ca Ion WB 1.08 1.05 - 1.25 12/21/2014 [facility] PARATHYROID PROFILE Ca Norm WB 1.07 1.05 - 1.25 12/21/2014 [facility] URINE AND STOOL Micro? Performed *NA* (12/20/14 4:22 PM) 12/20/2014 [facility] URINE AND STOOL UA Urobilinogen <=1.0 mg/dL 0.1 - 1.0 12/20/2014 [facility] URINE AND STOOL UA Sq Epi RARE 12/20/2014 [facility] URINE AND STOOL UA Mucus Few /LPF None Seen /LPF 12/20/2014 [facility] URINE AND STOOL UA Hyal Cast 43 0 - 2 12/20/2014 [facility] URINE AND STOOL UA RBC 2 0 - 2 12/20/2014 [facility] URINE AND STOOL UA Bacteria Few /HPF None Seen /HPF 12/20/2014 [facility] URINE AND STOOL UA pH 5.0 5.0 - 8.0 12/20/2014 [facility] URINE AND STOOL UA Protein 10 mg/dL Negative mg/dL 12/20/2014 [facility] URINE AND STOOL UA Glucose Negative mg/dL Negative mg/dL 12/20/2014 [facility] URINE AND STOOL UA Ketones Negative mg/dL Negative mg/dL 12/20/2014 [facility] URINE AND STOOL UA WBC 14 0 - 5 12/20/2014 [facility] URINE AND STOOL UA Bili Negative *NA* (12/20/14 4:22 PM) Negative 12/20/2014 [facility] URINE AND STOOL UA Nitrite Negative (12/20/14 4:22 PM) Negative 12/20/2014 [facility] URINE AND STOOL UA Leuk Est Moderate *ABN* (12/20/14 4:22 PM) Negative 12/20/2014 [facility] URINE AND STOOL UA Blood Small *ABN* (12/20/14 4:22 PM) Negative 12/20/2014 [facility] URINE AND STOOL UA Color Yellow *NA* (12/20/14 4:22 PM) Yellow 12/20/2014 [facility] URINE AND STOOL UA Turbidity Clear (12/20/14 4:22 PM) Clear 12/20/2014 [facility] URINE AND STOOL UA Spec Grav 1.016 <=1.030 12/20/2014 [facility] HEMATOLOGY Thrombin Time 14.6 15.0 - 21.2 12/20/2014 [facility] HEMATOLOGY D-Dimer 0.74 12/20/2014 [facility] HEMATOLOGY Fibrinogen Lvl 475 230 - 510 12/20/2014 [facility] HEMATOLOGY Plt Morph Daily l (12/20/14 6:39 AM) 12/20/2014 [facility] HEMATOLOGY Fibrinogen Lvl 434 230 - 510 12/20/2014 [facility] HEMATOLOGY Thrombin Time 14.8 15.0 - 21.2 12/20/2014 [facility] HEMATOLOGY D-Dimer 0.63 12/20/2014 [facility] PARATHYROID PROFILE Ca Ion WB 1.07 1.05 - 1.25 12/20/2014 [facility] PARATHYROID PROFILE Ca Norm WB 1.11 1.05 - 1.25 12/20/2014 [facility] BACTERIAL - SEROLOGY MRSA by PCR Negative (12/19/14 5:52 PM) 12/19/2014 [facility] PARATHYROID PROFILE Ca Ion WB 1.13 1.05 - 1.25 12/19/2014 [facility] PARATHYROID PROFILE Ca Norm WB 1.14 1.05 - 1.25 12/19/2014 [facility] URINE AND STOOL UA Hyal Cast 20 0 - 2 12/19/2014 [facility] URINE AND STOOL Micro? Performed *NA* (12/19/14 5:52 PM) 12/19/2014 [facility] HEMATOLOGY TEG Data See N ote (12/19/14 1:40 PM) 12/19/2014 [facility] HEMATOLOGY K-time 2.2 1.0 - 3.0 12/19/2014 [facility] HEMATOLOGY Angle 61.6 53.0 - 72.0 12/19/2014 [facility] HEMATOLOGY R-time 6.5 5.0 - 10.0 12/19/2014 [facility] HEMATOLOGY Max Amp 53.3 50.0 - 70.0 12/19/2014 [facility] HEMATOLOGY G-value 5.7 4.5 - 11.0 12/19/2014 [facility] HEMATOLOGY Ly30 0.0 0.0 - 7.5 12/19/2014 [facility] HEMATOLOGY Coag Index -1.7 -3.0-3.0 - 3.0 12/19/2014 [facility] CHEM PANEL AST 30 0 - 37 12/19/2014 [facility] CHEM PANEL Total Protein 7.1 6.4 - 8.4 12/19/2014 [facility] CHEM PANEL Alk Phos 76 39 - 136 12/19/2014 [facility] CHEM PANEL Bili Total 1.2 0.2 - 1.3 12/19/2014 [facility] CHEM PANEL ALT 47 0 - 65 12/19/2014 [facility] CHEM PANEL Albumin Lvl 4.2 3.5 - 5.0 12/19/2014 [facility] CHEM PANEL Globulin 2.9 2.0 - 4.0 12/19/2014 [facility] CHEM PANEL A/G Ratio 1.4 0.7 - 1.6 12/19/2014 [facility] CHEM PANEL B/C Ratio 12 6 - 25 12/19/2014 [facility] HEMATOLOGY Basophils # 0.1 0.0 - 0.2 12/19/2014 [facility] BLOOD BANK RESULTS FFP product Product available (12/19/14 6:23 AM) 12/19/2014 [facility] BLOOD BANK RESULTS RBC product Product available (12/19/14 6:23 AM) 12/19/2014 [facility] BLOOD BANK RESULTS Antibody Scrn Negative (12/19/14 6:23 AM) 12/19/2014 [facility] BLOOD BANK RESULTS ABO/Rh B POS 12/19/2014 [facility] BLOOD BANK RESULTS Platelet product Product available (12/18/14 4:40 PM) 12/18/2014 [facility] Pathology Reports No Data Provided for This [...] José Luis Landry MD On 07/07/2019 15:37:25; [id number] 07/07/2019 [facility] Chest 2 views DX EXAMINATION: CHEST 2 [...] with a component of pleural thickening. [facility] DX EXAM : [...] 3. Chronic right pleural thickening.. . 01/30/2015 [facility] 1[facility] DX Chest one view, January [...] Right lower lobe subsegmental atelect asis. 01/23/2015 [facility] Chest 2 views DX EXAM: XR CHES [...] speech pathologist's report for further details. 12/28/2014 [facility] Chest wo contrast CT CHEST CT WITHOUT [...] are noted within the trac hea. 12/27/2014 [facility] Chest 1view DX Portable ap francesca ierect chest December 26, 2014 HISTORY: Cough. Comparison is made with December 24. FINDINGS: Cardiomediastinal silhouette and sternotomy wires are stable. There are small bilateral effusions which appear stable. The upper lungs are clear to full bilateral retrocardiac opacities. CONCLUSION: No significant interval change in the appearance of the chest when compared to prior radiograph. 12/26/2014 [facility] Chest 1view DX EXAMINATION: CH EST XRAY [...] Small right pleural effusion decrease d. 12/24/2014 [facility] Chest 1view DX EXAMINATION: CX R 1 [...] pleural effusion with ass ociated atelectasis. 12/23/2014 [facility] Chest 1view DX EXAMINATION: CX R 1 [...] combination of atelectasis and/or airspace disease. 12/23/2014 [facility] Chest 1view DX Chest one view, December 22, 2014 at 1:16 a.m. HISTORY: 64-year-old female with tube placement/removal/reposition. Findings: Comparison is made to yesterday morning. The cardiomediastinal silhouette is stable. Postoperative changes are stable with the Finley-Danae catheter remaining in place. The 2 mediastinal drains and left-sided chest tube have been removed. A right pleural effusion obscures the right hemidiaphragm and layers posteriorly. The left costophrenic sulcus is clear. The miniscule left apical pneumothorax has essentially resolved. Subsegmental atelectasis is seen in the bilateral lower lobes. IMPRESSION: 1. Bilateral lower lobe subsegmental ate lectasis. 2. Right pleural effusion. 12/22/2014 [facility] Chest 1view DX EXAM: XR CHEST 1 [...] present at t he lung bases. 12/21/2014 [facility] Chest 1view DX PORTABLE CHEST 2014-12-20 01:51:00 [...] to more accurately exclude a pneumothorax. 12/20/2014 [facility] Chest 1view DX INDICATION: Tub e placement. [...] region, and this likely represents atelectasis. 12/19/2014 [facility] Chest 1view DX Portable ap francesca ierect [...] without effusion. CONCLUSION: Low lung volumes. 12/19/2014 [facility] Consultation Notes No Data Provided for This Section Discharge Summaries No Data Provided for This Section History and Physicals No Data Provided for This Section Vital Signs Vital Sign Value Date Comments Source Height 149.86 cm 01/30/2015 [facility] Systolic (mm Hg) 104 01/30/2015 [facility] Diastolic (mm Hg) 49 01/30/2015 [facility] Respitory Rate 20 01/30/2015 [facility] Temperature Oral (F) 97.0 F 01/30/2015 [facility] Height 149.86 cm 01/23/2015 [facility] BMI Calculated 22.06 01/23/2015 [facility] Weight 49.545 01/23/2015 [facility] Weight 49.148 01/09/2015 [facility] BMI Calculated 21.88 01/09/2015 [facility] Height 149.86 cm 01/09/2015 [facility] Systolic (mm Hg) 103 01/09/2015 [facility] Diastolic (mm Hg) 54 01/09/2015 [facility] Heart Rate 59 01/09/2015 [facility] Temperature Oral (F) 96.7 F 01/09/2015 [facility] Respitory Rate 18 01/09/2015 [facility] Weight 49.148 01/09/2015 [facility] BMI Calculated 21.88 01/09/2015 [facility] Height 149.86 cm 01/09/2015 [facility] Temperature Oral (F) 96.7 F 01/09/2015 [facility] Heart Rate 59 01/09/2015 [facility] Respitory Rate 18 01/09/2015 [facility] Systolic (mm Hg) 103 01/09/2015 [facility] Diastolic (mm Hg) 54 01/09/2015 [facility] Systolic (mm Hg) 122 12/29/2014 [facility] Diastolic (mm Hg) 55 12/29/2014 [facility] Respitory Rate 23 12/29/2014 [facility] Respitory Rate 19 12/29/2014 [facility] Systolic (mm Hg) 136 12/29/2014 [facility] Diastolic (mm Hg) 63 12/29/2014 [facility] Respitory Rate 26 12/29/2014 [facility] Systolic (mm Hg) 152 12/29/2014 [facility] Diastolic (mm Hg) 68 12/29/2014 [facility] Temperature Oral (F) 97.6 F 12/29/2014 [facility] Temperature Oral (F) 97.6 F 12/29/2014 [facility] Temperature Oral (F) 97.4 F 12/29/2014 [facility] Weight 56.3 12/22/2014 [facility] Height 149.86 cm 12/19/2014 [facility] BMI Calculated 22.87 12/19/2014 [facility] Weight 51.364 12/19/2014 [facility] Height 145 cm 12/06/2014 [facility] BMI Calculated 24.26 12/06/2014 [facility] Weight 51.003 12/06/2014 [facility] Temperature Oral (F) 96.3 F 12/06/2014 [facility] Heart Rate 57 12/06/2014 [facility] Systolic (mm Hg) 120 12/06/2014 [facility] Diastolic (mm Hg) 69 12/06/2014 [facility] BMI Calculated 22.67 11/29/2014 [facility] Weight 50.909 11/29/2014 [facility] Height 149.86 cm 11/29/2014 [facility] Height 149.86 cm 11/28/2014 [facility] BMI Calculated 22.69 11/28/2014 [facility] Weight 50.966 11/28/2014 [facility] Systolic (mm Hg) 121 11/28/2014 [facility] Diastolic (mm Hg) 66 11/28/2014 [facility] Heart Rate 52 11/28/2014 [facility] Temperature Oral (F) 97.1 F 11/28/2014 [facility] Encounters Location Location Details Encounter Type Encounter Number Reason For Visit Attending Provider ADM Date DC Date Status Source [facility] Advanced Heart Failure Outpatient [id number] Peyman An 11/28/2014 11/29/2014 [facility] Outpatient [id number] Peyman Chandu 11/29/2014 11/30/2014 [facility] Outpatient [id number] Dre Hou 12/06/2014 12/07/2014 [facility] Inpatient [id number] Drekevin Hilloric 12/19/2014 12/29/2014 [facility] Outpatient [id number] Drekevin Hilloric 01/09/2015 01/10/2015 [facility] [place] [facility] [id number] Dre Sergiooric 01/09/2015 01/10/2015 [facility] Outpatient [id number] Ginna Aknti 01/23/2015 01/24/2015 [facility] Outpatient [id number] Ginna Aknti 01/30/2015 01/31/2015 [facility] [place] [facility] [id number] Ginna Aknti 01/30/2015 01/31/2015 [facility] [place] [facility] [id number] Ginna Aknti 03/20/2015 03/21/2015 [facility] Outpatient [id number] Ginna Akkanti 03/20/2015 03/21/2015 [facility] Outpatient [id number] Kae Zaidi 07/07/2019 07/08/2019 [facility] Procedures Procedure Code Date Perfomer Comments Source Angioplasty<sup>1</sup> [id number] @[facility]ste[facility]<sup>2</sup> 91931 [id number] [facility] Procedure<sup>3</sup> [id number] melanoma 1973 [facility] operation<sup>4</sup> 4 [id number] Revision 1 971 [facility] Assessment and Plan Date [...] Extracted from:Title: Hematology Consultation Note Author: Sydney Rodirguez MD Date: 12/22/14 Patient: AXEL CHRISTOPHER Age: [...] MISC, Q12H acetaminophen: 650 mg, 1 supp, IA, Q4H, PRN: Pain Score 1-3 acetaminophen: 650 mg, 2 tab, PO, Q4H, PRN: Pain 1-3/Temp > 100.4 F atorvastatin: 40 mg, 1 tab, PO, Bedtime bisacodyl: 10 mg, 1 supp, IA, Daily, PRN: Constipation calcium carbonate 500 mg [...] Abnormal Lab Result fentaNYL (PF) 20 mcg/ml [employer]ER (600 microgram /30 mL) 600 microgram: Per [employer] TE[employer]ER Order as Directed, IV, Stop: 01/18/15 15:29:00 [...] 5 ml, MISC, Q12H Continuous: (1) fentaNYL [employer] TE[employer]ER 20 micrograms/ml 30 ml 600 microgram 600 microgram 30 mL, IV PRN: (33) acetaminophen 325 mg TABLET 650 mg 2 tab, PO, Q4H acetaminophen 650 mg rect SUPP 650 mg 1 supp, IA, Q4H bisacodyl 10 mg rect SUPP 10 mg 1 supp, IA, Daily calcium carbonate (200mg elemental) CHEW 500 [...] Histories Past Medical History: Resolved High cholesterol ([id number]): Resolved. Cancer ([id number]): Resolved. Melanocarcinoma ([id number]): Resolved. Heart murmur ([id number]): Resolved. Thyroid disease (630297745): Resolved. Diabetes mellitus (213179534): Resolved. High blood pressure (49958025): Resolved. Family History: Heart attack Father Dementia Mother Procedure history: Hysterectomy ([id number]). Comments: 11/27/2014 12:23 - Izabella Ross 1972 Vagina operation ([id number]). Comments: 11/27/2014 12:25 - Izabella Ross Revision 1971 Procedure ([id number]). Comments: 11/27/2014 12:25 Izabella Méndez melanoma 1973 Angioplasty ([id number]). Comments: 11/27/2014 12:25 - Izabella Ross @[facility] 09/2014 Social History Social and [...] to check CBC daily. Dillon Bella M.D. [id number] [facility] Division of Hematology (Internal Medicine) [facility] 12/29/2014 [facility] Plan of Care No Data Provided for This Section Social History Social History Date Source Social History TypeResponse Smoking Status Never smoker; Exposure to Tobacco Smoke None; Cigarette Smoking Last 365 Days No; Reg Smoking Cessation Counseling No 02/01/2015 [facility] Social History TypeResponse Smoking Status Never smoker; [...]
--- OUTSIDE RECORDS SUMMARY | 2020-03-12 19:32 | XMS REPORT | Continuity of Care Document ---
Author Author [facility] t Organization [facility] Address 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 Name Role Phone MARGOT DO BRASWELL PCP Evert SERRATO Attphys Unavailable MADDI DEY Attphys Unavailable Marshall Manjarrez MD Attphys [phone] Ashley Jack MD, Ryan Lima Attphys Delilah Kumar MD Attphys Deja ALBARRAN, Helio Fernandez Attphys [phone] STEVEN MIJARES Attphys Unavailable Marshall MANJARREZ Attphys Unavailable Katja Zaidi Attphys Ginna Mae Attphys Kwaku Hou Attphys Peyman An Attphys DEY, MADDI Admphys Unavailable RYAN CARRION KHURRAM Admphys Unavailable Kwaku Hou Admphys Payers Payer Name Policy Type Policy Number Effective Date Expiration Date S cory Medicare A & B [id number] 2019 00:00:[address] [facility] [employer] [id number] 2019 00:00:0 0 [facility] MEDICAREMEDICARE A [id number] 2014-PresentMedicare [id number] 2014 00:00:00 [facility] [id number] [id number], [place] [address]QNH [id number] 2001 00:00:00 [facility] Problems Condition Name Condition Details Condition Category Status Onset Date Resolution Date Last Treatment Date Treating Clinician Comments Source Essential hypertension Essential hypertension Disease Active 2020-02-17 00:00:00 [facility] Type II diabetes mellitus Type II diabetes mellitus Disease Ac tive 2020-02-17 00:00:00 [facility] Elevated lipoprotein(a) Elevated lipoprotein(a) Disease Active 2020-02-17 00:00:00 [facility] Coronary artery disease Coronary artery disease Disease Active 2020-02-17 00:00:00 [facility] H/O prosthetic aortic valve replacement H/O prosthetic aorti c valve replacement Disease Active 2020-02-17 00:00:00 [facility] Subarachnoid hemorrhage following injury, no loss of c onsciousness Subarachnoid hemorrhage following injury, no loss of consciousness Disease Active 2020-02-16 00:00:00 [facility] Subarachnoid bleed Subarachnoid bleed Disease Active 2020-02-16 00:00:0 0 [facility] D50.9=IRON DEFICIENCY ANEMIA, UNSPECIFIE D50.9=IRON DEFICIENCY ANEMIA, UNSPECIFIE Active 07/04/2019 [facility] Active 2019-07-04 00:00:00 2019-07-07 12:47:00 [facility] R07.89 - OTHER CHEST PAIN R07. 89 - OTHER CHEST PAIN Active 01/30/2015 [facility] Diagnosis Active 2015-01-30 00:01:00 2015-03-22 13:10:00 [facility] PERJANEY PERJ ANEY Active 01/30/2015 [facility] Diagnosis Active 2015-01-30 00:00:00 2015-03-20 15:47:00 [facility] F/U F/U Active 01/23/2015 [facility] Diagnosis Active 2015-01-23 00:00:00 2015-01-30 14:19:00 [facility] PLEURAL EFFUSION PLEU RAL EFFUSION Active 01/22/2015 [facility] Diagnosis Active 2015-01-22 00:00:00 2015-03-08 1 6:35:00 [facility] FOLLOW UP FOLL OW UP Active 01/09/2015 [facility] Diagnosis Active 2015-01-09 00:00:00 2015-03-09 15:32:00 [facility] FOLLOW UP HOSP ITAL FOLLOW UP Active 01/01/2015 [facility] Diagnosis Active 2015-01-01 00:00:00 2015-06-06 13:46:00 [facility] AORTIC STENOSIS AORT IC STENOSIS Active 12/18/2014 [facility] Diagnosis Active 2014-12-18 00:00:00 2015-01-04 2 1:58:00 [facility] TO BE DONE BY DR AN TO BE DONE BY DR AN Active 11/28/2014 [facility] Diagnosis Activ e 2014-11-28 00:00:00 2015-01-22 13:07:00 [facility] CAVAGE VS AVR CAVA GE VS AVR Active 11/16/2014 [facility] Diagnosis Active 2014-11-16 00:00:00 2015-01-23 0 9:02:00 [facility] Laceration of scalp Problem Active [facility] Anemia Problem Active [facility] Hyperglycemia Problem Active [facility] Sinus bradycardia by electrocardiography Problem Active [facility] Weakness Problem Active [facility] Malignant neoplastic disease (disorder) Malignant neoplastic disease (disorder) Resolved Problem 07/09/2019 [facility] Problem Resolved 2019-07-09 22:46: 29 [facility] Diabetes mellitus (disorder) D iabetes mellitus (disorder) Resolved Problem 07/09/2019 [facility] Problem Resolved 2019-07-09 22:46:29 Wy rochelle Crow Heart murmur (finding) Hear t murmur (finding) Resolved Problem 07/09/2019 [facility] Problem Resolved 2019-07-09 22:46:29 Saad Crow Hypertensive disorder, systemic arterial (disorder) Hypertensive disorder, systemic arterial (disorder) Resolved Problem 07/09/2019 [facility] Problem Resolved 2019-07-09 22:46:29 [facility] Hypercholesterolemia (disorder) Hypercholesterolemia (disorder) Resolved Problem 07/09/2019 [facility] Problem Resolved 2019-07-09 22:46:29 Wy rochelle Crow Malignant melanoma (disorder) Malignant melanoma (disorder) Resolved Problem 07/09/2019 [facility] Problem Resolved 2019-07-09 22:46:29 Wy rochelle Crow Disease of thyroid gland (disorder) Disease of thyroid gland (disorder) Resolved Problem 07/09/2019 [facility] Problem Resolved 2019-07-09 22:46:29 [facility] ROUTINE MEDICAL EXAM ROUT INE MEDICAL EXAM Active [facility] Diagnosis Active 2015-06-06 13:46:00 [facility] AORTIC ATHEROSCLEROSIS AORT IC ATHEROSCLEROSIS Active [facility] Diagnosis Active 2015-01-22 13:07:00 [facility] ADMINISTRTVE ENCOUNT NOS ADMI NISTRTVE ENCOUNT NOS Active [facility] Diagnosis Active 2015-01-04 21:58:00 [facility] MALIGNANT PLEURAL EFFUSION MAL IGNANT PLEURAL EFFUSION Active [facility] Diagnosis Active 2015-03-08 16:35:00 [facility] MEDICAL SERVICES NOT AVAILABLE IN HOME MEDICAL SERVICES NOT AVAILABLE IN HOME Active [facility] Diagnosis Active 2015-03-20 15:47:00 [facility] IRON DEFICIENCY ANEMIA, UNSPECIFIED IRON DEFICIENCY ANEMIA, UNSPECIFIED Active [facility] Active 2019-07-07 12:47:00 [facility] Allergies, Adverse Reactions, Alerts Allergy Name Allergy Type Status Severity Reaction(s) Onset Date Inacti ve Date Treating Clinician Comments Source Sulfa (Sulfonamide Antibiotics) Propensity to adverse reactions Activ e 2020-02-16 00:00:00 [facility] Sulfa (Sulfonamide Antibiotics) Allergy to substance Active 2016-11-24 00:00:00 [facility] Sulfa (Sulfonamide Antibiotics) DA Active [place] 2015-08-03 00 :00:00 [facility] sulfa drugs sulfa drugs Active [facility] Social History Social Habit Start Date Stop Date Quantity Comments Source Sex Assigned At [facility] Exposure to SARS-CoV-2 (event) Not sure [facility] Tobacco use and exposure 2020-02-16 00:00:00 2020-02-16 00:00:00 Josecathryn nitesh used [facility] Smoking Status Start Date Stop Date Source Social History [facility] Medications Ordered Medication Name Filled Medication Name Start Date Stop Da te Current Medication? Ordering Clinician Indication Dosage Frequency Signature (SIG) Comments Components Source atenoloL (TENORMIN) 50 MG tablet 2020-02-20 14:50:42 Yes 50mg QD Take 50 mg by mouth daily. [facility] glipiZIDE (GLUCOTROL XL) 2.5 MG 24 hr tablet 2020-02-20 14:50:42 Yes 2.5mg QD Take 2.5 mg by mouth daily. [facility] levothyroxine (SYNTHROID, LEVOTHROID) 75 MCG tablet 2019-04 14:50:42 Yes 75ug Take 75 mcg by mouth Every morning on an empty stomach. [facility] simvastatin (ZOCOR) 40 MG tablet 2020-02-20 14:50:42 Yes 40mg QD Take 40 mg by mouth nightly. [facility] tolterodine (DETROL LA) 4 MG 24 hr capsule 2020-02-20 14:50:42 Yes 4mg QD Take 4 mg by mouth daily. [facility] furosemide (LASIX) 40 MG tablet 2020-02-20 14:50:42 Yes 40mg QD Take 40 mg by mouth daily. [facility] potassium chloride (KLOR-CON) 10 MEQ CR tablet 2020-02-20 14:50: 42 Yes 10meq QD Take 10 mEq by mouth daily. [facility] Omnipaque 300 injectable solution 2019-07-07 20:00:00 Yes Notes: (Same as:Omnipaque 300). WASTE: F/P - Black; E - Municipal Trash Bin [facility] Zolpidem tartrate 5 MG Oral Tablet [Ambien] 2015-01-09 15:06:00 Yes 2.5 mg = 0.5 tab, PO, Bedtime, 0 [facility]ill[facility]) [facility] 50 MG Oral Tablet 2015-01-09 15:06:00 Yes Special Instructions: prn pain [facility] Acetaminophen 325 MG Oral Tablet [Tylenol] 2015-01-09 15:06:00 Yes Special Instructions: prn [facility] nn simvastatin 40 mg oral tablet 2015-01-09 15:06:00 Yes 40 mg = 1 tab, PO, Bedtime, # 30 tab, 5 Refill(s) [facility] bumetanide 1 mg oral tablet 2014-12-29 20:06:58 Yes 1 mg = 1 tab, PO, BID, # 30 tab, 0 Refill(s) [facility] Pneumovax 23 2014-12-29 19:30:00 No Notes: (Same as: Pneumovax 23) Refrigerate [facility] bumetanide 1 mg oral tablet 2014-12-29 19:11:00 No 1 mg = 1 tab, PO, Daily, # 30 tab, 0 [facility] oral [facility] 2014-12-29 18:30:00 Yes 40 mg = 1 tab, PO, Bedtime, 0 [facility] Aspirin 81 MG Chewable Tablet 2014-12-29 18:30:00 Yes 81 mg = 1 tab, PO, Daily, 0 Refill(s) [facility] phenazopyridine 100 mg oral tablet 2014-12-29 18:30:00 No 200 mg = 2 tab, PO, TID-After Meals, 0 Refill(s) [facility] Potassium Chloride 20 MEQ Extended Release Tablet 2014-12-29 18:30:00 Yes 40 mEq = 2 tab, PO, Daily, 0 Refill(s) [facility] insulin isophane (NPH) 100 units/mL human recombinant subcut aneous suspension 2014-12-29 18:30:00 Yes 10 unit, SUB-Q, QP M, 0 Refill(s) [facility] [place] bumetanide 0.25 mg/mL injectable solution 2014-12-29 18:30:00 No 1 mg = 4 mL, IVP, BID, 0 Refill(s) [facility] Docusate Sodium 100 MG Oral Capsule [Colace] 2014-12-29 18:30:00 Yes 100 mg = 1 cap, PO, BID, 0 Refill(s) [facility] [place] cefepime 2014-12-29 18:30:00 Yes 1 g m, IVPB, [id number], 0 Refill(s) [facility] Neutra-Phos oral powder 2014-12-29 11:01:00 No Notes: (Same as: Neutra-Phos) Each 1.25 gm pkt has 250mg phosphorous. Mix w/2.5oz water and stir. Tanvir Crow Potassium Chloride 20 MEQ Extended Release Tablet 2014-12-29 11:00:00 No Notes: (Same as: K-D ur 20) "Do Not Crush" With food and full glass of water [facility] Pyridium 2014-12-28 22:30:00 No Notes: Give with meals. (Same as: Pyridium) Tanvir Crow Potassium Chloride 20 MEQ Extended Release Tablet 2014-12-28 10:25:00 No Notes: (Same as: K-D ur 20) "Do Not Crush" With food and full glass of water Tanvir Crow Magnesium Oxide 2014-12-28 10:25:00 No Notes: (Same as: Mag-Ox 400) Magnesium oxide [id number] elemental magnesium Dose=____mg magnesium oxide (___mg elemental magnesium) Tanvir harris Bumex 2014-12-27 22:00:00 No Notes: (Same A s: Bumex) [facility] Vancomycin 2014-12-27 17:00:00 No Notes: TIME CRITICAL MEDICATION Concentration = 50 mg/ml. Keep in refrigerator. For oral use only. Vancomycin 1gm vial are used and reconstituted with 20ml of sterile water for a concentration of 50mg/ml. Draw up in alonso po syringes. DO NOT USE IV SYRINGES. [facility] Magnesium Oxide 2014-12-27 16:08:00 No Notes: (Same as: Mag-Ox 400) Magnesium oxide [id number] elemental magnesium Dose=____mg magnesium oxide (___mg elemental magnesium) Tanvir [facility] harris Potassium Chloride 20 MEQ Extended Release Tablet 2014-12-27 16:08:00 No Notes: (Same as: K-D ur 20) "Do Not Crush" With food and full glass of water [facility] [place] cefepime 2014-12-26 23:00:00 No Notes: (Same As: Maxipime) MEDICATION WASTE Product Size: 1000 mg Product Wasted: ___ mg Tanvir Crow Vancomycin 2014-12-26 22:38:00 No 2001 mg: infuse over 2.5 hours MEDICATION WASTE Product Size: 1000 mg Product Wasted: ___ mg [facility] Humulin N 2014-12-26 14:00:00 No 60 units) Stable for 28 days at room temperature Expires in days from Date [facility] potassium chloride 2014-12-26 11:36:00 No Notes: (Same as: K-Dur 20) "Do Not Crush" With food and full glass of water [facility] Humulin N 2014-12-25 22:00:00 No 60 units) Stable for 28 days at room temperature Expires in days from Date [facility] potassium phosphate + Sodium Chloride 0.9% IV 250 mL 12-25 20:22:00 No Notes: (Same as: K Phosphate.) 1 mMol phoshate has 1.47 mEq potassium Infuse over 4 hours Tanvir Crow Miconazole Nitrate 0.02 MG/MG Topical Ointment 2014-12-25 20:13: 00 No Notes: (Same as: Markistat 7) Ely oribenita Crow K-Dur 20 2014-12-25 15:00:00 No Notes: (Same as: K-Dur 20) "Do Not Crush" With food and full glass of water Tanvir Crow potassium chloride 2014-12-25 11:55:00 No Notes: (Same as: K-Dur 20) "Do Not Crush" With food and full glass of water [facility] Insulin, Aspart, Human 2014-12-25 02:40:00 No Notes: Roll in palms of hands gently; Do not shake vigorously. (Same as: NovoLOG) "single patient use only" Stable for 28 days at room temperature. Expires in days from Date [facility] Pyridium 2014-12-24 15:21:00 No Notes: Give with meals. (Same as: Pyridium) [facility] Bumex 2014-12-24 14:00:00 No Notes: (Same A s: Bumex) Tanvir Crow Atenolol 2014-12-24 14:00:00 No Notes: (Saeed e As:Tenormin) [facility] potassium phosphate + Sodium Chloride 0.9% IV 250 mL 12-24 10:20:00 No Notes: (Same as: K Phosphate.) 1 mMol phoshate has 1.47 mEq potassium Infuse over 4 hours [facility] Bumex 2014-12-23 22:00:00 No Notes: (Same A s: Bumex) [facility] Acetaminophen 325 MG / Hydrocodone Bitartrate 5 MG Oral Tabl et [Davis 5/325] 2014-12-23 13:35:00 No Notes: (Same as: Davis 325/5) Do not exceed 4gm/day of acetaminophen. [facility] nn potassium phosphate + Sodium Chloride 0.9% IV 250 mL 12-23 09:45:00 No Notes: (Same as: K Phosphate.) 1 mMol phoshate has 1.47 mEq potassium Infuse over 4 hours [facility] Bumex 2014-12-22 16:00:00 No Notes: (Same A s: Bumex) [facility] Lantus 2014-12-22 14:58:00 No Notes: Same as Lantus Solostar PEN Do not hold insulin without contacting prescriber "single patient use only" Stable for 28 days at room temperature. Expires in days from Date [facility] Zofran 2014-12-22 05:10:00 No Notes: (Same as: Tariq) MEDICATION WASTE Product Size: 4 mg Product Wasted: ___ mg [facility] Bisacodyl 2014-12-21 20:52:00 No Notes: (Same As: Dulcolax, Bisco-Lax) [facility] Insulin, Aspart, Human 2014-12-21 20:41:00 No Notes: Roll in palms of hands gently; Do not shake vigorously. (Same as: NovoLOG) "single patient use only" Stable for 28 days at room temperature. Expires in days from Date [facility] Glucagon 2014-12-21 20:41:00 No 1 mg, Route: IM, Drug form: PDR/INJ, PRN, Dosing Weight 51.364, kg, PRN Blood Glucose Results, Start date: 12/21/14 15:41:00, Duration: 30 day, Stop date: 01/20/15 15:40:00 [facility] Dextrose 50% Syringe 2014-12-21 20:41:00 No 12.5 gm, 25 mL, Route: IVP, Drug Form: INJ, Dosing Weight 51.364, kg, PRN, PRN Blood Glucose Results, Start date: 12/21/14 15:41:00, Duration: 30 day, Stop date: 01/20/15 15:40:00 [facility] Insulin Glargine 2014-12-21 20:35:00 No Notes: Same as Lantus Solostar PEN Do not hold insulin without contacting prescriber "single patient use only" Stable for 28 days at room temperature. Expires in days from Date [facility] Lantus 2014-12-21 17:59:00 No Notes: Same as Lantus Solostar PEN Do not hold insulin without contacting prescriber "single patient use only" Stable for 28 days at room temperature. Expires in days from Date [facility] vancomycin + Sodium Chloride 0.9% IV 100 mL 2014-12-21 14:00:00 No 2001 mg: infuse over 2.5 hours MEDICATION WASTE Product Size: 1000 mg Product Wasted: _250__ mg [facility] pneumococcal capsular polysaccharide typ e 1 vaccine / pneumococcal capsular polysaccharide type 10A vaccine / pneumococcal capsular polysaccharide type 11A vaccine / pneumococcal capsular polysaccharide type 12F vaccine / pneumococcal capsular polysacchar 2014-12-21 14:00:00 No Notes: (Same as: Pneumovax 23) Refrigerate [facility] Furosemide 2014-12-21 06:20:00 No Notes: (S roxi as: Lasix) [facility] Furosemide 2014-12-21 03:13:00 No Notes: (S roxi as: Lasix) [facility] normal saline 0.9% IV 500 mL 2014-12-20 23:35:00 No 500 mL, Rate: 100 ml/hr, Infuse over: 5 hr, Route: IV, Dosing Weight 51.364 kg, Total Volume: 500, Start date: 12/20/14 18:35:00, Duration: 1 doses or times, Stop date: 12/20/14 23:34:00 [facility] Sodium Chloride 0.154 MEQ/ML Injectable Solution 2014-12-20 20:1 5:00 No 500 mL, 200 ml/hr, Infuse Ov er: 2.5 hr, Route: IV, 500, Drug form: INJ, ONCE, Priority: STAT, Dosing Weight 51.364 kg, Start date: 12/20/14 15:15:00, Duration: 1 doses or times, Stop date: 12/20/14 15:15:00 [facility] Vancomycin 2014-12-20 19:56:00 No 1 gm, Route: IVPB, Drug form: INJ, [id number], Dosing Weight 51.364, kg, Priority: STAT, Start date: 12/20/14 14:56:00, Duration: 30 day, Stop date: 01/19/15 2:56:00 [facility] cefepime 2014-12-20 19:56:00 No Notes: (Same As: Maxipime) MEDICATION WASTE Product Size: 1000 mg Product Wasted: ___ mg [facility] pantoprazole 2014-12-20 14:00:00 No Notes: For IV push reconstitute with 10 ml 0.9% sodium chloride and push over 2 minutes. (Same as: Protonix) Tanvir Crow Aspirin 2014-12-20 14:00:00 No Notes: Take with food. Tanvir Crow Aspirin 300 MG Rectal Suppository 2014-12-20 14:00:00 No Notes: Refrigerate. Tanvir Jiann Aspirin 81 MG Chewable Tablet 2014-12-20 14:00:00 No Notes: Take with food. Tanvir Jiann Acetaminophen 10 MG/ML Injectable Solution 2014-12-20 13:07:00 No Notes: Infuse over 15 minutes Do not exceed 4gm/day of acetaminophen MEDICATION WASTE Product Size: 1000 mg Product Wasted: ___ mg Tanvir Crow Bumex 2014-12-20 13:06:00 No Notes: (Same A s: Bumex) Tanvir Crow Albumin Human, DETENTION 250 MG/ML Injectable Solution 2014-12-20 09:3 2:00 No Notes: Lot #: Mfg: (Same as: Plasbumin-25) "blood product derivative" MEDICATION WASTE Product Size: 25 gm Product Wasted: ___ gm Tanvir Crow Sodium Chloride 0.154 MEQ/ML Injectable Solution 2014-12-20 [...] FOR ICU USE ONLY Tanvir Crow potassium chloride 2014-12-20 02:40:00 No Notes: (Same as: K-Dur 20) "Do Not Crush" With food and full glass of water Tanvir Crow potassium phosphate + Sodium Chloride 0.9% IV 250 mL 12-20 02:40:00 No Notes: (Same as: K Phosphate.) 1 mMol phoshate has 1.47 mEq potassium Infuse over 4 hours [facility] Calcium Carbonate 500 MG Chewable Tablet 2014-12-20 02:40:00 No Notes: (Same As: Tums) Calcium Carbonate 500 mg = 200 mg elemental calcium Dose = mg calcium carbonate ( mg elemental calcium) [facility] Calcium Gluconate 2014-12-20 02:40:00 No Special Instructions: FOR ICU USE ONLY [facility] Magnesium Oxide 2014-12-20 02:40:00 No Notes: (Same as: Mag-Ox 400) Magnesium oxide [id number] elemental magnesium Dose=____mg magnesium oxide (___mg elemental magnesium) [facility] Neutra-Phos 2014-12-20 02:40:00 No Notes: (Same as: Neutra-Phos) Each 1.25 gm pkt has 250mg phosphorous. Mix w/2.5oz water and stir. [facility] Magnesium Sulfate 2014-12-20 02:40:00 No Special Instructions: FOR ICU USE ONLY [facility] potassium phosphate + Sodium Chloride 0.9% IV 250 mL 12-20 02:27:00 No Notes: (Same as: K Phosphate.) 1 mMol phoshate has 1.47 mEq potassium Infuse over 4 hours Tanvir Crow Ondansetron 2014-12-20 02:19:00 No Notes: (Same as: Tariq) MEDICATION WASTE Product Size: 4 mg Product Wasted: ___ mg Tanvir Crow Simvastatin 2014-12-20 02:00:00 No 40 mg, Route: PO, Drug form: TAB, Bedtime, Dosing Weight 51.364, kg, Start date: 12/19/14 21:00:00, Duration: 30 day, Stop date: 01/17/15 21:00:00 Memori benita Crow atorvastatin 2014-12-20 02:00:00 No Notes: (Same as: Lipitor) Tanvir [facility] ceFAZolin (SCIP) 2014-12-20 01:30:00 No Notes: (Same As: Ancef Kefzol) MEDICATION WASTE Product Size: 1000 mg Product Wasted: _0__ mg [facility] Vancomycin 6.67 MG/ML Injectable Solution 2014-12-20 01:30:00 No 2001 mg: infuse over 2.5 hours MEDICATION WASTE Product Size: 1000 mg Product Wasted: _250_ mg Tanvir Gresham nn Calcium Chloride 2014-12-20 01:08:00 No 1 [...] 30 day, Stop date: 01/18/15 20:07:00 Tanvir Jiann potassium chloride 2014-12-20 01:08:00 No Notes: (Same as: KCL) Infuse no faster than 10 mEq/hr if given peripherally. [facility] Calcium Chloride 0.0014 MEQ/ML / Potassi um Chloride 0.004 MEQ/ML / Sodium Chloride 0.103 MEQ/ML / Sodium Lactate 0.028 MEQ/ML Injectable Solution 2014-12-20 00:42:00 No 250 mL, 250 ml/hr, Infuse Over: 1 hr, Route: IV, 250, Drug form: SOLN, ONCE, Priority: STAT, Dosing Weight 51.364 kg, Start date: 12/19/14 19:42:00, Duration: 1 doses or times, Stop date: 12/19/14 19 :42:00 Tanvir Crow Dexmedetomidine 0.004 MG/ML Injectable Solution [Precedex] 2014-12-20 00:37:00 No Notes: (Same as: Precedex) Tanvir Crow EPINEPHrine 4 mg + Sodium Chloride 0.9% (titrate) 246 mL 2014-12-20 00:04:00 No 246 mL, Rate: Titrate, Dosing Weight 51.364, kg, Route: IV, Total Volume: 250, Start Date: 12/19/14 19:04:00, Duration: 30 day, Stop date: 01/18/15 19:03:00, Replace Every: 24 hr [facility] Milrinone 2014-12-20 00:03:00 No Notes: (Same as:Primacor) Final conc = 0.2 mg/ml. Premix solution. Anders rial [facility] Zofran 2014-12-19 23:00:00 No Notes: (Same as: Zofran) [facility] Docusate Sodium 100 MG Oral Capsule [Colace] 2014-12-19 22:00:00 No Notes: (Same as: Colace) (Do Not Crush) [facility] Fentanyl 2014-12-19 20:30:00 No Notes: Concentration is 20 micrograms/ml [facility] Naloxone 2014-12-19 20:23:00 No Notes: Same as Narcan [facility] Dextrose 50% Syringe 2014-12-19 20:23:00 No 25 gm, 50 mL, Route: IVP, Drug Form: INJ, Dosing Weight 51.364, kg, PRN, PRN Blood Glucose Results, Start date: 12/19/14 15:23:00, Duration: 30 day, Stop date: 01/18/15 15:22:00 [facility] Insulin regular 100 unit + Sodium Chloride 0.9% (titrate) 99 mL 2014-12-19 20:23:00 No Notes: (Same as: Humuli n R and NovoLIN R) (Do not shake) [facility] Hydralazine 2014-12-19 20:23:00 No Notes: (Same as: Apresoline) Push over 5 minutes [facility] Metoprolol 2014-12-19 20:23:00 No Notes: (Same as: Lopressor) Push over 2 minutes [facility] Labetalol 2014-12-19 20:23:00 No 10 mg, 2 mL, Route: IVP, Drug form: INJ, Q4H, Dosing Weight 51.364, kg, PRN Hypertension, Start date: 12/19/14 15:23:00, Duration: 30 day, Stop date: 01/18/15 15:22:00 [facility] Acetaminophen 2014-12-19 20:23:00 No Notes: Max acetaminophen = 4000 mg/day (4 gm/day). (Same as: Tylenol) [facility] Fentanyl 2014-12-19 20:23:00 No Notes: (Same as: Sublimaze) Preservative free. [facility] Aspirin 325 MG Oral Tablet 2014-12-19 20:23:00 No Notes: Take with food. [facility] Ancef 2014-12-19 18:23:00 No 1 gm, Route: IV, ONCE, Dosing Weight 51.364, kg, Start date: 12/19/14 13:23:00, Stop date: 12/19/14 13:23:00 [facility] Hydrochlorothiazide 12.5 MG Oral Capsule 2014-12-19 11:56:00 No 12.5 mg = 1 cap, PO, Daily, 0 Refill(s) [facility] [place] Saline Flush 0.9% 2014-12-19 02:00:00 No Notes: (Same as: BD Posiflush) [facility] Vancomycin 2014-12-18 22:00:00 No 2001 mg: infuse over 2.5 hours MEDICATION WASTE Product Size: 1000 mg Product Wasted: ___ mg [facility] Cefazolin 2014-12-18 22:00:00 No Notes: Saeed e as: [facility] Saline Flush 0.9% 2014-12-18 21:40:00 No Notes: (Same as: BD Posiflush) [facility] Sodium Chloride 0.9% (titrate) 250 mL 2014-12-18 21:40:00 N o 250 mL, Rate: metal forger's assistant for use with blood product administration, Dosing Weight 51.003, kg, Route: IV, Total Volume: 250, Start Date: 12/18/14 16:40:00, Duration: 30 day, Stop date: 01/17/15 16:39:00, Replace Every: 24 hr [facility] Metoprolol 2014-12-18 21:40:00 No Notes: (Same as: Lopressor) Push over 2 minutes [facility] tolterodine 4 mg oral capsule, extended release 2014-11-28 14:50 :00 Yes 4 mg = 1 cap, PO, Daily, 0 Refill(s) [facility] levothyroxine 75 mcg (0.075 mg) oral tablet 2014-11-28 14:50:00 Yes 75 microgram = 1 tab, PO, Daily, 0 Refill(s) [facility] Atenolol 50 MG Oral Tablet 2014-11-28 14:50:00 Yes 50 mg = 1 tab, PO, Daily, 0 Refill(s) [facility] simvastatin 40 mg oral tablet 2014-11-28 14:50:00 Yes 40 mg = 1 tab, PO, Bedtime, 0 Refill(s) [facility] nn 24 HR Glipizide 2.5 MG Extended Release Tablet 2014-11-28 14:50: 00 Yes 2.5 mg = 1 tab, PO, Daily, 0 Refill(s) [facility] Atenolol Atenolol Yes [address] [facility] [place] [place] Furosemide (Lasix) 40 Mg TABLET Furosemide (Lasix) 40 Mg TABLET Yes 40 Daily [facility] Glipizide (Glipizide Er) 5 Mg TAB.ER.24 Glipizide (Glipizide Er) 5 Mg TAB.ER.24 Yes 2.5 Daily [facility] Levothyroxine Sodium Levothyroxine Sodium Yes 75 Daily [facility] Potassium Chloride Potassium Chloride Yes 10 Da florian [facility] Simvastatin Simvastatin Yes 40 Today At 9:00PM [facility] Tolterodine Tartrate (Detrol La) 4 Mg CAP.ER.24H Tolte rodine Tartrate (Detrol La) 4 Mg CAP.ER.24H Yes 4 Daily [facility] Hydrochlorothiazide Hydrochlorothiazide 2020-02-22 00:00:00 No 25 Daily [facility] Albuterol Sulfate (Proventil Hfa) 6.7 Gm HFA.AER.AD Al buterol Sulfate (Proventil Hfa) 6.7 Gm HFA.AER.AD 2016-11-22 00:00:00 No Every 4 Hours as needed for Shortness Of Breath [facility] Vital Signs Vital Name Observation Time Observation Value Comments Source Body Temperature 2020-03-01 11:24:00 97.3 [degF] [facility] Heart Rate 2020-03-01 11:24:00 64 /min [facility] Respiratory rate 2020-03-01 11:24:00 16 /min [facility] BP Systolic 2020-03-01 11:24:00 147 mm[Hg] [facility] BP Diastolic 2020-03-01 11:24:00 55 mm[Hg] [facility] Oxygen saturation by Pulse oximetry 2020-03-01 11:24:00 98 /min [facility] Weight 2020-02-28 14:16:00 98 [lb_av] [facility] BMI (Body Mass Index) 2020-02-28 14:16:00 19.8 kg/m2 [facility] Body Temperature 2020-02-24 12:30:00 97.3 [degF] [facility] Heart Rate 2020-02-24 12:30:00 52 /min [facility] Respiratory rate 2020-02-24 12:30:00 20 /min [facility] BP Systolic 2020-02-24 12:30:00 124 mm[Hg] [facility] BP Diastolic 2020-02-24 12:30:00 44 mm[Hg] [facility] Oxygen saturation by Pulse oximetry 2020-02-24 12:30:00 100 /min [facility] Body Temperature 2020-02-23 11:39:00 97.9 [degF] [facility] Heart Rate 2020-02-23 11:39:00 56 /min [facility] Respiratory rate 2020-02-23 11:39:00 17 /min [facility] BP Systolic 2020-02-23 11:39:00 124 mm[Hg] [facility] BP Diastolic 2020-02-23 11:39:00 46 mm[Hg] [facility] Oxygen saturation by Pulse oximetry 2020-02-23 11:39:00 99 /min [facility] Weight 2020-02-21 20:15:00 90 [lb_av] [facility] BMI (Body Mass Index) 2020-02-21 20:15:00 18.2 kg/m2 [facility] Systolic blood pressure 2020-02-20 12:34:00 148 mm[Hg] [facility] Diastolic blood pressure 2020-02-20 12:34:00 65 mm[Hg] [facility] Heart rate 2020-02-20 12:34:00 78 /min [facility] Body temperature 2020-02-20 12:34:00 36.5 Fariha [facility] Respiratory rate 2020-02-20 12:34:00 18 /min [facility] Oxygen saturation in Arterial blood by Pulse oximetry 2019-04 12:34:00 97 /min [facility] r Body weight 2020-02-20 06:00:[address] [facility] BMI 2020-02-20 06:00:00 19.79 kg/m2 [facility] Body height 2020-02-16 14:00:[address] [facility] Height 2015-01-30 19:45:00 149.86 cm [facility] Systolic (mm Hg) 2015-01-30 19:45:00 [facility] [place] Diastolic (mm Hg) 2015-01-30 19:45:00 [facility] [place] [facility] Respitory Rate 2015-01-30 19:45:00 [facility] Temperature Oral (F) 2015-01-30 19:45:00 97.0 F [facility] Height 2015-01-23 18:51:00 149.86 cm [facility] BMI Calculated 2015-01-23 18:51:00 [facility] Weight 2015-01-23 18:51:00 [facility] Weight 2015-01-09 16:03:00 [facility] BMI Calculated 2015-01-09 16:03:00 [facility] Height 2015-01-09 16:03:00 149.86 cm [facility] Systolic (mm Hg) 2015-01-09 16:03:00 [facility] Diastolic (mm Hg) 2015-01-09 16:03:00 [facility] Heart Rate 2015-01-09 16:03:00 [facility] Temperature Oral (F) 2015-01-09 16:03:00 96.7 F [facility] Respitory Rate 2015-01-09 16:03:00 [facility] Weight 2015-01-09 15:02:00 [facility] BMI Calculated 2015-01-09 15:02:00 [facility] [place] Height 2015-01-09 15:02:00 149.86 cm [facility] Temperature Oral (F) 2015-01-09 15:02:00 96.7 F [facility] Heart Rate 2015-01-09 15:02:00 [facility] Respitory Rate 2015-01-09 15:02:00 [facility] [place] Systolic (mm Hg) 2015-01-09 15:02:00 [facility] Diastolic (mm Hg) 2015-01-09 15:02:00 [facility] [place] [facility] Systolic (mm Hg) 2014-12-29 17:00:00 [facility] [place] Diastolic (mm Hg) 2014-12-29 17:00:00 [facility] Respitory Rate 2014-12-29 17:00:00 [facility] [place] Respitory Rate 2014-12-29 16:00:00 [facility] [place] Systolic (mm Hg) 2014-12-29 16:00:00 [facility] Diastolic (mm Hg) 2014-12-29 16:00:00 [facility] [place] [facility] Respitory Rate 2014-12-29 14:00:00 [facility] [place] Systolic (mm Hg) 2014-12-29 14:00:00 [facility] [place] Diastolic (mm Hg) 2014-12-29 14:00:00 [facility] [place] [facility] Temperature Oral (F) 2014-12-29 09:05:00 97.6 F [facility] Temperature Oral (F) 2014-12-29 05:00:00 97.6 F [facility] Temperature Oral (F) 2014-12-29 00:00:00 97.4 F [facility] Weight 2014-12-22 14:40:00 [facility] Height 2014-12-19 11:48:00 149.86 cm [facility] BMI Calculated 2014-12-19 11:48:00 [facility] Weight 2014-12-19 11:48:00 [facility] Height 2014-12-06 19:11:00 145 cm [facility] BMI Calculated 2014-12-06 19:11:00 [facility] Weight 2014-12-06 19:11:00 [facility] Temperature Oral (F) 2014-12-06 19:11:00 96.3 F [facility] Heart Rate 2014-12-06 19:11:00 [facility] Systolic (mm Hg) 2014-12-06 19:11:00 [facility] Diastolic (mm Hg) 2014-12-06 19:11:00 [facility] [place] [facility] BMI Calculated 2014-11-29 12:31:00 [facility] [place] Weight 2014-11-29 12:31:00 [facility] Height 2014-11-29 12:31:00 149.86 cm [facility] Height 2014-11-28 14:48:00 149.86 cm [facility] BMI Calculated 2014-11-28 14:48:00 [facility] [place] Weight 2014-11-28 14:48:00 [facility] Systolic (mm Hg) 2014-11-28 14:48:00 [facility] Diastolic (mm Hg) 2014-11-28 14:48:00 [facility] Heart Rate 2014-11-28 14:48:00 [facility] Temperature Oral (F) 2014-11-28 14:48:00 97.1 F [facility] Procedures Procedure Date / Time Performed Performing Clinician [facility] e X-ray of chest, two views 2020-02-23 00:00:00 I [facility] Computed tomography of brain without radiopaque contrast 2020-02 00:00:00 [facility] BASIC METABOLIC PANEL (7) 2020-02-20 10:25:00 Alina Short i [facility] PHOSPHORUS 2020-02-20 10:25:00 Jim Short [facility] CBC W/PLT COUNT & AUTO DIFFERENTIAL 2020-02-20 04:50:00 Shou, Le [facility] (CELLAVISION MANUAL DIFF) 2020-02-20 04:50:00 Alma Rosa Jose [facility] POCT-GLUCOSE METER 2020-02-19 20:42:00 Deja [facility] POCT-GLUCOSE METER 2020-02-19 16:44:00 Deja [facility] POCT-GLUCOSE METER 2020-02-19 12:51:00 Deja [facility] BASIC METABOLIC PANEL (7) 2020-02-19 05:42:00 Alma Rosa [facility] CBC W/PLT COUNT & AUTO DIFFERENTIAL 2020-02-19 05:42:[address] [facility] (CELLAVISION MANUAL DIFF) 2020-02-19 05:42:00 Alma Rosa [facility] POCT-GLUCOSE METER 2020-02-18 20:42:00 Deja [facility] NM PARATHYROID SCAN WITH SPECT/CT 2020-02-18 15:46:00 Vinay Kumar [facility] POCT-GLUCOSE METER 2020-02-18 07:54:00 Deja [facility] BASIC METABOLIC PANEL (7) 2020-02-18 03:53:00 Alma Rosa [facility] CBC W/PLT COUNT & AUTO DIFFERENTIAL 2020-02-18 03:53:[address] [facility] (CELLAVISION MANUAL DIFF) 2020-02-18 03:53:00 Alma Rosa [facility] POCT-GLUCOSE METER 2020-02-17 21:30:00 Deja [facility] POCT-GLUCOSE METER 2020-02-17 16:09:00 Mimi Kumar [facility] XR PELVIS 1 OR 2 VIEWS 2020-02-17 12:54:[address] [facility] 2D ECHO W/ DOPPLER (CW/PW/COLOR) 2020-02-17 12:05:[address] [facility] POCT-GLUCOSE METER 2020-02-17 11:06:00 Mimi Kumar [facility] VITAMIN D, 25-HYDROXY 2020-02-17 08:19:[address] [facility] PTH, INTACT 2020-02-17 08:19:[address] [facility] PTH-RELATED PEPTIDE 2020-02-17 08:19:[address] [facility] TSH/FREE T4 IF INDICATED 2020-02-17 08:19:[address] [facility] CALCIUM, IONIZED 2020-02-17 08:19:[address] [facility] POCT-GLUCOSE METER 2020-02-17 07:14:00 [facility] BRAIN WITHOUT IV CONTRAST 2020-02-17 04:25:[address] [facility] BASIC METABOLIC PANEL (7) 2020-02-17 04:25:[address] [facility] MAGNESIUM 2020-02-17 04:25:[address] [facility] PHOSPHORUS 2020-02-17 04:25:[address] [facility] CBC W/PLT COUNT & AUTO DIFFERENTIAL 2020-02-17 04:25:[address] [facility] POCT-GLUCOSE METER 2020-02-16 22:20:00 Ashley Jack [facility] POCT-GLUCOSE METER 2020-02-16 17:33:00 Ashley Jack [facility] SARS-COV2/RT-PCR ([facility]) 2020-02-16 16:32:[address] Evan [facility] PROTHROMBIN TIME/INR 2020-02-16 16:32:00 Alma Rosa Jose [facility] APTT 2020-02-16 16:32:00 Alma Rosa Jose Gordon [facility] MAGNESIUM 2020-02-16 16:32:00 Alma Rosa Jose [facility] PHOSPHORUS 2020-02-16 16:32:00 Alma Rosa Jose [facility] BASIC METABOLIC PANEL (7) 2020-02-16 16:32:00 Alma Rosa [facility] HEPATIC FUNCTION PANEL 2020-02-16 16:32:00 Alma Rosa [facility] COVID19 ([facility]) 2020-02-16 16:32:00 Alma Rosa [facility] CBC W/PLT COUNT & AUTO DIFFERENTIAL 2020-02-16 16:32:[address] [facility] RPR S/N/AX/GEN/TRNK 2.5CM/< 2020-02-16 00:00:00 [facility] Computed tomography of brain without radiopaque contrast 2020-01 00:00:00 [facility] Computed tomography of cervical spine without contrast 2020-01-20 9 00:00:00 [facility] REPORT OF PROCEDURE - ENDOSCOPY SCAN 2020-02-16 00:00:00 Pro vider, Default Scanning [facility] Angioplasty<sup>1</sup> [facility] Hysterectomy<sup>2</sup> [facility] Procedure<sup>3</sup> [facility] Vagina operation<sup>4</sup> [facility] Plan of Care Planned Activity Planned Date Details Comments Source Future Scheduled Test 2020-02-17 00:00:00 Hemoglobin A1c mary surement (procedure) [code = 83505197] [facility] 2019-12-20 00:00:00 INFLUENZA VACCINE (#1) [code = INFLUENZA VACCINE (#1)] [facility] Future Scheduled Test 2015-07-21 00:00:00 MEDICARE ANNUAL WE LLNESS (YEAR 2 or FIRST YEAR if no IPPE) [code = MEDICARE ANNUAL WELLNESS (YEAR 2 or FIRST YEAR if no IPPE)] [facility] Future Scheduled Test 1959-08-11 00:00:00 DIABETIC EYE EXAM [code = DIABETIC EYE EXAM] [facility] Future Scheduled Test 1959-08-11 00:00:00 Diabetic foot exam ination (regime/therapy) [code = 946013152] [facility] Future Scheduled Test 1959-08-11 00:00:00 Urine screening fo r protein (procedure) [code = 379138221] [facility] Future Scheduled Test 1950 00:00:00 Screening for dale gnant neoplasm of breast (procedure) [code = 153058314] [facility] Future Scheduled Test 1950 00:00:00 Screening for dlae gnant neoplasm of colon (procedure) [code = 938940116] [facility] Instructions Diabetes and Diet [facility] Instructions Post Operative Pain [facility] Instructions Wound Care (General) [facility] Encounters Start Date/Time End Date/Time Encounter Type Admission Type Attendi [facility] Care Department Encounter ID Source 2020-02-28 11:41:00 2020-03-01 12:48:00 Discharged Inpatient (obs) [facility] [id number] [facility] 2020-02-23 11:54:00 2020-02-24 14:37:00 Discharged Inpatient [address] [facility] [id number] [facility] 2020-02-16 10:34:00 2020-02-16 14:12:00 Departed Emergency Room [address] [facility] [id number] [facility] 2019-07-07 12:36:00 2019-07-07 23:59:00 Outpatient Kae Zaidi [facility] [id number] 2019-07-07 12:36:00 2019-07-07 12:36:00 Outpatient [id number] 2015-03-20 13:55:00 2015-03-20 23:59:00 Outpatient Akkerlinei, Bind u [facility] [id number] 2015-03-20 12:10:00 2015-03-20 23:59:00 Outpatient Akarchienti, Bind u [facility] [id number] 2015-01-30 17:00:00 2015-01-30 23:59:00 Outpatient Akkerlinei, Bind u [facility] [id number] 2015-01-30 14:11:00 2015-01-30 23:59:00 Outpatient Erickai, Bind u [facility] [id number] 2015-01-23 12:51:00 2015-01-23 23:59:00 Outpatient Akarchienti, Bind u [facility] [id number] 2015-01-09 11:56:00 2015-01-09 23:59:00 Outpatient Gregoric, Dre Kwaku [facility] [id number] 2015-01-09 09:30:00 2015-01-09 23:59:00 Outpatient Gregoric, Dre Kwaku [facility] [id number] 2014-12-19 05:27:00 2014-12-29 15:30:00 Outpatient Gregoric, Dre Kwaku [facility] [id number] 2014-12-06 13:25:00 2014-12-06 23:59:00 Outpatient Gregoric, Dre Kwaku [facility] [id number] 2014-11-29 07:20:00 2014-11-29 23:59:00 Outpatient Kymka, Peyman [facility] [id number] 2014-11-28 09:33:00 2014-11-28 23:59:00 Outpatient Lodiannaka, Peyman [facility] [id number] Results Test Description Test Time Test Comments Results Result Comments Source CHEST SINGLE (PORTABLE) 2020-03-12 18:41:00 [facility] : 1950 Sex: F [place] [address] Patient Name: AXEL CHRISTOPHER MR #: [id number] : 1950 Age/Sex: 69/F Req #: [id number] Adm Physician: Ordered by: TROY SERRATO DO Report #: [id number] Location: ER Room/Bed: Procedure: [id number] DX/CHEST SINGLE (PORTABLE) Exam Date: 03/12/20 Exam Time: 1824 REPORT STATUS: Signed EXAMINATION: CHEST SINGLE (PORTABLE) COMPARISON: Chest x-ray 02/23/2020 INDICATION: Swollen legs Y sob 20200312 DISCUSSION: Frontal view of the chest obtained at 1826 hours. HEART AND MEDIASTINUM: Stable cardiomegaly and cardiac bypass changes LINES: None. LUNGS/PLEURA: Pulmonary vasculature is prominent and indistinct, similar to previous exam. The lungs are hyperinflated. Right middle lobe lobe and lingular subsegmental atelectasis has improved. No interstitial edema. Small bilateral pleural effusions or pleural thickening, stable. No pneumothorax. No confluent infiltrates. BONES AND SOFT TISSUES: Median sternotomy wires are intact. No focal osseous lesions. The soft tissues are normal. IMPRESSION: 1. Cardiomegaly and pulmonary vascular congestion, either acute or chronic. No radiographic evidence of CHF. 2. Pulmonary hyperinflation and stable small pleural effusions or pleural thickening. Signed by: Dr. Kindra Lipscomb MD on 03/12/2020 6:44 PM Dictated By: KINDRA LIPSCOMB MD 43 Transcribed By: MARIAH on 03/12/201843 COPY TO: TROY SERRATO DO Serum or plasma sodium measurement (moles/volume) 2020-03-01 10:10:00 Test Item Sodium Level (test code = 2951-2) 138 mmol/L 136-145 [facility] (moles/volume)2020-03-01 10:10:00* Test Item Value Reference Range Interpretation Comments Potassium Level (test code = 2823-3) 4.0 mmol/L 3.5-5.1 [facility] chloride measurement (moles/volume)2020-03-01 10:10:00* Test Item Value Reference Range Interpretation Comments Chloride Level (test code = 2075-0) 109 mmol/L 98-107 [facility] plasma carbon dioxide, total measurement (moles/volume)2020-03-01 10:10:00* Test Item Value Reference Range Interpretation Comments Carbon Dioxide Level (test code = 2028-9) 21 mmol/L 22-29 [facility] plasma anion [id number] 10:10:00* Test Item Value Reference Range Interpretation Comments Anion Gap (test code = 75641-9) 12.0 mmol/L 8-16 [facility] plasma urea nitrogen measurement (mass/volume)2020-03-01 10:10:00* Test Item Value Reference Range Interpretation Comments Blood Urea Nitrogen (test code = 3094-0) 14 mg/dL 7-26 [facility] creatinine measurement (mass/volume)2020-03-01 10:10:00* Test Item Value Reference Range Interpretation Comments Creatinine (test code = 2160-0) 0.73 mg/dL 0.57-1.11 [facility] plasma urea nitrogen/creatinine mass [id number] 10:10:00* Test Item Value Reference Range Interpretation Comments BUN/Creatinine Ratio (test code = 3097-3) 19 6-25 [facility] Center[facility] glomerular filtration rate (GFR) [id number] 10:10:00* Test Item Value Reference Range Interpretation Comments Estimat Glomerular Filtration Rate (test code = 507540103) > 60 mL/ min >60 Ranges were taken from the National Kidney Disease Education Program and the [facility] Kidney Foundation literature.Reference ranges:60 or greater: [id number] ( for 3 consecutive months): Chronic kidney disease 15 or less: Kidney failureB[facility] Scott & [facility] Children's Medical CenterGlucose [id number] 10:10:00* Test Item Value Reference Range Interpretation Comments Glucose Level (test code = XZJ6954) 129 mg/dL 74-118 [facility] plasma calcium measurement (mass/volume)2020-03-01 10:10:00* Test Item Value Reference Range Interpretation Comments Calcium Level (test code = 20562-2) 8.1 mg/dL 8.4-10.2 [facility] plasma total bilirubin measurement (mass/volume)2020-03-01 10:10:00* Test Item Value Reference Range Interpretation Comments Total Bilirubin (test code = 1975-2) 0.5 mg/dL 0.2-1.2 [facility] CenterFluoroscopic procedure less than one hour [id number] 10:10:00* Test Item Value Reference Range Interpretation Comments Aspartate Amino Transf (AST/SGOT) (test code = Aspartate Amino Transf (AST/SGOT)) 16 [IU]/L 5-34 [facility] or plasma alanine aminotransferase measurement (enzymatic activity/volume)2020-03-01 10:10:00* Test Item Value Reference Range Interpretation Comments Alanine Aminotransferase (ALT/SGPT) (test code = 1742-6) 13 [IU]/L 0-55 [facility] or plasma protein measurement (mass/volume)2020-03-01 10:10:00* Test Item Value Reference Range Interpretation Comments Total Protein (test code = 2885-2) 5.9 g/dL 6.5-8.1 [facility] plasma albumin measurement (mass/volume)2020-03-01 10:10:00* Test Item Value Reference Range Interpretation Comments Albumin (test code = 1751-7) 2.9 g/dL 3.5-5.0 [facility] CenterPlasma globulin measurement (mass/volume) 2020-03-01 10:10:00* Test Item Value Reference Range Interpretation Comments Globulin (test code = 51689-8) 3.0 g/dL 2.3-3.5 [facility] or plasma albumin/globulin mass [id number] 10:10:00* Test Item Value Reference Range Interpretation Comments Albumin/Globulin Ratio (test code = 1759-0) 1.0 0.8-2.0 [facility] plasma alkaline phosphatase measurement (enzymatic activity/volume)2020-03-01 10:10:00* Test Item Value Reference Range Interpretation Comments Alkaline Phosphatase (test code = 6768-6) 170 [IU]/L 40-150 [facility] CenterBlood leukocytes automated count (number/volume)2020-03-01 10:00:00* Test Item Value Reference Range Interpretation Comments White Blood Count (test code = 6690-2) 2.69 10*3/uL 4.8-10.8 [facility] CenterBlood erythrocytes automated count (number/volume)2020-03-01 10:00:00* Test Item Value Reference Range Interpretation Comments Red Blood Count (test code = 789-8) 2.57 10*6/mL 3.6-5.1 [facility] CenterBlood hemoglobin measurement (moles/volume)2020-03-01 10:00:00* Test Item Value Reference Range Interpretation Comments Hemoglobin (test code = 22294-8) 7.9 g/dL 12.0-16.0 [facility] CenterAutomated blood hematocrit (volume fraction)2020-03-01 10:00:00* Test Item Value Reference Range Interpretation Comments Hematocrit (test code = 4544-3) 25.5 % 34.2-44.1 [facility] CenterAutomated erythrocyte mean corpuscular ntyret1475-75-19 10:00:00* Test Item Value Reference Range Interpretation Comments Mean Corpuscular Volume (test code = 787-2) 99.2 81-99 [facility] CenterAutomated erythrocyte mean corpuscular hemoglobin (mass per erythrocyte)2020-03-01 10:00:00* Test Item Value Reference Range Interpretation Comments Mean Corpuscular Hemoglobin (test code = 785-6) 30.7 pg 28-32 [facility] CenterAut[facility] mean corpuscular hemoglobin concentration measurement (mass/volume)2020-03-01 10:00:00* Test Item Value Reference Range Interpretation Comments Mean Corpuscular Hemoglobin Concent (test code = 786-4) 31.0 g/dL 31-35 [facility] CenterRDW NdnAx-Uee3011-77-12 10:00:00* Test Item Value Reference Range Interpretation Comments Red Cell Distribution Width (test code = 92542-8) 17.2 % 11.7 -14.4 [facility] CenterAutat[facility] blood platelet count (count/volume)2020-03-01 10:00:00* Test Item Value Reference Range Interpretation Comments Platelet Count (test code = 777-3) 94 10*3/uL 140-360 [facility] CenterAutomated blood segmented neutrophil count as percentage of total hcfxroojuo7015-66-78 10:00:00* Test Item Value Reference Range Interpretation Comments Neutrophils (%) (Auto) (test code = 49189-2) 68.0 % 38.7-80.0 [facility] CenterAutat[facility] blood lymphocyte count as percentage ot total yzpgbnoumg0194-33-34 10:00:00* Test Item Value Reference Range Interpretation Comments Lymphocytes (%) (Auto) (test code = 736-9) 23.4 % 18.0-39.1 [facility] CenterAutomated blood monocyte count as percentage of total skwzyikcbu4935-89-03 10:00:00* Test Item Value Reference Range Interpretation Comments Monocytes (%) (Auto) (test code = 5905-5) 4.8 % 4.4-11.3 [facility] CenterAutomated blood eosinophil count as percentage of total zxcwjscdul1604-91-18 10:00:00* Test Item Value Reference Range Interpretation Comments Eosinophils (%) (Auto) (test code = 713-8) 0.4 % 0.0-6.0 [facility] CenterAutomated blood basophil count as percentage of total etxkkazzwf5104-83-94 10:00:00* Test Item Value Reference Range Interpretation Comments Basophils (%) (Auto) (test code = 706-2) 0.4 % 0.0-1.0 [facility] CenterFluoroscopic procedure less than one hour gzztxuhd0900-94-22 10:00:00* Test Item Value Reference Range Interpretation Comments IM GRANULOCYTES % (test code = IM GRANULOCYTES %) 3.0 % 0.0- 1.0 [facility] CenterAutomated blood neutrophil count 2020-03-01 10:00:00* Test Item Value Reference Range Interpretation Comments Neutrophils # (Auto) (test code = 751-8) 1.8 2.1-6.9 [facility] CenterBlood lymphocytes count (number/volume) 2020-03-01 10:00:00* Test Item Value Reference Range Interpretation Comments Lymphocytes # (Auto) (test code = 53666-8) 0.6 1.0-3.2 [facility] CenterBlood monocytes automated count (number/volume)2020-03-01 10:00:00* Test Item Value Reference Range Interpretation Comments Monocytes # (Auto) (test code = 742-7) 0.1 0.2-0.8 [facility] CenterAutomated blood eosinophil count 2020-03-01 10:00:00* Test Item Value Reference Range Interpretation Comments Eosinophils # (Auto) (test code = 711-2) 0.0 0.0-0.4 [facility] CenterAutomated blood basophil count (count/volume)2020-03-01 10:00:00* Test Item Value Reference Range Interpretation Comments Basophils # (Auto) (test code = 704-7) 0.0 0.0-0.1 [facility] CenterFluoroscopic procedure less than one hour vizwrjmq0352-22-48 10:00:00* Test Item Value Reference Range Interpretation Comments Absolute Immature Granulocyte (auto (azeem t code = Absolute Immature Granulocyte (auto) 0.08 10*3/uL 0-0.1 [facility] CenterVenous blood ionized calcium measurement (mass/volume)2020-02-29 14:17:00* Test Item Value Reference Range Interpretation Comments Ionized Calcium (test code = 50693-8) 1.2 mmol/L 1.09-1.30 [facility] CenterFluoroscopic procedure less than one hour cpidzazt6144-64-11 09:45:00* Test Item Value Reference Range Interpretation [...] collected from individuals suspected of COVID-19 by eir healthcare provider. This test has not been [...] revoked under 564(g) of the ACT.[facility] CenterBlood leukocytes automated count (number/volume) 2020-02-24 05:56:00* Test Item Value Reference Range Interpretation Comments White Blood Count (test code = 6690-2) 3.23 10*3/uL 4.8-10.8 [facility] CenterBlood erythrocytes automated count (number/volume)2020-02-24 05:56:00* Test Item Value Reference Range Interpretation Comments Red Blood Count (test code = 789-8) 2.47 10*6/mL 3.6-5.1 [facility] CenterBlood hemoglobin measurement (moles/volume)2020-02-24 05:56:00* Test Item Value Reference Range Interpretation Comments Hemoglobin (test code = 36801-3) 7.5 g/dL 12.0-16.0 [facility] CenterAutomated blood hematocrit (volume fraction)2020-02-24 05:56:00* Test Item Value Reference Range Interpretation Comments Hematocrit (test code = 4544-3) 24.1 % 34.2-44.1 [facility] CenterAutomated erythrocyte mean corpuscular gqzvrv8259-39-03 05:56:00* Test Item Value Reference Range Interpretation Comments Mean Corpuscular Volume (test code = 787-2) 97.6 81-99 [facility] CenterAutomated erythrocyte mean corpuscular hemoglobin (mass per erythrocyte)2020-02-24 05:56:00* Test Item Value Reference Range Interpretation Comments Mean Corpuscular Hemoglobin (test code = 785-6) 30.4 pg 28-32 [facility] CenterAutomated erythrocyte mean corpuscular hemoglobin concentration measurement (mass/volume)2020-02-24 05:56:00* Test Item Value Reference Range Interpretation Comments Mean Corpuscular Hemoglobin Concent (test code = 786-4) 31.1 g/dL 31-35 [facility] CenterRDW YrcCh-Ajb3939-97-06 05:56:00* Test Item Value Reference Range Interpretation Comments Red Cell Distribution Width (test code = 89887-1) 16.0 % 11.7 -14.4 [facility] CenterAutomated blood platelet count (count/volume)2020-02-24 05:56:00* Test Item Value Reference Range Interpretation Comments Platelet Count (test code = 777-3) 52 10*3/uL 140-360 [facility] CenterAutomated blood segmented neutrophil count as percentage of total veutadjwoh9874-18-93 05:56:00* Test Item Value Reference Range Interpretation Comments Neutrophils (%) (Auto) (test code = 12997-1) 65.1 % 38.7-80.0 [facility] CenterAutomated blood lymphocyte count as percentage ot total isyyhzniwi1778-72-12 05:56:00* Test Item Value Reference Range Interpretation Comments Lymphocytes (%) (Auto) (test code = 736-9) 20.4 % 18.0-39.1 [facility] CenterAutomated blood monocyte count as percentage of total iiebrgnaxw5652-94-28 05:56:00* Test Item Value Reference Range Interpretation Comments Monocytes (%) (Auto) (test code = 5905-5) 6.2 % 4.4-11.3 [facility] CenterAutomated blood eosinophil count as percentage of total uszhqkuxab6358-76-19 05:56:00* Test Item Value Reference Range Interpretation Comments Eosinophils (%) (Auto) (test code = 713-8) 0.9 % 0.0-6.0 [facility] CenterAutomated blood basophil count as percentage of total onfhfakohx0752-63-01 05:56:00* Test Item Value Reference Range Interpretation Comments Basophils (%) (Auto) (test code = 706-2) 0.6 % 0.0-1.0 [facility] CenterFluoroscopic procedure less than one hour jbsecsup8806-02-01 05:56:00* Test Item Value Reference Range Interpretation Comments IM GRANULOCYTES % (test code = IM GRANULOCYTES %) 6.8 % 0.0- 1.0 [facility] CenterAutomated blood neutrophil count 2020-02-24 05:56:00* Test Item Value Reference Range Interpretation Comments Neutrophils # (Auto) (test code = 751-8) 2.1 2.1-6.9 [facility] CenterBlood lymphocytes count (number/volume) 2020-02-24 05:56:00* Test Item Value Reference Range Interpretation Comments Lymphocytes # (Auto) (test code = 04045-3) 0.7 1.0-3.2 [facility] CenterBlood monocytes automated count (number/volume)2020-02-24 05:56:00* Test Item Value Reference Range Interpretation Comments Monocytes # (Auto) (test code = 742-7) 0.2 0.2-0.8 [facility] CenterAutomated blood eosinophil count 2020-02-24 05:56:00* Test Item Value Reference Range Interpretation Comments Eosinophils # (Auto) (test code = 711-2) 0.0 0.0-0.4 [facility] CenterAutomated blood basophil count (count/volume)2020-02-24 05:56:00* Test Item Value Reference Range Interpretation Comments Basophils # (Auto) (test code = 704-7) 0.0 0.0-0.1 [facility] CenterFluoroscopic procedure less than one hour eokgilux9283-91-43 05:56:00* Test Item Value Reference Range Interpretation Comments Absolute Immature Granulocyte (auto (azeem t code = Absolute Immature Granulocyte (auto) 0.22 10*3/uL 0-0.1 [facility]er[facility] plasma sodium measurement (moles/volume)2020-02-24 05:56:00* Test Item Value Reference Range Interpretation Comments Sodium Level (test code = 2951-2) 134 mmol/L 136-145 [facility] Hospitalerum or plasma potassium measurement (moles/volume)2020-02-24 05:56:00* Test Item Value Reference Range Interpretation Comments Potassium Level (test code = 2823-3) 3.6 mmol/L 3.5-5.1 [facility] Hospitalerum or plasma chloride measurement (moles/volume)2020-02-24 05:56:00* Test Item Value Reference Range Interpretation Comments Chloride Level (test code = 2075-0) 108 mmol/L 98-107 [facility] Hospitalerum or plasma carbon dioxide, total measurement (moles/volume)2020-02-24 05:56:00* Test Item Value Reference Range Interpretation Comments Carbon Dioxide Level (test code = 2028-9) 21 mmol/L 22-29 [facility] Hospitalerum or plasma anion qaj7677-10-93 05:56:00* Test Item Value Reference Range Interpretation Comments Anion Gap (test code = 49535-2) 8.6 mmol/L 8-16 [facility] Hospitalerum or plasma urea nitrogen measurement (mass/volume)2020-02-24 05:56:00* Test Item Value Reference Range Interpretation Comments Blood Urea Nitrogen (test code = 3094-0) 12 mg/dL 7- [facility] Hospitalerum or plasma creatinine measurement (mass/volume)2020-02-24 05:56:00* Test Item Value Reference Range Interpretation Comments Creatinine (test code = 2160-0) 0.63 mg/dL 0.57-1.11 [facility] Hospitalerum or plasma urea nitrogen/creatinine mass xobny6864-69-27 05:56:00* Test Item Value Reference Range Interpretation Comments BUN/Creatinine Ratio (test code = 3097-3) 19 6-25 [facility] CenterEstimated glomerular filtration rate (GFR) wohgsxupwykjn8858-57-39 05:56:00* Test Item Value Reference Range Interpretation Comments Estimat Glomerular Filtration Rate (test code = 833662033) > 60 mL/ min >60 Ranges were taken from the National Kidney Disease Education Program and the Day formerly [facility], 1928[facility]1983al Kidney Foundation literature.Reference ranges:60 or greater: Nkzgdn96-17 ( for 3 consecutive months): Chronic kidney disease 15 or less: Kidney failureBaylor Scott & White McLane Children's Medical CenterGlucose rtedotivute3497-35-65 05:56:00* Test Item Value Reference Range Interpretation Comments Glucose Level (test code = ETL4435) 94 mg/dL 74-118 [facility] Hospitalerum or plasma calcium measurement (mass/volume)2020-02-24 05:56:00* Test Item Value Reference Range Interpretation Comments Calcium Level (test code = 52292-9) 8.9 mg/dL 8.4-10.2 [facility] CenterCHEST 2 [id number] 22:06:00 [facility] : 1950 Sex: F [facility] [address] [place] [address] Patient Name: AXEL CHRISTOPHER MR #: [id number] : 1950 Age/Sex: 69/F Req #: [id number] Adm Physician: MADDI DEY MD Or tamiko by: MADDI DEY MD Report #: [id number] Location: [facility] Room/Bed: [facility] __ Procedure: [id number] DX/CHEST 2 VIEWS Exam Date: 02/23/20 Exam [...] COPY TO : MADDI DEY MD PTH-related ahvpwhm4939-05-91 21:17:00* Test Item Value Reference Range Interpretation Comments PTH-Related Protein (test code = 8852075) 8 pg/mL 14-27 L This is a C-terminal PTH-RP assay. PTH-RP is useful in the differentialdiagnosis of hypercalcemia and levels may be elevated in patients withtumor-associated hypercalcemia. Elevated results may also be observed inpatients with renal disease. This test was developed and its analytical performance characteristics havebeen determined by [facility].It has not been cleared or approved by FDA. This assay has been validatedpursuant to the CLIA regulations and is used for clinical purposes. BEN (test code = BEN) Performing Lab [facility] [address] [place] [address] Toro Soto MD, PhD, JAMIL Lab Interpretation (test code = 76072-1) Abnormal [facility] HospitalCap[facility] blood glucose measurement by glucometer (mass/volume)2020-02-23 20:54:00* Test Item Value Reference Range Interpretation Comments Bedside Glucose (test code = 04220-4) 113 mg/dL 70-120 Meter ID: [id number] Spohn Hospital Beevilleillary blood glucose measurement by glucometer (mass/volume)2020-02-23 20:54:00* Test Item Value Reference Range Interpretation Comments Bedside Glucose (test code = 14282-2) 113 mg/dL 70-120 Meter ID: [id number] Scott & White McLane Children's Medical CenterVenous blood ionized calcium measurement (mass/volume)2020-02-23 14:15:00* Test Item Value Reference Range Interpretation Comments Ionized Calcium (test code = 96227-0) 1.3 mmol/L 1.09-1.30 [facility] Hospitalerum or plasma intact pararthyroid hormone measurement (mass/volume)2020-02-23 14:15:00* Test Item Value Reference Range Interpretation Comments Parathyroid Hormone (Intact) (test code = 2731-8) 77 pg/mL 15-6 5 Performed at: [facility] [address] [id number] Director: Akhil Merlos MD, Phone: [phone] Orthopedic Hospitalerum or plasma intact pararthyroid hormone measurement (mass/volume) 2020-02-23 14:15:00* Test Item Value Reference Range Interpretation Comments Parathyroid Hormone (Intact) (test code = 2731-8) 77 pg/mL 15-6 5 Performed at: [email or web address] [address] [id number] Director: Akhil Merlos MD, Phone: [phone] Scott & White McLane Children's Medical CenterCapillary blood glucose measurement by glucometer (mass/volume)2020-02-23 10:57:00* Test Item Value Reference Range Interpretation Comments Bedside Glucose (test code = 67184-0) 123 mg/dL 70-120 Meter ID: [id number] Orthopedic Hospitalerum or plasma sodium measurement (moles/volume)2020-02-23 05:04:00* Test Item Value Reference Range Interpretation Comments Sodium Level (test code = 2951-2) 135 mmol/L 136-145 [facility] Hospitalerum or plasma potassium measurement (moles/volume)2020-02-23 05:04:00* Test Item Value Reference Range Interpretation Comments Potassium Level (test code = 2823-3) 4.1 mmol/L 3.5-5.1 [facility] Hospitalerum or plasma chloride measurement (moles/volume)2020-02-23 05:04:00* Test Item Value Reference Range Interpretation Comments Chloride Level (test code = 2075-0) 107 mmol/L 98-107 [facility] Hospitalerum or plasma carbon dioxide, total measurement (moles/volume)2020-02-23 05:04:00* Test Item Value Reference Range Interpretation Comments Carbon Dioxide Level (test code = 2028-9) 23 mmol/L 22-29 [facility] Hospitalerum or plasma anion krz3998-09-15 05:04:00* Test Item Value Reference Range Interpretation Comments Anion Gap (test code = 57862-0) 9.1 mmol/L 8-16 [facility] Hospitalerum or plasma urea nitrogen measurement (mass/volume)2020-02-23 05:04:00* Test Item Value Reference Range Interpretation Comments Blood Urea Nitrogen (test code = 3094-0) 8 mg/dL 7-26 [facility] Hospitalerum or plasma creatinine measurement (mass/volume)2020-02-23 05:04:00* Test Item Value Reference Range Interpretation Comments Creatinine (test code = 2160-0) 0.63 mg/dL 0.57-1.11 [facility] Hospitalerum or plasma urea nitrogen/creatinine mass ktbki5919-97-27 05:04:00* Test Item Value Reference Range Interpretation Comments BUN/Creatinine Ratio (test code = 3097-3) 13 6-25 [facility] CenterEstimated glomerular filtration rate (GFR) sjjlralzuxaqx5217-34-85 05:04:00* Test Item Value Reference Range Interpretation Comments Estimat Glomerular Filtration Rate (test code = 561417835) > 60 mL/ min >60 Ranges were taken from the National Kidney Disease Education Program and the Day formerly [facility] Kidney Foundation literature.Reference ranges:60 or greater: Osyjbw61-67 ( for 3 consecutive months): Chronic kidney disease 15 or less: Kidney failureBaylor Scott & White McLane Children's Medical CenterGlucose hojswahdvjn5209-20-75 05:04:00* Test Item Value Reference Range Interpretation Comments Glucose Level (test code = SEE9990) 104 mg/dL 74-118 [facility] Hospitalerum or plasma calcium measurement (mass/volume)2020-02-23 05:04:00* Test Item Value Reference Range Interpretation Comments Calcium Level (test code = 67787-9) 8.9 mg/dL 8.4-10.2 [facility] CenterVenous blood ionized calcium measurement (mass/volume)2020-02-22 14:34:00* Test Item Value Reference Range Interpretation Comments Ionized Calcium (test code = 46548-7) 1.4 mmol/L 1.09-1.30 [facility] CenterFluoroscopic procedure less than one hour ecsermbz8847-65-65 14:34:00* Test Item Value Reference Range Interpretation Comments Hemoglobin A1c Percent (test code = Hemoglobin A1c Percent) 6.0 % 4.0-7.0 [facility] Hospitalerum or plasma thyroxine (T4) free measurement (mass/volume)2020-02-22 14:34:00* Test Item Value Reference Range Interpretation Comments Free Thyroxine (test code = 3024-7) 0.98 ng/dL 0.8-1.8 [facility] Hospitalerum or plasma thyrotropin measurement by detection limit <= 0.005 miu/l (units/volume)2020-02-22 14:34:00* Test Item Value Reference Range Interpretation Comments Thyroid Stimulating Hormone (TSH) (test code = 40436-9) 1.100 0.350-4.940 [facility] CenterFluoroscopic procedure less than one hour zxclttrt9867-58-73 14:34:00* Test Item Value Reference Range Interpretation Comments Hemoglobin A1c Percent (test code = Hemoglobin A1c Percent) 6.0 % 4.0-7.0 [facility] Hospitalerum or plasma thyroxine (T4) free measurement (mass/volume)2020-02-22 14:34:00* Test Item Value Reference Range Interpretation Comments Free Thyroxine (test code = 3024-7) 0.98 ng/dL 0.8-1.8 [facility] Hospitalerum or plasma thyrotropin measurement by detection limit <= 0.005 miu/l (units/volume)2020-02-22 14:34:00* Test Item Value Reference Range Interpretation Comments Thyroid Stimulating Hormone (TSH) (test code = 91253-9) 1.100 0.350-4.940 [facility] CenterFluoroscopic procedure less than one hour bajqwqbf4152-91-13 14:34:00* Test Item Value Reference Range Interpretation Comments Hemoglobin A1c Percent (test code = Hemoglobin A1c Percent) 6.0 % 4.0-7.0 [facility] Hospitalerum or plasma thyroxine (T4) free measurement (mass/volume)2020-02-22 14:34:00* Test Item Value Reference Range Interpretation Comments Free Thyroxine (test code = 3024-7) 0.98 ng/dL 0.8-1.8 [facility] Hospitalerum or plasma thyrotropin measurement by detection limit <= 0.005 miu/l (units/volume)2020-02-22 14:34:00* Test Item Value Reference Range Interpretation Comments Thyroid Stimulating Hormone (TSH) (test code = 86233-1) 1.100 0.350-4.940 [facility] CenterBlood leukocytes automated count (number/volume)2020-02-22 05:09:00* Test Item Value Reference Range Interpretation Comments White Blood Count (test code = 6690-2) 4.00 10*3/uL 4.8-10.8 [facility] CenterBlood erythrocytes automated count (number/volume)2020-02-22 05:09:00* Test Item Value Reference Range Interpretation Comments Red Blood Count (test code = 789-8) 2.40 10*6/mL 3.6-5.1 [facility] CenterBlood hemoglobin measurement (moles/volume)2020-02-22 05:09:00* Test Item Value Reference Range Interpretation Comments Hemoglobin (test code = 01831-1) 7.3 g/dL 12.0-16.0 [facility] CenterAutomated blood hematocrit (volume fraction)2020-02-22 05:09:00* Test Item Value Reference Range Interpretation Comments Hematocrit (test code = 4544-3) 22.8 % 34.2-44.1 [facility] CenterAutomated erythrocyte mean corpuscular pajpno3236-77-90 05:09:00* Test Item Value Reference Range Interpretation Comments Mean Corpuscular Volume (test code = 787-2) 95.0 81-99 [facility] CenterAutomated erythrocyte mean corpuscular hemoglobin (mass per erythrocyte)2020-02-22 05:09:00* Test Item Value Reference Range Interpretation Comments Mean Corpuscular Hemoglobin (test code = 785-6) 30.4 pg 28-32 [facility] CenterAutomated erythrocyte mean corpuscular hemoglobin concentration measurement (mass/volume)2020-02-22 05:09:00* Test Item Value Reference Range Interpretation Comments Mean Corpuscular Hemoglobin Concent (test code = 786-4) 32.0 g/dL 31-35 [facility] CenterRDW SmbAd-Ver5079-52-04 05:09:00* Test Item Value Reference Range Interpretation Comments Red Cell Distribution Width (test code = 12270-0) 15.2 % 11.7 -14.4 [facility] CenterAutomated blood platelet count (count/volume)2020-02-22 05:09:00* Test Item Value Reference Range Interpretation Comments Platelet Count (test code = 777-3) 58 10*3/uL 140-360 [facility] CenterAutomated blood segmented neutrophil count as percentage of total qaxhjydczt2685-72-83 05:09:00* Test Item Value Reference Range Interpretation Comments Neutrophils (%) (Auto) (test code = 86888-4) 70.0 % 38.7-80.0 [facility] CenterAutatrium [facility] centered blood lymphocyte count as percentage ot total mfsxnbwoae6840-42-05 05:09:00* Test Item Value Reference Range Interpretation Comments Lymphocytes (%) (Auto) (test code = 736-9) 16.3 % 18.0-39.1 [facility] CenterAutomated blood monocyte count as percentage of total tdhvknkvpg9388-17-01 05:09:00* Test Item Value Reference Range Interpretation Comments Monocytes (%) (Auto) (test code = 5905-5) 4.8 % 4.4-11.3 [facility] CenterAutomated blood eosinophil count as percentage of total nogqvaymsh0987-74-66 05:09:00* Test Item Value Reference Range Interpretation Comments Eosinophils (%) (Auto) (test code = 713-8) 0.8 % 0.0-6.0 [facility] CenterAutomated blood basophil count as percentage of total enakvmffds2192-03-09 05:09:00* Test Item Value Reference Range Interpretation Comments Basophils (%) (Auto) (test code = 706-2) 0.3 % 0.0-1.0 [facility] CenterFluoroscopic procedure less than one hour klkuerng1114-30-51 05:09:00* Test Item Value Reference Range Interpretation Comments IM GRANULOCYTES % (test code = IM GRANULOCYTES %) 7.8 % 0.0- 1.0 [facility] CenterAutomated blood neutrophil count 2020-02-22 05:09:00* Test Item Value Reference Range Interpretation Comments Neutrophils # (Auto) (test code = 751-8) 2.8 2.1-6.9 [facility] CenterBlood lymphocytes count (number/volume) 2020-02-22 05:09:00* Test Item Value Reference Range Interpretation Comments Lymphocytes # (Auto) (test code = 27544-8) 0.7 1.0-3.2 [facility] CenterBlst[facility] monocytes automated count (number/volume)2020-02-22 05:09:00* Test Item Value Reference Range Interpretation Comments Monocytes # (Auto) (test code = 742-7) 0.2 0.2-0.8 [facility] CenterAutomated blood eosinophil count 2020-02-22 05:09:00* Test Item Value Reference Range Interpretation Comments Eosinophils # (Auto) (test code = 711-2) 0.0 0.0-0.4 [facility] CenterAutomated blood basophil count (count/volume)2020-02-22 05:09:00* Test Item Value Reference Range Interpretation Comments Basophils # (Auto) (test code = 704-7) 0.0 0.0-0.1 [facility] CenterFluoroscopic procedure less than one hour tjkvnglj7090-02-10 05:09:00* Test Item Value Reference Range Interpretation Comments Absolute Immature Granulocyte (auto (azeem t code = Absolute Immature Granulocyte (auto) 0.31 10*3/uL 0-0.1 [facility] CenterFluoroscopic procedure less than one hour abzperyv2212-32-21 05:09:00* Test Item Value Reference Range Interpretation Comments Differential Total Cells Counted (test code = Bryce tial Total Cells Counted) 100 [facility] CenterManual blood neutrophils/100 leukocytes 2020-02-22 05:09:00* Test Item Value Reference Range Interpretation Comments Neutrophils % (Manual) (test code = 87820-5) 75 % 40-74 [facility] blood band neutrophils form/100 gqqxflaaav2606-74-80 05:09:00* Test Item Value Reference Range Interpretation Comments Band Neutrophils % (test code = 764-1) 5 % [facility] Center[facility] lymphocytes/100 leukocytes 2020-02-22 05:09:00* Test Item Value Reference Range Interpretation Comments Lymphocytes % (Manual) (test code = 737-7) 19 % 19-48 [facility] blood metamyelocytes/100 baupcxbbzn1480-95-44 05:09:00* Test Item Value Reference Range Interpretation Comments Metamyelocytes % (test code = 740-1) 1 % 0-0 [facility] CenterBlood platelets count by estimate (number/volume)2020-02-22 05:09:00* Test Item Value Reference Range Interpretation Comments Platelet Estimate (test code = 10427-6) MODERATELY DECREASED [facility] CenterPlatelet xjveclbbqi0017-64-27 05:09:00* Test Item Value Reference Range Interpretation Comments Platelet Morphology Comment (test code = 69802-5) FEW LARGE [facility] CenterBlood anisocytosis detection by light oklrnegtmb5510-05-69 05:09:00* Test Item Value Reference Range Interpretation Comments Anisocytosis (test code = 702-1) FEW [facility] CenterBlood macrocytes detection by light odghwphqer7018-21-44 05:09:00* Test Item Value Reference Range Interpretation Comments Macrocytosis (test code = 738-5) FEW [facility] CenterRBC tenvtxxunb0568-63-35 05:09:00* Test Item Value Reference Range Interpretation Comments Red Cell Morphology Comment (test code = 6742-1) [facility]NORMAL [facility] total bilirubin measurement (mass/volume)2020-02-22 05:09:00* Test Item Value Reference Range Interpretation Comments Total Bilirubin (test code = 1975-2) 0.8 mg/dL 0.2-1.2 [facility] CenterFluoroscopic procedure less than one hour tjzoosqr7755-68-72 05:09:00* Test Item Value Reference Range Interpretation Comments Aspartate Amino Transf (AST/SGOT) (test code = Aspartate Amino Transf (AST/SGOT)) 19 [IU]/L 5-34 [facility] Hospitalerum or plasma alanine aminotransferase measurement (enzymatic activity/volume)2020-02-22 05:09:00* Test Item Value Reference Range Interpretation Comments Alanine Aminotransferase (ALT/SGPT) (test code = 1742-6) 17 [IU]/L 0-55 [facility] Hospitalerum or plasma protein measurement (mass/volume)2020-02-22 05:09:00* Test Item Value Reference Range Interpretation Comments Total Protein (test code = 2885-2) 5.4 g/dL 6.5-8.1 [facility] Hospitalerum or plasma albumin measurement (mass/volume)2020-02-22 05:09:00* Test Item Value Reference Range Interpretation Comments Albumin (test code = 1751-7) 2.5 g/dL 3.5-5.0 [facility] CenterPlasma globulin measurement (mass/volume) 2020-02-22 05:09:00* Test Item Value Reference Range Interpretation Comments Globulin (test code = 76108-3) 2.9 g/dL 2.3-3.5 [facility] Hospitalerum or plasma albumin/globulin mass qbaix4027-28-00 05:09:00* Test Item Value Reference Range Interpretation Comments Albumin/Globulin Ratio (test code = 1759-0) 0.9 0.8-2.0 [facility] Hospitalerum or plasma alkaline phosphatase measurement (enzymatic activity/volume)2020-02-22 05:09:00* Test Item Value Reference Range Interpretation Comments Alkaline Phosphatase (test code = 6768-6) 120 [IU]/L 40-150 [facility] CenterFluoroscopic procedure less than one hour gzhrxfmz7054-11-59 05:09:00* Test Item Value Reference Range Interpretation Comments Differential Total Cells Counted (test code = Bryce tial Total Cells Counted) 100 [facility] CenterManual blood neutrophils/100 leukocytes 2020-02-22 05:09:00* Test Item Value Reference Range Interpretation Comments Neutrophils % (Manual) (test code = 46417-8) 75 % 40-74 [facility] blood band neutrophils form/100 yyjlcarhxj1695-04-54 05:09:00* Test Item Value Reference Range Interpretation Comments Band Neutrophils % (test code = 764-1) 5 % [facility] Centerual blood lymphocytes/100 leukocytes 2020-02-22 05:09:00* Test Item Value Reference Range Interpretation Comments Lymphocytes % (Manual) (test code = 737-7) 19 % 19-48 [facility] blood metamyelocytes/100 wjmngyantm8434-59-56 05:09:00* Test Item Value Reference Range Interpretation Comments Metamyelocytes % (test code = 740-1) 1 % 0-0 [facility] CenterBlood platelets count by estimate (number/volume)2020-02-22 05:09:00* Test Item Value Reference Range Interpretation Comments Platelet Estimate (test code = 82335-4) MODERATELY DECREASED [facility] CenterPlatelet nfojcpfzob9135-82-99 05:09:00* Test Item Value Reference Range Interpretation Comments Platelet Morphology Comment (test code = 21243-2) FEW LARGE [facility] CenterBlood anisocytosis detection by light gkrzamemmy2425-29-96 05:09:00* Test Item Value Reference Range Interpretation Comments Anisocytosis (test code = 702-1) FEW [facility] CenterBlood macrocytes detection by light ydjrkmlnfx8464-60-38 05:09:00* Test Item Value Reference Range Interpretation Comments Macrocytosis (test code = 738-5) FEW [facility] CenterRBC ckzltuegio5569-59-64 05:09:00* Test Item Value Reference Range Interpretation Comments Red Cell Morphology Comment (test code = 6742-1) ABNORMAL [facility] Hospitalerum or plasma total bilirubin measurement (mass/volume)2020-02-22 05:09:00* Test Item Value Reference Range Interpretation Comments Total Bilirubin (test code = 1975-2) 0.8 mg/dL 0.2-1.2 [facility] CenterFluoroscopic procedure less than one hour uquscijm7976-61-14 05:09:00* Test Item Value Reference Range Interpretation Comments Aspartate Amino Transf (AST/SGOT) (test code = Aspartate Amino Transf (AST/SGOT)) 19 [IU]/L 5-34 [facility] Hospitalerum or plasma alanine aminotransferase measurement (enzymatic activity/volume)2020-02-22 05:09:00* Test Item Value Reference Range Interpretation Comments Alanine Aminotransferase (ALT/SGPT) (test code = 1742-6) 17 [IU]/L 0-55 [facility] Hospitalerum or plasma protein measurement (mass/volume)2020-02-22 05:09:00* Test Item Value Reference Range Interpretation Comments Total Protein (test code = 2885-2) 5.4 g/dL 6.5-8.1 [facility] Hospitalerum or plasma albumin measurement (mass/volume)2020-02-22 05:09:00* Test Item Value Reference Range Interpretation Comments Albumin (test code = 1751-7) 2.5 g/dL 3.5-5.0 [facility] CenterPlasma globulin measurement (mass/volume) 2020-02-22 05:09:00* Test Item Value Reference Range Interpretation Comments Globulin (test code = 49058-9) 2.9 g/dL 2.3-3.5 [facility] Hospitalerum or plasma albumin/globulin mass jmorq9091-23-91 05:09:00* Test Item Value Reference Range Interpretation Comments Albumin/Globulin Ratio (test code = 1759-0) 0.9 0.8-2.0 [facility] Hospitalerum or plasma alkaline phosphatase measurement (enzymatic activity/volume)2020-02-22 05:09:00* Test Item Value Reference Range Interpretation Comments Alkaline Phosphatase (test code = 6768-6) 120 [IU]/L 40-150 [facility] CenterFluoroscopic procedure less than one hour fisdzkni3313-19-48 05:09:00* Test Item Value Reference Range Interpretation Comments Differential Total Cells Counted (test code = Differen tial Total Cells Counted) 100 [facility] Centerual blood neutrophils/100 leukocytes 2020-02-22 05:09:00* Test Item Value Reference Range Interpretation Comments Neutrophils % (Manual) (test code = 68496-5) 75 % 40-74 [facility] blood band neutrophils form/100 ovcwjyfufo5898-09-44 05:09:00* Test Item Value Reference Range Interpretation Comments Band Neutrophils % (test code = 764-1) 5 % [facility] blood lymphocytes/100 leukocytes 2020-02-22 05:09:00* Test Item Value Reference Range Interpretation Comments Lymphocytes % (Manual) (test code = 737-7) 19 % 19-48 [facility] blood metamyelocytes/100 qflsibtjrr7068-63-81 05:09:00* Test Item Value Reference Range Interpretation Comments Metamyelocytes % (test code = 740-1) 1 % 0-0 [facility] CenterBlood platelets count by estimate (number/volume)2020-02-22 05:09:00* Test Item Value Reference Range Interpretation Comments Platelet Estimate (test code = 57845-1) MODERATELY DECREASED [facility] CenterPlatelet iekquystua4940-47-54 05:09:00* Test Item Value Reference Range Interpretation Comments Platelet Morphology Comment (test code = 72162-1) FEW LARGE [facility] CenterBlood anisocytosis detection by light qpxapypmfs3825-06-39 05:09:00* Test Item Value Reference Range Interpretation Comments Anisocytosis (test code = 702-1) FEW [facility] CenterBlst. [facility] macrocytes detection by light blxwvnkcei2307-36-12 05:09:00* Test Item Value Reference Range Interpretation Comments Macrocytosis (test code = 738-5) FEW [facility] CenterRBC ipztnzjehr5484-47-04 05:09:00* Test Item Value Reference Range Interpretation Comments Red Cell Morphology Comment (test code = 6742-1) ABNORMAL [facility] CenterCHEST SINGLE (PORTABLE)2020-02-21 19:40:00[facility] : 1950 Sex: F [facility] [address] [address] Patient Name: AXEL CHRISTOPHER MR #: [id number] : 1950 Age/Sex: 69/F Req #: [id number] Adm Physician: MADDI DEY MD Ordered by: TROY SERRATO DO Report #: [id number] [facility]: [facility] Room/Bed: [facility] Procedure: [id number] DX/CHEST SINGLE (PORTABLE) Exam Saúl e: 02/21/20 [...] DO Fluoroscopic procedure less than one hour kkksaoio0526-83-66 19:35:00* Test Item Value Reference Range Interpretation Comments Lactic Acid Level (test code = Lactic Acid Level) 1.7 mmol/L 0.5- 2.0 [facility] CenterFluoroscopic procedure less than one hour ktgycyep8625-85-08 19:35:00* Test Item Value Reference Range Interpretation Comments Lactic Acid Level (test code = Lactic Acid Level) 1.7 mmol/L 0.5- 2.0 [facility] CenterFluoroscopic procedure less than one hour pwkrkqwx5416-34-86 19:35:00* Test Item Value Reference Range Interpretation Comments Lactic Acid Level (test code = Lactic Acid Level) 1.7 mmol/L 0.5- 2.0 [facility] CenterFluoroscopic procedure less than one hour uveqxtzf6787-36-02 18:00:00* Test Item Value Reference Range Interpretation Comments Coronavirus (PCR) (test code = Coronavirus (PCR)) NOT DETECTED NOTD ETECTED SARS-CoV-2 PCRHologic Aptima SARS-CoV-2 assay is a nucleic amplification test in tended for the qualitative detection of RNA from SARS-CoV-2 from nasopharyngeal (BLOCK ENGRAVER) specimens. It is used under Emergency Use [...] repr at testing oc clinically indicated.Tesing performed by:[facility] Laboratory Services3 [facility] [id number] burden MD, PhDBaylor Scott & [facility] CenterFluoroscopic procedure less than one hour cihnmdrd1343-54-06 18:00:00* Test Item Value Reference Range Interpretation Comments Coronavirus (PCR) (test code = Coronavirus (PCR)) NOT DETECTED NOTD ETECTED SARS-CoV-2 PCRHologic Aptima SARS-CoV-2 assay is a nucleic amplification test in tended for the qualitative detection of RNA from SARS-CoV-2 from nasopharyngeal (BLOCK ENGRAVER) specimens. It is used under Emergency Use [...] repr at testing oc clinically indicated.Tesing performed by:[facility] Laboratory Services3 [facility] [id number] burden MD, PhDCHI [facility] HospitalCT BRAIN KX9576-53-67 16:39:00[facility] : 1950 Sex: F [address] [place] [address] Patient Name: AXEL CHRISTOPHER MR #: [id number] : 1950 Age/Sex: 69/F [id number] Req #: [id number] Adm Physician: Ordered by: TROY SERRATO DO Report #: [id number] Location: ER Room/Bed: Procedure: [id number] CT/CT BRAIN WO Exam Date: 02/21/20 Exam Time: 1620 REPORT STATUS: Signed Examination: CT head without contrast Clinica l Indication: Y weakness [id number] 1620. Technique: Transaxial noncontrast images from the [...] 4:46 PM Dictated By: VENUS VAZQUEZ MD 44 Transcribed By: MARIAH on 02/21/201645 COPY TO: TROY SERRATO DO Manual blood monocytes/100 leukocytes 2020-02-21 15:37:00* Test Item Value Reference Range Interpretation Comments Monocytes % (Manual) (test code = 744-3) 2 % 3.4-9.0 [facility] CenterBlst. [facility] center polychromasia detection by light hjtymsfctx2215-14-92 15:37:00* Test Item Value Reference Range Interpretation Comments Polychromasia (test code = 76888-3) MODE [facility] hypochromia detection by light ofhheuyxgu3585-44-88 15:37:00* Test Item Value Reference Range Interpretation Comments Hypochromasia (test code = 728-6) BETSY [facility] poikilocytosis detection by light hevfaorkxh0195-01-88 15:37:00* Test Item Value Reference Range Interpretation Comments Poikilocytosis (test code = 779-9) SLIGHT [facility] dacrocytes detection by light akxkrrzcps2995-55-79 15:37:00* Test Item Value Reference Range Interpretation Comments Tear Drop Cells (test code = 7791-7) FEW [facility] CenterBNP Jtl-cSlc7340-01-03 15:37:00* Test Item Value Reference Range Interpretation Comments B-Type Natriuretic Peptide (test code = 56795-5) 347.5 pg/mL 0-100 [facility] Hospitalerum or plasma creatine kinase measurement (enzymatic activity/volume)2020-02-21 15:37:00* Test Item Value Reference Range Interpretation Comments Creatine Kinase (test code = 2157-6) 35 [IU]/L 29-168 [facility] Hospitalerum or plasma creatine kinase MB measurement (mass/volume)2020-02-21 15:37:00* Test Item Value Reference Range Interpretation Comments Creatine Kinase MB (test code = 41913-5) 1.60 ng/mL 0-5.0 [facility] CenterTroponin I measurement by highly sensitive enzyme qzipzibreco7069-54-94 15:37:00* Test Item Value Reference Range Interpretation Comments Troponin I (test code = 60168-5) 0.050 ng/mL 0-0.300 [facility] CenterBlood meonagt4036-01-71 15:37:00* Test Item Value Reference Range Interpretation Comments Blood Culture (test code = 57918645) NO GROWTH AFTER 24 HOURS [facility] CenterManual blood monocytes/100 leukocytes 2020-02-21 15:37:00* Test Item Value Reference Range Interpretation Comments Monocytes % (Manual) (test code = 744-3) 2 % 3.4-9.0 [facility] polychromasia detection by light luljouqdyq5663-51-04 15:37:00* Test Item Value Reference Range Interpretation Comments Polychromasia (test code = 41202-1) MODE [facility] hypochromia detection by light qkosmhqdyp6584-90-28 15:37:00* Test Item Value Reference Range Interpretation Comments Hypochromasia (test code = 728-6) BETSY [facility] poikilocytosis detection by light qjzgqojnfm2368-30-85 15:37:00* Test Item Value Reference Range Interpretation Comments Poikilocytosis (test code = 779-9) SLIGHT [facility] dacrocytes detection by light nixakdhytr0175-50-08 15:37:00* Test Item Value Reference Range Interpretation Comments Tear Drop Cells (test code = 7791-7) FEW [facility] CenterBNP Ont-qKyx2862-35-03 15:37:00* Test Item Value Reference Range Interpretation Comments B-Type Natriuretic Peptide (test code = 23400-1) 347.5 pg/mL 0-100 [facility] Hospitalerum or plasma creatine kinase measurement (enzymatic activity/volume)2020-02-21 15:37:00* Test Item Value Reference Range Interpretation Comments Creatine Kinase (test code = 2157-6) 35 [IU]/L 29-168 [facility] Hospitalerum or plasma creatine kinase MB measurement (mass/volume)2020-02-21 15:37:00* Test Item Value Reference Range Interpretation Comments Creatine Kinase MB (test code = 52006-8) 1.60 ng/mL 0-5.0 [facility] CenterTroponin I measurement by highly sensitive enzyme chbxsxnmvuu6347-76-07 15:37:00* Test Item Value Reference Range Interpretation Comments Troponin I (test code = 79750-9) 0.050 ng/mL 0-0.300 [facility] CenterBlood jrxaehc3340-34-84 15:37:00* Test Item Value Reference Range Interpretation Comments Blood Culture (test code = 12687438) NO GROWTH AFTER 48 HOURS [facility] monocytes/100 leukocytes 2020-02-21 15:37:00* Test Item Value Reference Range Interpretation Comments Monocytes % (Manual) (test code = 744-3) 2 % 3.4-9.0 [facility] polychromasia detection by light yojftwgrqr4395-29-49 15:37:00* Test Item Value Reference Range Interpretation Comments Polychromasia (test code = 67778-8) MODE [facility] hypochromia detection by light yxmradcfua6524-81-34 15:37:00* Test Item Value Reference Range Interpretation Comments Hypochromasia (test code = 728-6) BETSY [facility] poikilocytosis detection by light dhlmbkxjfs5996-30-73 15:37:00* Test Item Value Reference Range Interpretation Comments Poikilocytosis (test code = 779-9) SLIGHT [facility] dacrocytes detection by light vlapvmtnqg3440-48-81 15:37:00* Test Item Value Reference Range Interpretation Comments Tear Drop Cells (test code = 7791-7) FEW [facility] CenterBNP Oyb-rZen3268-06-03 15:37:00* Test Item Value Reference Range Interpretation Comments B-Type Natriuretic Peptide (test code = 13432-8) 347.5 pg/mL 0-100 [facility] Hospitalerum or plasma creatine kinase measurement (enzymatic activity/volume)2020-02-21 15:37:00* Test Item Value Reference Range Interpretation Comments Creatine Kinase (test code = 2157-6) 35 [IU]/L 29-168 [facility] Hospitalerum or plasma creatine kinase MB measurement (mass/volume)2020-02-21 15:37:00* Test Item Value Reference Range Interpretation Comments Creatine Kinase MB (test code = 29879-4) 1.60 ng/mL 0-5.0 [facility] CenterTroponin I measurement by highly sensitive enzyme zcslzktkxsw8604-62-17 15:37:00* Test Item Value Reference Range Interpretation Comments Troponin I (test code = 82758-2) 0.050 ng/mL 0-0.300 [facility] CenterBlood vqzwsqy0964-16-07 15:37:00* Test Item Value Reference Range Interpretation Comments Blood Culture (test code = 68386173) NO GROWTH AFTER 5 DAYS, FINAL REPORT [facility] CenterPhosphorus2020-11-02 14:29:00* Test Item Value Reference Range Interpretation Comments Phosphorus (test code = 2777-1) 2.1 mg/dL 2.3-4.7 L BEN (test code = BEN) Environmental Officer ID Hugh OSMAN F Lab Interpretation (test code = 07896-6) [facility] 14:29:00* Test Item Value Reference Range Interpretation Comments PHOSPHORUS (BEAKER) (test code = 604) 2.1 mg/dL 2.3-4.7 L Environmental Officer ID Hugh OSMAN FCBC with platelet count + automated qqkl6589-65-28 11:35:00* Test Item Value Reference Range Interpretation [...] K/CU MM L MPV (test code = 91786-1) 9.7 fL 9.4-12.3 nRBC (test code = 413) 0 0- 0 /100 WBC Lab Interpretation (test code = 64688-6) Abnormal [facility] HospitalManual Frenduyhwyvd2063-92-87 11:35:00* Test Item Value Reference Range Interpretation [...] 3438) Decreased BEN (test code = BEN) Environmental Officer ID - Damián Levi comments: Slide co mments: Lab Interpretation (test code = 39530-7) Abnormal [facility] HospitalCBC W/PLT COUNT & AUTO CUOTGBHFRPLG3870-16-15 11:35:00* Test Item Value Reference Range Interpretation [...] (CELLAVISION)(BEAKER) (test code = 3438) Dec reased Environmental Officer ID - Damián Levi comments: Slide comments: Basic Metabolic Panel 2020-02-20 11:13:00* Test Item Value Reference Range Interpretation Comments Sodium (test code = 2951-2) 136 meq/L 136-145 Potassium (test code = 2823-3) 3.9 meq/L 3.5-5.1 Chloride (test code = 5-0) 103 meq/L 98-107 CO2 (test code = 8-9) 24 meq/L 22-29 BUN (test code = 3094-0) 10 mg/dL 7-21 Creatinine (test code = 2160-0) 0.77 mg/dL 0.57-1.25 Glucose (test code = 2345-7) 191 mg/dL 70-105 H Calcium (test code = 21514-7) 10.2 mg/dL 8.4-10.2 EGFR (test code = 55200-3) 74 mL/min/1.73 sq m ESTIMATED GFR IS NOT ACCURATE CREATININE CLEARANCE IN PREDICTING GLOMERULAR FILTRATION RATE. ESTIMATED GFR IS NOT APPLICABLE FOR DIALYSIS PATIENTS. BEN (test code = BEN) Environmental Officer ID - OSMAN Jenkins Lab Interpretation (test code = 07400-6) Abnormal [facility] [id number] 11:13:00* Test Item Value Reference Range Interpretation [...] GFR IS NOT APPLICABLE FOR DIALYSIS PATIENTS. Environmental Officer ID - OSMAN FPOC-Glucose rmjfc8324-32-89 20:54:00* Test Item Value Reference Range Interpretation Comments POC-Glucose Meter (test code = 1538) 241 mg/dL 70-110 H : TESTED AT [address], [address]: Environmental Officer/Hvac Specialist ID = [id number] for DORILEY BARNARDA Lab Interpretation (test code = 86856-4) Abnormal [facility] [id number] 20:54:00* Test Item Value Reference Range Interpretation Comments POC-GLUCOSE METER (BEAKER) (test code = 1538) 241 mg/dL 70-110 H : TESTED AT [address], [address]: Environmental Officer/Hvac Specialist ID = [id number] for DOVE, CHEKARA POCT-GLUCOSE [id number] 16:56:00* Test Item Value Reference Range Interpretation Comments POC-GLUCOSE METER (BEAKER) (test code = 1538) 210 mg/dL 70-110 H : TESTED AT [address], [address]: Environmental Officer/Hvac Specialist ID = [id number] for HARMON (V)KAYAANITA POCT-GLUCOSE [id number] 13:04:00* Test Item Value Reference Range Interpretation Comments POC-GLUCOSE METER (BEAKER) (test code = 1538) 179 mg/dL 70-110 H : TESTED AT [facility] [address] [place], [address]: Environmental Officer/Hvac Specialist ID = [id number] for RADHA GERMAN CBC W/PLT COUNT & AUTO [id number] 11:21:00* Test Item Value Reference Range Interpretation [...] (CELLAVISION)(BEAKER) (test code = 3438) Dec reased Environmental Officer ID - Damián Levi comments: Slide comments: [...] GFR IS NOT APPLICABLE FOR DIALYSIS PATIENTS. Environmental Officer ID - DBPOCT-GLUCOSE JEKFS3761-13-61 20:53:00* Test Item Value Reference Range Interpretation Comments POC-GLUCOSE METER (BEAKER) (test code = 1538) 194 mg/dL 70-110 H : TESTED AT [facility] [address] [facility], [address]: Environmental Officer/Hvac Specialist ID = [id number] for EMILY ROMAN CHANCE, PARATHYROID IMAGING WITH SPECT/[id number] 16:23:00Reason for exam:-> hypercalcemiaCHI [facility] : 1950 Sex: FFINAL REPORT PROCEDURE: PARATHYROID SCAN, w/SPECT/CT CPT CODE: 28314 INDICATION: Hypercalcemia PROTOCOL: 14.2 mCi of Tc-99m [...] the thyroid gland pole. Signed: Vero Ortega MDReport Verified Date/Time: 02/18/2020 16:23:17 parathyroid scan with SPECT/CT 2020-02-18 16:23:00Interface, External Ris In - 02/18/2020 4:25 PM CDTFINAL REPORT PROCEDURE: PARATHYROID SCAN, w/SPECT/CT CPT CODE: 82319 INDICATION: Hypercalcemia PROTOCOL: 14.2 mCi of Tc- [...] the thyroid gland pole. Signed: Vero Ortega MDReport Verified Date/Time: 02/18/2020 16:23:17 [facility] W/PLT COUNT & AUTO [id number] 14:13:00* Test Item Value Reference Range Interpretation [...] (CELLAVISION)(BEAKER) (test code = 3438) Dec reased Environmental Officer ID - Lauren BaradieUser comments: Slide comments: POCT-GLUCOSE METER 2020-02-18 13:54:00* Test Item Value Reference Range Interpretation Comments POC-GLUCOSE METER (BEAKER) (test code = 1538) 98 mg/dL 70-110 : TESTED AT [facility] [address] [facility], [address]: Environmental Officer/Hvac Specialist ID = [id number] for GEORGIANA BAGLEY BASIC METABOLIC [id number] 05:38:00* Test Item Value Reference Range Interpretation [...] GFR IS NOT APPLICABLE FOR DIALYSIS PATIENTS. Environmental Officer ID - EDASIPOCT-GLUCOSE [id number] 22:02:00* Test Item Value Reference Range Interpretation Comments POC-GLUCOSE METER (BEAKER) (test code = 1538) 101 mg/dL 70-110 : TESTED AT [facility] [address] [facility], [address]: Environmental Officer/Hvac Specialist ID = [id number] for EMILY ROMAN COVID19 ([facility] [place])2020-02-17 17:56:00* Test Item Value Reference Range Interpretation Comments COVID19 ([facility]) (test code = 7225377) Negative Negative The [employer] SARS-CoV-2 Assay is a real-time reverse medical consultant polymerase chain reaction (middle school assistant principal-PCR) test intended for the qualitative detection of nucleic acid from the SARS-CoV-2 in nasal swabs, nasopharyngeal (BLOCK ENGRAVER), oropharyngeal (OP) swabs, or bronchoalveolar lavage fluid (BAL) from patients suspected of COVID-19 by their health care provider. This test was developed by [employer] and its performance characteristics have been validated by the [facility] pursuant to CLIA regulations. This test has EUA authorization from the Food and Drug Administration. This test was performed at:[facility] LaboratoryDr. Kalyn Marie[address] [facility] [place], [place] [address]IGRD # [id number] BEN (test code = BEN) For Emergency room ONLY allison ents who are discharged before results obtained: Nurse is authorized to call Negative/Undetected results to patient when available.Isolation precautions not needed. [facility] HospitalPO[facility] [id number] 16:20:00* Test Item Value Reference Range Interpretation Comments POC-GLUCOSE METER (BEAKER) (test code = 1538) 101 mg/dL 70-110 : TESTED AT [address], [address]: Environmental Officer/Hvac Specialist ID = [id number] for BranchportNichelle 2D Echo W/Doppler(CW/PW/Color)2020-02-17 13:35:35Ejection FractionSLE ECHO HEARTLAB MKCKESSON CPACSInterface, External Ris In - 02/17/2020 1:35 PM CDTTransthoracic Echocardiography Report (TTE) Demographics Patient Name CANDI AXEL Date of Study 02/17/2020 SAMANTHA Gender Female Visit Number [id number] Race Room Number 7405 Number Date of 1950 Referring KHURRAM Rizvi Physician SHANEKA Age 69 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 Needs to be Pre Physician Read James Toscano MD Procedure Type of Study TTE procedure:2DECHO W DOPPLER(CW/PW/COLOR) (Ricky mirza) Indications:Unexplained Pre-syncope/Syncope.Clinical HistoryCAD, DM2, HTN, HVA9486 ACB/ AVR- BIOPROSTHETICHGB 8.2HCT 26.2 %Height: 59 [...] pressure). Left Atrium LA size is modera si-lq-lsdricp enlarged . Right Ventricle The right ventricular [...] Velocity: 2.98 m/s TR Gradient: 35.54 mmHg [facility] HospitalRAD, PELVIS, 1 OR 2 [id number] 13:24:00Reason for exam:->fall, tailbone pain[facility] : 1950 Sex: FFINAL REPORT RAD, PELVIS, 1 OR 2 VIEWS INDICATION: fall, tailbone pain COMPARISON: None TECHNIQUE: Single AP view of the coccyx FINDINGS/IMPRESSION:No definite fracture on single AP view of the coccyx. Lateral view is suggested for more definitive evaluation Signed: Rafaela Antunez Verified Date/Time: 02/17/2020 13:24:03 Reading Location: [facility] Radiology Reading Room pelvis 1 or 2 [id number] 13:24:00Interface, External Ris In - 02/17/2020 1:26 PM CDTFINAL REPORT RAD, PELVIS, 1 OR 2 VIEWS INDICATION: fall, tailbone pain COMPARISON: None TECHNIQUE: Single AP view of the coccyx FINDINGS/IMPRESSION:No definite fracture on single AP view of the coccyx. Lateral view is suggested for more definitive evaluation Signed: Rafaela Antunez Verified Date/Time: 02/17/2020 13:24:03 Reading Location: [facility] Radiology Reading Room [facility] HospitalPOCT-GLUCOSE [id number] 11:18:00* Test Item Value Reference Range Interpretation Comments POC-GLUCOSE METER (BEAKER) (test code = 1538) 106 mg/dL 70-110 : TESTED AT [facility] [address] [facility], [address]: Environmental Officer/Hvac Specialist ID = [id number] for Nichelle Elmore Vitamin D, 49-Ggeyhcv0449-79-30 10:17:00* Test Item Value Reference Range Interpretation Comments Vitamin D 25-Hydroxy (test code = 2764) 41.6 ng/mL 6.6-49.9 BEN (test code = BEN) Effective 01/28/2017: Refere nce Range ChangeNew: 6.6-49.9 ng/mL Previous: 13.0-47.8 ng/mL Recommended Vitamin D Target Range: 30.0-40.0 ng/mLOperator ID - PIAYA L Lab Interpretation (test code = 14426-0) Normal [facility] HospitalVITAMIN D, 62-JJVHRVF6429-59-30 10:17:00* Test Item Value Reference Range Interpretation Comments VITAMIN D 25-OH (BEAKER) (test code = 2764) 41.6 ng/mL 6.6-49.9 Effective 01/28/2017: Reference Range ChangeNew: 6.6-49.9 ng/mL Previous: 13.0 -47.8 ng/mLRecommended Vitamin D Target Range: 30.0-40.0 ng/mLOperator ID - PIAY A LTSH/Free T4 If Fklzjruyw7650-03-28 09:10:00* Test Item Value Reference Range Interpretation Comments TSH (test code = 45544-0) 0.418 0.350- 4.940 uIU/mL BEN (test code = BEN) Environmental Officer ID - EDASI Lab Interpretation (test code = 71944-3) Normal [facility] HospitalTSH/FREE T4 IF [id number] 09:10:00* Test Item Value Reference Range Interpretation Comments THYROID STIMULATING HORMONE (BEAKER) (test code = 772) 0.418 uIU /mL 0.350-4.940 Environmental Officer ID - EDASIPTH, dwjubt9828-14-83 08:56:00* Test Item Value Reference Range Interpretation Comments PTH (test code = 2731-8) 204.3 pg/mL 8.5-72.5 H BEN (test code = BEN) Environmental Officer ID - EDASI Lab Interpretation (test code = 78412-1) Abnormal [facility] HospitalPTH, [id number] 08:56:00* Test Item Value Reference Range Interpretation Comments PARATHYROID HORMONE INTACT (BEAKER) (test code = 577) 204.3 pg/mL 8.5-72.5 H Environmental Officer ID - EDASICalcium, Tzhwtgk2113-13-73 08:32:00* Test Item Value Reference Range Interpretation Comments Calcium, Ion (test code = 1994-3) 1.45 mmol/L 1.12-1.27 H pH, Blood (test code = 11247-1) 7.48 Lab Interpretation (test code = 07820-9) Abnormal [facility] HospitalCALCIUM, [id number] 08:32:00* Test Item Value Reference Range Interpretation Comments CALCIUM IONIZED (BEAKER) (test code = 698) 1.45 mmol/L 1.12-1.27 H PH, BLOOD (BEAKER) (test code = 1810) 7.48 POCT-GLUCOSE [id number] 07:26:00* Test Item Value Reference Range Interpretation Comments POC-GLUCOSE METER (BEAKER) (test code = 1538) 88 mg/dL 70-110 : TESTED AT [address], [address]: Environmental Officer/Hvac Specialist ID = [id number] for Nichelle Elmore BASIC METABOLIC [id number] 05:21:00* Test Item Value Reference Range Interpretation [...] GFR IS NOT APPLICABLE FOR DIALYSIS PATIENTS. Environmental Officer ID - TIXPQIipizscyh4541-57-15 05:10:00* Test Item Value Reference Range Interpretation Comments Magnesium (test code = 31048-0) 2.1 mg/dL 1.6-2.6 BEN (test code = BEN) Environmental Officer ID - EDASI Lab Interpretation (test code = 38218-1) Normal [facility] HospitalMAGNESIUM2020-10-30 05:10:00* Test Item Value Reference Range Interpretation Comments MAGNESIUM (BEAKER) (test code = 627) 2.1 mg/dL 1.6-2.6 Environmental Officer ID - MISVGZNQOLEZPPC3942-71-57 05:10:00* Test Item Value Reference Range Interpretation Comments PHOSPHORUS (BEAKER) (test code = 604) 2.1 mg/dL 2.3-4.7 L Environmental Officer ID - EDASICT, BRAIN, WITHOUT SRPILEUF8214-02-71 05:08:00Unlisted Reason for Exam - Click Yes and Enter Reason Below->YesUnlisted Reason for Exam-> interval [facility]achnoid [facility] 1950 Sex: F [...] No calvarial fractur e. Signed: Mona Lee MDReport Verified Date/Time: 02/17/2020 05:08:35 E lectronically signed by: MONA LEE MD on 02/17/2020 05:[address] brain without IV [id number] 05:08:00Interface, External Ris In - 02/17/2020 5:11 [...] No calvarial frac ture. Signed: Mona Lee MDReport Verified Date/Time: 02/17/2020 05:08:35 [facility] W/PLT COUNT & AUTO YJUAJURUXEEQ7553-32-24 04:43:00 * Test Item Value Reference Range [...] = 2801) 4 % 0-1 H POCT-GLUCOSE KBPQY0050-60-10 00:06:00* Test Item Value Reference Range Interpretation Comments POC-GLUCOSE METER (BEAKER) (test code = 1538) 78 mg/dL 70-110 : TESTED AT [address], [address]: Environmental Officer/Hvac Specialist ID = [id number] for ANTHONY AGUIRRE POCT-GLUCOSE GTWNK9598-71-03 17:46:00* Test Item Value Reference Range Interpretation Comments POC-GLUCOSE METER (BEAKER) (test code = 1538) 243 mg/dL 70-110 H : Notified RN/MD: TESTED AT [address], [address]: Environmental Officer/Hvac Specialist ID = [id number] for LOLIS RICHARDSON BASIC METABOLIC [id number] 17:18:00* Test Item Value Reference Range Interpretation [...] GFR IS NOT APPLICABLE FOR DIALYSIS PATIENTS. Environmental Officer ID - BSHepatic function xytnp5321-74-18 17:17:00* Test Item Value Reference Range Interpretation Comments Protein, Total (test code = 2885-2) 6.0 6.0- 8.3 gm/dL Albumin (test code = 37745-7) 3.0 g/dL 3.5-5 L Total Bilirubin (test code = 1974-2) 0.8 mg/dL 0.2-1.2 Bilirubin, Direct (test code = 1967-7) 0.4 mg/dL 0.1-0.5 Alkaline Phosphatase (test code = 6768-6) 111 U/L 40-150 AST (test code = 1920-8) 15 U/L 5-34 ALT (test code = 1742-6) 20 U/L 6-55 BEN (test code = BEN) Environmental Officer ID - BS Lab Interpretation (test code = 32355-4) Abnormal [facility]UM2020-10-29 17:17:00* Test Item Value Reference Range Interpretation Comments MAGNESIUM (BEAKER) (test code = 627) 2.0 mg/dL 1.6-2.6 Environmental Officer ID - [id number] 17:17:00* Test Item Value Reference Range Interpretation Comments PHOSPHORUS (BEAKER) (test code = 604) 2.2 mg/dL 2.3-4.7 L Environmental Officer ID - BSHEPATIC FUNCTION [id number] 17:17:00* Test Item Value Reference Range Interpretation [...] (test code = 347) 20 U/L 6-55 Environmental Officer ID - BSProthrombin time/QTT7537-75-60 17:15:00* Test Item Value Reference Range Interpretation [...] heart valves. Lab Interpretation (test code = 79032-4) Abnormal [facility] HospitalaPTT2020-10-29 17:15:00* Test Item Value Reference Range Interpretation Comments PTT (test code = 65364-0) 36.7 22.5- 36.0 seconds H Lab Interpretation (test code = 46973-5) Abnormal [facility] HospitalPROTHROMBIN TIME/[id number] 17:15:00* Test Item Value Reference Range Interpretation Comments PROTIME (ANGELAKER) (test code = 759) 16.1 seconds 11.9-14.2 H INR (AKER) (test code = 370) 1.33 <=5.90 Effective 09/15/2018: PT Reference Range ChangeNew: 11.9-14.2 Previous: 11.7-14. 7RECOMMENDED COUMADIN/WARFARIN INR THERAPY RANGESSTANDARD DOSE: 2.0-3.0 Include s: PROPHYLAXIS for venous thrombosis, systemic embolization; TREATMENT for venou s thrombosis and/or pulmonary embolus.HIGH RISK: Target INR is 2.5-3.5 for patie nts wiht mechanical heart valves.[id number] 17:15:00* Test Item Value Reference Range Interpretation Comments PARTIAL THROMBOPLASTIN TIME (BEAKER) (test code = 760) 36.7 seconds 22.5-36.0 H SARS-CoV2/RT-PCR (Asymptomatic ONLY)2020-02-16 17:00:00* Test Item Value Reference Range Interpretation Comments SARS-COV2/RT-PCR (test code = 42842-1) See external report f or linked test Not Detected, Negative, See external report for linked test SARS-COV-2 PERFORMING LAB (test code = 14711-3) [facility] REF LAB[facility]2020-02-16 17:00:00* Test Item Value Reference Range Interpretation Comments SARS-COV2/RT-PCR (test code = 9259723) See external report f or linked test Not Detected, Negative, See external report for linked test SARS-COV-2 PERFORMING LAB (test code = 1275546) [facility] CBC W/PLT COUNT & AUTO BXDQLNQHTTCC4319-73-18 16:59:00* Test Item Value Reference Range Interpretation [...] 2 % 0-[address] CERVICAL SPINE [id number] 10:29:00 [facility] : 1950 Sex: F [facility] [address] [place] [address] Patient Name: AXEL CHRISTOPHER MR #: [id number] : 1950 Age/Sex: 69/F Req #: [id number] Adm Physician: Osvaldo morrison by: STEVEN MIJARES DO Report #: [id number] Lo cation: ER Room/Bed: ____ Procedure: [id number] CT/CT CERVICAL SPINE WO Exam Date: 01/19 01/07 Exam Time: 0950 REPORT STATUS: Signed CT CERVICAL SPINE WO [...] 3 AM Dictated By: CRUZ NAGY MD 32 Transcribed By: MARIAH on 02/16/20 103 CANDY VENDOR Y TO: STEVEN MIJARES DO CT BRAIN [id number] 10:23:00 [facility] : 1950 Sex: F [facility] [address] [address] Patient Name: AXEL CHRISTOPHER MR #: [id number] : 1950 Age/Sex: 69/F Req #: [id number] Adm Physician: Osvaldo morrison by: STEVEN MIJARES DO Report #: [id number] Lo cation: ER Room/Bed: ____ Procedure: [id number] CT/CT BRAIN WO Exam Date: 02/16/20 Exam [...] Si gned By: CRUZ NAGY MD on 02/16/20 102 Transcribed By: MARIAH on 102 COPY TO: STEVEN MIJARES DO CHEST SINGLE (PORTABLE) 2020-02-16 10:05:00 [facility] : 1950 Sex: F [facility] [address] [address] Patient Name: AXEL CHRISTOPHER MR #: [id number] : 1950 Age/Sex: 69/F Req #: [id number] Adm Physician: Or dered by: STEVEN MIJARES DO Report #: [id number] Lo cation: ER Room/Bed: ____ Procedure: [id number] DX/CHEST SINGLE (PORTABLE) Exam Date: 1 Exam Time: 0920 REPORT STATUS: Signed Chest, [...] 1006 C OPY TO: STEVEN MIJARES DO AQY-HVFRAER6186-87-29 00:00:00Ordered by an unspecified provider.[facility] HospitalCHEM HXMOD3457-93-33 18:08:00 0.7[facility]annCHEM BJWYR2596-12-78 18:08:0089[facility]annBODY FLUIDS 2015-01-23 20:33:054686Zsdnbquz HermannBODY SVEKEO2441-11-15 20:33:8964507 [facility]ann[facility] CBSZKT6617-77-56 20:33:00Marked *ABN*(01/23/15 3:33 PM) [facility]ann[facility] OKVVZX3416-57-12 20:33:00Pleural (01/23/15 3:33 PM)[facility]annB[facility] CQNYNX8681-16-02 20:33:00See Note 2(01/23/15 3:33 PM)[facility] BODY VNDXUJ0755-60-86 20:33:007[facility]annBODY PHLFQX8423-79-75 20:33:0090 [facility]ann[facility] GLLHLA3257-69-44 20:33:003[facility]annBODY FLUIDS 2015-01-23 20:23:00Pleural *NA*(01/23/15 3:23 PM)[facility]annB[facility] FLUIDS 2015-01-23 20:23:004.2[facility]annB[facility] UBCHWP5014-60-35 20:23:00Pleural *NA*(01/23/15 3:23 PM)[facility]ann[facility] CFLGPX6451-76-01 20:23:46924Zwknbnoi HermannBODY HRFBAV0238-32-50 20:23:00Pleural *NA*(01/23/15 3:23 PM)[facility]ann[facility] SYJXFL4669-94-61 20:23:002.5[facility]annB[facility] CUBVDY0962-46-41 20:23:008.00[facility]annB[facility] NUHFMB1359-16-42 20:23:00Pleural (01/23/15 3:23 PM)[facility]annCHEM PKWZG1361-80-96 20:23:0063[facility]annCHEM PANEL 2015-01-23 20:23:003.4[facility]annCHEM FCYDP4817-24-58 20:23:000.9[facility]annCHEM YIWYE4870-65-16 20:23:0021[facility]annCHEM GSQKO5737-50-24 20:23:0014.4[facility]annCHEM NEAYV3150-01-55 20:23:001.1[facility]annCHEM FHMZV1363-32-11 20:23:02548Wgabqxax HermannCHEM JYXVP6315-29-76 20:23:0021 [facility]annCHEM CHCEI3650-38-76 20:23:43565Mybkcdsp HermannCHEM PANEL 2015-01-23 20:23:0098[facility]annCHEM SBNWK5983-40-29 20:23:0023[facility]annCHEM YMLAG8116-48-68 20:23:003.2[facility]annCHEM JKSFK8433-94-35 20:23:001.0[facility]annCHEM XZCGV1774-34-56 20:23:003.4[facility]annCHEM UYIOV7801-91-68 20:23:38944Ermonuvx HermannCHEM RKOUL0081-10-65 20:23:009.3 [facility]annCHEM ZAPTE4676-92-01 20:23:0028[facility] HermannCHEM PANEL 2015-01-23 20:23:0019[facility] HermannCHEM SVWKF0551-04-54 20:23:006.6[facility]annCHEM YLIVU0921-52-99 20:23:05477Zgwybcft HermannCHEM QJDME1363-80-22 07:40:002.4[facility]annCHEM RUPMP2898-89-96 07:40:002.1[facility]annCHEM PNXWD1922-52-61 07:40:0078[facility]annCHEM QQCKB9280-60-24 07:40:19858 [facility]annCHEM ZRAQU9009-72-50 07:40:0013[facility] HermannCHEM PANEL 2014-12-29 07:40:008.7[facility]annCHEM PVJLX4613-39-29 07:40:000.8[facility] HermannCHEM VYMQL7439-02-54 07:40:52684Dxchqxjz HermannCHEM CMAKT1262-76-03 07:40:003.7[facility] HermannCHEM JVTKV8767-94-45 07:40:77161Kcaenjol HermannCHEM NPYXR5480-34-27 07:40:0027[facility] HermannCHEM VPNJP1362-66-18 07:40:0014.7 [facility] XgixbnaJDZFOAVZRA1585-73-50 07:40:00* Test Item Value Reference Range Interpretation Comments PTT (test code = PTT) 32.7 s 22.9-35.8 [facility] SystemUpjbywlJJVUGYQSCR4925-36-56 07:40:00* Test Item Value Reference Range Interpretation Comments PT (test code = PT) 14.7 s 12.0-14.7 [facility] SystemCwybexmYYSLLAOEMC9870-13-79 07:40:001.12[facility]annHEMATOLOGY 2014-12-29 07:40:0013.9[facility]orial KeqrhoxQDXXFNMAKU6418-36-46 07:40:06852Kkxcheow RbhjiknKTDZRFTFAM6670-92-39 07:40:009.5Memorial GgrdgvsMJXKSGACDE9949-78-24 07:40:0013.4[facility]orial TihosipZJWPIXSUNQ6591-87-32 07:40:0010.7[facility] UFQLHWYOVR6940-08-11 07:40:00* Test Item Value Reference Range Interpretation Comments MCH (test code = MCH) 29.7 pg 27.0-31.0 Memorial GcsmmwmVLEGAGZPCO7581-66-30 07:40:0032.7[facility] HermannHEMATOLOGY 2014-12-29 07:40:0032.7Memorial TgzxgfzLKGICIUQGL9209-57-31 07:40:0090.8[facility]orial OaegdvpNFKFNZYDKG6474-94-51 07:40:003.60[facility]orial XcijrtfDUKACMUTFA9224-04-91 07:40:000.1[facility]orial SptknhxNWYPINSJHA3223-77-29 07:40:001.0[facility] RYKGYHTYUZ5089-89-60 07:40:007.3Memorial UppmzzgWXIKWGHGXQ1136-94-27 07:40:000.9 Memorial ZlwmmtwROVHWWEUUV8098-29-80 07:40:0083.8[facility] HermannHEMATOLOGY 2014-12-29 07:40:007.7Memorial MtfovgzWUWWNPNCIZ2378-89-95 07:40:000.3Memorial QznedrqBVXZKGHXYT8386-74-90 07:40:001.0Memorial DitccwfEARQKIDOAA5424-00-71 07:40:0011.2[facility] HermannCHEM FXGWR0864-19-43 06:07:001.7[facility] HermannCHEM USRKD6531-47-91 06:07:001.9Memorial IvvelciBMQFSFZWAYWJ7321-56-14 06:07:0011.6 Memorial NswlbzzORAUUHOQGATO4131-72-86 06:07:0067[facility] HermannELECTROLYTES 2014-12-28 06:07:43377Sxardglq TdptivcUJPXPAUOFATB8901-17-49 06:07:02576Zvwlpped KnjmljsBANZNMIEFWYW1461-72-97 06:07:003.6Memorial XfkpesmPQXEBNQIVWKU0301-72-16 06:07:0028[facility] OppqhplIXYPSTCMOUTH2966-62-14 06:07:009.0[facility] [place] VHZNCVOTJIBD6597-50-13 06:07:0016Mem[facility] MylqzsmRDVZDDPKNHQM9008-91-44 06:07:00 0.9Memorial RdbjqlgJXCPKLGQIUSR4785-03-02 06:07:20587Luwmgddx HermannHEMATOLOGY 2014-12-28 06:07:008.2Memorial XlmysdmSXNBQOUKKN5735-46-79 06:07:006.9[facility] ClvxblhAOAGWWRAWH6762-69-84 06:07:0084.0[facility] DvhgvscSNIEDICQOP6325-20-21 06:07:000.7[facility] RqonabtZTHIEVRCHN8965-60-99 06:07:001.1[facility] LGIBWMWBDV2541-69-92 06:07:000.1[facility] KjdpjbpIBMDXXRVIV3451-16-91 06:07:00 13.0[facility] VdxxvzpBYRSQSSWWE0487-08-59 06:07:001.3[facility] HermannHEMATOLOGY 2014-12-28 06:07:000.2[facility] XtktqmrBLTMHSXWYJ9214-36-37 06:07:0032.1[facility] UdcladlJHZMJLORNJ7877-22-48 06:07:0032.2[facility] ZifjxbiBSIXAKMABA6027-44-94 06:07:0091.3[facility] TqilbocXHJWUAVLVU8558-72-50 06:07:00* Test Item Value Reference Range Interpretation Comments MCH (test code = MCH) 29.3 pg 27.0-31.0 [facility] QyaqxtsUYBAMFHDTL0009-07-92 06:07:0010.3[facility] HermannHEMATOLOGY 2014-12-28 06:07:0013.9[facility] AgxikbrJKLRKQWMYJ5593-57-75 06:07:009.5[facility] EujaggpRGGBXYWQIK3844-55-23 06:07:82912Hydlwoxg AwodifbNSXLSGPRHM5046-20-34 06:07:003.52[facility] WsxmazqTZWKQPLBEK0949-81-67 06:07:0015.5[facility] OCJESSOQDM2886-99-19 06:07:00* Test Item Value Reference Range Interpretation Comments PTT (test code = PTT) 33.8 s 22.9-35.8 [facility] CmtsylyKOIQXVKJKZ4374-79-55 06:07:00* Test Item Value Reference Range Interpretation Comments PT (test code = PT) 14.1 s 12.0-14.7 [facility] YursypjTFMJBJQALX3549-00-71 06:07:001.06[facility] HermannMOLECULAR TPYNRRFAOD4014-51-67 17:13:00Negative (12/27/14 12:13 PM)[facility]annCHEM FWXJP4017-96-95 10:12:001.9[facility] HermannCHEM IOZBC3898-89-63 10:12:0059 [facility]annCHEM SCEHE8172-61-92 10:12:04716Hbhfiuve HermannCHEM PANEL 2014-12-27 10:12:003.6[facility] HermannCHEM SRNDF9309-66-82 10:12:008.7[facility] HermannCHEM HXVTX6492-97-34 10:12:0029[facility] HermannCHEM TQWFN3782-44-48 10:12:43235Zzreieym HermannCHEM ZIFAV5265-37-77 10:12:61983Jhjyhkms HermannCHEM RUIVA2135-14-77 10:12:0020[facility] HermannCHEM YDBMR2236-25-25 10:12:001.0 [facility] HermannCHEM OYVCT3610-41-83 10:12:0011.6[facility] HermannHEMATOLOGY 2014-12-27 10:12:0010.0[facility] TknesrvAJVDEQCUWA1453-26-36 10:12:0098[facility] PmblvcoMCMGEYOTRP6173-45-13 10:12:0090.6[facility] JtygozqHEAIHHNQQR9796-25-47 10:12:00* Test Item Value Reference Range Interpretation Comments MCH (test code = MCH) 29.3 pg 27.0-31.0 [facility] YassrhfYYLOGALIGX5580-69-61 10:12:0032.4[facility] HermannHEMATOLOGY 2014-12-27 10:12:0013.8[facility] GvjysyyWDLVVRPFAQ8583-95-05 10:12:0029.2[facility] HatghuxCLWOTQTOUD7895-01-90 10:12:0018.2[facility] FyluxshCRFJIWRPNQ2843-93-92 10:12:003.22[facility] XoqlnmoBENNVPQZTV5514-26-66 10:12:009.4[facility] Trsitin XSAZXYXYDU5291-15-14 10:12:0014.4[facility] WdusztaNMBIRDURMY5908-72-75 10:12:00 77.0[facility] HdfbcpxDLIYPBKJIS9876-30-32 10:12:001.8[facility] HermannHEMATOLOGY 2014-12-27 10:12:001.3[facility] JhjvbbkBGKSCMVKME5261-46-65 10:12:001.0[facility] XriemazBVMEYLNSDH2342-04-52 10:12:003.0[facility] EpbuhiiVEPMPGIGAH0574-20-79 10:12:0010.0[facility] GkctrrjUEOJVOZQWX4625-13-00 10:12:007.0[facility] Tristin OAFYLQJVTC2174-19-66 10:12:002.0[facility] HkoldvlMAPGMSLXCU8081-11-25 10:12:00 Moderate *ABN*(12/27/14 5:12 AM)[facility] XrzaqkpVVFBEECUVP1970-73-26 10:12:00 Normal (12/27/14 5:12 AM)[facility] XdcywleAPAGUPBBYJ7401-78-91 10:12:00* Test Item Value Reference Range Interpretation Comments Tot Cell Ct (test code = Tot Cell Ct) 100 1 [facility] XoxkdcnZGPNWNVTGK9512-00-38 10:12:000.0[facility]annURINE AND STOOL 2014-12-27 03:00:00Positive *ABN*(12/26/14 10:00 PM)[facility] CRIRG2464-41-32 03:00:00>8.0[facility] ZDOCA5239-81-57 03:00:00 Large *ABN*(12/26/14 10:00 PM)[facility] JCKWE8739-26-65 03:00:00 Moderate *ABN*(12/26/14 10:00 PM)[facility] SLKYH4117-64-65 03:00:00Moderate 5*ABN*(12/26/14 10:00 PM)[facility] STOOL 2014-12-27 03:00:00Negative (12/26/14 10:00 PM)[facility] STOOL 2014-12-27 03:00:00Turbid *ABN*(12/26/14 10:00 PM)[facility] STOOL 2014-12-27 03:00:00Dark Yellow (12/26/14 10:00 PM)[facility] STOOL 2014-12-27 03:00:00* Test Item Value Reference Range Interpretation Comments UA pH (test code = UA pH) 6.5 1 5.0-8.0 [facility] CYCWL7686-35-02 03:00:00* Test Item Value Reference Range Interpretation Comments UA Spec Grav (test code = UA Spec Grav) 1.015 1 [facility] HermannCHEM VPNLX0134-33-69 23:19:001.9[facility] HermannCHEM PANEL 2014-12-26 07:29:003.3[facility] FakellgLUCLZCYIYN7387-53-74 07:29:000.0[facility] XhdrappVSSBPPRPXW5584-88-46 07:29:000.0[facility] SaeiqkoTNOGODSQQM4163-34-54 07:29:000.0[facility] VmazxpaYJWARSOABU3414-19-65 07:29:008.0[facility] Tristin DJANUPKPCN2990-16-70 07:29:00Normal (12/26/14 2:29 AM)[facility] HermannHEMATOLOGY 2014-12-26 07:29:00Normal (12/26/14 2:29 AM)[facility] QpoyiodJRMKIIYELF9867-38-90 08:16:00Normal (12/25/14 3:16 AM)[facility] KunebeiBMCWVJTDWB5151-19-69 08:16:003.0 [facility] KgrdibtHSPIVCARZU1864-22-71 08:16:001.0[facility] HermannHEMATOLOGY 2014-12-25 08:16:00Normal (12/25/14 3:16 AM)[facility] BwyegxmWYIQNVBJHR7927-27-07 08:16:000.0[facility] HkqrepgMCRZMCKRFH7294-34-23 08:16:006.0[facility] AND MGSRP5724-08-88 09:19:00Yellow *NA*(12/24/14 4:19 AM)[facility] CLLBW4261-31-52 09:19:00Clear (12/24/14 4:19 AM)[facility] CBLBJ2775-03-59 09:19:005.5[facility] GKWAC8147-12-78 09:19:00 1.011[facility] MCGHG4505-10-93 09:19:00Negative *NA*(12/24/14 4:19 AM)[facility] MZZKV4715-97-30 09:19:00Small *ABN*(12/24/14 4:19 AM)[facility] IZLQC8259-55-61 09:19:00Negative (12/24/14 4:19 AM) [facility] ZJCPO2966-93-34 09:19:00Trace *ABN*(12/24/14 4:19 AM) [facility] FFJFY5310-03-55 09:19:001[facility] PEGNZ9146-65-97 09:19:004[facility] ROKOQ9536-29-92 09:19:008 [facility] UipyzagSNDZOORQJM3049-12-34 08:42:00* Test Item Value Reference Range Interpretation Comments PTT (test code = PTT) 30.2 s 22.9-35.8 [facility] NhfpjajSLGQCYLQCW0569-98-45 08:42:001.18[facility] HermannHEMATOLOGY 2014-12-24 08:42:00* Test Item Value Reference Range Interpretation Comments PT (test code = PT) 15.3 s 12.0-14.7 [facility] HermannANEMIA DDQUN9597-58-85 17:28:81757Yguagrqb HermannANEMIA STUDY 2014-12-23 17:28:76800Oixahnqc HermannANEMIA YSVIY8058-49-12 17:28:0016[facility] HermannANEMIA ZMINY0510-35-93 17:28:0033[facility] HermannANEMIA XFDQM7021-12-21 17:28:50519Kbctglvx HermannANEMIA QCAQG6441-37-73 17:28:807650Fkfjgxqy [facility] BLOOD BANK GIRMNXA2698-46-07 14:58:00Negative (12/22/14 9:58 AM)[facility] BLOOD BANK YNDNQRL0510-14-75 14:38:00Product available (12/22/14 9:38 AM)[facility]EtcmauoSHTTOFFSFQ7031-05-52 13:46:00Negative (12/21/14 8:46 AM)[facility] GBIZVVZXFK3315-07-38 13:46:00* Test Item Value Reference Range Interpretation Comments Pat Od Value (test code = Pat Od Value) 0.076 1 [facility] PwhyfohCDYUXRPPGY1884-89-41 13:46:00* Test Item Value Reference Range Interpretation Comments Pos CO Value (test code = Pos CO Value) 0.431 1 [facility] HermannTHYROID IOCPA7255-20-52 13:46:001.120[facility] HermannCHEM PANEL 2014-12-21 08:32:003.0[facility] HermannCHEM CJQVQ6820-98-46 03:00:004.7[facility] LqrsgszMEMZRGHJHH8308-74-92 03:00:000.63[facility] RsyvosgGUBXVGTOWB9523-72-73 03:00:00* Test Item Value Reference Range Interpretation Comments Thrombin Time (test code = Thrombin Time) 15.2 s 15.0-21.2 [facility] CcgsqmjTSUQODBFPK4075-94-33 03:00:33334Lpteoxyh HermannPARATHYROID GISDKPO3681-67-07 03:00:001.08[facility] HermannPARATHYROID XNHKHYN6657-33-35 03:00:001.07[facility] AND EZOTW2573-60-32 21:22:00Performed *NA*(12/20/14 4:22 PM)[facility] OCRER1152-55-24 21:22:0043[facility] KKOVZ2738-76-04 21:22:002[facility] STOOL 2014-12-20 21:22:005.0[facility] SHTWV9643-84-81 21:22:0014 [facility] RECNF2226-77-82 21:22:00Negative *NA*(12/20/14 4:22 PM) [facility] UNNEN5866-01-54 21:22:00Negative (12/20/14 4:22 PM) [facility] ZZCES8408-19-34 21:22:00Moderate *ABN*(12/20/14 4:22 PM) [facility] VQCDH0866-13-97 21:22:00Small *ABN*(12/20/14 4:22 PM) [facility] COUYS9732-89-15 21:22:00Yellow *NA*(12/20/14 4:22 PM) [facility] FUZPB6289-52-32 21:22:00Clear (12/20/14 4:22 PM)[facility] KGXLT6838-82-89 21:22:001.016[facility] HermannHEMATOLOGY 2014-12-20 19:46:00* Test Item Value Reference Range Interpretation Comments Thrombin Time (test code = Thrombin Time) 14.6 s 15.0-21.2 [facility] PmcpyovSBVCHXAUHU1659-65-66 19:46:000.74[facility] HermannHEMATOLOGY 2014-12-20 19:46:85827Rqpsouce WxqfhhlRNZQMLSFCU9501-24-12 11:39:00Normal (12/20/14 6:39 AM)[facility] ZlcazmdENGIKQIMPQ0227-12-92 11:39:93670Mqkkvzxy Tristin NEMYMQUGLA8869-00-89 11:39:00* Test Item Value Reference Range Interpretation Comments Thrombin Time (test code = Thrombin Time) 14.8 s 15.0-21.2 [facility] YzftgjkYHMLUPRIPY5726-93-45 11:39:000.63[facility] HermannPARATHYROID KLREJTA3098-26-20 05:58:001.07[facility] HermannPARATHYROID TQDOSCX9766-44-38 05:58:001.11[facility] HermannBACTERIAL - BMCNDTOZ5418-56-46 22:52:00Negative (12/19/14 5:52 PM)[facility] HermannPARATHYROID PLBNEBM4248-33-58 22:52:001.13 [facility] HermannPARATHYROID DEGPKIM5711-05-27 22:52:001.14[facility] AND OOPZS7649-41-05 22:52:0020[facility] VNOXN0137-06-98 22:52:00 Performed *NA*(12/19/14 5:52 PM)[facility] VqdmeqbDDFABTVEZK7862-03-18 18:40:00See Note (12/19/14 1:40 PM)[facility] FmtlbybPGNBAFUSLR9548-47-05 18:40:00* Test Item Value Reference Range Interpretation Comments K-time (test code = K-time) 2.2 min 1.0-3.0 [facility] YbkvcxzLIYDDULYLF3662-89-99 18:40:00* Test Item Value Reference Range Interpretation Comments Angle (test code = Angle) 61.6 degrees 53.0-72.0 [facility] UbsxoozMPWUSWTQER6074-78-97 18:40:00* Test Item Value Reference Range Interpretation Comments R-time (test code = R-time) 6.5 min 5.0-10.0 [facility] TkteilbFRNFZHKDAE3420-32-78 18:40:00* Test Item Value Reference Range Interpretation Comments Max Amp (test code = Max Amp) 53.3 mm 50.0-70.0 [facility] PiicbxxOIONALRIFK9091-72-53 18:40:005.7[facility] HermannHEMATOLOGY 2014-12-19 18:40:000.0[facility] KjmpqfeWMCIPMWTES0622-20-85 18:40:00-1.7[facility] HermannCHEM BHIRK3754-59-45 11:35:0030[facility] HermannCHEM EFWPD5800-06-60 11:35:007.1[facility] HermannCHEM AFQLB9899-37-08 11:35:0076[facility] HermannCHEM AXFGQ1470-14-42 11:35:001.2[facility] HermannCHEM XWIJA8574-00-91 11:35:0047 [facility] HermannCHEM FDQXI5978-64-37 11:35:004.2[facility] HermannCHEM PANEL 2014-12-19 11:35:002.9[facility] HermannCHEM NMRPI2637-64-54 11:35:001.4[facility] HermannCHEM BQCVU3758-73-25 11:35:0012[facility] MadekelZGIAAFEQWY7745-56-96 11:35:000.1[facility] MUEWUIJ5629-60-92 11:23:00Product available (12/19/14 6:23 AM)[facility]BL[facility] BANK DRZJTBL4400-61-08 11:23:00 Product available (12/19/14 6:23 AM)[facility] HGGWOYS1380-70-82 11:23:00Negative (12/19/14 6:23 AM)[facility] SystemannBL[facility] BANK CDGCHYR6917-59-46 21:40:00Product available (12/18/14 4:40 PM)[facility]
[2020-03-12] MEDS ORDERED: FUROSEMIDE INJ 10 MG/ML 4 ML VIAL IV ONE (20:30)
[2020-03-12 20:31] VITALS: BP 138/48
[2020-03-12 20:40] VITALS: BP 138/48
--- NOTE | 2020-03-12 20:40 | NUR ---
pt placed on Kap[address] c pulse ox by [employer] mookie. pt taken to room 215 via stretcher by [employer].
[2020-03-12 20:41] LABS: LYMPHOCYTES % (MANUAL) 18 % (19-48); METAMYELOCYTES % (MANUAL) 1 % (0-0); MONOCYTES % (MANUAL) 4 % (3.4-9.0); NEUTROPHILS % (MANUAL) 77 % (40-74); PLATELET ESTIMATE ADEQUATE; PLATELET MORPHOLOGY COMMENT NORMAL; RBC MORPHOLOGY COMMENT NORMAL
[2020-03-12 21:16] VITALS: BP 138/48
[2020-03-12] MEDS ORDERED: BENEFIBER1 EAC1 PO (21:21)
[2020-03-13] VITALS (8 sets, daily range): BP systolic 110–139; BP diastolic 38–57
[2020-03-13 05:33] LABS: CALCIUM IONIZED 1.2 mmol/L (1.09-1.30)
[2020-03-13 05:47] LABS: MAGNESIUM 2.1 MG/DL (1.3-2.1); PHOSPHORUS 3.2 MG/DL (2.3-4.7)
[2020-03-13 05:50] LABS: BASOPHILS % 0.3 % (0.0-1.0); EOSINOPHILS % 0.3 % (0.0-6.0); HEMATOCRIT 24.8 % (34.2-44.1); HEMOGLOBIN 7.9 g/dL (12.0-16.0); LYMPHOCYTES # (AUTO) 0.9 (1.0-3.2); LYMPHOCYTES % 25.1 % (18.0-39.1); MEAN CORPUSCULAR HGB CONC 31.9 g/dL (31-35); MEAN CORPUSCULAR VOLUME 97.3 fL (81-99); MONOCYTES # (AUTO) 0.1 (0.2-0.8); MONOCYTES % 3.7 % (4.4-11.3); NEUTROPHILS # (AUTO) 2.4 (2.1-6.9); PLATELET COUNT 156 x10e3/uL (140-360); RED BLOOD COUNT 2.55 x10e6/uL (3.6-5.1); RED CELL DISTRIBUTION WIDTH 17.1 % (11.7-14.4)
[2020-03-13 06:12] LABS: CREATINE KINASE 22 IU/L (29-168)
--- NOTE | 2020-03-13 06:21 | Diagnostic Imaging Report ---
EXAMINATION: CHEST 2 VIEWS INDICATION: ^Y ^F/U ^[id number] ^[id number] COMPARISON: 03/12/2020 FINDINGS: PA and lateral views TUBES and LINES: None. LUNGS: Lungs are well inflated. Central vascular congestion and mild interstitial edema. PLEURA: Trace bilateral pleural effusions. No pneumothorax. HEART AND MEDIASTINUM: The cardiomediastinal silhouette is enlarged. Median sternotomy wires and mediastinal surgical clips are again seen. BONES AND SOFT TISSUES: No acute osseous lesion. Soft tissues are unremarkable. UPPER ABDOMEN: No free air under the diaphragm. IMPRESSION: Enlarged cardiomediastinal silhouette, pulmonary vascular congestion, small bilateral pleural effusions, and mild interstitial edema. Signed by: Dr. Evan Rocha MD on 03/13/2020 6:17 AM
[2020-03-13 06:50] LABS: ALANINE AMINOTRANSFERASE 15 IU/L (0-55); ALBUMIN 2.9 g/dL (3.5-5.0); ALBUMIN/GLOBULIN RATIO 0.9 (0.8-2.0); ALKALINE PHOSPHATASE 139 IU/L (40-150); BLOOD UREA NITROGEN 27 mg/dL (7-26); BUN/CREATININE RATIO 36 (6-25); CALCIUM 8.3 mg/dL (8.4-10.2); CARBON DIOXIDE 26 mmol/L (22-29); CHLORIDE 106 mmol/L (98-107); CREATININE, SERUM 0.75 mg/dL (0.57-1.11); EST GLOMERULAR FILTRATION RATE > 60 ML/MIN (60-); GLUCOSE 137 mg/dL (74-118); SODIUM 140 mmol/L (136-145)
--- NOTE | 2020-03-13 07:08 | NUR ---
Bedside report and walking rounds completed with oncoming nurse. Patient in bed with call light within reach. No issues or concerns noted. Bed locked and in lowest position. Patient updated on POC.
[2020-03-13] MEDS ORDERED: DEXTROSE 50% SYRINGE 50 ML IV PRN (08:45)
[2020-03-13] MEDS: FUROSEMIDE INJ 10 MG/ML 4 ML VIAL IV SCH ×2 (09:00→18:08)
[2020-03-13] MEDS: INSULIN LISPRO 100 UNIT/1 ML 3ML VIAL SQ SCH ×3 (11:30→21:13)
[2020-03-13 13:09] LABS: CREATINE KINASE MB 1.6 ng/mL (0-5.0)
--- NOTE | 2020-03-13 13:52 | NUR ---
DAY 1 OBS DX: CHF EXAC SENT TO R1 FOR LOC DETERMINATION
[2020-03-13] MEDS: TOLTERODINE TARTRATE 4 MG CAPCR PO SCH (18:08)
[2020-03-13] MEDS: LEVOTHYROXINE SODIUM 75 MCG TAB PO SCH (18:08)
--- NOTE | 2020-03-13 19:36 | NUR ---
REPORT GIVEN TO ON COMING NURSE, WALKING ROUNDS COMPLETE
--- NOTE | 2020-03-13 19:44 | NUR ---
Spoke with Dr Regina Balbuena regarding patient requesting medication for sleep, new orders received.
[2020-03-13] MEDS ORDERED: MELATONIN 5 MG TABLET PO PRN (19:45)
[2020-03-13] MEDS ORDERED: SIMVASTATIN 40 MG TAB PO SCH (21:00)
--- NOTE | 2020-03-13 21:04 | NUR ---
History&Physical Chief Complaint - leg swelling History of Present Illness Ms Burton is a 69 yo F with PMH significant for De Santiago's syndrome, diastolic CHF, bioprosthetic aortic valve with moderate stenosis, HTN, hyperparathyroidism s/p resection, and T2DM who presents with orthopnea and LE edema, admitted for CHF exacerbation. Recently was admitted to [facility] for parathyroidectomy and had no complications, discharged home in good condition. Patient reports compliance with her home meds since then but drinks a lot of water at home per family and eats a lot of canned foods high in sodium. She is on lasix 40mg daily but was recently told to increase her dose to 40mg BID but patient did not do so, as she was confused and follows the instructions on her drug label which was not changed. She has been experiencing bilateral lower extremity edema for the past week and also experiencing orthopnea for the past few days. She presented to [facility] ED where BNP found to be elevated to 1000, CXR with pulmonary vascular congestion. Admitted for diuresis and management of CHF exacerbation. Home Medications - see medication reconciliation Review of Systems General: No fever, chills, or fatigue HEENT: Denies visual changes, hearing loss, congestion, rhinorrhea, or bleeding Respiratory: +SOB, No cough, or hemoptysis Cardiovascular: +lower extremity swelling; +EPPS, +Orthopnea; No chest pain, palpitations, PND, or claudication Gastrointestinal: No nausea, vomiting, diarrhea, constipation, or abdominal pain G/U: Denies dysuria, hematuria, incontinence, or discharge Musculoskeletal: No myalgias or arthralgias Neurological: No syncope, seizures, headaches, changes in sensation, or weakness Hematology: No bruising, bleeding, or lymphadenopathy Endocrine: No heat or cold intolerance, hair loss, or weight changes Skin: No rashes, sores, itching, bruising Psychiatric: Denies depression or elevated mood, or anxiety Past Medical History HTN, T2DM, hyperthyroid, de santiago syndrome Past Surgical History Aortic valve replacement Family History CAD and CHF in her father Social History Does not drink, smoke, or use drugs Allergies Sulfa drugs Physical Exam Vitals: Temp: 97.9P: 65BP: 139/52RR: 20SpO2: 98% General Appearance: The patient is alert, oriented and in no acute distress. Appears euvolemic. Skin: Warm and hydrated without any rash. HEENT: Head is normocephalic, atraumatic. Nontender sinuses. Pupils are equal and reactive. The nares are patent. Oropharynx is moist and clear without lesion s. Neck: Supple without lymphadenopathy. No JVD. Thyroid NV/[employer]. Surgical scar intact (parathyroidectomy) Heart / Cardiovascular: Regular rate and rhythm. Normal S1 and S2 without S3/S4. 3/6 systolic murmur noted in aortic area; rubs or gallops. Peripheral pulses symmetric +2. Respiratory / Chest: No crackles or wheezes are heard. Symmetric breath sounds. Preserved chest expansion. Abdomen: Soft, nontender, nondistended with good bowel sounds heard. No clinical organomegaly. Renal: There is no costovertebral angle tenderness. Extremities: 2+ pitting edema in bilateral lower extremities. Without cyanosis, clubbing. Preserved ROM. Neurological: Gross nonfocal. Patient oriented x 3. Cranial nerves II - XII Grossly intact. DTRs +2. MS: 5/5 globally. Labs/Imaging: all pertinent labs and diagnostic imaging were reviewed Assessment/Plan #CHF exacerbation #Diastolic heart failure #Volume overload #Bioprosthetic aortic valve with moderate #HTN - Pulm vascular congestion on CXR; bilateral LE pitting edema, BNP 1000 - TTE with preserved EF but concentric hypertrophy, enlarged LA, moderate but with functioning bioprosthetic aortic valve - lasix IV 40mg BID - strict I/Os - daily weights - monitor electrolytes closely while diuresing I have spent 70 minutes uroy-oe-wkwq time with patient, reviewing clinical data, and formulating plan of treatment. Alverto Balbuena MD Internal Medicine
[2020-03-14] VITALS: BP 139/52
[2020-03-14 04:00] VITALS: BP 141/48
[2020-03-14 05:18] LABS: BASOPHILS % 0.6 % (0.0-1.0); EOSINOPHILS % 0.9 % (0.0-6.0); HEMATOCRIT 25.2 % (34.2-44.1); HEMOGLOBIN 7.9 g/dL (12.0-16.0); LYMPHOCYTES # (AUTO) 0.9 (1.0-3.2); LYMPHOCYTES % 27.9 % (18.0-39.1); MEAN CORPUSCULAR HEMOGLOBIN 30.6 pg (28-32); MEAN CORPUSCULAR HGB CONC 31.3 g/dL (31-35); MEAN CORPUSCULAR VOLUME 97.7 fL (81-99); MONOCYTES # (AUTO) 0.2 (0.2-0.8); MONOCYTES % 4.8 % (4.4-11.3); NEUTROPHILS # (AUTO) 1.9 (2.1-6.9); NEUTROPHILS % 58.3 % (38.7-80.0); PLATELET COUNT 118 x10e3/uL (140-360); RED BLOOD COUNT 2.58 x10e6/uL (3.6-5.1)
[2020-03-14] MEDS: LEVOTHYROXINE SODIUM 75 MCG TAB PO SCH (05:33)
[2020-03-14 05:50] LABS: ALANINE AMINOTRANSFERASE 13 IU/L (0-55); ALBUMIN 2.9 g/dL (3.5-5.0); ALKALINE PHOSPHATASE 126 IU/L (40-150); BLOOD UREA NITROGEN 25 mg/dL (7-26); BUN/CREATININE RATIO 34 (6-25); CALCIUM 8.1 mg/dL (8.4-10.2); CARBON DIOXIDE 27 mmol/L (22-29); CHLORIDE 104 mmol/L (98-107); CREATININE, SERUM 0.74 mg/dL (0.57-1.11); EST GLOMERULAR FILTRATION RATE > 60 ML/MIN (60-); GLUCOSE 102 mg/dL (74-118); SODIUM 141 mmol/L (136-145)
[2020-03-14] MEDS ORDERED: FUROSEMIDE 40 MG TAB PO SCH (06:00)
[2020-03-14] MEDS: INSULIN LISPRO 100 UNIT/1 ML 3ML VIAL SQ SCH (07:30)
[2020-03-14 07:47] VITALS: BP 141/48
[2020-03-14 07:51] LABS: BAND NEUTROPHILS % (MANUAL) 3 %; EOSINOPHILS % (MANUAL) 2 % (0-7); LYMPHOCYTES % (MANUAL) 27 % (19-48); METAMYELOCYTES % (MANUAL) 1 % (0-0); MONOCYTES % (MANUAL) 4 % (3.4-9.0); MYELOCYTES % (MANUAL) 1 % (0-0); NEUTROPHILS % (MANUAL) 62 % (40-74); NUCLEATED RED BLOOD CELLS 1
[2020-03-14 07:52] LABS: PLATELET ESTIMATE SLIGHTLY DECREASED; PLATELET MORPHOLOGY COMMENT NORMAL; RBC MORPHOLOGY COMMENT NORMAL
[2020-03-14 08:00] VITALS: BP 123/53
--- NOTE | 2020-03-14 08:49 | NUR ---
R1 LOC DETERMINATION: PCTX case account ending in 1902 has been reviewed and completed by [facility] Physicians. Service Line: Level of Care (LOC) / Admission Status Review Initial patient type was submitted as: IO - Initial Observation PAS Recommendation: IO
[2020-03-14] MEDS ORDERED: POTASSIUM CHLORIDE 20 MEQ TAB CR PO ONE ×2 (09:50→11:30)
[2020-03-14] MEDS: TOLTERODINE TARTRATE 4 MG CAPCR PO SCH (09:54)
[2020-03-14 12:00] VITALS: BP 139/62
== END 2020-03-14 14:07 | disposition home or self-care (01) ==
LOC: ER 17:36 → ERHOLD 19:08 → MED/SURG2 20:32
PROVIDERS: ADMIT Internal Medicine; ATTEND Internal Medicine
DX: I11.0 Hypertensive heart disease with heart failure (principal); I50.33 Acute on chronic diastolic (congestive) heart failure; E11.9 Type 2 diabetes mellitus without complications; Z95.1 Presence of aortocoronary bypass graft; Z95.2 Presence of prosthetic heart valve; Q96.9 Turner's syndrome, unspecified; Z79.84 Long term (current) use of oral hypoglycemic drugs; Z20.828 Contact with and (suspected) exposure to other viral communicable diseases
CPT/HCPCS: 36415 ×3; 71045; 71046; 80053 ×3; 82550 ×2; 82553 ×2; 82948 ×2; 83735; 83880; 84100; 84484 ×2; 85025 ×3; 93306; 99284; G0378 ×3; J1940 ×2; U0002

== ENCOUNTER 2020-04-07 13:41 | Inpatient (IN) | payer MEDICARE, BC ==
[~2020-04-07] VITALS: Ht 149.9 cm; Wt 40.8 kg
[~2020-04-07 13:41] MED LIST changes: +BENEFIBER1 EAC1 PO
[2020-04-07 14:35] LABS: BASOPHILS % 0.5 % (0.0-1.0); EOSINOPHILS % 0.2 % (0.0-6.0); HEMATOCRIT 25.7 % (34.2-44.1); LYMPHOCYTES # (AUTO) 0.4 (1.0-3.2); LYMPHOCYTES % 10.3 % (18.0-39.1); MEAN CORPUSCULAR HEMOGLOBIN 29.9 pg (28-32); MEAN CORPUSCULAR HGB CONC 31.1 g/dL (31-35); MEAN CORPUSCULAR VOLUME 95.9 fL (81-99); MONOCYTES # (AUTO) 0.2 (0.2-0.8); MONOCYTES % 5.5 % (4.4-11.3); NEUTROPHILS # (AUTO) 3.4 (2.1-6.9); NEUTROPHILS % 82.1 % (38.7-80.0); PLATELET COUNT 138 x10e3/uL (140-360); RED BLOOD COUNT 2.68 x10e6/uL (3.6-5.1); RED CELL DISTRIBUTION WIDTH 16.2 % (11.7-14.4)
[2020-04-07 14:41] LABS: INR 1.18; PROTHROMBIN TIME 15.6 seconds (11.9-14.5)
[2020-04-07 14:42] LABS: PARTIAL THROMBOPLASTIN TIME 41.3 seconds (23.8-35.5)
[2020-04-07 14:45] LABS: CLARITY,URINE HAZY (CLEAR); COLOR,URINE YELLOW (YELLOW); KETONES,URINE NEGATIVE (NEGATIVE); LEUKOCYTE ESTERASE ,URINE SMALL (NEGATIVE); NITRITE,URINE NEGATIVE (NEGATIVE); PROTEIN,URINE DIPSTICK NEGATIVE (NEGATIVE); URINE UROBILINOGEN 1 mg/dL (0.2 - 1)
[2020-04-07 14:48] LABS: BACTERIA,URINE MANY /HPF; EPITHELIAL CELLS,URINE FEW /LPF
[2020-04-07 14:52] LABS: ALANINE AMINOTRANSFERASE 19 IU/L (0-55); ALBUMIN/GLOBULIN RATIO 0.8 (0.8-2.0); ALKALINE PHOSPHATASE 158 IU/L (40-150); BLOOD UREA NITROGEN 26 mg/dL (7-26); BUN/CREATININE RATIO 30 (6-25); CALCIUM 8.8 mg/dL (8.4-10.2); CARBON DIOXIDE 22 mmol/L (22-29); CHLORIDE 102 mmol/L (98-107); CREATINE KINASE 21 IU/L (29-168); CREATININE, SERUM 0.87 mg/dL (0.57-1.11); EST GLOMERULAR FILTRATION RATE > 60 ML/MIN (60-); GLUCOSE 198 mg/dL (74-118); SODIUM 137 mmol/L (136-145)
[2020-04-07 15:41] LABS: LYMPHOCYTES % (MANUAL) 14 % (19-48); MONOCYTES % (MANUAL) 4 % (3.4-9.0); NEUTROPHILS % (MANUAL) 82 % (40-74)
[2020-04-07 15:42] LABS: PLATELET ESTIMATE ADEQUATE; PLATELET MORPHOLOGY COMMENT NORMAL; RBC MORPHOLOGY COMMENT NORMAL
[2020-04-07] MEDS ORDERED: VANCOMYCIN 1GM/NS 250 ML 250 ML IV ONE (16:00)
[2020-04-07] MEDS: CEFTRIAXONE SOD 1 GM/NS 50 ML 50 ML IV SCH (16:00)
[2020-04-07] MEDS ORDERED: FUROSEMIDE INJ 10 MG/ML 2 ML VIAL ONE (16:29)
[2020-04-07] MEDS ORDERED: CEFTRIAXONE SOD 1 GM VIAL ONE (16:29)
[2020-04-07] MEDS ORDERED: FUROSEMIDE INJ 10 MG/ML 2 ML VIAL IV ONE (16:30)
[2020-04-07 20:44] VITALS: BP 105/52
[2020-04-07 21:07] VITALS: BP 105/52
[2020-04-08] VITALS (9 sets, daily range): BP systolic 103–115; BP diastolic 44–68
[2020-04-08] MEDS ORDERED: SODIUM CHLORIDE 0.9% 250ML 250 ML ONE (01:25)
[2020-04-08 02:58] LABS: CREATINE KINASE < 7 IU/L (29-168)
[2020-04-08] MEDS: CEFTRIAXONE SOD 1 GM/NS 50 ML 50 ML IV SCH ×2 (03:20→15:12)
[2020-04-08 05:28] LABS: BASOPHILS % 0.3 % (0.0-1.0); EOSINOPHILS % 0.6 % (0.0-6.0); HEMATOCRIT 24.9 % (34.2-44.1); HEMOGLOBIN 7.8 g/dL (12.0-16.0); LYMPHOCYTES # (AUTO) 0.5 (1.0-3.2); LYMPHOCYTES % 13.8 % (18.0-39.1); MEAN CORPUSCULAR HEMOGLOBIN 30.4 pg (28-32); MEAN CORPUSCULAR HGB CONC 31.3 g/dL (31-35); MEAN CORPUSCULAR VOLUME 96.9 fL (81-99); MONOCYTES # (AUTO) 0.2 (0.2-0.8); MONOCYTES % 6.6 % (4.4-11.3); NEUTROPHILS # (AUTO) 2.7 (2.1-6.9); NEUTROPHILS % 77.6 % (38.7-80.0); PLATELET COUNT 119 x10e3/uL (140-360); RED BLOOD COUNT 2.57 x10e6/uL (3.6-5.1); RED CELL DISTRIBUTION WIDTH 16.2 % (11.7-14.4)
[2020-04-08 05:48] LABS: ALANINE AMINOTRANSFERASE 16 IU/L (0-55); ALBUMIN 2.7 g/dL (3.5-5.0); ALBUMIN/GLOBULIN RATIO 0.7 (0.8-2.0); ALKALINE PHOSPHATASE 133 IU/L (40-150); ANION GAP 13.4 mmol/L (8-16); BLOOD UREA NITROGEN 20 mg/dL (7-26); BUN/CREATININE RATIO 27 (6-25); CALCIUM 8.4 mg/dL (8.4-10.2); CARBON DIOXIDE 24 mmol/L (22-29); CHLORIDE 104 mmol/L (98-107); CREATININE, SERUM 0.75 mg/dL (0.57-1.11); EST GLOMERULAR FILTRATION RATE > 60 ML/MIN (60-); GLUCOSE 90 mg/dL (74-118); POTASSIUM 3.4 mmol/L (3.5-5.1); SODIUM 138 mmol/L (136-145)
[2020-04-08 06:36] LABS: CREATINE KINASE MB 0.7 ng/mL (0-5.0)
[2020-04-08] MEDS ORDERED: FUROSEMIDE INJ 10 MG/ML 4 ML VIAL IV ONE (12:00)
[2020-04-08] MEDS ORDERED: SPIRONOLACTONE 25 MG TAB PO ONE (12:30)
[2020-04-08 15:17] LABS: CREATINE KINASE MB 0.6 ng/mL (0-5.0)
[2020-04-08] MEDS ORDERED: GLIPIZIDE 2.5 MG TABCR PO ONE (19:30)
[2020-04-08] MEDS: SPIRONOLACTONE 25 MG TAB PO SCH (20:28)
[2020-04-08] MEDS: FUROSEMIDE INJ 10 MG/ML 4 ML VIAL IV SCH (20:29)
[2020-04-08] MEDS: SIMVASTATIN 40 MG TAB PO SCH (20:29)
[2020-04-08] MEDS ORDERED: DEXTROSE 50% SYRINGE 50 ML IV PRN (20:30)
[2020-04-08] MEDS: INSULIN LISPRO 100 UNIT/1 ML 3ML VIAL SQ SCH (21:00)
[2020-04-08] MEDS: MELATONIN 5 MG TABLET PO PRN (21:36)
[2020-04-09] VITALS (8 sets, daily range): BP systolic 97–132; BP diastolic 44–64
[2020-04-09] MEDS: CEFTRIAXONE SOD 1 GM/NS 50 ML 50 ML IV SCH ×2 (03:05→15:31)
[2020-04-09 05:11] LABS: BASOPHILS % 0.6 % (0.0-1.0); EOSINOPHILS % 0.9 % (0.0-6.0); HEMATOCRIT 24.9 % (34.2-44.1); HEMOGLOBIN 7.8 g/dL (12.0-16.0); LYMPHOCYTES # (AUTO) 0.5 (1.0-3.2); LYMPHOCYTES % 14.9 % (18.0-39.1); MEAN CORPUSCULAR HEMOGLOBIN 29.8 pg (28-32); MEAN CORPUSCULAR HGB CONC 31.3 g/dL (31-35); MONOCYTES # (AUTO) 0.2 (0.2-0.8); MONOCYTES % 6.7 % (4.4-11.3); NEUTROPHILS # (AUTO) 2.6 (2.1-6.9); NEUTROPHILS % 75.4 % (38.7-80.0); PLATELET COUNT 146 x10e3/uL (140-360); RED BLOOD COUNT 2.62 x10e6/uL (3.6-5.1); RED CELL DISTRIBUTION WIDTH 16.1 % (11.7-14.4)
[2020-04-09] MEDS: LEVOTHYROXINE SODIUM 75 MCG TAB PO SCH (05:14)
[2020-04-09 05:34] LABS: BLOOD UREA NITROGEN 16 mg/dL (7-26); BUN/CREATININE RATIO 21 (6-25); CALCIUM 8.2 mg/dL (8.4-10.2); CARBON DIOXIDE 27 mmol/L (22-29); CHLORIDE 102 mmol/L (98-107); CREATININE, SERUM 0.76 mg/dL (0.57-1.11); EST GLOMERULAR FILTRATION RATE > 60 ML/MIN (60-); GLUCOSE 78 mg/dL (74-118); SODIUM 138 mmol/L (136-145)
[2020-04-09] MEDS: INSULIN LISPRO 100 UNIT/1 ML 3ML VIAL SQ SCH ×4 (07:30→21:00)
[2020-04-09] MEDS: ATENOLOL 50 MG TAB PO SCH (07:56)
[2020-04-09] MEDS: GLIPIZIDE 2.5 MG TABCR PO SCH (07:56)
[2020-04-09] MEDS: TOLTERODINE TARTRATE 4 MG CAPCR PO SCH (08:02)
[2020-04-09] MEDS: FUROSEMIDE INJ 10 MG/ML 4 ML VIAL IV SCH ×2 (08:02→21:20)
[2020-04-09] MEDS ORDERED: LEVOTHYROXINE SODIUM 75 MCG TAB PO SCH (09:00)
[2020-04-09] MEDS ORDERED: POTASSIUM CHLORIDE 20MEQ/15ML UDC PO ONE (11:30)
[2020-04-09] MEDS ORDERED: KCL 20 MEQ PACKET/ ORAL SOLN PO ONE (12:30)
[2020-04-09] MEDS: SIMVASTATIN 40 MG TAB PO SCH (21:20)
[2020-04-09] MEDS: MELATONIN 5 MG TABLET PO PRN (21:40)
[2020-04-10] VITALS (8 sets, daily range): BP systolic 93–121; BP diastolic 52–77
[2020-04-10] MEDS: CEFTRIAXONE SOD 1 GM/NS 50 ML 50 ML IV SCH ×2 (03:30→18:28)
[2020-04-10 04:52] LABS: EOSINOPHILS % 0.7 % (0.0-6.0); HEMATOCRIT 24.7 % (34.2-44.1); HEMOGLOBIN 7.9 g/dL (12.0-16.0); LYMPHOCYTES # (AUTO) 0.5 (1.0-3.2); LYMPHOCYTES % 15.4 % (18.0-39.1); MEAN CORPUSCULAR HEMOGLOBIN 30.2 pg (28-32); MEAN CORPUSCULAR VOLUME 94.3 fL (81-99); MONOCYTES # (AUTO) 0.2 (0.2-0.8); MONOCYTES % 5.5 % (4.4-11.3); NEUTROPHILS # (AUTO) 2.2 (2.1-6.9); NEUTROPHILS % 75.7 % (38.7-80.0); PLATELET COUNT 159 x10e3/uL (140-360); RED BLOOD COUNT 2.62 x10e6/uL (3.6-5.1); RED CELL DISTRIBUTION WIDTH 15.8 % (11.7-14.4)
[2020-04-10 04:55] LABS: CALCIUM IONIZED 1.1 mmol/L (1.09-1.30)
[2020-04-10] MEDS: LEVOTHYROXINE SODIUM 75 MCG TAB PO SCH (05:06)
[2020-04-10 05:26] LABS: ALANINE AMINOTRANSFERASE 12 IU/L (0-55); ALBUMIN 2.4 g/dL (3.5-5.0); ALBUMIN/GLOBULIN RATIO 0.6 (0.8-2.0); ALKALINE PHOSPHATASE 114 IU/L (40-150); ANION GAP 11.4 mmol/L (8-16); BLOOD UREA NITROGEN 15 mg/dL (7-26); BUN/CREATININE RATIO 21 (6-25); CALCIUM 8.1 mg/dL (8.4-10.2); CARBON DIOXIDE 27 mmol/L (22-29); CHLORIDE 100 mmol/L (98-107); CREATININE, SERUM 0.73 mg/dL (0.57-1.11); EST GLOMERULAR FILTRATION RATE > 60 ML/MIN (60-); GLUCOSE 127 mg/dL (74-118); MAGNESIUM 1.9 MG/DL (1.3-2.1); POTASSIUM 3.4 mmol/L (3.5-5.1); SODIUM 135 mmol/L (136-145)
[2020-04-10] MEDS: INSULIN LISPRO 100 UNIT/1 ML 3ML VIAL SQ SCH ×4 (07:30→21:00)
[2020-04-10] MEDS: GLIPIZIDE 2.5 MG TABCR PO SCH (08:36)
[2020-04-10] MEDS: TOLTERODINE TARTRATE 4 MG CAPCR PO SCH (08:36)
[2020-04-10] MEDS: FUROSEMIDE INJ 10 MG/ML 4 ML VIAL IV SCH (08:36)
[2020-04-10] MEDS: SPIRONOLACTONE 25 MG TAB PO SCH (08:36)
[2020-04-10] MEDS: ATENOLOL 50 MG TAB PO SCH (08:37)
[2020-04-10] MEDS ORDERED: POTASSIUM CHLORIDE 20MEQ/15ML UDC PO ONE (10:00)
[2020-04-10] MEDS ORDERED: ALDACTONE25 MG PO (10:08)
[2020-04-10] MEDS ORDERED: KCL 20 MEQ PACKET/ ORAL SOLN PO ONE (10:15)
[2020-04-10] MEDS ORDERED: POTASSIUM CHLORIDE 10MEQ EA PO ONE (17:30)
[2020-04-10] MEDS: SIMVASTATIN 40 MG TAB PO SCH (21:00)
[2020-04-11] VITALS: BP 113/64
[2020-04-11] MEDS: CEFTRIAXONE SOD 1 GM/NS 50 ML 50 ML IV SCH (03:45)
[2020-04-11 04:00] VITALS: BP 110/47
[2020-04-11] MEDS: LEVOTHYROXINE SODIUM 75 MCG TAB PO SCH (06:15)
[2020-04-11 07:28] VITALS: BP 104/51
[2020-04-11] MEDS: INSULIN LISPRO 100 UNIT/1 ML 3ML VIAL SQ SCH (07:30)
[2020-04-11 08:38] VITALS: BP 104/51
[2020-04-11] MEDS: SPIRONOLACTONE 25 MG TAB PO SCH (08:42)
[2020-04-11] MEDS: TOLTERODINE TARTRATE 4 MG CAPCR PO SCH (08:42)
[2020-04-11] MEDS: GLIPIZIDE 2.5 MG TABCR PO SCH (08:42)
[2020-04-11] MEDS: ATENOLOL 50 MG TAB PO SCH (08:43)
[2020-04-11] MEDS ORDERED: FUROSEMIDE 40 MG TAB PO SCH (09:00)
== END 2020-04-11 10:42 | disposition home or self-care (01) | DRG 291 ==
LOC: ER 14:10 → ERHOLD 16:25 → MED/SURG 20:38
PROVIDERS: ADMIT Internal Medicine; ATTEND Internal Medicine
DX: I11.0 Hypertensive heart disease with heart failure (principal); J96.01 Acute respiratory failure with hypoxia; J81.1 Chronic pulmonary edema; I50.33 Acute on chronic diastolic (congestive) heart failure; I35.0 Nonrheumatic aortic (valve) stenosis; E11.9 Type 2 diabetes mellitus without complications; E78.5 Hyperlipidemia, unspecified; I25.10 Atherosclerotic heart disease of native coronary artery without angina pectoris; Z98.61 Coronary angioplasty status; Z95.1 Presence of aortocoronary bypass graft; Z95.2 Presence of prosthetic heart valve; Z20.828 Contact with and (suspected) exposure to other viral communicable diseases; R63.6 Underweight; Z68.20 Body mass index [BMI] 20.0-20.9, adult
CPT/HCPCS: 36415; 51700; 71045; 80048; 80053; 81001; 82550; 82553; 82948; 83735; 83880; 84484; 85025; 85610; 85730; 87040; 87086; 87186; 93005; 96372; 99284; J0696; J1940; J3370; J7050; U0002

== ENCOUNTER 2020-05-09 10:21 | Emergency (ER) | payer MEDICARE, BC ==
[~2020-05-09] VITALS: Ht 152.4 cm; Wt 52.2 kg
[~2020-05-09 10:21] MED LIST changes: +ALDACTONE25 MG PO
[2020-05-09] MEDS ORDERED: OXYMETAZOLINE HCL 0.05% NAS 1 SPRAY BTL ONE ×2 (11:00→11:04)
[2020-05-09 13:17] VITALS: BP 120/74
== END 2020-05-09 13:19 | disposition home or self-care (01) ==
LOC: ER 10:55
DX: R04.0 Epistaxis (principal); I10 Essential (primary) hypertension; E11.9 Type 2 diabetes mellitus without complications; I50.9 Heart failure, unspecified; E03.9 Hypothyroidism, unspecified; Z95.1 Presence of aortocoronary bypass graft
CPT/HCPCS: 99282

== ENCOUNTER 2020-06-03 13:50 | Emergency (ER) | payer MEDICARE, BC ==
[~2020-06-03] VITALS: Ht 149.9 cm; Wt 52.2 kg
[2020-06-03] MEDS ORDERED: CLINDAMYCIN HC150 MG PO (14:01)
== END 2020-06-03 14:19 | disposition home or self-care (01) ==
LOC: ER 14:05
DX: L03.213 Periorbital cellulitis (principal); I10 Essential (primary) hypertension; E11.9 Type 2 diabetes mellitus without complications; I50.9 Heart failure, unspecified; E03.9 Hypothyroidism, unspecified; Z95.1 Presence of aortocoronary bypass graft
CPT/HCPCS: 99283

== ENCOUNTER 2020-09-16 09:57 | Inpatient (IN) | payer MEDICARE, BC ==
[~2020-09-16] VITALS: Ht 149.9 cm; Wt 52.2 kg
[~2020-09-16 09:57] MED LIST changes: +CLINDAMYCIN HC150 MG PO
[2020-09-16 11:10] LABS: BASOPHILS % 0.4 % (0.0-1.0); EOSINOPHILS % 0.7 % (0.0-6.0); LYMPHOCYTES # (AUTO) 0.5 (1.0-3.2); LYMPHOCYTES % 18.3 % (18.0-39.1); MEAN CORPUSCULAR HGB CONC 32.1 g/dL (31-35); MEAN CORPUSCULAR VOLUME 93.5 fL (81-99); MONOCYTES # (AUTO) 0.1 (0.2-0.8); MONOCYTES % 4.7 % (4.4-11.3); NEUTROPHILS # (AUTO) 2.1 (2.1-6.9); NEUTROPHILS % 74.1 % (38.7-80.0); PLATELET COUNT 70 x10e3/uL (140-360); RED CELL DISTRIBUTION WIDTH 17.8 % (11.7-14.4)
[2020-09-16 11:13] LABS: PARTIAL THROMBOPLASTIN TIME 41.2 seconds (23.8-35.5); PROTHROMBIN TIME 13.8 seconds (11.9-14.5)
[2020-09-16 11:14] LABS: HEMATOCRIT 21.5 % (34.2-44.1); HEMOGLOBIN 6.9 g/dL (12.0-16.0)
[2020-09-16 11:23] LABS: ALBUMIN 2.7 g/dL (3.5-5.0); ALBUMIN/GLOBULIN RATIO 0.8 (0.8-2.0); ANION GAP 16.4 mmol/L (8-16); CREATININE, SERUM 1.04 mg/dL (0.57-1.11); MAGNESIUM 2.3 MG/DL (1.3-2.1); POTASSIUM 4.4 mmol/L (3.5-5.1)
[2020-09-16 11:31] LABS: CLARITY,URINE SL CLOUDY (CLEAR); COLOR,URINE AMBER (YELLOW); KETONES,URINE NEGATIVE (NEGATIVE); LEUKOCYTE ESTERASE ,URINE NEGATIVE (NEGATIVE); NITRITE,URINE NEGATIVE (NEGATIVE); PROTEIN,URINE DIPSTICK NEGATIVE (NEGATIVE); URINE UROBILINOGEN 0.2 mg/dL (0.2 - 1)
[2020-09-16 11:31] LABS: CREATINE KINASE MB 1.5 ng/mL (0-5.0)
[2020-09-16] MEDS ORDERED: LISINOPRIL2.5 MG PO (11:42)
[2020-09-16] MEDS ORDERED: ASPIRIN CHEW81 MG PO (11:42)
[2020-09-16] MEDS ORDERED: ALLOPURINOL100 MG PO (11:42)
[2020-09-16 11:43] LABS: AMORPHOUS SEDIMENT,URINE MODERATE (FEW); BACTERIA,URINE FEW /HPF
[2020-09-16] MEDS ORDERED: SODIUM CHLORIDE 0.9% 250ML 250 ML IV ONE (11:45)
[2020-09-16] MEDS ORDERED: ONDANSETRON HCL INJ 2MG/ML 2ML 2 MG/ML VIAL IV PRN (14:45)
[2020-09-16] MEDS ORDERED: FUROSEMIDE INJ 10 MG/ML 4 ML VIAL IV NR (15:15)
[2020-09-16 16:19] VITALS: BP 109/42
[2020-09-16 16:29] VITALS: BP 109/42
[2020-09-16 18:38] LABS: CREATINE KINASE MB 1.2 ng/mL (0-5.0)
[2020-09-16 20:00] VITALS: BP 113/48
[2020-09-16 20:43] LABS: HEMATOCRIT 25.8 % (34.2-44.1); HEMOGLOBIN 8.5 g/dL (12.0-16.0)
[2020-09-16] MEDS: SIMVASTATIN 40 MG TAB PO SCH (20:45)
[2020-09-16 22:11] VITALS: BP 113/48
[2020-09-17] VITALS (9 sets, daily range): BP systolic 106–127; BP diastolic 43–64
[2020-09-17 00:34] LABS: CREATINE KINASE MB 0.9 ng/mL (0-5.0)
[2020-09-17 04:42] LABS: BASOPHILS % 0.3 % (0.0-1.0); HEMOGLOBIN 8.6 g/dL (12.0-16.0); LYMPHOCYTES # (AUTO) 0.6 (1.0-3.2); LYMPHOCYTES % 21.3 % (18.0-39.1); MEAN CORPUSCULAR HEMOGLOBIN 30.4 pg (28-32); MEAN CORPUSCULAR HGB CONC 33.1 g/dL (31-35); MEAN CORPUSCULAR VOLUME 91.9 fL (81-99); MONOCYTES # (AUTO) 0.2 (0.2-0.8); MONOCYTES % 6.7 % (4.4-11.3); NEUTROPHILS # (AUTO) 2.1 (2.1-6.9); NEUTROPHILS % 68.7 % (38.7-80.0); PLATELET COUNT 81 x10e3/uL (140-360); RED BLOOD COUNT 2.83 x10e6/uL (3.6-5.1); RED CELL DISTRIBUTION WIDTH 16.8 % (11.7-14.4)
[2020-09-17 05:10] LABS: ALANINE AMINOTRANSFERASE 39 IU/L (0-55); ALBUMIN 2.6 g/dL (3.5-5.0); ALBUMIN/GLOBULIN RATIO 0.8 (0.8-2.0); ALKALINE PHOSPHATASE 185 IU/L (40-150); ANION GAP 13.2 mmol/L (8-16); BLOOD UREA NITROGEN 34 mg/dL (7-26); BUN/CREATININE RATIO 44 (6-25); CALCIUM 8.7 mg/dL (8.4-10.2); CARBON DIOXIDE 20 mmol/L (22-29); CHLORIDE 105 mmol/L (98-107); CREATININE, SERUM 0.77 mg/dL (0.57-1.11); EST GLOMERULAR FILTRATION RATE > 60 ML/MIN (60-); GLUCOSE 109 mg/dL (74-118); POTASSIUM 4.2 mmol/L (3.5-5.1); SODIUM 134 mmol/L (136-145)
[2020-09-17 05:37] LABS: CREATINE KINASE MB 0.7 ng/mL (0-5.0)
[2020-09-17] MEDS ORDERED: LEVOTHYROXINE SODIUM 75 MCG TAB PO SCH (07:30)
[2020-09-17] MEDS: FUROSEMIDE 40 MG TAB PO SCH (09:00)
[2020-09-17] MEDS: ALLOPURINOL 100 MG TAB PO SCH (09:00)
[2020-09-17] MEDS: POTASSIUM CHLORIDE 10MEQ EA PO SCH (09:00)
[2020-09-17] MEDS: LISINOPRIL 2.5 MG TAB PO SCH (09:00)
[2020-09-17] MEDS: TOLTERODINE TARTRATE 4 MG CAPCR PO SCH (09:00)
[2020-09-17] MEDS: GLIPIZIDE 2.5 MG TABCR PO SCH (09:00)
[2020-09-17] MEDS ORDERED: WHEAT DEXTRIN PO SCH (09:00)
[2020-09-17] MEDS: SPIRONOLACTONE 25 MG TAB PO SCH (09:00)
[2020-09-17] MEDS: ATENOLOL 50 MG TAB PO SCH (12:29)
[2020-09-17] MEDS ORDERED: PSYLLIUM 6GM PACKET PO SCH (17:00)
[2020-09-17] MEDS: PSYLLIUM 6GM PACKET PO SCH (20:54)
[2020-09-17] MEDS: SIMVASTATIN 40 MG TAB PO SCH (20:55)
[2020-09-18] VITALS: BP 102/53
[2020-09-18 04:00] VITALS: BP 106/53
[2020-09-18 04:56] LABS: BASOPHILS % 0.7 % (0.0-1.0); EOSINOPHILS # (AUTO) 0.1 (0.0-0.4); EOSINOPHILS % 1.7 % (0.0-6.0); HEMOGLOBIN 9.6 g/dL (12.0-16.0); LYMPHOCYTES # (AUTO) 0.9 (1.0-3.2); LYMPHOCYTES % 30.1 % (18.0-39.1); MEAN CORPUSCULAR HEMOGLOBIN 30.4 pg (28-32); MEAN CORPUSCULAR HGB CONC 33.1 g/dL (31-35); MEAN CORPUSCULAR VOLUME 91.8 fL (81-99); MONOCYTES # (AUTO) 0.1 (0.2-0.8); MONOCYTES % 4.8 % (4.4-11.3); NEUTROPHILS # (AUTO) 1.7 (2.1-6.9); NEUTROPHILS % 58.2 % (38.7-80.0); PLATELET COUNT 92 x10e3/uL (140-360); RED BLOOD COUNT 3.16 x10e6/uL (3.6-5.1); RED CELL DISTRIBUTION WIDTH 16.3 % (11.7-14.4); RETICULOCYTE % 1.3 % (0.8-2.2)
[2020-09-18 05:22] LABS: % IRON SATURATION 16 % (15-50); ALANINE AMINOTRANSFERASE 32 IU/L (0-55); ALBUMIN 2.9 g/dL (3.5-5.0); ALBUMIN/GLOBULIN RATIO 0.8 (0.8-2.0); ALKALINE PHOSPHATASE 177 IU/L (40-150); ANION GAP 15.1 mmol/L (8-16); BLOOD UREA NITROGEN 26 mg/dL (7-26); BUN/CREATININE RATIO 32 (6-25); CALCIUM 9.1 mg/dL (8.4-10.2); CARBON DIOXIDE 22 mmol/L (22-29); CHLORIDE 103 mmol/L (98-107); CREATININE, SERUM 0.82 mg/dL (0.57-1.11); EST GLOMERULAR FILTRATION RATE > 60 ML/MIN (60-); GLUCOSE 92 mg/dL (74-118); IRON 45 ug/dL (50-170); POTASSIUM 4.1 mmol/L (3.5-5.1); SODIUM 136 mmol/L (136-145); TOTAL IRON BINDING CAPACITY 280 ug/dL (261-478); TRANSFERRIN 200 mg/dL (180-382)
[2020-09-18 05:44] LABS: FERRITIN 274.14 ng/mL (4.63-204.00)
[2020-09-18] MEDS ORDERED: LEVOTHYROXINE SODIUM 75 MCG TAB PO SCH (06:00)
[2020-09-18 07:47] VITALS: BP 102/49
[2020-09-18 08:01] VITALS: BP 102/49
[2020-09-18] MEDS ORDERED: FERROUS SULFAT325 MG PO (09:10)
[2020-09-18] MEDS: SPIRONOLACTONE 25 MG TAB PO SCH (09:20)
[2020-09-18] MEDS: ATENOLOL 50 MG TAB PO SCH (09:21)
[2020-09-18] MEDS: TOLTERODINE TARTRATE 4 MG CAPCR PO SCH (09:21)
[2020-09-18] MEDS: GLIPIZIDE 2.5 MG TABCR PO SCH (09:21)
[2020-09-18] MEDS: FUROSEMIDE 40 MG TAB PO SCH (09:22)
[2020-09-18] MEDS: POTASSIUM CHLORIDE 10MEQ EA PO SCH (09:22)
[2020-09-18] MEDS: PSYLLIUM 6GM PACKET PO SCH (09:22)
[2020-09-18] MEDS: ALLOPURINOL 100 MG TAB PO SCH (09:23)
[2020-09-18] MEDS: LISINOPRIL 2.5 MG TAB PO SCH (09:23)
[2020-09-18 11:41] VITALS: BP 109/50
== END 2020-09-18 11:49 | disposition home or self-care (01) | DRG 812 ==
LOC: ER 10:19 → ERHOLD 13:35 → MED/SURG 15:53 → OBSVTOIN 09-17 13:46
PROVIDERS: ADMIT Internal Medicine; ATTEND Internal Medicine
PROC: 30233N1 Transfusion of Nonautologous Red Blood Cells into Peripheral Vein, Percutaneous Approach (ICD-10-PCS; principal; 2020-09-16)
DX: D64.9 Anemia, unspecified (principal); I50.32 Chronic diastolic (congestive) heart failure; N25.81 Secondary hyperparathyroidism of renal origin; Q96.9 Turner's syndrome, unspecified; Z79.01 Long term (current) use of anticoagulants; Z95.2 Presence of prosthetic heart valve; I11.0 Hypertensive heart disease with heart failure; E11.9 Type 2 diabetes mellitus without complications
CPT/HCPCS: 36415; 71045; 80053; 81001; 82270; 82550; 82553; 82607; 82728; 82746; 82948; 83540; 83605; 83735; 83880; 84466; 84484; 85014; 85018; 85025; 85045; 85610; 85730; 86850; 86900; 86920; 87040; 87086; 93005; 99284; G0378; J1940; J7050; P9016; U0002

== ENCOUNTER 2020-10-22 09:17 | Emergency (ER) | payer MEDICARE, BC ==
[~2020-10-22] VITALS: Ht 271.8 cm; Wt 52.2 kg
[~2020-10-22 09:17] MED LIST changes: +ALLOPURINOL100 MG PO; +ASPIRIN CHEW81 MG PO; +FERROUS SULFAT325 MG PO; +LISINOPRIL2.5 MG PO
[2020-10-22 10:35] LABS: EOSINOPHILS % 0.6 % (0.0-6.0); HEMATOCRIT 24.7 % (34.2-44.1); HEMOGLOBIN 8.2 g/dL (12.0-16.0); LYMPHOCYTES # (AUTO) 0.4 (1.0-3.2); LYMPHOCYTES % 12.7 % (18.0-39.1); MEAN CORPUSCULAR HEMOGLOBIN 32.3 pg (28-32); MEAN CORPUSCULAR HGB CONC 33.2 g/dL (31-35); MEAN CORPUSCULAR VOLUME 97.2 fL (81-99); MONOCYTES # (AUTO) 0.2 (0.2-0.8); MONOCYTES % 5.8 % (4.4-11.3); NEUTROPHILS # (AUTO) 2.7 (2.1-6.9); NEUTROPHILS % 78.9 % (38.7-80.0); RED BLOOD COUNT 2.54 x10e6/uL (3.6-5.1); RED CELL DISTRIBUTION WIDTH 15.9 % (11.7-14.4)
[2020-10-22 10:37] LABS: PLATELET COUNT 84 x10e3/uL (140-360)
[2020-10-22 10:59] LABS: ALBUMIN 3.2 g/dL (3.5-5.0); ALBUMIN/GLOBULIN RATIO 0.9 (0.8-2.0); CALCIUM 9.2 mg/dL (8.4-10.2); CREATININE, SERUM 1.03 mg/dL (0.57-1.11)
[2020-10-22] MEDS ORDERED: FUROSEMIDE INJ 10 MG/ML 4 ML VIAL IV ONE (12:00)
[2020-10-31] MEDS ORDERED: MIDODRINE HCL5 MG PO (08:02)
[2020-10-31] MEDS ORDERED: FUROSEMIDE20 MG PO (08:02)
[2020-10-31] MEDS ORDERED: AUGMENTIN 875-1 EACH PO (08:07)
== END 2020-10-22 14:22 | disposition home or self-care (01) ==
LOC: ER 09:57
DX: I11.0 Hypertensive heart disease with heart failure (principal); I50.9 Heart failure, unspecified; E11.9 Type 2 diabetes mellitus without complications; E03.9 Hypothyroidism, unspecified; Z95.1 Presence of aortocoronary bypass graft
CPT/HCPCS: 36415; 71045; 80053; 83880; 84484; 85025; 93005; 99284; J1940

== ENCOUNTER 2020-10-24 22:35 | Inpatient (IN) | payer MEDICARE, BC ==
[~2020-10-24] VITALS: Ht 149.9 cm; Wt 41.4 kg
[2020-10-24] MEDS ORDERED: SODIUM CHLORIDE 0.9% 1000ML 1,000 ML IV STA (23:02)
[2020-10-24 23:32] LABS: BASOPHILS % 0.3 % (0.0-1.0); EOSINOPHILS % 0.5 % (0.0-6.0); HEMATOCRIT 23.8 % (34.2-44.1); HEMOGLOBIN 7.8 g/dL (12.0-16.0); LYMPHOCYTES # (AUTO) 0.4 (1.0-3.2); LYMPHOCYTES % 10.6 % (18.0-39.1); MEAN CORPUSCULAR HEMOGLOBIN 31.2 pg (28-32); MEAN CORPUSCULAR HGB CONC 32.8 g/dL (31-35); MEAN CORPUSCULAR VOLUME 95.2 fL (81-99); MONOCYTES # (AUTO) 0.3 (0.2-0.8); NEUTROPHILS # (AUTO) 2.9 (2.1-6.9); NEUTROPHILS % 78.6 % (38.7-80.0); PLATELET COUNT 138 x10e3/uL (140-360); RED CELL DISTRIBUTION WIDTH 15.4 % (11.7-14.4)
[2020-10-24 23:49] LABS: ALBUMIN/GLOBULIN RATIO 0.8 (0.8-2.0); ANION GAP 18.3 mmol/L (8-16); CALCIUM 9.2 mg/dL (8.4-10.2); CREATININE, SERUM 1.17 mg/dL (0.57-1.11); POTASSIUM 4.3 mmol/L (3.5-5.1)
[2020-10-24 23:55] LABS: CREATINE KINASE MB 0.7 ng/mL (0-5.0)
[2020-10-25] VITALS (10 sets, daily range): BP systolic 93–124; BP diastolic 39–65
[2020-10-25] MEDS: CEFEPIME 1 GM in SODIUM CHLORIDE 0.9% 50ML 50 ML IV SCH (00:07)
[2020-10-25] MEDS ORDERED: ACETAMINOPHEN 325 MG TAB ONE (00:23)
[2020-10-25] MEDS: ACETAMINOPHEN 325 MG TAB PO PRN (00:30)
[2020-10-25 01:12] LABS: CLARITY,URINE CLEAR (CLEAR); COLOR,URINE YELLOW (YELLOW); KETONES,URINE NEGATIVE (NEGATIVE); LEUKOCYTE ESTERASE ,URINE NEGATIVE (NEGATIVE); NITRITE,URINE NEGATIVE (NEGATIVE); PROTEIN,URINE DIPSTICK NEGATIVE (NEGATIVE); URINE UROBILINOGEN 0.2 mg/dL (0.2 - 1)
[2020-10-25 01:21] LABS: BACTERIA,URINE FEW /HPF; EPITHELIAL CELLS,URINE RARE /LPF; RBC,URINE 0-5 /HPF (0-5); WBC,URINE (MAN) 0-5 /HPF (0-5)
[2020-10-25] MEDS ORDERED: NOREPINEPHRINE 8 MG/D5W 250 ML 250 ML ONE (02:07)
[2020-10-25] MEDS: NOREPINEPHRINE 8 MG/D5W 250 ML 250 ML IV PRN (02:30)
[2020-10-25 08:21] LABS: BASOPHILS % 0.3 % (0.0-1.0); EOSINOPHILS % 0.3 % (0.0-6.0); HEMATOCRIT 24.9 % (34.2-44.1); HEMOGLOBIN 8.1 g/dL (12.0-16.0); LYMPHOCYTES # (AUTO) 0.5 (1.0-3.2); LYMPHOCYTES % 8.7 % (18.0-39.1); MEAN CORPUSCULAR HEMOGLOBIN 31.5 pg (28-32); MEAN CORPUSCULAR HGB CONC 32.5 g/dL (31-35); MEAN CORPUSCULAR VOLUME 96.9 fL (81-99); MONOCYTES # (AUTO) 0.4 (0.2-0.8); MONOCYTES % 7.5 % (4.4-11.3); NEUTROPHILS # (AUTO) 4.5 (2.1-6.9); NEUTROPHILS % 76.7 % (38.7-80.0); PLATELET COUNT 136 x10e3/uL (140-360); RED BLOOD COUNT 2.57 x10e6/uL (3.6-5.1); RED CELL DISTRIBUTION WIDTH 15.5 % (11.7-14.4)
[2020-10-25] MEDS: MIDODRINE HCL 5 MG TABLET PO SCH ×3 (08:47→18:00)
[2020-10-25 09:01] LABS: ALBUMIN 2.7 g/dL (3.5-5.0); ALBUMIN/GLOBULIN RATIO 0.7 (0.8-2.0); ANION GAP 18.9 mmol/L (8-16); CREATININE, SERUM 1.1 mg/dL (0.57-1.11); POTASSIUM 3.9 mmol/L (3.5-5.1)
[2020-10-25 09:13] LABS: EOSINOPHILS % (MANUAL) 2 % (0-7); LYMPHOCYTES % (MANUAL) 13 % (19-48); MONOCYTES % (MANUAL) 3 % (3.4-9.0); MYELOCYTES % (MANUAL) 4 % (0-0); NEUTROPHILS % (MANUAL) 78 % (40-74); PLATELET ESTIMATE SLIGHTLY DECREASED; PLATELET MORPHOLOGY COMMENT NORMAL; RBC MORPHOLOGY COMMENT NORMAL
[2020-10-25 09:18] LABS: CREATINE KINASE MB 1.2 ng/mL (0-5.0)
[2020-10-25] MEDS: SPIRONOLACTONE 25 MG TAB PO SCH (09:32)
[2020-10-25] MEDS: ALLOPURINOL 100 MG TAB PO SCH (10:22)
[2020-10-25] MEDS: LEVOTHYROXINE SODIUM 75 MCG TAB PO SCH (10:22)
[2020-10-25] MEDS: ASPIRIN 81 MG CHEW TAB PO SCH (10:22)
[2020-10-25] MEDS ORDERED: FUROSEMIDE INJ 10 MG/ML 2 ML VIAL IV ONE (21:00)
[2020-10-25] MEDS ORDERED: FUROSEMIDE INJ 10 MG/ML 4 ML VIAL IV ONE (21:00)
[2020-10-25] MEDS: SIMVASTATIN 40 MG TAB PO SCH (21:17)
[2020-10-26] VITALS (27 sets, daily range): BP systolic 97–141; BP diastolic 33–67
[2020-10-26] MEDS: NOREPINEPHRINE 8 MG/D5W 250 ML 250 ML IV PRN (01:10)
[2020-10-26 04:51] LABS: BASOPHILS % 0.6 % (0.0-1.0); EOSINOPHILS % 0.8 % (0.0-6.0); HEMATOCRIT 23.6 % (34.2-44.1); HEMOGLOBIN 7.7 g/dL (12.0-16.0); LYMPHOCYTES # (AUTO) 0.7 (1.0-3.2); MEAN CORPUSCULAR HGB CONC 32.6 g/dL (31-35); MEAN CORPUSCULAR VOLUME 95.2 fL (81-99); MONOCYTES # (AUTO) 0.4 (0.2-0.8); MONOCYTES % 7.3 % (4.4-11.3); NEUTROPHILS # (AUTO) 3.5 (2.1-6.9); PLATELET COUNT 168 x10e3/uL (140-360); RED BLOOD COUNT 2.48 x10e6/uL (3.6-5.1); RED CELL DISTRIBUTION WIDTH 15.4 % (11.7-14.4)
[2020-10-26 05:18] LABS: ALBUMIN 2.6 g/dL (3.5-5.0); ALBUMIN/GLOBULIN RATIO 0.7 (0.8-2.0); ANION GAP 16.9 mmol/L (8-16); CALCIUM 8.8 mg/dL (8.4-10.2); CREATININE, SERUM 0.99 mg/dL (0.57-1.11); POTASSIUM 3.9 mmol/L (3.5-5.1)
[2020-10-26] MEDS: CEFEPIME 1 GM in SODIUM CHLORIDE 0.9% 50ML 50 ML IV SCH ×3 (06:15→21:28)
[2020-10-26] MEDS: ACETAMINOPHEN 325 MG TAB PO PRN (06:15)
[2020-10-26] MEDS: LEVOTHYROXINE SODIUM 75 MCG TAB PO SCH (06:15)
[2020-10-26 06:34] LABS: EOSINOPHILS % (MANUAL) 1 % (0-7); LYMPHOCYTES % (MANUAL) 13 % (19-48); METAMYELOCYTES % (MANUAL) 1 % (0-0); MONOCYTES % (MANUAL) 5 % (3.4-9.0); MYELOCYTES % (MANUAL) 2 % (0-0); NEUTROPHILS % (MANUAL) 78 % (40-74); PLATELET ESTIMATE ADEQUATE; PLATELET MORPHOLOGY COMMENT NORMAL; RBC MORPHOLOGY COMMENT NORMAL
[2020-10-26 07:09] LABS: INR 1.22; PROTHROMBIN TIME 16.1 seconds (11.9-14.5)
[2020-10-26] MEDS: SPIRONOLACTONE 25 MG TAB PO SCH (08:08)
[2020-10-26] MEDS: ALBUMIN 25% 25GM 100ML 0.25 GM/ML BTL IV SCH ×3 (08:08→23:55)
[2020-10-26] MEDS: MIDODRINE HCL 5 MG TABLET PO SCH ×3 (08:08→16:00)
[2020-10-26] MEDS: ASPIRIN 81 MG CHEW TAB PO SCH (08:09)
[2020-10-26] MEDS: ALLOPURINOL 100 MG TAB PO SCH (08:09)
[2020-10-26] MEDS ORDERED: SODIUM CHLORIDE 0.9% 250ML 250 ML IV ONE (08:45)
[2020-10-26] MEDS ORDERED: FUROSEMIDE INJ 10 MG/ML 4 ML VIAL IV ONE (08:45)
[2020-10-26 15:35] LABS: HEMATOCRIT 19.6 % (34.2-44.1)
[2020-10-26 15:36] LABS: HEMOGLOBIN 6.4 g/dL (12.0-16.0)
[2020-10-26] MEDS ORDERED: SODIUM CHLORIDE 0.9% 250ML 250 ML ONE (16:17)
[2020-10-26] MEDS ORDERED: FUROSEMIDE INJ 10 MG/ML 4 ML VIAL ONE (16:17)
[2020-10-26 19:55] LABS: HEMATOCRIT 24.8 % (34.2-44.1); HEMOGLOBIN 8.2 g/dL (12.0-16.0)
[2020-10-26] MEDS ORDERED: DEXTROSE 50% SYRINGE 50 ML IV PRN (20:45)
[2020-10-26] MEDS: MELATONIN 5 MG TABLET PO SCH (20:50)
[2020-10-26] MEDS: SIMVASTATIN 40 MG TAB PO SCH (20:50)
[2020-10-26] MEDS: INSULIN LISPRO 100 UNIT/1 ML 3ML VIAL SQ SCH (21:00)
[2020-10-27] VITALS (18 sets, daily range): BP systolic 101–132; BP diastolic 42–58
[2020-10-27] MEDS: LEVOTHYROXINE SODIUM 75 MCG TAB PO SCH (05:42)
[2020-10-27] MEDS: CEFEPIME 1 GM in SODIUM CHLORIDE 0.9% 50ML 50 ML IV SCH ×3 (05:42→21:17)
[2020-10-27 06:18] LABS: BASOPHILS % 0.5 % (0.0-1.0); EOSINOPHILS % 0.5 % (0.0-6.0); LYMPHOCYTES # (AUTO) 0.5 (1.0-3.2); LYMPHOCYTES % 14.5 % (18.0-39.1); MEAN CORPUSCULAR HEMOGLOBIN 31.1 pg (28-32); MEAN CORPUSCULAR HGB CONC 33.3 g/dL (31-35); MEAN CORPUSCULAR VOLUME 93.4 fL (81-99); MONOCYTES # (AUTO) 0.2 (0.2-0.8); MONOCYTES % 6.5 % (4.4-11.3); NEUTROPHILS # (AUTO) 2.7 (2.1-6.9); NEUTROPHILS % 71.8 % (38.7-80.0); PLATELET COUNT 130 x10e3/uL (140-360); RED BLOOD COUNT 2.44 x10e6/uL (3.6-5.1); RED CELL DISTRIBUTION WIDTH 15.2 % (11.7-14.4)
[2020-10-27 06:23] LABS: ALBUMIN/GLOBULIN RATIO 1.4 (0.8-2.0); ANION GAP 17.6 mmol/L (8-16); CALCIUM 8.7 mg/dL (8.4-10.2); CREATININE, SERUM 0.87 mg/dL (0.57-1.11); POTASSIUM 3.6 mmol/L (3.5-5.1)
[2020-10-27 06:25] LABS: ALBUMIN 3.7 g/dL (3.5-5.0)
[2020-10-27 07:05] LABS: HEMATOCRIT 22.8 % (34.2-44.1)
[2020-10-27 07:06] LABS: HEMOGLOBIN 7.6 g/dL (12.0-16.0)
[2020-10-27] MEDS: MIDODRINE HCL 5 MG TABLET PO SCH ×3 (07:31→18:08)
[2020-10-27] MEDS: ACETAMINOPHEN 325 MG TAB PO PRN (07:32)
[2020-10-27] MEDS: INSULIN LISPRO 100 UNIT/1 ML 3ML VIAL SQ SCH ×4 (07:33→20:55)
[2020-10-27] MEDS: ALLOPURINOL 100 MG TAB PO SCH (08:06)
[2020-10-27] MEDS: SPIRONOLACTONE 25 MG TAB PO SCH (08:06)
[2020-10-27] MEDS: ASPIRIN 81 MG CHEW TAB PO SCH (08:06)
[2020-10-27] MEDS: SIMVASTATIN 40 MG TAB PO SCH (20:55)
[2020-10-27] MEDS: MELATONIN 5 MG TABLET PO SCH (20:55)
[2020-10-27] MEDS ORDERED: SODIUM CHLORIDE 0.9% 100 ML ONE (21:17)
[2020-10-28] VITALS (8 sets, daily range): BP systolic 109–129; BP diastolic 46–52
[2020-10-28] MEDS: CEFEPIME 1 GM in SODIUM CHLORIDE 0.9% 50ML 50 ML IV SCH ×3 (05:12→21:41)
[2020-10-28] MEDS: LEVOTHYROXINE SODIUM 75 MCG TAB PO SCH (05:12)
[2020-10-28] MEDS: INSULIN LISPRO 100 UNIT/1 ML 3ML VIAL SQ SCH ×4 (07:30→21:42)
[2020-10-28] MEDS ORDERED: ONDANSETRON HCL INJ 2MG/ML 2ML 2 MG/ML VIAL IV PRN (08:00)
[2020-10-28] MEDS: MIDODRINE HCL 5 MG TABLET PO SCH ×3 (09:04→16:00)
[2020-10-28] MEDS: SPIRONOLACTONE 25 MG TAB PO SCH (09:04)
[2020-10-28] MEDS: ASPIRIN 81 MG CHEW TAB PO SCH (09:04)
[2020-10-28] MEDS: ALLOPURINOL 100 MG TAB PO SCH (09:04)
[2020-10-28] MEDS: SIMVASTATIN 40 MG TAB PO SCH (21:33)
[2020-10-28] MEDS: MELATONIN 5 MG TABLET PO SCH (21:33)
[2020-10-29] VITALS (9 sets, daily range): BP systolic 94–120; BP diastolic 44–54
[2020-10-29 05:49] LABS: BASOPHILS % 0.7 % (0.0-1.0); EOSINOPHILS % 0.9 % (0.0-6.0); HEMATOCRIT 24.3 % (34.2-44.1); LYMPHOCYTES # (AUTO) 0.6 (1.0-3.2); LYMPHOCYTES % 13.2 % (18.0-39.1); MEAN CORPUSCULAR HEMOGLOBIN 31.5 pg (28-32); MEAN CORPUSCULAR HGB CONC 32.9 g/dL (31-35); MEAN CORPUSCULAR VOLUME 95.7 fL (81-99); MONOCYTES # (AUTO) 0.2 (0.2-0.8); MONOCYTES % 5.5 % (4.4-11.3); NEUTROPHILS # (AUTO) 3.2 (2.1-6.9); NEUTROPHILS % 72.7 % (38.7-80.0); PLATELET COUNT 110 x10e3/uL (140-360); RED BLOOD COUNT 2.54 x10e6/uL (3.6-5.1); RED CELL DISTRIBUTION WIDTH 15.4 % (11.7-14.4)
[2020-10-29 06:26] LABS: ANION GAP 12.1 mmol/L (8-16); CALCIUM 8.9 mg/dL (8.4-10.2); CREATININE, SERUM 0.8 mg/dL (0.57-1.11); POTASSIUM 4.1 mmol/L (3.5-5.1)
[2020-10-29] MEDS: CEFEPIME 1 GM in SODIUM CHLORIDE 0.9% 50ML 50 ML IV SCH ×3 (06:37→21:59)
[2020-10-29] MEDS: LEVOTHYROXINE SODIUM 75 MCG TAB PO SCH (06:37)
[2020-10-29] MEDS: ALLOPURINOL 100 MG TAB PO SCH (08:56)
[2020-10-29] MEDS: MIDODRINE HCL 5 MG TABLET PO SCH ×3 (08:56→16:04)
[2020-10-29] MEDS: ASPIRIN 81 MG CHEW TAB PO SCH (08:56)
[2020-10-29] MEDS: POLYETHYLENE GLYCOL 3350 17 GM PACK PO SCH (08:56)
[2020-10-29] MEDS: SPIRONOLACTONE 25 MG TAB PO SCH (08:56)
[2020-10-29] MEDS: INSULIN LISPRO 100 UNIT/1 ML 3ML VIAL SQ SCH ×4 (09:05→21:40)
[2020-10-29 09:10] LABS: LYMPHOCYTES % (MANUAL) 11 % (19-48); MONOCYTES % (MANUAL) 6 % (3.4-9.0); MYELOCYTES % (MANUAL) 6 % (0-0); NEUTROPHILS % (MANUAL) 77 % (40-74); PLATELET ESTIMATE SLIGHTLY DECREASED; PLATELET MORPHOLOGY COMMENT NORMAL; RBC MORPHOLOGY COMMENT NORMAL
[2020-10-29 16:01] LABS: CLARITY,URINE SL CLOUDY (CLEAR); COLOR,URINE AMBER (YELLOW)
[2020-10-29 16:02] LABS: KETONES,URINE 1+ (NEGATIVE); LEUKOCYTE ESTERASE ,URINE TRACE (NEGATIVE); NITRITE,URINE NEGATIVE (NEGATIVE); PROTEIN,URINE DIPSTICK 2+ (NEGATIVE); URINE UROBILINOGEN 0.2 mg/dL (0.2 - 1)
[2020-10-29 16:13] LABS: AMORPHOUS SEDIMENT,URINE MODERATE (FEW); BACTERIA,URINE MODERATE /HPF; RBC,URINE 0-5 /HPF (0-5)
[2020-10-29] MEDS: SIMVASTATIN 40 MG TAB PO SCH (21:59)
[2020-10-29] MEDS: MELATONIN 5 MG TABLET PO SCH (21:59)
[2020-10-30] VITALS (8 sets, daily range): BP systolic 102–132; BP diastolic 48–54
[2020-10-30] MEDS: CEFEPIME 1 GM in SODIUM CHLORIDE 0.9% 50ML 50 ML IV SCH ×3 (05:45→21:16)
[2020-10-30] MEDS: LEVOTHYROXINE SODIUM 75 MCG TAB PO SCH (05:45)
[2020-10-30 06:11] LABS: BASOPHILS % 0.7 % (0.0-1.0); HEMATOCRIT 24.3 % (34.2-44.1); HEMOGLOBIN 7.9 g/dL (12.0-16.0); LYMPHOCYTES # (AUTO) 0.8 (1.0-3.2); LYMPHOCYTES % 18.2 % (18.0-39.1); MEAN CORPUSCULAR HEMOGLOBIN 31.2 pg (28-32); MEAN CORPUSCULAR HGB CONC 32.5 g/dL (31-35); MONOCYTES # (AUTO) 0.2 (0.2-0.8); MONOCYTES % 5.1 % (4.4-11.3); NEUTROPHILS # (AUTO) 2.6 (2.1-6.9); NEUTROPHILS % 63.1 % (38.7-80.0); PLATELET COUNT 114 x10e3/uL (140-360); RED BLOOD COUNT 2.53 x10e6/uL (3.6-5.1); RED CELL DISTRIBUTION WIDTH 15.6 % (11.7-14.4)
[2020-10-30 06:46] LABS: ANION GAP 11.1 mmol/L (8-16); CALCIUM 9.1 mg/dL (8.4-10.2); CREATININE, SERUM 0.79 mg/dL (0.57-1.11); POTASSIUM 4.1 mmol/L (3.5-5.1)
[2020-10-30 07:30] LABS: FREE THYROXINE INDEX 1.923 (1.4-3.8); THYROID STIMULATING HORMONE 1.48 uIU/mL (0.350-4.940)
[2020-10-30] MEDS: MIDODRINE HCL 5 MG TABLET PO SCH ×3 (08:31→16:23)
[2020-10-30] MEDS: ASPIRIN 81 MG CHEW TAB PO SCH (08:32)
[2020-10-30] MEDS: ALLOPURINOL 100 MG TAB PO SCH (08:32)
[2020-10-30] MEDS: SPIRONOLACTONE 25 MG TAB PO SCH (08:32)
[2020-10-30] MEDS: POLYETHYLENE GLYCOL 3350 17 GM PACK PO SCH (08:33)
[2020-10-30] MEDS: INSULIN LISPRO 100 UNIT/1 ML 3ML VIAL SQ SCH ×4 (08:37→20:42)
[2020-10-30] MEDS: FUROSEMIDE 20 MG TAB PO SCH (09:59)
[2020-10-30] MEDS: SIMVASTATIN 40 MG TAB PO SCH (20:41)
[2020-10-30] MEDS: MELATONIN 5 MG TABLET PO SCH (20:41)
[2020-10-31 00:11] VITALS: BP 116/52
[2020-10-31 05:04] VITALS: BP 122/54
[2020-10-31 06:38] LABS: BASOPHILS % 0.6 % (0.0-1.0); EOSINOPHILS # (AUTO) 0.1 (0.0-0.4); HEMATOCRIT 25.5 % (34.2-44.1); HEMOGLOBIN 8.4 g/dL (12.0-16.0); LYMPHOCYTES # (AUTO) 0.9 (1.0-3.2); LYMPHOCYTES % 18.5 % (18.0-39.1); MEAN CORPUSCULAR HEMOGLOBIN 31.5 pg (28-32); MEAN CORPUSCULAR HGB CONC 32.9 g/dL (31-35); MEAN CORPUSCULAR VOLUME 95.5 fL (81-99); MONOCYTES # (AUTO) 0.2 (0.2-0.8); MONOCYTES % 4.4 % (4.4-11.3); NEUTROPHILS # (AUTO) 3.1 (2.1-6.9); NEUTROPHILS % 62.8 % (38.7-80.0); PLATELET COUNT 105 x10e3/uL (140-360); RED BLOOD COUNT 2.67 x10e6/uL (3.6-5.1); RED CELL DISTRIBUTION WIDTH 15.6 % (11.7-14.4)
[2020-10-31] MEDS: LEVOTHYROXINE SODIUM 75 MCG TAB PO SCH (06:40)
[2020-10-31] MEDS: CEFEPIME 1 GM in SODIUM CHLORIDE 0.9% 50ML 50 ML IV SCH (06:40)
[2020-10-31 07:03] LABS: ANION GAP 13.4 mmol/L (8-16); CALCIUM 9.1 mg/dL (8.4-10.2); CREATININE, SERUM 0.74 mg/dL (0.57-1.11); POTASSIUM 4.4 mmol/L (3.5-5.1)
[2020-10-31] MEDS: INSULIN LISPRO 100 UNIT/1 ML 3ML VIAL SQ SCH (07:30)
[2020-10-31 07:49] VITALS: BP 122/52
[2020-10-31] MEDS: MIDODRINE HCL 5 MG TABLET PO SCH (08:00)
[2020-10-31] MEDS ORDERED: FUROSEMIDE20 MG PO (08:02)
[2020-10-31] MEDS ORDERED: MIDODRINE HCL5 MG PO (08:02)
[2020-10-31] MEDS ORDERED: AUGMENTIN 875-1 EACH PO (08:07)
[2020-10-31] MEDS: ASPIRIN 81 MG CHEW TAB PO SCH (09:00)
[2020-10-31] MEDS: ALLOPURINOL 100 MG TAB PO SCH (09:00)
[2020-10-31] MEDS: FUROSEMIDE 20 MG TAB PO SCH (09:00)
[2020-10-31] MEDS: SPIRONOLACTONE 25 MG TAB PO SCH (09:00)
[2020-10-31] MEDS: POLYETHYLENE GLYCOL 3350 17 GM PACK PO SCH (09:00)
[2020-10-31 09:04] LABS: LYMPHOCYTES % (MANUAL) 31 % (19-48); METAMYELOCYTES % (MANUAL) 4 % (0-0); MONOCYTES % (MANUAL) 3 % (3.4-9.0); MYELOCYTES % (MANUAL) 1 % (0-0); NEUTROPHILS % (MANUAL) 56 % (40-74)
[2020-10-31 09:05] LABS: PLATELET ESTIMATE ADEQUATE; PLATELET MORPHOLOGY COMMENT NORMAL; RBC MORPHOLOGY COMMENT NORMAL
== END 2020-10-31 10:31 | disposition home or self-care (01) | DRG 871 ==
LOC: ER 22:52 → ERHOLD 10-25 00:22 → ICU 10-25 07:36 → MED/SURG2 10-27 14:40
PROVIDERS: ADMIT Internal Medicine; ATTEND Internal Medicine
PROC: 02HV33Z Insertion of Infusion Device into Superior Vena Cava, Percutaneous Approach (ICD-10-PCS; principal; 2020-10-26)
PROC: 30243N1 Transfusion of Nonautologous Red Blood Cells into Central Vein, Percutaneous Approach (ICD-10-PCS; 2020-10-26)
DX: A41.9 Sepsis, unspecified organism (principal); I50.33 Acute on chronic diastolic (congestive) heart failure; N17.9 Acute kidney failure, unspecified; D61.818 Other pancytopenia; N39.0 Urinary tract infection, site not specified; E87.1 Hypo-osmolality and hyponatremia; I11.0 Hypertensive heart disease with heart failure; D50.0 Iron deficiency anemia secondary to blood loss (chronic); Z79.01 Long term (current) use of anticoagulants; Z95.2 Presence of prosthetic heart valve; E21.3 Hyperparathyroidism, unspecified; E11.9 Type 2 diabetes mellitus without complications; Q96.9 Turner's syndrome, unspecified; D46.9 Myelodysplastic syndrome, unspecified; I25.10 Atherosclerotic heart disease of native coronary artery without angina pectoris; Z95.1 Presence of aortocoronary bypass graft; E77.8 Other disorders of glycoprotein metabolism; Z91.19 Patient's noncompliance with other medical treatment and regimen; E88.09 Other disorders of plasma-protein metabolism, not elsewhere classified; Z79.84 Long term (current) use of oral hypoglycemic drugs; E03.9 Hypothyroidism, unspecified; R65.20 Severe sepsis without septic shock; I27.20 Pulmonary hypertension, unspecified; J44.9 Chronic obstructive pulmonary disease, unspecified; I48.91 Unspecified atrial fibrillation; I15.9 Secondary hypertension, unspecified
CPT/HCPCS: 36415; 36569; 70450; 71045; 71250; 72125; 72192; 80048; 80053; 81001; 82550; 82553; 82948; 83605; 83880; 84436; 84443; 84479; 84484; 85014; 85018; 85025; 85610; 85730; 86850; 86900; 86920; 87040; 87086; 93306; 99251; 99284; J0692; J1940; J2405; J7030; J7050; P9016; P9047; U0002

== ENCOUNTER 2020-11-25 18:19 | Emergency (ER) | payer MEDICARE, BC ==
[~2020-11-25] VITALS: Ht 149.9 cm; Wt 41.3 kg
[~2020-11-25 18:19] MED LIST changes: +AUGMENTIN 875-1 EACH PO; +FUROSEMIDE20 MG PO; +MIDODRINE HCL5 MG PO
== END 2020-11-25 21:36 | disposition home or self-care (01) ==
LOC: ER 19:01
DX: J01.90 Acute sinusitis, unspecified (principal); E11.9 Type 2 diabetes mellitus without complications; I11.0 Hypertensive heart disease with heart failure
CPT/HCPCS: U0002

== ENCOUNTER 2021-02-06 08:23 | Emergency (ER) | payer MEDICARE, BC ==
[~2021-02-06] VITALS: Ht 149.9 cm; Wt 41.3 kg
[2021-02-06 10:05] LABS: BASOPHILS % 0.6 % (0.0-1.0); EOSINOPHILS % 0.4 % (0.0-6.0); HEMOGLOBIN 9.6 g/dL (12.0-16.0); LYMPHOCYTES # (AUTO) 0.7 (1.0-3.2); LYMPHOCYTES % 10.6 % (18.0-39.1); MEAN CORPUSCULAR HEMOGLOBIN 28.7 pg (28-32); MEAN CORPUSCULAR VOLUME 89.6 fL (81-99); MONOCYTES # (AUTO) 0.4 (0.2-0.8); NEUTROPHILS # (AUTO) 5.5 (2.1-6.9); NEUTROPHILS % 78.4 % (38.7-80.0); PLATELET COUNT 105 x10e3/uL (140-360); RED BLOOD COUNT 3.35 x10e6/uL (3.6-5.1); RED CELL DISTRIBUTION WIDTH 15.8 % (11.7-14.4)
[2021-02-06 10:16] LABS: INR 1.11; PROTHROMBIN TIME 14.8 seconds (11.9-14.5)
[2021-02-06 10:18] LABS: PARTIAL THROMBOPLASTIN TIME 27.1 seconds (23.8-35.5)
[2021-02-06 10:25] LABS: ALBUMIN 3.5 g/dL (3.5-5.0); ALBUMIN/GLOBULIN RATIO 0.8 (0.8-2.0); ANION GAP 14.4 mmol/L (8-16); CREATININE, SERUM 0.83 mg/dL (0.57-1.11); POTASSIUM 4.4 mmol/L (3.5-5.1)
[2021-02-06] MEDS ORDERED: SODIUM CHLORIDE 0.9% 500ML 500 ML IV ONE (12:15)
[2021-02-06] MEDS ORDERED: SODIUM CHLORIDE 0.9% 50ML 50 ML ONE (12:35)
[2021-02-06] MEDS ORDERED: IOPAMIDOL 370 MG/ML 200 ML INFUS..BTL INJ ONE (12:35)
== END 2021-02-06 15:12 | disposition home or self-care (01) ==
LOC: ER 08:35
DX: K11.20 Sialoadenitis, unspecified (principal); E11.65 Type 2 diabetes mellitus with hyperglycemia; I10 Essential (primary) hypertension; E03.9 Hypothyroidism, unspecified; I50.9 Heart failure, unspecified; Z20.822 Contact with and (suspected) exposure to COVID-19; Z95.1 Presence of aortocoronary bypass graft; Z85.820 Personal history of malignant melanoma of skin
CPT/HCPCS: 36415; 70491; 80053; 83518; 85025; 85610; 85730; 87070; 99284; J7040; Q9967; U0002

== ENCOUNTER 2021-02-26 13:03 | Emergency (ER) | payer MEDICARE, BC ==
[~2021-02-26] VITALS: Ht 149.9 cm; Wt 41.3 kg
[2021-02-26 13:48] LABS: BASOPHILS % 0.6 % (0.0-1.0); EOSINOPHILS % 0.4 % (0.0-6.0); HEMATOCRIT 29.9 % (34.2-44.1); HEMOGLOBIN 8.9 g/dL (12.0-16.0); LYMPHOCYTES # (AUTO) 0.6 (1.0-3.2); LYMPHOCYTES % 10.8 % (18.0-39.1); MEAN CORPUSCULAR HGB CONC 29.8 g/dL (31-35); MONOCYTES # (AUTO) 0.3 (0.2-0.8); MONOCYTES % 4.7 % (4.4-11.3); NEUTROPHILS # (AUTO) 4.4 (2.1-6.9); NEUTROPHILS % 82.4 % (38.7-80.0); PLATELET COUNT 75 x10e3/uL (140-360); RED BLOOD COUNT 3.18 x10e6/uL (3.6-5.1); RED CELL DISTRIBUTION WIDTH 16.5 % (11.7-14.4)
== END 2021-02-26 14:07 | disposition home or self-care (01) ==
LOC: ER 13:08
DX: I95.9 Hypotension, unspecified (principal); I10 Essential (primary) hypertension; E11.9 Type 2 diabetes mellitus without complications; I50.9 Heart failure, unspecified; E03.9 Hypothyroidism, unspecified; Z95.1 Presence of aortocoronary bypass graft
CPT/HCPCS: 36415; 85025; 99283

== ENCOUNTER 2021-03-01 11:58 | Inpatient (IN) | payer MEDICARE, BC ==
[2021-03-01] VITALS (11 sets, daily range): BP systolic 94–113; BP diastolic 38–50
[~2021-03-01] VITALS: Ht 149.9 cm; Wt 36.3 kg
[2021-03-01] MEDS ORDERED: ONDANSETRON HCL INJ 2MG/ML 2ML 2 MG/ML VIAL IV PRN (12:30)
[2021-03-01] MEDS ORDERED: SODIUM CHLORIDE 0.9% 1000ML 1,000 ML IV SCH (12:30)
[2021-03-01] MEDS ORDERED: POTASSIUM CHLO10 ME1 PO (13:45)
[2021-03-01] MEDS ORDERED: GLIPIZIDE5 MG PO (13:45)
[2021-03-01] MEDS ORDERED: FUROSEMIDE40 MG PO (13:45)
[2021-03-01 16:00] LABS: CLARITY,URINE CLOUDY (CLEAR); COLOR,URINE YELLOW (YELLOW); KETONES,URINE NEGATIVE (NEGATIVE); LEUKOCYTE ESTERASE ,URINE TRACE (NEGATIVE); NITRITE,URINE NEGATIVE (NEGATIVE); PROTEIN,URINE DIPSTICK 2+ (NEGATIVE); URINE UROBILINOGEN 0.2 mg/dL (0.2 - 1)
[2021-03-01] MEDS ORDERED: MIDODRINE HCL 5 MG TABLET PO SCH (16:00)
[2021-03-01] MEDS ORDERED: DEXTROSE 50% SYRINGE 50 ML IV PRN (16:15)
[2021-03-01 16:23] LABS: WBC,URINE (MAN) 21-50 /HPF (0-5)
[2021-03-01 16:24] LABS: BACTERIA,URINE MANY /HPF; EPITHELIAL CELLS,URINE FEW /LPF; TRANSITIONAL EPI CELLS,URINE FEW
[2021-03-01] MEDS ORDERED: FUROSEMIDE INJ 10 MG/ML 4 ML VIAL IV ONE (16:45)
[2021-03-01] MEDS: CEFTRIAXONE 1 GM in SODIUM CHLORIDE 0.9% 50ML 50 ML IV SCH (16:45)
[2021-03-01] MEDS: INSULIN LISPRO 100 UNIT/1 ML 3ML VIAL SQ SCH ×2 (17:00→21:00)
[2021-03-01] MEDS: ACETAMINOPHEN 325 MG TAB PO PRN (20:11)
[2021-03-01] MEDS ORDERED: MELATONIN 5 MG TABLET PO PRN (23:15)
[2021-03-01] MEDS: SIMVASTATIN 40 MG TAB PO SCH (23:24)
[2021-03-01] MEDS: MIRTAZAPINE 15 MG TAB PO SCH (23:24)
[2021-03-02] VITALS (11 sets, daily range): BP systolic 80–130; BP diastolic 34–63
[2021-03-02 05:47] LABS: BASOPHILS % 0.2 % (0.0-1.0); EOSINOPHILS % 0.2 % (0.0-6.0); HEMOGLOBIN 7.5 g/dL (12.0-16.0); LYMPHOCYTES # (AUTO) 0.4 (1.0-3.2); LYMPHOCYTES % 7.7 % (18.0-39.1); MEAN CORPUSCULAR HEMOGLOBIN 27.6 pg (28-32); MEAN CORPUSCULAR VOLUME 91.9 fL (81-99); MONOCYTES # (AUTO) 0.2 (0.2-0.8); NEUTROPHILS # (AUTO) 4.1 (2.1-6.9); NEUTROPHILS % 85.9 % (38.7-80.0); PLATELET COUNT 80 x10e3/uL (140-360); RED BLOOD COUNT 2.72 x10e6/uL (3.6-5.1); RED CELL DISTRIBUTION WIDTH 16.8 % (11.7-14.4)
[2021-03-02 06:10] LABS: ALBUMIN 2.1 g/dL (3.5-5.0); ALBUMIN/GLOBULIN RATIO 0.5 (0.8-2.0); ANION GAP 15.3 mmol/L (8-16); CALCIUM 8.8 mg/dL (8.4-10.2); CREATININE, SERUM 1.03 mg/dL (0.57-1.11); MAGNESIUM 1.9 MG/DL (1.3-2.1); POTASSIUM 3.3 mmol/L (3.5-5.1)
[2021-03-02 06:48] LABS: FREE T4 (FREE THYROXINE) 0.91 ng/dL (0.8-1.8); THYROID STIMULATING HORMONE 0.809 uIU/mL (0.350-4.940)
[2021-03-02] MEDS: INSULIN LISPRO 100 UNIT/1 ML 3ML VIAL SQ SCH ×4 (07:30→20:56)
[2021-03-02] MEDS ORDERED: SODIUM CHLORIDE 0.9% 1000ML 1,000 ML ONE (07:57)
[2021-03-02] MEDS: FERROUS SULFATE 325 MG TAB PO SCH (08:55)
[2021-03-02] MEDS: CEFTRIAXONE 1 GM in SODIUM CHLORIDE 0.9% 50ML 50 ML IV SCH (08:55)
[2021-03-02] MEDS: FUROSEMIDE INJ 10 MG/ML 2 ML VIAL IV SCH (08:55)
[2021-03-02] MEDS: LEVOTHYROXINE SODIUM 75 MCG TAB PO SCH (08:55)
[2021-03-02] MEDS: ASPIRIN 81 MG CHEW TAB PO SCH (08:55)
[2021-03-02] MEDS: MIDODRINE HCL 5 MG TABLET PO SCH ×3 (08:55→16:25)
[2021-03-02] MEDS ORDERED: METAMUCIL FIBE3.4 GM PO (11:48)
[2021-03-02] MEDS ORDERED: ENSURE ORIGINA237 ML ×2 (11:50→11:56)
[2021-03-02] MEDS ORDERED: POTASSIUM CHLORIDE 10MEQ EA PO ONE (13:30)
[2021-03-02] MEDS: SIMVASTATIN 40 MG TAB PO SCH (21:07)
[2021-03-02] MEDS: MIRTAZAPINE 15 MG TAB PO SCH (21:07)
[2021-03-03] VITALS (10 sets, daily range): BP systolic 93–114; BP diastolic 42–77
[2021-03-03 06:19] LABS: BASOPHILS % 0.4 % (0.0-1.0); EOSINOPHILS % 0.8 % (0.0-6.0); HEMATOCRIT 23.1 % (34.2-44.1); HEMOGLOBIN 7.3 g/dL (12.0-16.0); LYMPHOCYTES # (AUTO) 0.7 (1.0-3.2); LYMPHOCYTES % 15.3 % (18.0-39.1); MEAN CORPUSCULAR HGB CONC 31.6 g/dL (31-35); MEAN CORPUSCULAR VOLUME 88.5 fL (81-99); MONOCYTES # (AUTO) 0.3 (0.2-0.8); MONOCYTES % 6.4 % (4.4-11.3); NEUTROPHILS # (AUTO) 3.7 (2.1-6.9); NEUTROPHILS % 75.9 % (38.7-80.0); PLATELET COUNT 84 x10e3/uL (140-360); RED BLOOD COUNT 2.61 x10e6/uL (3.6-5.1); RED CELL DISTRIBUTION WIDTH 16.9 % (11.7-14.4)
[2021-03-03 06:36] LABS: ANION GAP 14.4 mmol/L (8-16); CALCIUM 8.4 mg/dL (8.4-10.2); CREATININE, SERUM 0.95 mg/dL (0.57-1.11); POTASSIUM 3.4 mmol/L (3.5-5.1)
[2021-03-03] MEDS: INSULIN LISPRO 100 UNIT/1 ML 3ML VIAL SQ SCH ×4 (07:30→21:24)
[2021-03-03] MEDS ORDERED: POTASSIUM CHLORIDE 10MEQ EA PO ONE (07:45)
[2021-03-03] MEDS: FERROUS SULFATE 325 MG TAB PO SCH (08:30)
[2021-03-03] MEDS: ASPIRIN 81 MG CHEW TAB PO SCH (08:30)
[2021-03-03] MEDS: CEFTRIAXONE 1 GM in SODIUM CHLORIDE 0.9% 50ML 50 ML IV SCH (08:30)
[2021-03-03] MEDS: MIDODRINE HCL 5 MG TABLET PO SCH ×3 (08:30→15:43)
[2021-03-03] MEDS: FUROSEMIDE INJ 10 MG/ML 2 ML VIAL IV SCH (08:30)
[2021-03-03] MEDS: LEVOTHYROXINE SODIUM 75 MCG TAB PO SCH (08:30)
[2021-03-03] MEDS: MIRTAZAPINE 15 MG TAB PO SCH (21:19)
[2021-03-03] MEDS: SIMVASTATIN 40 MG TAB PO SCH (21:19)
[2021-03-04] VITALS (8 sets, daily range): BP systolic 83–126; BP diastolic 41–90
[2021-03-04 05:21] LABS: BASOPHILS % 0.3 % (0.0-1.0); EOSINOPHILS # (AUTO) 0.1 (0.0-0.4); EOSINOPHILS % 1.3 % (0.0-6.0); HEMATOCRIT 21.5 % (34.2-44.1); LYMPHOCYTES # (AUTO) 0.6 (1.0-3.2); LYMPHOCYTES % 16.8 % (18.0-39.1); MEAN CORPUSCULAR HEMOGLOBIN 28.3 pg (28-32); MEAN CORPUSCULAR HGB CONC 32.6 g/dL (31-35); MONOCYTES # (AUTO) 0.2 (0.2-0.8); MONOCYTES % 5.6 % (4.4-11.3); NEUTROPHILS # (AUTO) 2.8 (2.1-6.9); NEUTROPHILS % 74.9 % (38.7-80.0); PLATELET COUNT 79 x10e3/uL (140-360); RED BLOOD COUNT 2.47 x10e6/uL (3.6-5.1); RED CELL DISTRIBUTION WIDTH 16.8 % (11.7-14.4)
[2021-03-04 05:44] LABS: ANION GAP 13.5 mmol/L (8-16); CREATININE, SERUM 0.81 mg/dL (0.57-1.11); POTASSIUM 3.5 mmol/L (3.5-5.1)
[2021-03-04] MEDS: INSULIN LISPRO 100 UNIT/1 ML 3ML VIAL SQ SCH ×4 (07:30→20:51)
[2021-03-04] MEDS: MIDODRINE HCL 5 MG TABLET PO SCH ×3 (07:44→16:45)
[2021-03-04] MEDS: FUROSEMIDE INJ 10 MG/ML 2 ML VIAL IV SCH (09:00)
[2021-03-04] MEDS: ASPIRIN 81 MG CHEW TAB PO SCH (09:00)
[2021-03-04] MEDS: FERROUS SULFATE 325 MG TAB PO SCH (09:00)
[2021-03-04] MEDS ORDERED: SODIUM CHLORIDE 0.9% 250ML 250 ML IV ONE (09:00)
[2021-03-04] MEDS: CEFTRIAXONE 1 GM in SODIUM CHLORIDE 0.9% 50ML 50 ML IV SCH (09:00)
[2021-03-04] MEDS ORDERED: SODIUM CHLORIDE 0.9% 250ML 250 ML ONE (12:11)
[2021-03-04] MEDS ORDERED: ONDANSETRON HCL 4 MG ORAL DISINTEGRATING TAB PO PRN (15:45)
[2021-03-04] MEDS: SIMVASTATIN 40 MG TAB PO SCH (20:46)
[2021-03-04] MEDS: MIRTAZAPINE 15 MG TAB PO SCH (20:46)
[2021-03-04] MEDS: ACETAMINOPHEN 325 MG TAB PO PRN (20:47)
[2021-03-05] VITALS (8 sets, daily range): BP systolic 97–123; BP diastolic 42–69
[2021-03-05] MEDS: LEVOTHYROXINE SODIUM 75 MCG TAB PO SCH (05:05)
[2021-03-05 06:07] LABS: BASOPHILS % 0.5 % (0.0-1.0); EOSINOPHILS # (AUTO) 0.1 (0.0-0.4); EOSINOPHILS % 1.6 % (0.0-6.0); HEMATOCRIT 30.2 % (34.2-44.1); HEMOGLOBIN 9.7 g/dL (12.0-16.0); LYMPHOCYTES # (AUTO) 0.6 (1.0-3.2); LYMPHOCYTES % 11.1 % (18.0-39.1); MEAN CORPUSCULAR HEMOGLOBIN 27.8 pg (28-32); MEAN CORPUSCULAR HGB CONC 32.1 g/dL (31-35); MEAN CORPUSCULAR VOLUME 86.5 fL (81-99); MONOCYTES # (AUTO) 0.2 (0.2-0.8); MONOCYTES % 2.9 % (4.4-11.3); NEUTROPHILS # (AUTO) 4.5 (2.1-6.9); NEUTROPHILS % 82.1 % (38.7-80.0); PLATELET COUNT 88 x10e3/uL (140-360); RED BLOOD COUNT 3.49 x10e6/uL (3.6-5.1); RED CELL DISTRIBUTION WIDTH 17.2 % (11.7-14.4)
[2021-03-05 06:15] LABS: ALBUMIN 1.9 g/dL (3.5-5.0); ALBUMIN/GLOBULIN RATIO 0.4 (0.8-2.0); CALCIUM 8.5 mg/dL (8.4-10.2); CREATININE, SERUM 0.92 mg/dL (0.57-1.11)
[2021-03-05] MEDS: INSULIN LISPRO 100 UNIT/1 ML 3ML VIAL SQ SCH ×4 (07:30→20:38)
[2021-03-05] MEDS: MIDODRINE HCL 5 MG TABLET PO SCH ×3 (08:20→16:26)
[2021-03-05] MEDS: FUROSEMIDE INJ 10 MG/ML 2 ML VIAL IV SCH (08:20)
[2021-03-05] MEDS: CEFTRIAXONE 1 GM in SODIUM CHLORIDE 0.9% 50ML 50 ML IV SCH (08:21)
[2021-03-05] MEDS: FERROUS SULFATE 325 MG TAB PO SCH (08:22)
[2021-03-05] MEDS: ASPIRIN 81 MG CHEW TAB PO SCH (08:22)
[2021-03-05] MEDS: SIMVASTATIN 40 MG TAB PO SCH (20:37)
[2021-03-05] MEDS: MIRTAZAPINE 15 MG TAB PO SCH (20:37)
[2021-03-05] MEDS ORDERED: POLYETHYLENE GLYCOL 3350 17 GM PACK PO ONE (21:30)
[2021-03-06 00:23] VITALS: BP 114/60
[2021-03-06] MEDS: LEVOTHYROXINE SODIUM 75 MCG TAB PO SCH (05:04)
[2021-03-06 05:28] LABS: BASOPHILS % 0.4 % (0.0-1.0); EOSINOPHILS # (AUTO) 0.1 (0.0-0.4); EOSINOPHILS % 1.3 % (0.0-6.0); HEMATOCRIT 27.9 % (34.2-44.1); HEMOGLOBIN 8.8 g/dL (12.0-16.0); LYMPHOCYTES # (AUTO) 0.9 (1.0-3.2); MEAN CORPUSCULAR HEMOGLOBIN 27.6 pg (28-32); MEAN CORPUSCULAR HGB CONC 31.5 g/dL (31-35); MEAN CORPUSCULAR VOLUME 87.5 fL (81-99); MONOCYTES # (AUTO) 0.3 (0.2-0.8); MONOCYTES % 5.6 % (4.4-11.3); NEUTROPHILS # (AUTO) 3.1 (2.1-6.9); NEUTROPHILS % 70.5 % (38.7-80.0); PLATELET COUNT 87 x10e3/uL (140-360); RED BLOOD COUNT 3.19 x10e6/uL (3.6-5.1)
[2021-03-06 05:59] LABS: ALBUMIN 1.8 g/dL (3.5-5.0); ALBUMIN/GLOBULIN RATIO 0.4 (0.8-2.0); ANION GAP 13.7 mmol/L (8-16); CALCIUM 8.5 mg/dL (8.4-10.2); CREATININE, SERUM 0.74 mg/dL (0.57-1.11); MAGNESIUM 1.9 MG/DL (1.3-2.1); POTASSIUM 3.7 mmol/L (3.5-5.1)
[2021-03-06 06:16] VITALS: BP 135/63
[2021-03-06 07:28] VITALS: BP 105/55
[2021-03-06 07:37] VITALS: BP 105/55
[2021-03-06] MEDS: INSULIN LISPRO 100 UNIT/1 ML 3ML VIAL SQ SCH ×2 (08:30→12:30)
[2021-03-06] MEDS: CEFTRIAXONE 1 GM in SODIUM CHLORIDE 0.9% 50ML 50 ML IV SCH (08:44)
[2021-03-06] MEDS: ASPIRIN 81 MG CHEW TAB PO SCH (08:46)
[2021-03-06] MEDS: FERROUS SULFATE 325 MG TAB PO SCH (08:46)
[2021-03-06] MEDS: FUROSEMIDE INJ 10 MG/ML 2 ML VIAL IV SCH (08:46)
[2021-03-06] MEDS: MIDODRINE HCL 5 MG TABLET PO SCH ×2 (08:46→12:37)
[2021-03-06] MEDS ORDERED: POLYETHYLENE GLYCOL 3350 17 GM PACK PO SCH (09:00)
[2021-03-06] MEDS ORDERED: BISACODYL 10 MG SUPP PR ONE (09:30)
[2021-03-06] MEDS ORDERED: AUGMENTIN 500-1 EACH PO (10:16)
[2021-03-06] MEDS ORDERED: ACETAMINOPHEN325 M1 PO (10:16)
[2021-03-06] MEDS ORDERED: MIDODRINE HCL5 MG PO (10:16)
[2021-03-06] MEDS ORDERED: MIRALAX17 GM PO (10:16)
[2021-03-06] MEDS ORDERED: MIRTAZAPINE15 MG PO (10:16)
[2021-03-06] MEDS ORDERED: ONDANSETRON ODT4 MG PO (10:16)
[2021-03-06] MEDS ORDERED: MELATONIN5 M2 PO (10:16)
[2021-03-06 11:35] VITALS: BP 111/69
[2021-03-06] MEDS ORDERED: AMOXICILLIN/CLAVULANATE K 500 MG TAB PO SCH (21:00)
== END 2021-03-06 13:39 | DRG 291 ==
LOC: MED/SURG 12:08
PROVIDERS: ADMIT Internal Medicine; ATTEND Internal Medicine
PROC: 30233N1 Transfusion of Nonautologous Red Blood Cells into Peripheral Vein, Percutaneous Approach (ICD-10-PCS; principal; 2021-03-04)
DX: I11.0 Hypertensive heart disease with heart failure (principal); I50.33 Acute on chronic diastolic (congestive) heart failure; N30.00 Acute cystitis without hematuria; D61.818 Other pancytopenia; R29.6 Repeated falls; Z95.2 Presence of prosthetic heart valve; E11.9 Type 2 diabetes mellitus without complications; Q96.9 Turner's syndrome, unspecified; Z20.822 Contact with and (suspected) exposure to COVID-19; D46.9 Myelodysplastic syndrome, unspecified; D63.8 Anemia in other chronic diseases classified elsewhere; E21.3 Hyperparathyroidism, unspecified; I95.9 Hypotension, unspecified; Z79.4 Long term (current) use of insulin
CPT/HCPCS: 36415; 71045; 71046; 80048; 80053; 81001; 82948; 83735; 83880; 84439; 84443; 85025; 86850; 86900; 86920; 87040; 87086; 93005; 94799; 96360; 96361; 96372; 99283; J0456; J0696; J1940; J7030; J7050; P9016; U0002

== ENCOUNTER 2021-05-18 21:38 | Emergency (ER) | payer MEDICARE, BC ==
[~2021-05-18] VITALS: Ht 149.9 cm; Wt 36.3 kg
[~2021-05-18 21:38] MED LIST changes: +ACETAMINOPHEN325 M1 PO; +AUGMENTIN 500-1 EACH PO; +ENSURE ORIGINA237 ML; +FUROSEMIDE40 MG PO; +GLIPIZIDE5 MG PO; +MELATONIN5 M2 PO; +METAMUCIL FIBE3.4 GM PO; +MIRALAX17 GM PO; +MIRTAZAPINE15 MG PO; +ONDANSETRON ODT4 MG PO
[2021-05-18] MEDS ORDERED: ASPIRIN 81 MG CHEW TAB PO ONE (21:45)
[2021-05-18 21:51] LABS: BASOPHILS % 0.3 % (0.0-1.0); EOSINOPHILS % 0.2 % (0.0-6.0); HEMATOCRIT 31.3 % (34.2-44.1); HEMOGLOBIN 9.7 g/dL (12.0-16.0); LYMPHOCYTES # (AUTO) 0.8 (1.0-3.2); LYMPHOCYTES % 12.9 % (18.0-39.1); MEAN CORPUSCULAR HEMOGLOBIN 32.2 pg (28-32); MONOCYTES # (AUTO) 0.2 (0.2-0.8); MONOCYTES % 2.9 % (4.4-11.3); NEUTROPHILS # (AUTO) 4.7 (2.1-6.9); NEUTROPHILS % 80.8 % (38.7-80.0); PLATELET COUNT 106 x10e3/uL (140-360); RED BLOOD COUNT 3.01 x10e6/uL (3.6-5.1); RED CELL DISTRIBUTION WIDTH 14.8 % (11.7-14.4)
[2021-05-18 22:10] LABS: ALBUMIN 3.5 g/dL (3.5-5.0); ALBUMIN/GLOBULIN RATIO 0.6 (0.8-2.0); ANION GAP 19.8 mmol/L (8-16); CALCIUM 11.1 mg/dL (8.4-10.2); CREATININE, SERUM 1.37 mg/dL (0.57-1.11); POTASSIUM 3.8 mmol/L (3.5-5.1)
[2021-05-18 22:16] LABS: CREATINE KINASE MB 1.8 ng/mL (0-5.0)
[2021-05-18 23:13] LABS: CLARITY,URINE CLOUDY (CLEAR); COLOR,URINE YELLOW (YELLOW); KETONES,URINE NEGATIVE (NEGATIVE); LEUKOCYTE ESTERASE ,URINE NEGATIVE (NEGATIVE); NITRITE,URINE NEGATIVE (NEGATIVE); PROTEIN,URINE DIPSTICK 1+ (NEGATIVE); URINE UROBILINOGEN 0.2 mg/dL (0.2 - 1)
[2021-05-18 23:14] LABS: BACTERIA,URINE MODERATE /HPF; EPITHELIAL CELLS,URINE FEW /LPF
[2021-05-18] MEDS ORDERED: CEFTRIAXONE 2 GM in SODIUM CHLORIDE 0.9% 100 ML IV ONE (23:45)
== END 2021-05-19 02:45 | disposition other institution (70) ==
LOC: ER 21:42
DX: U07.1 COVID-19 (principal); J18.9 Pneumonia, unspecified organism; I60.9 Nontraumatic subarachnoid hemorrhage, unspecified; R94.31 Abnormal electrocardiogram [ECG] [EKG]
CPT/HCPCS: 36415; 70450; 71045; 72125; 72170; 80053; 81001; 82550; 82553; 83605; 83880; 84484; 85025; 87040; 99284; J0456; J0696; J7050 ×2; U0002; 93005